=== PATIENT | male | born 1965 | race Caucasian/White ===

== ENCOUNTER 2024-12-28 09:34 | Inpatient (IN) | payer BC ==
[~2024-12-28] VITALS: Ht 172.7 cm; Wt 154.7 kg
[2024-12-28] VITALS (7 sets, daily range): BP systolic 126–152; BP diastolic 70–83; PULSE 95–108; RESP 18–23; TEMP 98.4–98.5; O2SAT 96–98
--- NOTE | 2024-12-28 09:43 | EKG ---
[facility] Test Date: 2024-12-28 Test Time: 09:38:14 Pat Name: KINGA JONES Department: ED Room: 228 Gender: M Combine Inspector: [id number] : 1965 Requested By: MOISES IQBAL Order Number: [id number] Reading MD: Samson Lomax Measurements Intervals [place] Rate: 140 P: 18 ME: 139 QRS: 53 QRSD: 84 T: 10 QT: 285 QTc: 436 Interpretive Statements Sinus tachycardia No previous ECG available for comparison Electronically Signed On 12-28-2024 15:54:04 CDT by Samson Lomax Please click the below link to view image of tracing.
--- NOTE | 2024-12-28 09:52 | ERN ---
General Chief Complaint: Shortness of Breath Stated Complaint: SOB Time Seen by MD: 09:36 Source: patient History of Present Illness Initial Comments Patient is a 59-year-old male coming in with multiple complaints. Per EMS patient has a being evaluated by his primary care physician Dr. Melgar that has concerns because patient presented with shortness of breath and diaphoresis patient does has a history of stent placement he also has a history of WPW. Allergies: Coded Allergies: No Known Drug Allergies (Unverified Allergy, Unknown, 12/28/24) Past Medical History Past Medical History: Depression, Hypertension, Other Medical History Other: TACHYCARDIA, MORBID OBESITY, MCBRIDE PARKINSON WHITE SYNDROME, SLEEP APNEA Past Surgical History: Other Surgical History Other: LEFT HEART CATH WITH CARDIAC STENT PLACEMENT, GASTRIC BYPASS. ROS Dictation CONSTITUTIONAL: No chills, no fever, no weakness, no diaphoresis, no malaise. HEAD/FACE: No signs of trauma. EENT: No eye pain, no blurred vision, no tearing, no double vision, no ear pain, no ear discharge, no nose pain, no nasal congestion, no throat pain, no throat swelling, no mouth pain. RESPIRATORY: No cough, no orthopnea, SOB, no stridor, no wheezing. CARDIOVASCULAR: No chest pain, no edema, palpitations, no syncope. GASTROINTESTINAL/ABDOMINAL: No abdominal pain, no constipation, no diarrhea, no nausea, no vomiting. GENITOURINARY: No abnormal discharge, no dysuria, no frequent urination, no hematuria. No complaints of pain in the genitals. MUSCULOSKELETAL: No back pain, no gout, no joint pain, no joint swelling, no muscle pain, no muscle stiffness, no neck pain. INTEGUMENTARY: No change in color, no change in hair/nails, no dryness, no lesion, no lumps, no rash. NEUROLOGICAL/PSYCH: No anxiety, not depressed, no emotional problem, no headache, no numbness, no pre-existing deficit, no history of seizures, no tremors, no weakness. HEMATOLOGIC/LYMPHATIC: Not anemic, no history of blood clots, no apparent bleeding, no bruising, glands not swollen. All Systems Negative, Except as Noted. Physical Exam Physical Exam Dictation VITAL SIGNS: Reviewed. GENERAL APPEARANCE: Alert, oriented x3, no acute distress, obese. HEAD AND FACE: Non-traumatic. EYES: PERRL, pink conjunctivas, eyelid no trauma, anterior chamber clear. EARS: Pinnas intact and no signs of trauma or erythema. Ear canals clear and no discharge. TMs no erythema. NOSE: No discharge, no bleeding. OROPHARYNX: Mouth normal, teeth no caries, tongue pink. Pharynx clear, no erythema. Tonsils no exudates, no abscesses noted. Mucous membrane moist. NECK: Supple, non-tender, no thyromegaly, no masses, no JVD, no bruits. BREAST: Deferred. CHEST: No tenderness, no crepitus, no paradoxical movement, no retractions. LUNGS: Clear, well-ventilated, symmetric, no rales, no wheezing, no rhonchi, no stridor, good breath sounds bilaterally. HEART: Regular rate, regular rhythm, no murmur, no gallops. VASCULAR: No peripheral edema. ABDOMEN: Soft, positive bowel sounds, nondistended, no guarding, nontender, no rebound, no masses no hepatomegaly, no splenomegaly, no Boyle's sign, no hernias. RECTAL: Deferred. GENITAL: Deferred. NEUROLOGICAL: Normal speech, gross motor function intact, gross sensory function intact. MUSCULOSKELETAL: Neck nontender, full range of motion, back nontender, full range of motion. EXTREMITIES: Nontender, full range of motion. SKIN: Color pink, dry, no turgor, no rash, no lacerations, no abrasions, no contusions. LYMPHATICS: Deferred. Results Laboratory and Microbiology Lab and Micro Result Laboratory Tests Test 12/28/24 10:11 12/28/24 10:55 White Blood Count 13.0 K/uL (4.8-10.8) H Red Blood Count 5.71 MIL/uL (4.50-6.20) Hemoglobin 15.7 g/dL (14.0-18.0) Hematocrit 46.7 % (42-54) Mean Corpuscular Volume 81.8 fL (79-99) Mean Corpuscular Hemoglobin 27.5 pg (27.0-33.0) Mean Corpuscular Hemoglobin Concent 33.6 g/dL (32.0-36.0) Red Cell Distribution Width 17.9 % (11.0-15.5) H Platelet Count 123 K/uL (130-400) L Mean Platelet Volume 11.3 fL (7.5-10.5) H Immature Granulocyte % (Auto) 0.5 % (0-1) Neutrophils (%) (Auto) 84.5 % (40.0-77.0) H Lymphocytes (%) (Auto) 7.9 % (21.0-51.0) L Monocytes (%) (Auto) 6.9 % (3.0-13.0) Eosinophils (%) (Auto) 0.0 % (0.0-8.0) Basophils (%) (Auto) 0.2 % (0.0-5.0) Neutrophils # (Auto) 11.0 K/uL (1.8-7.7) H Lymphocytes # (Auto) 1.0 K/uL (1.0-4.8) Monocytes # (Auto) 0.9 K/uL (0.1-1.0) Eosinophils # (Auto) 0.00 K/uL (0.00-0.70) Basophils # (Auto) 0.02 K/uL (0.00-0.20) Absolute Immature Granulocyte (auto 0.06 K/uL (0-1) Nucleated Red Blood Cells 0.0 % (0.0-0.19) White Cell Morphology Comment See comments Sodium Level 132 mmol/L (136-145) L Potassium Level 4.1 mmol/L (3.5-5.1) Chloride Level 96 mmol/L (101-111) L Carbon Dioxide Level 28 mmol/L (21-32) Blood Urea Nitrogen 28 mg/dL (7-18) H Creatinine 1.8 mg/dL (0.5-1.3) H Glomerular Filtration Rate Calc 43 mL/min (>90) Random Glucose 121 mg/dL (70-105) H Total Calcium 8.3 mg/dL (8.5-10.1) L Magnesium Level 1.90 mg/dL (1.80-2.40) Troponin I High Sensitivity 182 ng/L (4-75) *H 189 ng/L (4-75) *H B-Type Natriuretic Peptide 44 pg/mL (0-100) EKG/XRAY/US/CT/MRI EKG Comment 12/28/2024 time 9:38 a.m. Ventricular rate 140 Sinus tachycardia MI [address] wave elevation or depression X-RAY Comment IMAGING REPORT Signed PATIENT: KINGA JONES MR#: [id number] : 1965 SEX: M AGE: 59 LOCATION: [facility] ORDER 7 STATUS: [facility] ER REPORT#: [id number] SERVICE REASON: sob ORDERING PHYSICIAN: MOISES IQBAL MD PROCEDURE: CXR1VW - CHEST 1VW EXAM: CR Chest, 1 View. CLINICAL HISTORY: sob COMPARISON: None provided. FINDINGS: LUNGS: The lungs show no infiltrate or other acute finding. PLEURAL SPACES: No pleural effusion or pneumothorax. MEDIASTINUM: Cardiac size and mediastinal contours within normal limits. BONES: No aggressive appearing osseous lesion seen. IMPRESSION: No acute cardiopulmonary pathology is evident. /[place] DICTATED BY: MARY JO LIM MD DATE: 12/28/241157 ELECTRONICALLY SIGNED BY: MARY JO LIM MD DATE: 12/28/241157 MDM MDM: Differential diagnosis: Tachycardia, dehydration, LANE, ACS, Rationale: Tests considered and ordered secondary to shared decision making include: labs, ECG and radiology Previous outside records reviewed: Old ER visits. Risk of complication and/or morbidity or mortality of patient management: None Medications-Per medication reconciliation Need for hospitalization: Patient does meet criteria for hospitalization. Need for emergency major/minor surgery: No There are no social concerns with this patient. Prescription drug management Prescriptions will include symptomatic care Patient's prior external medical records from other ER visits were reviewed by me as indicated. Prior testing and results from previous visits were reviewed. Prior tests were taken into account with medical decision making and resource utilization, independent historian/historians were used to obtain complete medical history. I independently interpreted the test that were performed, results were reviewed by me and considered findings on radiology if ordered. Medical management and examination interpretation discussions were had by me with other qualified healthcare professionals as indicated for the patient's care. Patient is a 59-year-old gentleman coming in complaining of diaphoresis generalized body weakness and diarrheal episodes. Laboratory workup elevated troponin, patient states that he has not been taking his medications as indicated. Patient will be admitted under the care of hospitalist group for ongoing management. ED Course Orders Procedure Category Date Status Time Cbc With Differential LAB 12/28/24 Complete 09:37 Chest 1vw RAD 12/28/24 Resulted 09:37 12 Lead Ekg Tracing- EKG 12/28/24 Complete Technical 09:37 Magnesium LAB 12/28/24 Complete 09:37 Troponin I High LAB 12/28/24 Complete Sensitivity 09:37 Urinalysis Profile LAB 12/28/24 Logged 09:37 Basic Metabolic Panel LAB 12/28/24 Complete 09:37 B-Type Natriuretic LAB 12/28/24 Complete Peptide 09:37 Procainamide Hcl PHA 12/28/24 Complete (Pronestyl) 10:00 Metoprolol Tartrate PHA 12/28/24 Complete (Lopressor) 10:30 Aspirin 325mg Tab PHA 12/28/24 Complete (Aspirin 325mg Tab) 11:00 Troponin I High LAB 12/28/24 Complete Sensitivity 10:42 Current Medications Medications (Trade) Dose Ordered Sig/Donald Route PRN Reason Start Time Stop Time Status Last Admin Dose Admin Aspirin (Aspirin 325mg Tab) 325 mg ONCE ONCE PO 12/28/24 11:00 12/28/24 11:01 DC 12/28/24 10:46 Metoprolol Tartrate (loprESSOR) 5 mg ONCE ONCE IV 12/28/24 10:30 12/28/24 10:31 DC 12/28/24 10:38 Procainamide HCl 2000 mg/Sodium Chloride 250 ml @ 0 mls/hr PROTOCOL IV 12/28/24 10:00 12/28/24 10:42 DC Vital Signs Date Time Temp Pulse Resp B/P (MAP) Pulse Ox O2 Delivery O2 Flow Rate FiO2 12/28/24 11:15 98.2 116 22 127/87 98 Nasal Cannula* 3 32 12/28/24 10:38 128 139/91 12/28/24 10:09 98.6 128 20 139/91 97 Nasal Cannula* 3 32 12/28/24 09:39 97.9 20 110/74 96 Room Air 2.0 Critical Care Note Comments Critical Care Procedure Note Authorized and Performed by: me Total critical care time: Approximately 36 minutes Due to a high probability of clinically significant, life threatening deterior ation, the patient required my highest level of preparedness to intervene emergently and I personally spent this critical care time directly and personally managing the patient. This critical care time included obtaining a history; examining the patient; pulse oximetry; ordering and review of studies; arranging urgent treatment with development of a management plan; evaluation of patient's response to treatment; frequent reassessment; and, discussions with other providers. This critical care time was performed to assess and manage the high probability of imminent, life-threatening deterioration that could result in multi-organ failure. It was exclusive of separately billable procedures and treating other patients and teaching time. Please see MDM section and the rest of the note for further information on patient assessment and treatment. DX & DISP Disposition: Inpatient Decision to Admit Time: 11:27 Departure Impression: Primary Impression: LANE (acute kidney injury) Additional Impressions: ACS (acute coronary syndrome), Sinus tachycardia, Dehydration Condition: Stable Referrals: KATHERINE ROSS MD (PCP) MOISES IQBAL MD Dec 28, 2024 09:52
[2024-12-28] MEDS ORDERED: NACL 0.9% IV SCH (10:00)
[2024-12-28] MEDS ORDERED: PROCAINAMIDE HCL IV SCH (10:00)
[2024-12-28 10:19] LABS: IMMATURE GRANULOCYTE ABSOLUTE 0.06 K/uL (0-1); NUCLEATED RED BLOOD CELLS 0.0 % (0.0-0.19); PLATELET COUNT (AUTO) 123 K/uL (130-400); RED BLOOD CELL COUNT(AUTO) 5.71 MIL/uL (4.50-6.20); RED CELL DISTRIBUTION WIDTH 17.9 % (11.0-15.5); WHITE BLOOD COUNT (AUTO) 13.0 K/uL (4.8-10.8)
[2024-12-28 10:26] LABS: CREATININE 1.8 mg/dL (0.5-1.3); GLOMERULAR FILTR. RATE CALC 43.0 mL/min (>90); GLUCOSE,RANDOM 121.0 mg/dL (70-105); SODIUM SERUM 132.0 mmol/L (136-145); UREA NITROGEN, BLOOD 28.0 mg/dL (7-18)
[2024-12-28] MEDS: ASPIRIN 325MG TAB PO ONE (10:46)
--- NOTE | 2024-12-28 10:59 | HMCIMG ---
EXAM: CR Chest, 1 View. CLINICAL HISTORY: sob COMPARISON: None provided. FINDINGS: LUNGS: The lungs show no infiltrate or other acute finding. PLEURAL SPACES: No pleural effusion or pneumothorax. MEDIASTINUM: Cardiac size and mediastinal contours within normal limits. BONES: No aggressive appearing osseous lesion seen. IMPRESSION: No acute cardiopulmonary pathology is evident. /[place]
[2024-12-28] MEDS ORDERED: 0.9%NACL 50ML IV SCH (12:00)
[2024-12-28 12:02] LABS: INR 1.17 (0.85-1.15)
--- NOTE | 2024-12-28 12:17 | HP ---
[facility] HISTORY AND PHYSICAL Date of Service: Dec 28, 2024 Time of Service: 12:09 HISTORY OF PRESENT ILLNESS: Date of service: 12/28/2024 patient was seen in ER room two This is a 59-year-old male with underlying history of hypertension, morbid obesity, hyperlipidemia, obstructive sleep apnea, history of Vkiop-Jqhccuvcy-Enkmt syndrome, coronary artery disease with prior history of CT, who presented to the ER for further evaluation of generalized malaise, poor oral intake, diaphoresis and shortness of breadth. Symptoms have been ongoing for the past three days and has been progressive. Patient has been having nonresolving shortness of breath with no associated chest pain or pleurisy. Denies any productive cough, syncope/presyncope, wheezing or chest congestion. Denies having subjective fevers. Patient has been having malaise and has been having some generalized weakness. Denies recent travel or significant lower extremity swelling. Patient reports that he is followed by Dr. Gonzalez with Cardiology as outpatient. He has not seen Dr. Gonzalez for more than 10 years. Patient has underlying history of coronary artery disease and previously has had CT in 2007. He has had of multiple cardiac stents previously. Also reports having history of Wxtxp-Rayxxrppv-Nbpss syndrome and has had two prior cardiac ablation done with last one being in 2014. Prior to getting ill, patient denied having exertional chest pain or significant cardiac symptoms. Patient reports having poor oral intake with episodes of nausea and vomiting. Denies any diarrhea. Denies any significant abdominal pain. On presentation to the hospital, patient was noted to be diaphoretic w/ T-max of 99.3 F, heart rate of 128, blood pressure of 110/74 and patient was needing 3 L of O2 supplementation by nasal cannula. [place] [address], hemoglobin 15.7, platelet count of 536288. BMP remarkable for sodium of 132, potassium 4.1, CO2 of 28, BUN of 28, creatinine 1.8, cardiac troponin was noted to be at 182 and 189. Chest x-ray showed no significant infiltrates. Patient we will be admitted to hospitalist service. Consultation with Cardiology will be requested rule out active ACS. Patient will also undergo further evaluation to rule out DVT/PE. Patient will receive IV fluids, IV antibiotics, and we will rule out occult sepsis as well. Monitor this patient closely and prognosis remains guarded, anticipate hospitalization for at least 48-72 hours. REVIEW OF SYSTEMS CONSTITUTIONAL: generalized fatigue, malaise NEUROLOGICAL: Denies headache, amaurosis fugax, motor weakness, sensory deficit, vertigo/spinning sensation, gait abnormalities, or tremors. ENT: No hearing loss, otalgia, otorrhea, rhinitis, rhinorrhea, hoarseness, or sore throat. CARDIOVASCULAR: Denies any exertional angina, dyspnea on exertion, orthopnea, paroxysmal nocturnal dyspnea, palpitations, life-threatening arrhythmias, claudication. PULMONARY: Shortness of breath, diaphoresis SLEEP: Denies morning headaches, daytime somnolence or napping. Denies difficulty falling asleep, staying asleep, waking from sleep. Denies knowledge of snoring. GASTROINTESTINAL: reports having nausea and vomiting GENITOURINARY: Denies frequency, urgency, nocturia, hematuria or incontinence (Storage/Irritative symptoms.) Low urinary stream, straining to void, urinary intermittency or hesitancy, splitting of the voiding stream, terminal dribbling. ENDOCRINOLOGIC: Denies polyuria, polydipsia, polyphagia or heat/cold intolerances. HEMATOLOGIC: Denies thrombophilia/previous clots, or coagulopathy/bleeding disorders. ONCOLOGIC: Denies personal history of malignancy. DERMATOLOGIC: Denies rashes or pruritus. PSYCHIATRIC: Denies any suicidal or homicidal ideation. Denies hallucinations. PAST MEDICAL HISTORY: Coronary artery disease, history of Itojc-Qigtvmqnx-Aylmf syndrome, obstructive sleep apnea, morbid obesity, depression, history of chronically elevated LFTs, history of vitamin-D deficiency history of lump in right breast, hyperlipidemia PAST SURGICAL HISTORY: Cardiac catheterization with prior history of stenting in 2005, 2007, 2013, history of cardiac ablation for WPW syndrome, left hand surgery, history of gastric bypass surgery PAST SOCIAL HISTORY: Denies active smoking or alcohol consumption, patient resides with a friend at home FAMILY HISTORY: Father in the age of 49, father with be of heart disease, kidney disease Allergies: No known drug allergies Home medications: Aspirin 81 mg daily, atorvastatin 80 mg daily, bupropion XL 150 mg daily, metoprolol succinate 25 mg daily, zolpidem 5 mg daily, vitamin-D two 1250 mcg every two weeks Coded Allergies: No Known Drug Allergies (Unverified Allergy, Unknown, 12/28/24) PHYSICAL EXAM GENERAL APPEARANCE: The patient is awake, alert, patient appears very diaphoretic, currently on 3 L supplementation by nasal cannula, patient is morbidly obese NEUROLOGICAL: Cranial nerves II-XII grossly intact. Examination is nonfocal for the patient HEENT: Face is symmetric. Pupils are equal and reactive. Extraocular movements are intact. NECK: Supple. No JVD. No thyromegaly. No submental, submandibular, pre- /postauricular, occipital or supraclavicular lymphadenopathy. CHEST: Normal chest expansion. No Telemetry. LUNGS: Minimal crackles noted at bilateral lung bases CARDIOVASCULAR: Regular. S1 and S2 normal. Tachycardic was ABDOMEN: Soft, nontender, and nondistended. There is no rebound, voluntary guarding, or rigidity. : Deferred. No [place]. EXTREMITIES: Non-edematous and not cyanotic. No clubbing. Good capillary refill. SKIN: No skin breakdown. Vital Sign (Last 24 Hours) 12/28/24 11:41 Temp 99.3 Pulse 105 Resp 25 B/P (MAP) 131/71 Pulse Ox 98 O2 Delivery Nasal Cannula* O2 Flow Rate 3 FiO2 32 LABS: Laboratory: Test 12/28/24 10:55 12/28/24 10:11 Range/Units Troponin I High Sensitivity 189 *H 4-75 ng/L White Blood Count 13.0 H 4.8-10.8 K/uL Red Blood Count 5.71 4.50-6.20 MIL/uL Hemoglobin 15.7 14.0-18.0 g/dL Hematocrit 46.7 42-54 % Mean Corpuscular Volume 81.8 79-99 fL Mean Corpuscular Hemoglobin 27.5 27.0-33.0 pg Mean Corpuscular Hemoglobin Concent 33.6 32.0-36.0 g/dL Red Cell Distribution Width 17.9 H 11.0-15.5 % Platelet Count 123 L 130-400 K/uL Mean Platelet Volume 11.3 H 7.5-10.5 fL Immature Granulocyte % (Auto) 0.5 0-1 % Neutrophils (%) (Auto) 84.5 H 40.0-77.0 % Lymphocytes (%) (Auto) 7.9 L 21.0-51.0 % Monocytes (%) (Auto) 6.9 3.0-13.0 % Eosinophils (%) (Auto) 0.0 0.0-8.0 % Basophils (%) (Auto) 0.2 0.0-5.0 % Neutrophils # (Auto) 11.0 H 1.8-7.7 K/uL Lymphocytes # (Auto) 1.0 1.0-4.8 K/uL Monocytes # (Auto) 0.9 0.1-1.0 K/uL Eosinophils # (Auto) 0.00 0.00-0.70 K/uL Basophils # (Auto) 0.02 0.00-0.20 K/uL Absolute Immature Granulocyte (auto 0.06 0-1 K/uL Nucleated Red Blood Cells 0.0 0.0-0.19 % White Cell Morphology Comment See comments Erythrocyte Sedimentation Rate 67 H 0-20 MM/HR Prothrombin Time 12.2 H 9.6-11.6 SEC Prothromb Time International Ratio 1.17 H 0.85-1.15 Activated Partial Thromboplast Time 29.3 26.3-35.5 SEC Sodium Level 132 L 136-145 mmol/L Potassium Level 4.1 3.5-5.1 mmol/L Chloride Level 96 L 101-111 mmol/L Carbon Dioxide Level 28 21-32 mmol/L Blood Urea Nitrogen 28 H 7-18 mg/dL Creatinine 1.8 H 0.5-1.3 mg/dL Glomerular Filtration Rate Calc 43 >90 mL/min Random Glucose 121 H 70-105 mg/dL Hemoglobin A1c 5.8 4.0-6.0 % Estimated Average Glucose (eAG) 120 70-126 mg/dL Total Calcium 8.3 L 8.5-10.1 mg/dL Magnesium Level 1.90 1.80-2.40 mg/dL B-Type Natriuretic Peptide 44 0-100 pg/mL Current Medications Medications (Trade) Dose Ordered Sig/Donald Route PRN Reason Start Time Stop Time Status Last Admin Dose Admin Acetaminophen (TYLenol 325MG TAB) 650 mg Q6H PRN PO MILD PAIN (1-3) 12/28/24 12:00 01/27/25 11:59 Aspirin (Aspirin 81mg Chew Tab) 81 mg DAILY PO 12/29/24 09:00 01/28/25 08:59 Enoxaparin Sodium (Lovenox) 40 mg DAILY SQ 12/29/24 09:00 01/28/25 08:59 Famotidine (Pepcid 20mg Vial) 20 mg Q24H IV 12/28/24 21:00 01/27/25 20:59 Ipratropium Calvin (AtrovENT UD) 1 mg Q6H PRN IH SHORTNESS OF BREATH 12/28/24 12:00 01/27/25 11:59 Metoprolol Succinate (TopROL XL) 25 mg DAILY PO 12/28/24 13:00 01/27/25 12:59 Ondansetron HCl (zoFRAN 4MG INJ) 4 mg Q6H PRN IVP NAUSEA/VOMITING 12/28/24 12:00 01/27/25 11:59 Piperacillin Sod/ Tazobactam Sod (Zosyn 3.375gm+NS 50ml) 3.375 gm Q8H IVPB 12/28/24 12:00 01/07/25 11:59 Procainamide HCl 2000 mg/Sodium Chloride 250 ml @ 0 mls/hr PROTOCOL IV 12/28/24 10:00 12/28/24 10:42 DC Sodium Chloride 1,000 ml @ 100 mls/hr Q10H IV 12/28/24 12:00 01/27/25 11:59 Sodium Chloride (NS 50ml) 50 ml AD IV 12/28/24 12:00 12/28/24 11:59 DC Thiamine HCl (Vitamin B-1) 100 mg Q24H IVP 12/28/24 12:00 01/27/25 11:59 Vitamin B Complex/ Vit C/Folic Acid (Nephrovite Tablet) 1 cap DAILY PO 12/29/24 09:00 01/28/25 08:59 DIAGNOSTICS / RADIOLOGY: SERVICE [id number] REASON: sob ORDERING PHYSICIAN: MOISES IQBAL MD PROCEDURE: CXR1VW - CHEST 1VW EXAM: CR Chest, 1 View. CLINICAL HISTORY: sob COMPARISON: None provided. FINDINGS: LUNGS: The lungs show no infiltrate or other acute finding. PLEURAL SPACES: No pleural effusion or pneumothorax. MEDIASTINUM: Cardiac size and mediastinal contours within normal limits. BONES: No aggressive appearing osseous lesion seen. IMPRESSION: No acute cardiopulmonary pathology is evident. /[place] DICTATED BY: MARY JO LIM MD DATE: 12/28/241157 ELECTRONICALLY SIGNED BY: MARY JO LIM MD DATE: 12/28/245 ASSESSMENT: Acute hypoxemic respiratory failure, POA Elevated cardiac troponin, rule out active ACS, POA Rule out DVT/PE, POA Acute Kidney injury, POA Hyponatremia, POA Morbid obesity, POA Sinus tachycardia, POA Rule out occult sepsis, POA Thrombocytopenia, POA, mild Underlying history of obstructive sleep apnea, POA Hypertension, POA Hyperlipidemia, POA History of CT, POA History of coronary artery disease with prior history of PCI, POA History of Shsng-Kfnroyfxv-Frtqn syndrome with prior history of cardiac ablation, POA History of depression, POA Prior history of gastric bypass surgery, POA Hx of fatty liver diesease, POA Cholelithiasis, POA PLAN: Patient will be admitted to cardiac telemetry floor We will obtain arterial blood gas to assess for hypoxemia, we will check a D- dimer level, if significantly elevated, we will obtain a CT PE protocol, we will obtain a lower extremity venous Doppler We will trend cardiac panel to rule out active ACS We will obtain a 2D echocardiogram Titrate supplemental O2 therapy to maintain oxygen saturations greater than 92% Consultation with Cardiology will be requested Consultation with pulmonology and Nephrology will be requested We will start patient on IV saline at 100 mL/hour, we will start patient on empiric Zosyn, we will follow up blood cultures, CRP and procalcitonin, we will check a urinalysis and rule out active infection, we will check flu and COVID testing Patient's Friend at bedside as noted that patient has been more lethargic since yesterday with symptoms of inattention and has been complaining of generalized weakness, today when he brought pt to the ED, he noticed that patient might gait unsteadiness and he noticed that patient complaint of feeling like he might fall to the left side we will obtain a CT head without contrast, we will check ammonia level We will check a lactic acid level, we will monitor this patient closely, we will start patient on aspirin therapy, if troponin significantly increase, we will consider IV anticoagulation All labs will be repeated in the morning Continue CPAP therapy tonight Addendum, 1999, 12/29/2024: On review of further results including diagnostic imaging performed, CT head showed findings of possible CVA involving the right caudate nucleus. MRI Brain showed findings of Acute infarct in the right basal ganglia, and small acute infarct in the left occipital lobe. CT PE was negative for PE but showed findings of acute pancreatitis with cholelithiasis with possible basilar pneumonia vs basilar atelectasis. Review of MRI Angiogram of head/neck showed findings of Paucity of signal in the left vertebral artery; left vertebral artery dissection cannot be entirely excluded. Findings of acute CVA was discussed with Dr. Butcher with Neurology, plan to continue Aspirin 81 mg daily, we will repeat CT head without contrast tomorrow to ensure there is no hemorrhagic transformation of stroke. If no bleeding, patient will be placed on dual antiplatelet therapy with aspirin and plavix tomorrow. Per Dr. Butcher on review of MRI brain, there might be small area of petechial hemorrhage around the area of stroke. Plan to repeat CT head tomorrow to further assess and rule out any hemorrhagic transformation. With regards to findings of MRI Angiogram,, it does not correlate with region of stroke. I have broadened abx to Zosyn and Doxycycline to cover for pneumonia. Findings have all been updated with the patient. Patient will benefit from outpatient evaluation by General surgery for cholecystectomy once he recovers from stroke, pneumonia and will have cardiology evaluate patient with regards to elevated troponin likely demand ischemia. 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 Yes _x_ No __ Amount of time spent: 20 minutes LIVE SAHA MD Dec 28, 2024 12:16
[2024-12-28] MEDS: 0.9%NACL 1000ML 1,000 ML IV SCH (12:19)
[2024-12-28] MEDS: THIAMINE HCL 100 MG/ML 2ML VIAL IVP SCH (12:19)
[2024-12-28] MEDS: ZOSYN 3.375GM +NS 50ML IVPB SCH (12:19)
[2024-12-28 12:44] LABS: ASPARTATE AMINOTRANSFERASE 65.0 U/L (10-37); TOTAL PROTEIN, SERUM 7.4 g/dL (6.0-8.3)
[2024-12-28 12:45] LABS: SARS-CoV-2, RNA, NAAT NEGATIVE SARS CoV-2 (NEGATIVE)
[2024-12-28 12:48] LABS: INFLUENZA TYPE A Negative For Type A (NEGATIVE); INFLUENZA TYPE B Negative For Type B (NEGATIVE)
[2024-12-28] MEDS ORDERED: IOHEXOL-350 75 ML VIAL IV ONE (12:57)
[2024-12-28 13:25] LABS: ABG BASE EXCESS -1.6 mmol/L (-2.0-3.0); ABG HCO3 21.1 mmol/L (21.0-28.0); ABG OXYGEN SATURATION 97.0 % (94.0-98.0); ABG PCO2 31 mmHg (35-48); ABG PH 7.457 (7.350-7.450); CARBON MONOXIDE 1.3 % (0.5-1.5); DEVICE COMMENT RR OSCAR; PO2, ARTERIAL BG 94.4 mmHg (83.0-108.0); TEMPERATURE, CELSIUS BG 37.0 CELSIUS (35.5-37.0); VENT MODE, BG 2LNC (ROOM AIR)
--- NOTE | 2024-12-28 13:35 | HMCIMG ---
EXAM: US for Deep Venous Thrombosis, bilateral Lower Extremity. CLINICAL HISTORY: Leg Pain and Swelling TECHNIQUE: Real-time ultrasound scan of the veins of the bilateral lower extremity with color Doppler flow, spectral waveform analysis and compression. COMPARISON: None provided. FINDINGS: DEEP VEINS: The common femoral, superficial femoral, and popliteal veins are echolucent and compressible. There is normal color Doppler flow throughout. The visualized calf veins appear patent. SOFT TISSUES: No popliteal fossa cyst or other abnormalities. IMPRESSION: 1. No evidence of deep venous thrombosis in the bilateral lower extremities. /[place]
[2024-12-28 13:37] LABS: LACTATE DEHYDROGENASE 293.0 U/L (81-234)
--- NOTE | 2024-12-28 13:43 | HMCIMG ---
EXAM: CT Head Without IV contrast. CLINICAL HISTORY: generalized weakness, mild confusion per friend TECHNIQUE: Axial computed tomography images of the head/brain without intravenous contrast. COMPARISON: None provided. FINDINGS: BRAIN: A relatively well-defined hypodensity involving the right caudate nucleus and the anterior aspect of the gangliocapsular region can be an acute to subacute non-haemorrhagic infarct. No evidence of acute hemorrhage. No midline shift or extra-axial collections. VENTRICLES: No hydrocephalus. ORBITS: The orbits are unremarkable. SINUSES AND MASTOIDS: The paranasal sinuses and mastoid air cells are clear. BONES: No fracture. SOFT TISSUES: Unremarkable. IMPRESSION: 1. Hypodensity in the right caudate nucleus and anterior gangliocapsular region, likely representing an acute to subacute non-hemorrhagic infarct. Recommend MRI for further evaluation. 2. No acute intracranial hemorrhage, midline shift, or extra-axial collections. /[place]
--- NOTE | 2024-12-28 14:08 | HMCIMG ---
EXAM: CTA Chest with and without Intravenous Contrast for PE evaluation CLINICAL HISTORY: SOB, significantly elevated D-Dimer, r/o Pulmonary embolism TECHNIQUE: Axial CTA images of the chest with and without intravenous contrast using a pulmonary embolism protocol. Multiplanar reconstructed images were created and reviewed. COMPARISON: None provided. FINDINGS: PULMONARY ARTERIES: No evidence of central or segmental pulmonary embolism is seen. AORTA: There is no evidence for aneurysm or dissection of the thoracic aorta. Atherosclerotic changes in the aorta. LUNGS: There is mild dependent airspace disease within the bilateral lower lobes that is presumed to reflect atelectasis. PLEURAL SPACES: No evidence of pneumothorax. No pleural effusion. HEART: Mild cardiomegaly. Atherosclerosis of the coronary arteries. No significant pericardial effusion. LYMPH NODES: No lymphadenopathy is evident. BONES: No focal osseous abnormality or acute fracture. Mild degenerative changes in the spine. UPPER ABDOMEN: Multiple small hyperdense calculi in the gallbladder with no evidence of wall thickening. The pancreas appears bulky with mild peripancreatic fluid and fat stranding, and there is thickening of the left anterior renal fascia. Surgical sutures noted along stomach. Mild perihepatic fluid. IMPRESSION: 1. No evidence of pulmonary embolism. 2. Cholelithiasis without CT evidence for cholecystitis. 3. Acute pancreatitis. /[place]
--- NOTE | 2024-12-28 14:57 | NUR ---
DCP:HOME Pt currently lives with a friend [place], in her home. Pt does not have any DME, home health, or provider services. Pt states that he is able to complete ADLs independently. PCP is Dr. Tremayne Hernandez and uses [facility] for any RX needs. At [place] pt will want to go home and friends will assist with transportation services. Addendum: 12/28/24 at 1459 by JEFFREY KIDD SS Amended: Links added.
[2024-12-28] MEDS: DOXYCYCLINE 100MG+NS 250ML 250 ML IV SCH (15:07)
--- NOTE | 2024-12-28 15:32 | NUR ---
REPORT GIVEN TO CARMELA FRANCOIS, TANIA SENT UP WITH PATIENT
[2024-12-28 15:47] LABS: CREATINE KINASE, TOTAL 439.0 U/L (21-232)
[2024-12-28 16:03] LABS: LDL DIRECT 49 mg/dL (0-99)
--- NOTE | 2024-12-28 16:06 | NUR ---
I LET CARMELA FRANCOIS KNOW AT BEDSIDE THAT PATIENT IS STILL DUE TO VOID, PATIENT RESTING IN BED AFTR TRANSFER, FAMILY AT BEDSIDE
--- NOTE | 2024-12-28 16:13 | CONS ---
[facility] CONSULTATION NOTE Date Patient Seen: Dec 28, 2024 Time of Visit: 15:42 Supervising Physician: Teodoro Apple MD Reason for Consultation: [facility] Primary Care Physician: Tremayne Hernandez MD Outpatient Specialists: [ ] Inpatient Consults: SVETA, DR Butcher, Dr King, Dr Cramer, Dr Saleh PROBLEM LIST: Acute hypoxemic respiratory failure, POA Severe sepsis with MODS POA NSTEMI POA acute to subacute non-hemorrhagic CVA POA Acute pancreatitis, Lilli's criteria 1pont (1% predicted mortality) POA Cholelithiasis Elevated D-dimer negative for PE and DVT to lower extremities Acute Kidney injury, POA Mild thrombocytopenia Thrombocytopenia, POA, mild Essential hypertension, POA Hyperlipidemia, POA Comorbidities: DIYA on CPAP at home Prior Myocardial infarction Coronary artery disease with prior PCI 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 As per patient's friend who is at the bedside he noticed him being slower and slightly confused yesterday and they went to check on him today at home. Initially friends noticed that patient did not answer his door and it had to be open with the spare latham. Once in the home patient was slow to get out of his room and appeared to have poor balance. He was taken to his primary care physician and there he was referred to the ED for evaluation. On arrival to the ED patient was afebrile with a heart rate of 128 beats per minute sinus tachy hemodynamically stable with a blood pressure 110/74 saturatin g 96% on 2 L via nasal cannula. Laboratory was pertinent for white count of platelet count of 123 K neutrophils of 84.5 ESR of 67. Sodium of132 chloride of 96 BUN28 creatinine 1.8 GFR of43 and [id number] mg/dL. Initial sensitive troponin was 1BNP of 44 procalcitonin of 3.0. TSH of 4.31. Chest x-ray with no acute cardiopulmonary pathology. Venous Doppler to bilateral lower extremity with no evidence of DVT. Head CT with a hypodensity in the right caudate nucleus and anterior ganglia capsular region. Likely presenting acute on subacute nonhemorrhagic infarct. Recommended MRI for further evaluation. No acute intracranial hemorrhage or midline shift or extra-axial collections. On CT of the chest no evidence of PE cholelithiasis without CT evidence of cholecystitis Acute pancreatitis. PAST MEDICAL HX: see above PAST SURGICAL HX: noncontributory SOCIAL HISTORY: No tobacco, ETOH, or illicit drug use Coded Allergies: No Known Drug Allergies (Unverified Allergy, Unknown, 12/28/24) REVIEW OF SYSTEMS: Const: + generalized malaise Eyes: no recent vision problems ENT: No congestion, ear pain, or sore throat C/V: no chest pain, palpitations or edema Resp: [+ shortness for breath and DIYA GI: No abdominal pain, nausea, vomiting, constipation, or diarrhea : No incontinence of or dyuria M/S: No joint or pain swelling Skin: No rash Neuro: no headache, focal numbness, or weakness, dizziness or seizures Psych: No depression or anxiety at this time Heme: no abnormal bruising or bleeding Lymph: no swollen glands PHYSICAL EXAM: GENERAL: alert, weak, awake oriented x 3 HEENT: EOMI, Sclera non icteric, moist mucosa NECK: Supple, no JVD, trachea midline LUNGS: Diminished breath sounds bilaterally. No wheezes HEART: Regular rate and rhythm. Normal S1 and S2, without murmurs ABD: Abdomen soft, morbidly obese, nontender. Bowel sounds present EXT: No clubbing cyanosis or edema NEURO: Alert and oriented to person, follows commands Vital Signs (last 8hr) Date Time Temp Pulse Resp B/P (MAP) Pulse Ox O2 Delivery O2 Flow Rate FiO2 12/28/24 15:33 98.2 100 14 143/83 99 Nasal Cannula* 3 32 12/28/24 12:35 105 18 N/Cannula Low lpm 2.0 28 12/28/24 11:41 99.3 105 25 131/71 98 Nasal Cannula* 3 32 12/28/24 11:15 98.2 116 22 127/87 98 Nasal Cannula* 3 32 12/28/24 10:38 128 139/91 12/28/24 10:09 98.6 128 20 139/91 97 Nasal Cannula* 3 32 12/28/24 09:39 97.9 20 110/74 96 Room Air 2.0 LABS: Hematology Labs: Test 12/28/24 10:11 Range/Units White Blood Count 13.0 H 4.8-10.8 K/uL Red Blood Count 5.71 4.50-6.20 MIL/uL Hemoglobin 15.7 14.0-18.0 g/dL Hematocrit 46.7 42-54 % Mean Corpuscular Volume 81.8 79-99 fL Mean Corpuscular Hemoglobin 27.5 27.0-33.0 pg Mean Corpuscular Hemoglobin Concent 33.6 32.0-36.0 g/dL Red Cell Distribution Width 17.9 H 11.0-15.5 % Platelet Count 123 L 130-400 K/uL Mean Platelet Volume 11.3 H 7.5-10.5 fL Immature Granulocyte % (Auto) 0.5 0-1 % Neutrophils (%) (Auto) 84.5 H 40.0-77.0 % Lymphocytes (%) (Auto) 7.9 L 21.0-51.0 % Monocytes (%) (Auto) 6.9 3.0-13.0 % Eosinophils (%) (Auto) 0.0 0.0-8.0 % Basophils (%) (Auto) 0.2 0.0-5.0 % Neutrophils # (Auto) 11.0 H 1.8-7.7 K/uL Lymphocytes # (Auto) 1.0 1.0-4.8 K/uL Monocytes # (Auto) 0.9 0.1-1.0 K/uL Eosinophils # (Auto) 0.00 0.00-0.70 K/uL Basophils # (Auto) 0.02 0.00-0.20 K/uL Absolute Immature Granulocyte (auto 0.06 0-1 K/uL Nucleated Red Blood Cells 0.0 0.0-0.19 % White Cell Morphology Comment See comments Erythrocyte Sedimentation Rate 67 H 0-20 MM/HR Chemistry Labs: Test 12/28/24 13:14 12/28/24 10:55 12/28/24 10:11 Range/Units Lactic Acid Level 1.9 0.8-2.5 mmol/L Ammonia < 10 L 11-32 umol/L Lactate Dehydrogenase 293 H 81-234 U/L C-Reactive Protein, Quantitative 303.60 H 0.5-3.0 mg/L Troponin I High Sensitivity 189 *H 4-75 ng/L Sodium Level 132 L 136-145 mmol/L Potassium Level 4.1 3.5-5.1 mmol/L Chloride Level 96 L 101-111 mmol/L Carbon Dioxide Level 28 21-32 mmol/L Blood Urea Nitrogen 28 H 7-18 mg/dL Creatinine 1.8 H 0.5-1.3 mg/dL Glomerular Filtration Rate Calc 43 >90 mL/min Random Glucose 121 H 70-105 mg/dL Hemoglobin A1c 5.8 4.0-6.0 % Estimated Average Glucose (eAG) 120 70-126 mg/dL Total Calcium 8.3 L 8.5-10.1 mg/dL Magnesium Level 1.90 1.80-2.40 mg/dL Total Bilirubin 2.1 H 0.2-1.0 mg/dL Direct Bilirubin 0.7 H 0.0-0.3 mg/dL Aspartate Amino Transf (AST/SGOT) 65 H 10-37 U/L Alanine Aminotransferase (ALT/SGPT) 123 H 12-78 U/L Alkaline Phosphatase 71 50-136 U/L B-Type Natriuretic Peptide 44 0-100 pg/mL Total Protein 7.4 6.0-8.3 g/dL Albumin 2.9 L 3.5-5.0 g/dL Procalcitonin 3.00 H 0.05-0.5 ng/mL Thyroid Stimulating Hormone (TSH) 4.31 H 0.36-3.74 uIU/mL Coagulation Labs: Test 12/28/24 10:11 Range/Units Prothrombin Time 12.2 H 9.6-11.6 SEC Prothromb Time International Ratio 1.17 H 0.85-1.15 Activated Partial Thromboplast Time 29.3 26.3-35.5 SEC D-Dimer Quantitative (PE/DVT) 4865 *H 0-500 ng/mL DIAGNOSTICS / RADIOLOGY RESULTS: [place] [address] [address] IMAGING REPORT Signed PATIENT: KINGA JONES MR#: [id number] : 1965 SEX: M AGE: 59 LOCATION: [facility] ORDER 1228 STATUS: ADM IN REPORT#: [id number] SERVICE 1215 REASON: SOB, significantly elevated D-Dimer, r/o Pulmonary embolism ORDERING PHYSICIAN: REJI FISCHER MD PROCEDURE: CHES PE - CT CHEST PE PROTOCOL WWO CONT EXAM: CTA Chest with and without Intravenous Contrast for PE evaluation CLINICAL HISTORY: SOB, significantly elevated D-Dimer, r/o Pulmonary embolism TECHNIQUE: Axial CTA images of the chest with and without intravenous contrast using a pulmonary embolism protocol. Multiplanar reconstructed images were created and reviewed. COMPARISON: None provided. FINDINGS: PULMONARY ARTERIES: No evidence of central or segmental pulmonary embolism is seen. AORTA: There is no evidence for aneurysm or dissection of the thoracic aorta. Atherosclerotic changes in the aorta. LUNGS: There is mild dependent airspace disease within the bilateral lower lobes that is presumed to reflect atelectasis. PLEURAL SPACES: No evidence of pneumothorax. No pleural effusion. HEART: Mild cardiomegaly. Atherosclerosis of the coronary arteries. No significant pericardial effusion. LYMPH NODES: No lymphadenopathy is evident. BONES: No focal osseous abnormality or acute fracture. Mild degenerative changes in the spine. UPPER ABDOMEN: Multiple small hyperdense calculi in the gallbladder with no evidence of wall thickening. The pancreas appears bulky with mild peripancreatic fluid and fat stranding, and there is thickening of the left anterior renal fascia. Surgical sutures noted along stomach. Mild perihepatic fluid. IMPRESSION: 1. No evidence of pulmonary embolism. 2. Cholelithiasis without CT evidence for cholecystitis. 3. Acute pancreatitis. /[place] DICTATED BY: NONA KIRBY Jr., MD DATE: 12/28/241505 ELECTRONICALLY SIGNED BY: NONA KIRBY Jr., MD DATE: 12/28/241505 [address] [address] IMAGING REPORT Signed PATIENT: KINGA JONES MR#: [id number] : 1965 SEX: M AGE: 59 LOCATION: [facility] ORDER 1148 STATUS: ADM IN REPORT#: [id number] SERVICE 1144 REASON: assess for lower extremity DVT, edema ORDERING PHYSICIAN: REJI FISCHER MD PROCEDURE: VENOUS LULU - US VENOUS DOPPLER BILATERAL EXAM: US for Deep Venous Thrombosis, bilateral Lower Extremity. CLINICAL HISTORY: Leg Pain and Swelling TECHNIQUE: Real-time ultrasound scan of the veins of the bilateral lower extremity with color Doppler flow, spectral waveform analysis and compression. COMPARISON: None provided. FINDINGS: DEEP VEINS: The common femoral, superficial femoral, and popliteal veins are echolucent and compressible. There is normal color Doppler flow throughout. The visualized calf veins appear patent. SOFT TISSUES: No popliteal fossa cyst or other abnormalities. IMPRESSION: 1. No evidence of deep venous thrombosis in the bilateral lower extremities. /[place] DICTATED BY: NONA KIRBY Jr., MD DATE: 12/28/241433 ELECTRONICALLY SIGNED BY: NONA KIRBY Jr., MD DATE: 12/28/241433 [place] [address] IMAGING REPORT Signed PATIENT: KINGA JONES MR#: [id number] : 1965 SEX: M AGE: 59 LOCATION: [facility] ORDER 7 STATUS: REG ER REPORT#: [id number] SERVICE 0937 REASON: sob ORDERING PHYSICIAN: MOISES IQBAL MD PROCEDURE: CXR1VW - CHEST 1VW EXAM: CR Chest, 1 View. CLINICAL HISTORY: sob COMPARISON: None provided. FINDINGS: LUNGS: The lungs show no infiltrate or other acute finding. PLEURAL SPACES: No pleural effusion or pneumothorax. MEDIASTINUM: Cardiac size and mediastinal contours within normal limits. BONES: No aggressive appearing osseous lesion seen. IMPRESSION: No acute cardiopulmonary pathology is evident. /[place] DICTATED BY: MARY JO LIM MD DATE: 12/28/24 1158 ELECTRONICALLY SIGNED BY: MARY JO LIM MD DATE: 12/28/24 1158 [facility] [address] [place], [place] [id number] IMAGING REPORT Addendum PATIENT: KINGA JONES MR#: [id number] : 1965 SEX: M AGE: 59 LOCATION: [facility] ORDER 1216 STATUS: ADM IN REPORT#: [id number] SERVICE 1202 REASON: generalized weakness, mild confusion per friend ORDERING PHYSICIAN: REJI FISCHER MD PROCEDURE: HEAD WO - CT HEAD/BRAIN W/O CONTRAST ADDENDUM REPORT ADDENDUM: Results were shared by telephone at 14:58 pm on 12/28/24 and acknowledged by Reji Hanson. /[place] EXAM: CT Head Without IV contrast. CLINICAL HISTORY: generalized weakness, mild confusion per friend TECHNIQUE: Axial computed tomography images of the head/brain without intravenous contrast. COMPARISON: None provided. FINDINGS: BRAIN: A relatively well-defined hypodensity involving the right caudate nucleus and the anterior aspect of the gangliocapsular region can be an acute to subacute non-haemorrhagic infarct. No evidence of acute hemorrhage. No midline shift or extra-axial collections. VENTRICLES: No hydrocephalus. ORBITS: The orbits are unremarkable. SINUSES AND MASTOIDS: The paranasal sinuses and mastoid air cells are clear. BONES: No fracture. SOFT TISSUES: Unremarkable. IMPRESSION: 1. Hypodensity in the right caudate nucleus and anterior gangliocapsular region, likely representing an acute to subacute non-hemorrhagic infarct. Recommend MRI for further evaluation. 2. No acute intracranial hemorrhage, midline shift, or extra-axial collections. /[place] DICTATED BY: NONA KIRBY Jr., MD DATE: 12/28/24 1500 ELECTRONICALLY SIGNED BY: DATE: EXAM: CT Head Without IV contrast. CLINICAL HISTORY: generalized weakness, mild confusion per friend TECHNIQUE: Axial computed tomography images of the head/brain without intravenous contrast. COMPARISON: None provided. FINDINGS: BRAIN: A relatively well-defined hypodensity involving the right caudate nucleus and the anterior aspect of the gangliocapsular region can be an acute to subacute non-haemorrhagic infarct. No evidence of acute hemorrhage. No midline shift or extra-axial collections. VENTRICLES: No hydrocephalus. ORBITS: The orbits are unremarkable. SINUSES AND MASTOIDS: The paranasal sinuses and mastoid air cells are clear. BONES: No fracture. SOFT TISSUES: Unremarkable. IMPRESSION: 1. Hypodensity in the right caudate nucleus and anterior gangliocapsular region, likely representing an acute to subacute non-hemorrhagic infarct. Recommend MRI for further evaluation. 2. No acute intracranial hemorrhage, midline shift, or extra-axial collections. /[place] DICTATED BY: NONA KIRBY Jr., MD DATE: 12/28/241442 ELECTRONICALLY SIGNED BY: NONA KIRBY Jr., MD DATE: 12/28/241442 [place] [address] IMAGING REPORT Signed PATIENT: KINGA JONES MR#: [id number] : 1965 SEX: M AGE: 59 LOCATION: [facility] ORDER 1228 STATUS: ADM IN REPORT#: [id number] SERVICE 1215 REASON: SOB, significantly elevated D-Dimer, r/o Pulmonary embolism ORDERING PHYSICIAN: REJI FISCHER MD PROCEDURE: CHES PE - CT CHEST PE PROTOCOL WWO CONT EXAM: CTA Chest with and without Intravenous Contrast for PE evaluation CLINICAL HISTORY: SOB, significantly elevated D-Dimer, r/o Pulmonary embolism TECHNIQUE: Axial CTA images of the chest with and without intravenous contrast using a pulmonary embolism protocol. Multiplanar reconstructed images were created and reviewed. COMPARISON: None provided. FINDINGS: PULMONARY ARTERIES: No evidence of central or segmental pulmonary embolism is seen. AORTA: There is no evidence for aneurysm or dissection of the thoracic aorta. Atherosclerotic changes in the aorta. LUNGS: There is mild dependent airspace disease within the bilateral lower lobes that is presumed to reflect atelectasis. PLEURAL SPACES: No evidence of pneumothorax. No pleural effusion. HEART: Mild cardiomegaly. Atherosclerosis of the coronary arteries. No significant pericardial effusion. LYMPH NODES: No lymphadenopathy is evident. BONES: No focal osseous abnormality or acute fracture. Mild degenerative changes in the spine. UPPER ABDOMEN: Multiple small hyperdense calculi in the gallbladder with no evidence of wall thickening. The pancreas appears bulky with mild peripancreatic fluid and fat stranding, and there is thickening of the left anterior renal fascia. Surgical sutures noted along stomach. Mild perihepatic fluid. IMPRESSION: 1. No evidence of pulmonary embolism. 2. Cholelithiasis without CT evidence for cholecystitis. 3. Acute pancreatitis. /[place] DICTATED BY: NONA KIRBY Jr., MD DATE: 12/28/241505 ELECTRONICALLY SIGNED BY: NONA KIRBY Jr., MD DATE: 12/28/241505 PLAN 2D echo is pending- CPAP of 10 with a FiO2 of 50% at HS and PRN Allow family bring CPAP from home With a BNP of 44 and a pulmonary artery to aortic root ratio unlikely pulmonary hypertension 6 minute walk prior to discharge PFTs speech eval NEURO: Minimize central acting medications as possible. Maintain fall precautions, adequate lighting during the day PULMONARY: Supplemental 02 as needed. Maintain aspiration precautions at all times CARDIOVASCULAR: Follow hemodynamics. Vital signs per facility protocol GI & NUTRITION: Continue with nutritional support. Continue stool softeners and laxatives as needed. KIDNEYS & ELECTROLYTES: Strict monitoring of intake, output and overall fluid balance. Avoid nephrotoxic medications to the extent possible. Medications to be dosed according to renal function. Monitor electrolytes and replace as needed ENDOCRINE: Maintain blood glucose between 100-180 at all times. Hypoglycemia protocol in place INFECTIOUS DISEASE: Trend temperature, WBC and procalcitonin level Follow cultures, deescalate antibiotics as soon as possible. Panculture if new onset fever ONCOLOGY/HEMATOLOGY/COAGULATION: Monitor for s/s of bleeding Monitor hemoglobin, coagulation studies as needed SKIN: Pressure ulcer prevention per facility protocol Specialty mattress ORTHO/REHAB: Continue PT/OT Prophylaxis: Continue GI and DVT prophylaxis Code Status: Full Resuscitation Disposition: TBD Other: Total patient care time exceeds 35 minutes excluding all procedures. ATTESTATION BY PHYSICIAN I reviewed the documentation, medical decision making, and treatment plan as noted by the mid-level provider above. I agree with the findings and plan of care. Teodoro Apple MD, [facility] Dec 28, 2024 16:13
--- NOTE | 2024-12-28 17:45 | HMCIMG ---
EXAM: US Abdomen complete CLINICAL HISTORY: Elevated liver enzymes. TECHNIQUE: Real-time ultrasound of the abdomen (complete) with image documentation. COMPARISON: Prior CT dated 12/29/2011; prior US dated 12/29/2016. FINDINGS: LIVER: Enlarged, measuring 16.7 cm. Diffuse increased echogenicity consistent with fatty infiltration. GALLBLADDER: Multiple calculi present. Wall thickness 3 mm. No sonographic evidence of acute cholecystitis. COMMON BILE DUCT: 2 mm in diameter (within normal limits). PANCREAS: Obscured, not well visualized due to body habitus. KIDNEYS: Right Kidney: Measures 12.3 x 6.5 x 5.6 cm. Preserved cortical thickness. Left Kidney: Measures 11.2 x 6.2 x 6.2 cm, partially visualized. SPLEEN: Measures 11.6 x 5.2 x 5.5 cm (upper limit of normal). AORTA: Proximal and distal segments within normal limits. IVC: Obscured due to body habitus. ADDITIONAL FINDINGS: Small amount of free fluid in the right upper quadrant, consistent with trace ascites in the right upper quadrant only. LIMITATIONS/ARTIFACTS: Examination limited by large body habitus. IMPRESSION: 1. Hepatomegaly with diffuse hepatic steatosis. 2. Cholelithiasis without sonographic evidence of acute cholecystitis. 3. Trace ascites in the right upper quadrant. 4. Limited examination due to large body habitus, with obscuration of the pancreas and IVC. /[place]
--- NOTE | 2024-12-28 17:56 | HMCIMG ---
EXAM: MR Brain without Intravenous Contrast. CLINICAL HISTORY: 59-year-old male, changes of acute/subacute CVA. TECHNIQUE: Magnetic resonance images of the brain without intravenous contrast in multiple planes. CONTRAST: None. COMPARISON: CT brain dated 12/28/2024, 12:50 pm FINDINGS: BRAIN: Acute infarct in the right basal ganglia seen on diffusion-weighted images, similar to the CT brain dated 12/28/2024. Small acute infarct in the left occipital lobe. Mild atrophy and mild ischemic changes. No intracranial mass or hemorrhage. No midline shift or extra-axial fluid collection. No cerebellar tonsillar ectopia. No abnormal enhancement. The central arterial and venous flow voids are patent. VENTRICLES: No hydrocephalus. ORBITS: The orbits are normal. SINUSES AND MASTOIDS: The sinuses and mastoid air cells are clear. BONES: No acute fracture or focal osseous lesion. IMPRESSION: 1. Acute infarct in the right basal ganglia, similar to the CT brain dated 12/28/2024, 12:50 pm. 2. Small acute infarct in the left occipital lobe. 3. Mild atrophy and mild narrowing ischemic changes. /[place]
--- NOTE | 2024-12-28 18:16 | HMCIMG ---
EXAM: MRA Neck without Intravenous Contrast. CLINICAL HISTORY: 59-year-old male stroke. TECHNIQUE: Magnetic resonance angiography images of the neck without intravenous contrast. Three-dimensional MIP reformations performed. Note: Per PQRS, the description of internal carotid artery percent stenosis, including 0 percent or normal exam, is based on [place] Symptomatic Carotid Endarterectomy Trial (NASCET) criteria. CONTRAST: None. COMPARISON: None provided. FINDINGS: INTERNAL CAROTID ARTERIES: No significant stenosis based on NASCET criteria. COMMON CAROTID ARTERIES: No significant stenosis. No dissection. EXTERNAL CAROTID ARTERIES: No occlusion or dissection. VERTEBRAL ARTERIES: Dominant right vertebral artery is seen. There is paucity of signal in the left vertebral artery. Left vertebral artery dissection cannot be entirely excluded. BASILAR ARTERY: No significant stenosis. No dissection. SOFT TISSUES Unremarkable as visualized. IMPRESSION: 1. Dominant right vertebral artery. Paucity of signal in the left vertebral artery; left vertebral artery dissection cannot be entirely excluded. 2. No significant stenosis in the internal carotid arteries, common carotid arteries, or basilar artery. /[place]
--- NOTE | 2024-12-28 18:16 | HMCIMG ---
EXAM: MR Angiography Head without Intravenous Contrast. CLINICAL HISTORY: 59-year-old male with stroke. TECHNIQUE: Magnetic resonance angiography images of the head without intravenous contrast. Three-dimensional MIP reformations performed. CONTRAST: None. COMPARISON: See the MRI brain report dated 12/28/2024, 17:00 PM. FINDINGS: There is motion artifact which limits evaluation. INTERNAL CAROTID ARTERIES: No significant stenosis. No aneurysm or AVM. ANTERIOR CEREBRAL ARTERIES: No significant stenosis. No aneurysm or AVM. MIDDLE CEREBRAL ARTERIES: No significant stenosis. No aneurysm or AVM. POSTERIOR CEREBRAL ARTERIES: No significant stenosis. No aneurysm or AVM. BASILAR ARTERY: No significant stenosis. No aneurysm or AVM. VERTEBRAL ARTERIES: No significant stenosis. No aneurysm or AVM. There is an acute right basal ganglia infarct. MRA is negative. IMPRESSION: 1. No evidence of significant stenosis, aneurysmal dilatation, or dissection involving the arteries of the head. 2. Acute right basal ganglia infarct. /[place]
--- NOTE | 2024-12-28 18:50 | NUR ---
BEDSIDE SWALLOW EVAL COMPLETED. No s/s of aspiration. Recommend regular solids, thin liquids and pills whole with liquids as tolerated. RAIL SIGNAL WORKER reviewed results and recommendations with patient and nurse Tala. RAIL SIGNAL WORKER educated patient on risks and consequences of aspiration. Speech therapy not warranted at this time. All questions answered. Addendum: 12/28/[address] [facility] Amended: Links added.
--- NOTE | 2024-12-28 18:55 | NUR ---
COGNITIVE-LINGUISTIC EVALUATION COMPLETED. WITHIN FUNCTIONAL LIMITS. EVALUATION: Pt AAOX4. SPEECH, LANGUAGE, AND COGNITIVE LINGUISTICS SKILLS ARE WITHIN FUNCTIONAL LIMITS. Pt REQUESTS WANTS AND NEEDS INDEPENDENTLY WITH CLEAR SPEECH INTELLIGIBILITY. Pt COMMUNICATING AT CONVERSATIONAL LEVEL WITH NO DEFICITS IDENTIFIED AT THIS TIME. Pt COMPLETED COGNITIVE-LINGUISTIC EVALUATION WITH CORRECT AND TIMELY ANSWERS. SPEECH THERAPY NOT WARRANTED. ALL QUESTIONS ANSWERED AT THIS TIME. TONG HOOKER REVIEWED RESULTS AND RECOMMENDATIONS WITH PATIENT AND NURSE PIPER. Addendum: 12/28/[address] [facility] Amended: Links added.
[2024-12-28] MEDS: SODIUM CHLORIDE 3% FOR INHALATION 4 ML/AMP VIAL.NEB IH ONE ×2 (19:12→22:27)
[2024-12-28 20:32] LABS: CREATINE KINASE, TOTAL 261.0 U/L (21-232)
[2024-12-28] MEDS: FAMOTIDINE 20MG VIAL IV SCH (21:23)
--- NOTE | 2024-12-28 22:59 | CONS ---
CONSULT NOTE: REASON FOR CONSULT Possible ACS HISTORY OF PRESENT ILLNESS This is a pleasant 59-year-old male with past medical history as per patient with complaints of shortness of breath, is being evaluated for possible ACS contributory for pneumonia. Patient was also found to have a CVA PAST MEDICAL HISTORY, ALLERGIES See below REVIEW OF SYSTEMS Not obtained Vitals See chart PHYSICAL EXAM Alert and oriented x 3 Nonicteric nontraumatic Regular rate and rhythm, no murmurs Clear to auscultation bilaterally pulmonary Abdomen nontender Rectal deferred Skin no rash neurological no focal deficits Extremities no edema ASSESSMENT CORONARY DISEASE, ELEVATED TROPONIN At presentation PNEUMONIA Being managed by antibiotics per infectious disease, appreciate CT was negative for pulm embolism CVA At presentation Patient ganglia as well as occipital lobe involvement ACUTE ON CHRONIC KIDNEY DISEASE At presentation Create greater than 2 HISTORY OF [id number] SYNDROME SLEEP APNEA, HYPERTENSION, HYPERLIPIDEMIA, SLEEP APNEA CORE MEASURES pending OTHER MEDICAL PROBLEMS reviewed CORE MEASURES Pending OTHER MEDICAL PROBLEMS Reviewed PLAN 12/28/2024 given recent CVA, not a good candidate for any ischemic evaluation at this time, echocardiogram has been ordered and pending. Further recommendations post. Continue current medical therapy conservative management for now. May consider STONE given stroke in 2 different vascular distributions. Holter monitor may also be considered. Seen and examined 12/28/2024 at around 1800. ATTESTATION I was involved substantial in the care of the patient Number of complexity of problems addressed 1 acute illness with systemic features Amount and or complexity of data Review of prior external notes from each unique source 2+ Ordering of each unique test 0 Review of results of each unique test 2+ Assessment requiring independent historians no Dependent interpretation of test performed by another MD no Discussion of management or test interpretation with external MD no Risk status moderate BRENNON CROWLEY MD Dec 28, 2024 22:59
--- NOTE | 2024-12-28 23:13 | NUR ---
per ALESSANDRO Cifuentes pt will be ready for CT around [id number]
[2024-12-29] VITALS (10 sets, daily range): BP systolic 131–157; BP diastolic 68–84; PULSE 87–111; RESP 18–25; TEMP 98–99.1; O2SAT 93–98
--- NOTE | 2024-12-29 01:49 | CONS ---
INFECTIOUS DISEASE CONSULTATION DATE OF SERVICE: 12/28/2024 REQUESTING PHYSICIAN: Live Saha MD REASON FOR CONSULTATION: Sepsis. HISTORY OF PRESENT ILLNESS: A 59-year-old male with morbid obesity, coronary artery disease, and hypertension, who was admitted after presenting with fever, chills, and poor oral intake. T-max in the Emergency Room was 99.5, WBC elevated at 13,000. The patient also complained of some dry cough. The patient noticed diaphoresis. The patient is being admitted as a case of sepsis. Cough is dry, nonproductive. The patient also found with dehydration and renal failure. Imaging of the abdomen has been done, which came back positive for pancreatitis. CT of the brain also was done, which showed possible active infarct. No dysuria or urinary frequency. Venous Doppler of lower extremities unremarkable. The patient has been started on Zosyn and doxycycline. PAST MEDICAL HISTORY: * Morbid obesity. * Coronary artery disease. * Hypertension. * Dyslipidemia. * Obstructive sleep apnea. * Ray-Parkinson syndrome. * Myocardial infarction. PAST SURGICAL HISTORY: * PCI. * Cardiac ablation. * Gastric bypass. ALLERGIES: No known drug allergies. CURRENT MEDICATIONS: Reviewed. SOCIAL HISTORY: Denies alcohol, tobacco or illicit drug use. FAMILY HISTORY: Noncontributory. REVIEW OF SYSTEMS: Greater than 10 systems were reviewed, negative except as documented above. PHYSICAL EXAMINATION: GENERAL: Middle-aged male, awake, ____, ill-looking. VITAL SIGNS: Temperature 99.3, pulse 105, respiratory rate 25, BP 131/71. EYES: No icterus. Pupils equal and reactive. HENT: No oral thrush seen. Moist oral mucosa. NECK: Supple. No JVD or thyromegaly. LUNGS: Crackles bilaterally. No rhonchi. CARDIOVASCULAR: S1 and S2, regular, tachycardic. No murmur heard. ABDOMEN: Obese, soft, nontender. Bowel sound is present. CENTRAL NERVOUS SYSTEM: Awake, alert, and oriented x 3. No focal deficits. SKIN: No rashes. No itchiness. LYMPHATIC: No peripheral lymphadenopathy. BACK: No deformity. No pressure ulcer. MUSCULOSKELETAL: No joint swelling, erythema or tenderness. LABORATORY DATA: Troponin 180, procalcitonin 3.0. Sodium 132, potassium 4.1, BUN 28, creatinine 1.8. WBC 13.0, hemoglobin 15.7, platelets 123. RADIOLOGY: CT angiogram showed no evidence of pulmonary embolism. There is bilateral infiltrate. CT of the abdomen shows acute pancreatitis. ASSESSMENT: A 59-year-old male presented with fever, chills and diaphoresis. Current problems include: * Sepsis. * Pneumonia. * Acute pancreatitis. * Possible acute ischemic stroke. * Obstructive sleep apnea. * Morbid obesity. * Renal failure. * Debility. PLAN: * Continue Zosyn. * Continue doxycycline. * Continue oxygen. * Follow-up cultures. * Continue pain management. * Obtain brain MRI. * Obtain gallbladder sonogram. * Monitor electrolyte and correct as needed. * Avoid nephrotoxin medication. Thank you for allowing me to participate in the care of this patient. TID: [id number] RECEIPT: [id number]
--- NOTE | 2024-12-29 02:05 | CONS ---
REFERRING PHYSICIAN: Live Saha MD REASON FOR CONSULTATION: Renal failure. I did discuss with the primary team. HISTORY OF PRESENT ILLNESS: A 59-year-old male with a history of sleep apnea. He has a history of hypertension and hypercholesterolemia. The patient presented to the hospital with increasing shortness of breath. The patient states for the past 3 days, he has been noted to have increasing shortness of breath. The patient's laboratory values revealed an elevated BUN and creatinine. Initial chest x-ray revealed no evidence of pulmonary edema. A 2D echo is pending and he is being seen in consultation for all of the above. PAST MEDICAL HISTORY: Coronary artery disease, Anjhc-Gklztyyup-Wwphj syndrome, sleep apnea, hypercholesterolemia. PAST SURGICAL HISTORY: Heart cath ablation. SOCIAL HISTORY: He lives independently. No alcohol or tobacco use. FAMILY HISTORY: There is no renal disease in the family. ALLERGIES: There are no allergies. MEDICATIONS: All noted. REVIEW OF SYSTEMS: CONSTITUTIONAL: He is feeling weak and tired. HEENT: No change in vision. No change in hearing. CARDIOVASCULAR: There is no current chest pain or palpitations. PULMONARY: As described above. GASTROINTESTINAL: He is tolerating a diet. MUSCULOSKELETAL: Complaints of weakness. NEUROLOGIC: No seizures or focal deficits. PSYCHIATRIC: No history of hallucination or psychosis. ENDOCRINE: He denies diabetes mellitus or thyroid disease. HEME: No history of anemia or malignancy. PHYSICAL EXAMINATION: VITAL SIGNS: Blood pressure is 131/71, pulse in the 100s. He is afebrile. GENERAL: He is a chronically ill obese male, lying in bed on the medical floor. HEENT: Head is atraumatic. Pupils are equal, round, and reactive to light. Oropharynx is without exudate. Nares clear. NECK: There is no JVP. There is no thyromegaly. No masses. CARDIOVASCULAR: Regular. There is no S3 or S4 gallop. LUNGS: Coarse with equal thoracic movement. ABDOMEN: Soft, nondistended, nontender. EXTREMITIES: Reveal no clubbing or cyanosis. NEUROLOGICAL: He is awake. He is alert. He is oriented. SKIN: Reveals no rashes or nodules. BACK: There is no CVA tenderness. No back deformities. LABORATORY DATA: Sodium 132, potassium 4, BUN 28, creatinine is 1.8. Hemoglobin 15, hematocrit 46. Chest x-ray is noted. IMPRESSION: * [id number]-yn-aoncrij renal dysfunction. * Shortness of breath. * Hypertension. * History of sleep apnea. PLAN: I did discuss the case in detail with the primary team. The patient with evidence of renal dysfunction. We will obtain a renal ultrasound for completeness. Urinalysis is pending and we will follow the patient closely. Lower extremity venous Dopplers are pending. The patient also for a D-dimer. If elevated, the patient will need a CT scan with contrast. The patient remains on some gentle hydration. He can safely proceed with a CT with contrast from a renal standpoint. I did discuss that with the primary team. All labs will be repeated in the a.m. The patient and family at the bedside and multiple questions were answered. TID: [id number] RECEIPT: [id number]
[2024-12-29 04:19] LABS: IMMATURE GRANULOCYTE ABSOLUTE 0.04 K/uL (0-1); NUCLEATED RED BLOOD CELLS 0.0 % (0.0-0.19); PLATELET COUNT (AUTO) 111 K/uL (130-400); RED BLOOD CELL COUNT(AUTO) 5.18 MIL/uL (4.50-6.20); RED CELL DISTRIBUTION WIDTH 17.2 % (11.0-15.5); WHITE BLOOD COUNT (AUTO) 10.3 K/uL (4.8-10.8)
[2024-12-29 04:31] LABS: ASPARTATE AMINOTRANSFERASE 64.0 U/L (10-37); CREATININE 1.4 mg/dL (0.5-1.3); GLOMERULAR FILTR. RATE CALC 58.0 mL/min (>90); GLUCOSE,RANDOM 108.0 mg/dL (70-105); SODIUM SERUM 130.0 mmol/L (136-145); TOTAL PROTEIN, SERUM 6.9 g/dL (6.0-8.3); UREA NITROGEN, BLOOD 31.0 mg/dL (7-18)
[2024-12-29 08:04] LABS: APPEARANCE,URINE CLEAR (CLEAR); GLUCOSE, URINE (UA) NEGATIVE (NEGATIVE); LEUKOCYTE ESTERASE ,URINE NEGATIVE Leu/uL (NEGATIVE); NITRATE,URINE NEGATIVE (NEGATIVE); OCCULT BLOOD,URINE NEGATIVE (NEGATIVE)
[2024-12-29 08:07] LABS: INR 1.08 (0.85-1.15)
[2024-12-29 08:16] LABS: AMPHET/METH SCREEN,URINE NEGATIVE (NEGATIVE); BARBITURATE SCREEN, URINE NEGATIVE (NEGATIVE); CANNABINOID SCREEN,URINE NEGATIVE (NEGATIVE); COCAINE SCREEN,URINE NEGATIVE (NEGATIVE); CREATININE,URINE RANDOM 268.89 mg/dL (30-135)
[2024-12-29 08:19] LABS: SQUAMOUS EPITHELIAL CELL,UR RARE /HPF (0-2)
[2024-12-29] MEDS: ASPIRIN 81MG CHEW TAB PO SCH (09:13)
[2024-12-29] MEDS: Vitamin B Complex/Vit C/Folic Acid PO SCH (09:13)
[2024-12-29] MEDS: ENOXAPARIN SODIUM 40 MG/0.4 ML SYRINGE SQ SCH (09:14)
--- NOTE | 2024-12-29 09:47 | PN ---
FOLLOWUP PROGRESS NOTE SUBJECTIVE: A 59-year-old male with a history of sleep apnea. The patient with a history of hypertension. He is admitted to the hospital with acute and chronic renal failure. The patient also has significant hyponatremia. The patient's 2D echo is pending. Creatinine has improved overnight and he is being seen as a followup visit for all of the above. REVIEW OF SYSTEMS: GENERAL: He is feeling somewhat improved overnight. HEENT: No change in vision. No change in hearing. No nasal discharge. No sore throat. CARDIOVASCULAR: There are no current chest pain or palpitations. PULMONARY: Shortness of breath is improved. GASTROINTESTINAL: He is tolerating a diet. MUSCULOSKELETAL: Complains of weakness. PHYSICAL EXAMINATION: VITAL SIGNS: Blood pressure is 157/68, pulse in the 80s. He is afebrile. GENERAL: He is a chronically ill, obese male, lying in bed on the medical floor. HEENT: Head is atraumatic. Pupils are equal, round, and reactive to light. Oropharynx is without exudate. Nares clear. NECK: There is no JVP. There is no thyromegaly. No mass. CARDIOVASCULAR: Regular. There is no S3, S4, or gallop. LUNGS: Coarse with equal thoracic movement. ABDOMEN: Soft, nondistended, and nontender. EXTREMITIES: No clubbing, no cyanosis. NEUROLOGICAL: He is awake. He is alert. LABORATORY DATA: Sodium 130, BUN 31, creatinine 1.4, hemoglobin 14, and hematocrit 41. IMPRESSION: * Acute on chronic renal failure. * Electrolyte abnormalities. * Sleep apnea. * Hypertension. PLAN: The patient's 2D echo is pending. IV fluids can safely be discontinued. The patient is to be started on a diet. He will continue with the fluid restriction for the hyponatremia. We will continue to follow the chemistries closely. The patient's electrolytes have all been aggressively repleted. Blood pressure is under adequate control. The patient with multiple questions, all of which were answered. TID: [id number] RECEIPT: [id number]
--- NOTE | 2024-12-29 09:50 | PN ---
INFECTIOUS DISEASE PROGRESS NOTE Date of Service: Dec 29, 2024 SUBJECTIVE: This is a 59-year-old male patient who came to the hospital to be evaluated for poor oral intake, shortness of breaths and weakness. On admission the WBC was slightly elevated at 13.0 but has remained afebrile. A chest x-ray showed no acute findings. The amylase and lipase level however were elevated. Patient was also found with an acute infarct in the right basal ganglia and small infarct in the left occipital lobe and patient is pending a neurologist evaluation. During visit today patient was sitting up on the bedside chair. No dyspnea. The WBC has trended down to 10.3. Patient has been started on doxycycline and Zosyn. No nausea or vomiting reported. PHYSICAL EXAM EYES: Anicteric. Pupils equal and reactive. HENT: No oral thrush seen, moist Oral mucosa NECK: Supple, no JVD or thyromegaly. LUNGS: Good air entry. No rales, no rhonchi. CARDIOVASCULAR: S1, S2 regular. No murmur heard. ABDOMEN: Soft, non tender, bowel sounds present, no organomegaly. CENTRAL NERVOUS SYSTEM: Awake, alert, oriented x 3. SKIN: No rashes, no swelling. LYMPHATICS: No peripheral lymphadenopathy MUSCULOSKELETAL: No joint swelling, erythema or tenderness. EXTREMITIES: No cyanosis or clubbing BACK: No deformity, no pressure ulcer. GENITOURINARY: No dysuria or hematuria. Vital Sign (Last 12 Hours) 12/28/24 12/28/24 12/29/24 12/29/24 22:54 23:47 04:00 08:00 Temp 98.4 98.4 98.2 Pulse 104 111 89 Resp 20 23 23 22 B/P (MAP) 152/73 157/68 131/71 Pulse Ox 94 92 95 O2 Delivery CPAP CPAP Nasal Cannula O2 Flow Rate 3.0 12/29/24 12/29/24 08:29 09:10 Pulse 95 Resp 18 Pulse Ox 98 O2 Delivery N/Cannula Low lpm Nasal Cannula* O2 Flow Rate 2.0 3 FiO2 28 32 Intake & Output (last 24hrs) 12/28/24 12/28/24 12/29/24 15:00 23:00 07:00 Intake Total 1250.0 ml Output Total 350 ml Balance 1250.0 ml -350 ml LABS: Laboratory: Test 12/29/24 07:45 12/29/24 06:06 12/29/24 03:48 12/28/24 20:07 Range/Units Prothrombin Time 11.4 9.6-11.6 SEC Prothromb Time International Ratio 1.08 0.85-1.15 Lipase 175 H 16-77 U/L Urine Color LIGHT-ORANGE YELLOW Urine Appearance CLEAR CLEAR Urine pH 6.0 5.0-8.0 Urine Specific [place] 1.050 H 1.001-1.031 Urine Protein 50 H NEGATIVE mg/dL Urine Glucose (UA) NEGATIVE NEGATIVE mg/dL Urine Ketones NEGATIVE NEGATIVE mg/dL Urine Occult Blood NEGATIVE NEGATIVE Urine Nitrate NEGATIVE NEGATIVE Urine Bilirubin NEGATIVE NEGATIVE mg/dL Urine Urobilinogen 2.0 H 0.2-1.0 mg/dL Urine Leukocyte Esterase NEGATIVE NEGATIVE Valentín/uL Urine RBC 2-5 H 0-1 /HPF Urine WBC 0-1 0-1 /HPF Urine Squamous Epithelial Cells RARE 0-2 /HPF Urine Bacteria None None Seen /HPF Urine Random Creatinine 268.89 H 30-135 mg/dL Urine Random Sodium < 13 L 40-220 mmol/l Urine Opiates Screen NEGATIVE NEGATIVE Urine Barbiturates Screen NEGATIVE NEGATIVE Urine Phencyclidine Screen NEGATIVE NEGATIVE Urine Amphetamines Screen NEGATIVE NEGATIVE Urine Benzodiazepines Screen NEGATIVE NEGATIVE Urine Cocaine Screen NEGATIVE NEGATIVE Urine Marijuana (THC) Screen NEGATIVE NEGATIVE White Blood Count 10.3 4.8-10.8 K/uL Red Blood Count 5.18 4.50-6.20 MIL/uL Hemoglobin 14.2 14.0-18.0 g/dL Hematocrit 41.7 L 42-54 % Mean Corpuscular Volume 80.5 79-99 fL Mean Corpuscular Hemoglobin 27.4 27.0-33.0 pg Mean Corpuscular Hemoglobin Concent 34.1 32.0-36.0 g/dL Red Cell Distribution Width 17.2 H 11.0-15.5 % Platelet Count 111 L 130-400 K/uL Mean Platelet Volume 11.6 H 7.5-10.5 fL Immature Granulocyte % (Auto) 0.4 0-1 % Neutrophils (%) (Auto) 83.0 H 40.0-77.0 % Lymphocytes (%) (Auto) 8.3 L 21.0-51.0 % Monocytes (%) (Auto) 8.2 3.0-13.0 % Eosinophils (%) (Auto) 0.0 0.0-8.0 % Basophils (%) (Auto) 0.1 0.0-5.0 % Neutrophils # (Auto) 8.5 H 1.8-7.7 K/uL Lymphocytes # (Auto) 0.9 L 1.0-4.8 K/uL Monocytes # (Auto) 0.8 0.1-1.0 K/uL Eosinophils # (Auto) 0.00 0.00-0.70 K/uL Basophils # (Auto) 0.01 0.00-0.20 K/uL Absolute Immature Granulocyte (auto 0.04 0-1 K/uL Nucleated Red Blood Cells 0.0 0.0-0.19 % Sodium Level 130 L 136-145 mmol/L Potassium Level 4.0 3.5-5.1 mmol/L Chloride Level 96 L 101-111 mmol/L Carbon Dioxide Level 26 21-32 mmol/L Blood Urea Nitrogen 31 H 7-18 mg/dL Creatinine 1.4 H 0.5-1.3 mg/dL Glomerular Filtration Rate Calc 58 >90 mL/min Random Glucose 108 H 70-105 mg/dL Total Calcium 7.6 L 8.5-10.1 mg/dL Magnesium Level 2.00 1.80-2.40 mg/dL Total Bilirubin 2.3 H 0.2-1.0 mg/dL Aspartate Amino Transf (AST/SGOT) 64 H 10-37 U/L Alanine Aminotransferase (ALT/SGPT) 77 # 12-78 U/L Alkaline Phosphatase 58 50-136 U/L Total Protein 6.9 6.0-8.3 g/dL Albumin 2.5 L 3.5-5.0 g/dL Total Creatine Kinase 261 #H 21-232 U/L Troponin I High Sensitivity 175.5 *H 4-75 ng/L Test 12/28/24 14:30 12/28/24 13:14 12/28/24 12:41 12/28/24 12:03 Range/Units Amylase Level 359 *H 25-115 U/L Lactic Acid Level 1.9 0.8-2.5 mmol/L Ammonia < 10 L 11-32 umol/L Lactate Dehydrogenase 293 H 81-234 U/L C-Reactive Protein, Quantitative 303.60 H 0.5-3.0 mg/L Triglycerides Level 99 30-200 mg/dL Cholesterol Level 93 <200 mg/dL LDL Cholesterol 49 0-99 mg/dL HDL Cholesterol 33 29-71 mg/dL Blood Gas Specimen Type Arterial Arterial Blood pH 7.457 H 7.350-7.450 Arterial Blood Partial Pressure CO2 31 L 35-48 mmHg Arterial Blood Partial Pressure O2 94.4 83.0-108.0 mmHg Arterial Blood HCO3 21.1 21.0-28.0 mmol/L Arterial Blood Oxygen Saturation 97.0 94.0-98.0 % Arterial Blood Base Excess -1.6 -2.0-3.0 mmol/L Hemoglobin (Blood Gas) 15.5 13.5-17.5 g/dL Sodium (Blood Gas) 133 L 136-145 MMOL/L Bedside Potassium (Blood Gas) 3.7 3.4-4.5 MMOL/L Bedside Chloride (Blood Gas) 99 98-107 MMOL/L Bedside Glucose (Blood Gas) 113 H 65-95 MG/DL Bedside Ionized Calcium (Blood Gas) 1.06 L 1.15-1.33 MMOL/L Bedside Lactic Acid (Blood Gas) 1.67 H 0.36-0.75 MMOL/L Blood Gas Temperature 37.0 35.5-37.0 CELSIUS Blood Gas Flow-by 2.00 0.00-15.00 L/min Blood Gas Vent Mode 2LNC ROOM AIR FiO2 28.0 % Blood Gas Specimen Comment RR TRINI Influenza Type A Antigen Negative For Type A NEGATIVE Influenza Type B Antigen Negative For Type B NEGATIVE SARS-CoV-2, RNA, NAAT NEGATIVE SARS CoV-2 NEGATIVE Test 12/28/24 10:11 Range/Units White Cell Morphology Comment See comments Erythrocyte Sedimentation Rate 67 H 0-20 MM/HR Activated Partial Thromboplast Time 29.3 26.3-35.5 SEC D-Dimer Quantitative (PE/DVT) 4865 *H 0-500 ng/mL Hemoglobin A1c 5.8 4.0-6.0 % Estimated Average Glucose (eAG) 120 70-126 mg/dL Direct Bilirubin 0.7 H 0.0-0.3 mg/dL B-Type Natriuretic Peptide 44 0-100 pg/mL Procalcitonin 3.00 H 0.05-0.5 ng/mL Thyroid Stimulating Hormone (TSH) 4.31 H 0.36-3.74 uIU/mL ASSESSMENT: Pneumonia. Acute pancreatitis. Sepsis. Leukocytosis, resolving. Acute renal failure. Acute nonhemorrhagic stroke. Constipation. Rhabdomyolysis. History of coronary artery disease. PLAN: Continue doxycycline IV. Continue Zosyn IV. Continue bronchodilators. Continue oxygen support. Give lactulose 20 g p.o. t.i.d scheduled until BM then change to p.r.n.. Avoid nephrotoxic medications. We will monitor electrolytes. This case was reviewed and discussed with my supervising physician Dr. Rasmussen and the above assessment and plan was formulated and agreed upon. ATTESTATION BY PHYSICIAN I have seen and examined the patient. I reviewed the documentation, medical decision making, and treatment plan as noted by the mid-level provider above. I agree with the findings and plan of care. KARIE RASMUSSEN MD, [facility] Dec 29, 2024 09:50
--- NOTE | 2024-12-29 10:45 | PN ---
[facility] PROGRESS NOTE Date Patient Seen: Dec 29, 2024 Time of Visit: 10:45 Supervising Physician: Teodoro Apple MD Primary Care Physician: Tremayne Hernandez MD Outpatient Specialists: [ ] Inpatient Consults: SVETA, DR Butcher, Dr King, Dr Cramer, Dr Saleh PROBLEM LIST: Acute hypoxemic respiratory failure, POA Severe sepsis with MODS POA NSTEMI POA acute to subacute non-hemorrhagic CVA POA Acute pancreatitis, [place]'s criteria 1pont (1% predicted mortality) POA Cholelithiasis without evidence of cholecystitis Hepatomegaly with diffuse hepatic steatosis Trace ascites in the right upper quadrant Elevated D-dimer negative for PE and DVT to lower extremities Acute Kidney injury, POA Mild thrombocytopenia Thrombocytopenia, POA, mild Essential hypertension, POA Hyperlipidemia, POA Comorbidities: DIYA on CPAP at home Prior Myocardial infarction Coronary artery disease with prior PCI 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 MRI findings with the acute infarct of the right basal ganglia similar to the CT of the brain dated 192 small acute infarct in the left occipital lobe. Mild atrophy and mild narrowing of ischemic changes. MRI shows no evidence of significant stenosis aneurysmal dilation or dissection involving the arteries of the head. Acute basal ganglia infarct. On neck MRI there is dominant right vertebral artery paucity of no in the left vertebral artery left vertebral artery dissection can not be entirely excluded. No significant stenosis in the internal carotid arteries, common carotid arteries and basilar artery. Findings consistent with acute right basal ganglia ischemic stroke. We will follow neurology recommendations to continue AV aspirin and statin. Pending 2D echo result. Patient assessed at bedside. Denies chest pain, palpitation, or shortness for breath. NIH of 0 Hemodynamically stable.No major overnight events reported. REVIEW OF SYSTEMS: General: No malaise or fever. Neurological: No fainting episodes or seizures. HEENT: No nasal congestion or nasal secretion. Respiratory: No cough, shortness of breath, or wheezing Cardiac: No chest pain or palpitations. Gastrointestinal: No vomiting or diarrhea. Genitourinary: No dysuria hematuria. Skin: No rashes or lesions. Hematological: No bruises or bleeding. Musculoskeletal: No joint pains or arthralgias. Psychiatric: No depression or panic attacks. PHYSICAL EXAM: GENERAL: alert, weak, awake oriented x 3 HEENT: EOMI, Sclera non icteric, moist mucosa NECK: Supple, no JVD, trachea midline LUNGS: Diminished breath sounds bilaterally. No wheezes HEART: Regular rate and rhythm. Normal S1 and S2, without murmurs ABD: Abdomen soft, morbidly obese, nontender. Bowel sounds present EXT: No clubbing cyanosis or edema NEURO: Alert and oriented to person, follows commands Vital Signs (last 8hr) Date Time Temp Pulse Resp B/P (MAP) Pulse Ox O2 Delivery O2 Flow Rate FiO2 12/29/24 09:10 98 Nasal Cannula* 3 32 12/29/24 08:29 95 18 N/Cannula Low lpm 2.0 28 12/29/24 08:00 98.2 89 22 131/71 95 Nasal Cannula 3.0 12/29/24 04:00 98.4 111 23 157/68 92 CPAP LABS: Hematology Labs: Test 12/29/24 03:48 12/28/24 10:11 Range/Units White Blood Count 10.3 4.8-10.8 K/uL Red Blood Count 5.18 4.50-6.20 MIL/uL Hemoglobin 14.2 14.0-18.0 g/dL Hematocrit 41.7 L 42-54 % Mean Corpuscular Volume 80.5 79-99 fL Mean Corpuscular Hemoglobin 27.4 27.0-33.0 pg Mean Corpuscular Hemoglobin Concent 34.1 32.0-36.0 g/dL Red Cell Distribution Width 17.2 H 11.0-15.5 % Platelet Count 111 L 130-400 K/uL Mean Platelet Volume 11.6 H 7.5-10.5 fL Immature Granulocyte % (Auto) 0.4 0-1 % Neutrophils (%) (Auto) 83.0 H 40.0-77.0 % Lymphocytes (%) (Auto) 8.3 L 21.0-51.0 % Monocytes (%) (Auto) 8.2 3.0-13.0 % Eosinophils (%) (Auto) 0.0 0.0-8.0 % Basophils (%) (Auto) 0.1 0.0-5.0 % Neutrophils # (Auto) 8.5 H 1.8-7.7 K/uL Lymphocytes # (Auto) 0.9 L 1.0-4.8 K/uL Monocytes # (Auto) 0.8 0.1-1.0 K/uL Eosinophils # (Auto) 0.00 0.00-0.70 K/uL Basophils # (Auto) 0.01 0.00-0.20 K/uL Absolute Immature Granulocyte (auto 0.04 0-1 K/uL Nucleated Red Blood Cells 0.0 0.0-0.19 % White Cell Morphology Comment See comments Erythrocyte Sedimentation Rate 67 H 0-20 MM/HR Chemistry Labs: Test 12/29/24 07:45 12/29/24 03:48 12/28/24 20:07 12/28/24 14:30 Range/Units Lipase 175 H 16-77 U/L Sodium Level 130 L 136-145 mmol/L Potassium Level 4.0 3.5-5.1 mmol/L Chloride Level 96 L 101-111 mmol/L Carbon Dioxide Level 26 21-32 mmol/L Blood Urea Nitrogen 31 H 7-18 mg/dL Creatinine 1.4 H 0.5-1.3 mg/dL Glomerular Filtration Rate Calc 58 >90 mL/min Random Glucose 108 H 70-105 mg/dL Total Calcium 7.6 L 8.5-10.1 mg/dL Magnesium Level 2.00 1.80-2.40 mg/dL Total Bilirubin 2.3 H 0.2-1.0 mg/dL Aspartate Amino Transf (AST/SGOT) 64 H 10-37 U/L Alanine Aminotransferase (ALT/SGPT) 77 # 12-78 U/L Alkaline Phosphatase 58 50-136 U/L Total Protein 6.9 6.0-8.3 g/dL Albumin 2.5 L 3.5-5.0 g/dL Total Creatine Kinase 261 #H 21-232 U/L Troponin I High Sensitivity 175.5 *H 4-75 ng/L Amylase Level 359 *H 25-115 U/L Test 12/28/24 13:14 12/28/24 10:11 Range/Units Lactic Acid Level 1.9 0.8-2.5 mmol/L Ammonia < 10 L 11-32 umol/L Lactate Dehydrogenase 293 H 81-234 U/L C-Reactive Protein, Quantitative 303.60 H 0.5-3.0 mg/L Triglycerides Level 99 30-200 mg/dL Cholesterol Level 93 <200 mg/dL LDL Cholesterol 49 0-99 mg/dL HDL Cholesterol 33 29-71 mg/dL Hemoglobin A1c 5.8 4.0-6.0 % Estimated Average Glucose (eAG) 120 70-126 mg/dL Direct Bilirubin 0.7 H 0.0-0.3 mg/dL B-Type Natriuretic Peptide 44 0-100 pg/mL Procalcitonin 3.00 H 0.05-0.5 ng/mL Thyroid Stimulating Hormone (TSH) 4.31 H 0.36-3.74 uIU/mL Coagulation Labs: Test 12/29/24 07:45 12/28/24 10:11 Range/Units Prothrombin Time 11.4 9.6-11.6 SEC Prothromb Time International Ratio 1.08 0.85-1.15 Activated Partial Thromboplast Time 29.3 26.3-35.5 SEC D-Dimer Quantitative (PE/DVT) 4865 *H 0-500 ng/mL DIAGNOSTICS / RADIOLOGY RESULTS: [address] [address] IMAGING REPORT Signed PATIENT: KINGA JONES MR#: [id number] : 1965 SEX: M AGE: 59 LOCATION: [facility] ORDER 2300 STATUS: ADM IN REPORT#: [id number] SERVICE 0600 REASON: r/o any hemrrhagic transformation of right basal ganglia stroke ORDERING PHYSICIAN: REJI FISCHER MD PROCEDURE: HEAD WO - CT HEAD/BRAIN W/O CONTRAST Exam: NONCONTRAST CT BRAIN REASON: r/o any hemrrhagic transformation of right basal ganglia stroke . COMPARISON: None. TECHNIQUE: Images are obtained from vertex to the skull base. The exam was performed without IV contrast. FINDINGS: There is normal appearing brain parenchyma is an old basal ganglia infarct with encephalomalacia. There are no focal mass lesions. There is is no evidence of intracranial hemorrhage or acute stroke. Ventricles and sulci appear normal. Posterior fossa and brainstem structures are unremarkable. Paranasal sinuses and remaining extracranial soft tissues appear normal as well. IMPRESSION: 1. Old right basal ganglia infarct with encephalomalacia. 2. No acute intracranial process.. CT was performed with one or more following dose reduction techniques: automated exposure control, adjustment of the mA and kv according to patient's size, or use of a iterative reconstruction technique. DICTATED BY: KIM THOMPSON MD DATE: 12/29/241211 ELECTRONICALLY SIGNED BY: KIM THOMPSON MD DATE: 12/29/241216 [ ][facility] [address] [place] [id number] IMAGING REPORT Addendum PATIENT: KINGA JONES MR#: [id number] : 1965 SEX: M AGE: 59 LOCATION: [facility] ORDER 1400 [facility] REPORT#: [id number] SERVICE 1357 REASON: STROKE ON ct HEAD ORDERING PHYSICIAN: REJI FISCHER MD PROCEDURE: MRA NECKWO - MR ANGIO NECK WO CON ADDENDUM REPORT ADDENDUM: Results were shared by telephone at 19:31 pm on 12/28/24 and acknowledged by Reji Hanson. /[place] EXAM: MRA Neck without Intravenous Contrast. CLINICAL HISTORY: 59-year-old male stroke. TECHNIQUE: Magnetic resonance angiography images of the neck without intravenous contrast. Three-dimensional MIP reformations performed. Note: Per PQRS, the description of internal carotid artery percent stenosis, including 0 percent or normal exam, is based on [place] Symptomatic Carotid Endarterectomy Trial (NASCET) criteria. CONTRAST: None. COMPARISON: None provided. FINDINGS: INTERNAL CAROTID ARTERIES: No significant stenosis based on NASCET criteria. COMMON CAROTID ARTERIES: No significant stenosis. No dissection. EXTERNAL CAROTID ARTERIES: No occlusion or dissection. VERTEBRAL ARTERIES: Dominant right vertebral artery is seen. There is paucity of signal in the left vertebral artery. Left vertebral artery dissection cannot be entirely excluded. BASILAR ARTERY: No significant stenosis. No dissection. SOFT TISSUES Unremarkable as visualized. IMPRESSION: 1. Dominant right vertebral artery. Paucity of signal in the left vertebral artery; left vertebral artery dissection cannot be entirely excluded. 2. No significant stenosis in the internal carotid arteries, common carotid arteries, or basilar artery. /[place] DICTATED BY: SOUTH ANDERSON MD DATE: 12/28/241930 ELECTRONICALLY SIGNED BY: DATE: EXAM: MRA Neck without Intravenous Contrast. CLINICAL HISTORY: 59-year-old male stroke. TECHNIQUE: Magnetic resonance angiography images of the neck without intravenous contrast. Three-dimensional MIP reformations performed. Note: Per PQRS, the description of internal carotid artery percent stenosis, including 0 percent or normal exam, is based on [place] Symptomatic Carotid Endarterectomy Trial (NASCET) criteria. CONTRAST: None. COMPARISON: None provided. FINDINGS: INTERNAL CAROTID ARTERIES: No significant stenosis based on NASCET criteria. COMMON CAROTID ARTERIES: No significant stenosis. No dissection. EXTERNAL CAROTID ARTERIES: No occlusion or dissection. VERTEBRAL ARTERIES: Dominant right vertebral artery is seen. There is paucity of signal in the left vertebral artery. Left vertebral artery dissection cannot be entirely excluded. BASILAR ARTERY: No significant stenosis. No dissection. SOFT TISSUES Unremarkable as visualized. IMPRESSION: 1. Dominant right vertebral artery. Paucity of signal in the left vertebral artery; left vertebral artery dissection cannot be entirely excluded. 2. No significant stenosis in the internal carotid arteries, common carotid arteries, or basilar artery. /[place] DICTATED BY: SOUTH ANDERSON MD DATE: 12/28/241915 ELECTRONICALLY SIGNED BY: SOUTH ANDERSON MD DATE: 12/28/241915 [place] [address] IMAGING REPORT Addendum PATIENT: KINGA JONES MR#: [id number] : 1965 SEX: M AGE: 59 LOCATION: [facility] ORDER 1400 [facility]: [facility] REPORT#: [id number] SERVICE 1357 REASON: STROKE ON CT HEAD, LANE ORDERING PHYSICIAN: REJI FISCHER MD PROCEDURE: MRA HEAD - MR ANGIO HEAD, WO CON ADDENDUM REPORT ADDENDUM: Results were shared by telephone at 19:31 pm on 12/28/24 and acknowledged by Reji Hanson. /[place] EXAM: MR Angiography Head without Intravenous Contrast. CLINICAL HISTORY: 59-year-old male with stroke. TECHNIQUE: Magnetic resonance angiography images of the head without intravenous contrast. Three-dimensional MIP reformations performed. CONTRAST: None. COMPARISON: See the MRI brain report dated 12/28/2024, 17:00 PM. FINDINGS: There is motion artifact which limits evaluation. INTERNAL CAROTID ARTERIES: No significant stenosis. No aneurysm or AVM. ANTERIOR CEREBRAL ARTERIES: No significant stenosis. No aneurysm or AVM. MIDDLE CEREBRAL ARTERIES: No significant stenosis. No aneurysm or AVM. POSTERIOR CEREBRAL ARTERIES: No significant stenosis. No aneurysm or AVM. BASILAR ARTERY: No significant stenosis. No aneurysm or AVM. VERTEBRAL ARTERIES: No significant stenosis. No aneurysm or AVM. There is an acute right basal ganglia infarct. MRA is negative. IMPRESSION: 1. No evidence of significant stenosis, aneurysmal dilatation, or dissection involving the arteries of the head. 2. Acute right basal ganglia infarct. /[place] DICTATED BY: SOUTH ANDERSON MD DATE: 12/28/241933 ELECTRONICALLY SIGNED BY: DATE: EXAM: MR Angiography Head without Intravenous Contrast. CLINICAL HISTORY: 59-year-old male with stroke. TECHNIQUE: Magnetic resonance angiography images of the head without intravenous contrast. Three-dimensional MIP reformations performed. CONTRAST: None. COMPARISON: See the MRI brain report dated 12/28/2024, 17:00 PM. FINDINGS: There is motion artifact which limits evaluation. INTERNAL CAROTID ARTERIES: No significant stenosis. No aneurysm or AVM. ANTERIOR CEREBRAL ARTERIES: No significant stenosis. No aneurysm or AVM. MIDDLE CEREBRAL ARTERIES: No significant stenosis. No aneurysm or AVM. POSTERIOR CEREBRAL ARTERIES: No significant stenosis. No aneurysm or AVM. BASILAR ARTERY: No significant stenosis. No aneurysm or AVM. VERTEBRAL ARTERIES: No significant stenosis. No aneurysm or AVM. There is an acute right basal ganglia infarct. MRA is negative. IMPRESSION: 1. No evidence of significant stenosis, aneurysmal dilatation, or dissection involving the arteries of the head. 2. Acute right basal ganglia infarct. /[place] DICTATED BY: SOUTH ANDERSON MD DATE: 12/28/241915 ELECTRONICALLY SIGNED BY: SOUTH ANDERSON MD DATE: 12/28/241915 [address] [place] [address] IMAGING REPORT Signed PATIENT: KINGA JONES MR#: [id number] : 1965 SEX: M AGE: 59 LOCATION: [facility] ORDER 38 STATUS: ADM IN REPORT#: [id number] SERVICE 37 REASON: ELEVATED LIVER ENZYMES ORDERING PHYSICIAN: REJI FISCHER MD PROCEDURE: ABDOMEN - US ABDOMINAL COMPLETE EXAM: US Abdomen complete CLINICAL HISTORY: Elevated liver enzymes. TECHNIQUE: Real-time ultrasound of the abdomen (complete) with image documentation. COMPARISON: Prior CT dated 12/29/2011; prior US dated 12/29/2016. FINDINGS: LIVER: Enlarged, measuring 16.7 cm. Diffuse increased echogenicity consistent with fatty infiltration. GALLBLADDER: Multiple calculi present. Wall thickness 3 mm. No sonographic evidence of acute cholecystitis. COMMON BILE DUCT: 2 mm in diameter (within normal limits). PANCREAS: Obscured, not well visualized due to body habitus. KIDNEYS: Right Kidney: Measures 12.3 x 6.5 x 5.6 cm. Preserved cortical thickness. Left Kidney: Measures 11.2 x 6.2 x 6.2 cm, partially visualized. SPLEEN: Measures 11.6 x 5.2 x 5.5 cm (upper limit of normal). AORTA: Proximal and distal segments within normal limits. IVC: Obscured due to body habitus. ADDITIONAL FINDINGS: Small amount of free fluid in the right upper quadrant, consistent with trace ascites in the right upper quadrant only. LIMITATIONS/ARTIFACTS: Examination limited by large body habitus. IMPRESSION: 1. Hepatomegaly with diffuse hepatic steatosis. 2. Cholelithiasis without sonographic evidence of acute cholecystitis. 3. Trace ascites in the right upper quadrant. 4. Limited examination due to large body habitus, with obscuration of the pancreas and IVC. /[place] DICTATED BY: SOUTH ANDERSON MD DATE: 12/28/241857 ELECTRONICALLY SIGNED BY: SOUTH ANDERSON MD DATE: 12/28/241857 PLAN 2D echo is pending- CPAP of 10 with a FiO2 of 50% at HS and PRN Allow family bring CPAP from home With a BNP of 44 and a pulmonary artery to aortic root ratio unlikely pulmonary hypertension 6 minute walk prior to discharge PFTs speech eval NEURO: Minimize central acting medications as possible. Maintain fall precautions, adequate lighting during the day PULMONARY: Supplemental 02 as needed. Maintain aspiration precautions at all times CARDIOVASCULAR: Follow hemodynamics. Vital signs per facility protocol GI & NUTRITION: Continue with nutritional support. Continue stool softeners and laxatives as needed. KIDNEYS & ELECTROLYTES: Strict monitoring of intake, output and overall fluid balance. Avoid nephrotoxic medications to the extent possible. Medications to be dosed according to renal function. Monitor electrolytes and replace as needed ENDOCRINE: Maintain blood glucose between 100-180 at all times. Hypoglycemia protocol in place INFECTIOUS DISEASE: Trend temperature, WBC and procalcitonin level Follow cultures, deescalate antibiotics as soon as possible. Panculture if new onset fever ONCOLOGY/HEMATOLOGY/COAGULATION: Monitor for s/s of bleeding Monitor hemoglobin, coagulation studies as needed SKIN: Pressure ulcer prevention per facility protocol Specialty mattress ORTHO/REHAB: Continue PT/OT Prophylaxis: Continue GI and DVT prophylaxis Code Status: Full Resuscitation Disposition: TBD Other: Total patient care time exceeds 35 minutes excluding all procedures. ATTESTATION BY PHYSICIAN I reviewed the documentation, medical decision making, and treatment plan as noted by the mid-level provider above. I agree with the findings and plan of care. Teodoro Apple MD, NELLY J ARNP Dec 29, 2024 10:45
[2024-12-29] MEDS ORDERED: LACTULOSE 20 GM/30 ML UDCUP PO SCH (12:00)
--- NOTE | 2024-12-29 12:17 | HMCIMG ---
Exam: NONCONTRAST CT BRAIN REASON: r/o any hemrrhagic transformation of right basal ganglia stroke . COMPARISON: None. TECHNIQUE: Images are obtained from vertex to the skull base. The exam was performed without IV contrast. FINDINGS: There is normal appearing brain parenchyma is an old basal ganglia infarct with encephalomalacia. There are no focal mass lesions. There is is no evidence of intracranial hemorrhage or acute stroke. Ventricles and sulci appear normal. Posterior fossa and brainstem structures are unremarkable. Paranasal sinuses and remaining extracranial soft tissues appear normal as well. IMPRESSION: 1. Old right basal ganglia infarct with encephalomalacia. 2. No acute intracranial process.. CT was performed with one or more following dose reduction techniques: automated exposure control, adjustment of the mA and kv according to patient's size, or use of a iterative reconstruction technique.
--- NOTE | 2024-12-29 12:24 | NUR ---
SPEECH NOTE: DEPUTY PROGRAM MANAGER coordinated with nurse López. As per nurse, patient tolerating diet recommendations with no s/s of aspiration. Please re-consult speech therapy services if any s/s of aspiration arise. All questions answered. Addendum: 12/29/[address] [facility] Amended: Links added.
[2024-12-29] MEDS: LACTULOSE 20 GM/30 ML UDCUP PO SCH (13:09)
--- NOTE | 2024-12-29 13:32 | PN ---
[facility] PROGRESS NOTE Date of Service: Dec 29, 2024 Time of Service: 13:22 SUBJECTIVE: Follow up visit for a 59-year-old male admitted to the hospital for acute hypoxemic respiratory failure, community-acquired pneumonia, non-STEMI, acute pancreatitis. Patient remains on IV doxycycline, IV Zosyn under ID direction. Cultures in process. Currently saturating adequately on room air. Patient initiated on diet, tolerating well, no reports of abdominal pain. Serum lipase improved from 497-175. 2D echo has been performed, report pending. He has brain MRI on admission did show acute infarct in the right basal ganglia similar to the CT brain dated 12/28/2024. Patient at this time reveals no focal deficits. REVIEW OF SYSTEMS CONSTITUTIONAL: generalized fatigue, malaise NEUROLOGICAL: Denies headache, amaurosis fugax, motor weakness, sensory deficit, vertigo/spinning sensation, gait abnormalities, or tremors. ENT: No hearing loss, otalgia, otorrhea, rhinitis, rhinorrhea, hoarseness, or sore throat. CARDIOVASCULAR: Denies any exertional angina, dyspnea on exertion, orthopnea, paroxysmal nocturnal dyspnea, palpitations, life-threatening arrhythmias, claudication. PULMONARY: Shortness of breath, diaphoresis SLEEP: Denies morning headaches, daytime somnolence or napping. Denies difficulty falling asleep, staying asleep, waking from sleep. Denies knowledge of snoring. GASTROINTESTINAL: reports having nausea and vomiting GENITOURINARY: Denies frequency, urgency, nocturia, hematuria or incontinence (Storage/Irritative symptoms.) Low urinary stream, straining to void, urinary intermittency or hesitancy, splitting of the voiding stream, terminal dribbling. ENDOCRINOLOGIC: Denies polyuria, polydipsia, polyphagia or heat/cold intolerances. HEMATOLOGIC: Denies thrombophilia/previous clots, or coagulopathy/bleeding disorders. ONCOLOGIC: Denies personal history of malignancy. DERMATOLOGIC: Denies rashes or pruritus. PSYCHIATRIC: Denies any suicidal or homicidal ideation. Denies hallucinations. PHYSICAL EXAM GENERAL APPEARANCE: The patient is awake, alert, patient appears very diaphoretic, currently on 3 L supplementation by nasal cannula, patient is morbidly obese NEUROLOGICAL: Cranial nerves II-XII grossly intact. Examination is nonfocal for the patient HEENT: Face is symmetric. Pupils are equal and reactive. Extraocular movements are intact. NECK: Supple. No JVD. No thyromegaly. No submental, submandibular, pre-/postauricular, occipital or supraclavicular lymphadenopathy. CHEST: Normal chest expansion. No Telemetry. LUNGS: Minimal crackles noted at bilateral lung bases CARDIOVASCULAR: Regular. S1 and S2 normal. Tachycardic was ABDOMEN: Soft, nontender, and nondistended. There is no rebound, voluntary guarding, or rigidity. : Deferred. No [place]. EXTREMITIES: Non-edematous and not cyanotic. No clubbing. Good capillary refill. SKIN: No skin breakdown. Vital Signs (last 8hr) Date Time Temp Pulse Resp B/P (MAP) Pulse Ox O2 Delivery O2 Flow Rate FiO2 12/29/24 12:00 98.1 99 22 138/84 95 Room Air 12/29/24 09:10 98 Nasal Cannula* 3 32 12/29/24 08:29 95 18 N/Cannula Low lpm 2.0 28 12/29/24 08:00 98.2 89 22 131/71 95 Nasal Cannula 3.0 LABS: Laboratory: Test 12/29/24 07:45 12/29/24 06:06 12/29/24 03:48 12/28/24 20:07 Range/Units Prothrombin Time 11.4 9.6-11.6 SEC Prothromb Time International Ratio 1.08 0.85-1.15 Lipase 175 H 16-77 U/L Urine Color LIGHT-ORANGE YELLOW Urine Appearance CLEAR CLEAR Urine pH 6.0 5.0-8.0 Urine Specific [place] 1.050 H 1.001-1.031 Urine Protein 50 H NEGATIVE mg/dL Urine Glucose (UA) NEGATIVE NEGATIVE mg/dL Urine Ketones NEGATIVE NEGATIVE mg/dL Urine Occult Blood NEGATIVE NEGATIVE Urine Nitrate NEGATIVE NEGATIVE Urine Bilirubin NEGATIVE NEGATIVE mg/dL Urine Urobilinogen 2.0 H 0.2-1.0 mg/dL Urine Leukocyte Esterase NEGATIVE NEGATIVE Valentín/uL Urine RBC 2-5 H 0-1 /HPF Urine WBC 0-1 0-1 /HPF Urine Squamous Epithelial Cells RARE 0-2 /HPF Urine Bacteria None None Seen /HPF Urine Random Creatinine 268.89 H 30-135 mg/dL Urine Random Sodium < 13 L 40-220 mmol/l Urine Opiates Screen NEGATIVE NEGATIVE Urine Barbiturates Screen NEGATIVE NEGATIVE Urine Phencyclidine Screen NEGATIVE NEGATIVE Urine Amphetamines Screen NEGATIVE NEGATIVE Urine Benzodiazepines Screen NEGATIVE NEGATIVE Urine Cocaine Screen NEGATIVE NEGATIVE Urine Marijuana (THC) Screen NEGATIVE NEGATIVE White Blood Count 10.3 4.8-10.8 K/uL Red Blood Count 5.18 4.50-6.20 MIL/uL Hemoglobin 14.2 14.0-18.0 g/dL Hematocrit 41.7 L 42-54 % Mean Corpuscular Volume 80.5 79-99 fL Mean Corpuscular Hemoglobin 27.4 27.0-33.0 pg Mean Corpuscular Hemoglobin Concent 34.1 32.0-36.0 g/dL Red Cell Distribution Width 17.2 H 11.0-15.5 % Platelet Count 111 L 130-400 K/uL Mean Platelet Volume 11.6 H 7.5-10.5 fL Immature Granulocyte % (Auto) 0.4 0-1 % Neutrophils (%) (Auto) 83.0 H 40.0-77.0 % Lymphocytes (%) (Auto) 8.3 L 21.0-51.0 % Monocytes (%) (Auto) 8.2 3.0-13.0 % Eosinophils (%) (Auto) 0.0 0.0-8.0 % Basophils (%) (Auto) 0.1 0.0-5.0 % Neutrophils # (Auto) 8.5 H 1.8-7.7 K/uL Lymphocytes # (Auto) 0.9 L 1.0-4.8 K/uL Monocytes # (Auto) 0.8 0.1-1.0 K/uL Eosinophils # (Auto) 0.00 0.00-0.70 K/uL Basophils # (Auto) 0.01 0.00-0.20 K/uL Absolute Immature Granulocyte (auto 0.04 0-1 K/uL Nucleated Red Blood Cells 0.0 0.0-0.19 % Sodium Level 130 L 136-145 mmol/L Potassium Level 4.0 3.5-5.1 mmol/L Chloride Level 96 L 101-111 mmol/L Carbon Dioxide Level 26 21-32 mmol/L Blood Urea Nitrogen 31 H 7-18 mg/dL Creatinine 1.4 H 0.5-1.3 mg/dL Glomerular Filtration Rate Calc 58 >90 mL/min Random Glucose 108 H 70-105 mg/dL Total Calcium 7.6 L 8.5-10.1 mg/dL Magnesium Level 2.00 1.80-2.40 mg/dL Total Bilirubin 2.3 H 0.2-1.0 mg/dL Aspartate Amino Transf (AST/SGOT) 64 H 10-37 U/L Alanine Aminotransferase (ALT/SGPT) 77 # 12-78 U/L Alkaline Phosphatase 58 50-136 U/L Total Protein 6.9 6.0-8.3 g/dL Albumin 2.5 L 3.5-5.0 g/dL Total Creatine Kinase 261 #H 21-232 U/L Troponin I High Sensitivity 175.5 *H 4-75 ng/L Test 12/28/24 14:30 12/28/24 13:14 12/28/24 12:41 12/28/24 12:03 Range/Units Amylase Level 359 *H 25-115 U/L Lactic Acid Level 1.9 0.8-2.5 mmol/L Ammonia < 10 L 11-32 umol/L Lactate Dehydrogenase 293 H 81-234 U/L C-Reactive Protein, Quantitative 303.60 H 0.5-3.0 mg/L Triglycerides Level 99 30-200 mg/dL Cholesterol Level 93 <200 mg/dL LDL Cholesterol 49 0-99 mg/dL HDL Cholesterol 33 29-71 mg/dL Blood Gas Specimen Type Arterial Arterial Blood pH 7.457 H 7.350-7.450 Arterial Blood Partial Pressure CO2 31 L 35-48 mmHg Arterial Blood Partial Pressure O2 94.4 83.0-108.0 mmHg Arterial Blood HCO3 21.1 21.0-28.0 mmol/L Arterial Blood Oxygen Saturation 97.0 94.0-98.0 % Arterial Blood Base Excess -1.6 -2.0-3.0 mmol/L Hemoglobin (Blood Gas) 15.5 13.5-17.5 g/dL Sodium (Blood Gas) 133 L 136-145 MMOL/L Bedside Potassium (Blood Gas) 3.7 3.4-4.5 MMOL/L Bedside Chloride (Blood Gas) 99 98-107 MMOL/L Bedside Glucose (Blood Gas) 113 H 65-95 MG/DL Bedside Ionized Calcium (Blood Gas) 1.06 L 1.15-1.33 MMOL/L Bedside Lactic Acid (Blood Gas) 1.67 H 0.36-0.75 MMOL/L Blood Gas Temperature 37.0 35.5-37.0 CELSIUS Blood Gas Flow-by 2.00 0.00-15.00 L/min Blood Gas Vent Mode 2LNC ROOM AIR FiO2 28.0 % Blood Gas Specimen Comment RR TRINI Influenza Type A Antigen Negative For Type A NEGATIVE Influenza Type B Antigen Negative For Type B NEGATIVE SARS-CoV-2, RNA, NAAT NEGATIVE SARS CoV-2 NEGATIVE Test 12/28/24 10:11 Range/Units White Cell Morphology Comment See comments Erythrocyte Sedimentation Rate 67 H 0-20 MM/HR Activated Partial Thromboplast Time 29.3 26.3-35.5 SEC D-Dimer Quantitative (PE/DVT) 4865 *H 0-500 ng/mL Hemoglobin A1c 5.8 4.0-6.0 % Estimated Average Glucose (eAG) 120 70-126 mg/dL Direct Bilirubin 0.7 H 0.0-0.3 mg/dL B-Type Natriuretic Peptide 44 0-100 pg/mL Procalcitonin 3.00 H 0.05-0.5 ng/mL Thyroid Stimulating Hormone (TSH) 4.31 H 0.36-3.74 uIU/mL Current Medications Medications (Trade) Dose Ordered Sig/Donald Route PRN Reason Start Time Stop Time Status Last Admin Dose Admin Acetaminophen (TYLenol 325MG TAB) 650 mg Q6H PRN PO MILD PAIN (1-3) 12/28/24 12:00 01/27/25 11:59 Aspirin (Aspirin 81mg Chew Tab) 81 mg DAILY PO 12/29/24 09:00 01/28/25 08:59 12/29/24 09:13 81 MG Clopidogrel Bisulfate (plaVIX 75MG) 75 mg Q24H PO 12/28/24 20:30 12/28/24 22:21 DC 12/28/24 21:23 75 MG Doxycycline Hyclate 250 ml @ 125 mls/hr Q12H IV 12/28/24 14:30 01/07/25 14:29 12/29/24 02:56 125 MLS/HR Enoxaparin Sodium (Lovenox) 40 mg DAILY SQ 12/29/24 09:00 01/28/25 08:59 12/29/24 09:14 40 MG Famotidine (Pepcid 20mg Vial) 20 mg Q24H IV 12/28/24 21:00 01/27/25 20:59 12/28/24 21:23 20 MG Ipratropium [place] (AtrovENT UD) 1 mg Q6H PRN IH SHORTNESS OF BREATH 12/28/24 12:00 01/27/25 11:59 Lactulose (Constulose 20gm/ 30ml Udcup) 20 gm Q6H6 PO 12/29/24 12:00 12/29/24 11:49 DC Lactulose (Constulose 20gm/ 30ml Udcup) 20 gm TID PO 12/29/24 14:00 01/28/25 13:59 12/29/24 13:09 20 GM Metoprolol Succinate (TopROL XL) 25 mg DAILY PO 12/28/24 13:00 01/27/25 12:59 12/29/24 09:13 25 MG Ondansetron HCl (zoFRAN 4MG INJ) 4 mg Q6H PRN IVP NAUSEA/VOMITING 12/28/24 12:00 01/27/25 11:59 Piperacillin Sod/ Tazobactam Sod (Zosyn 3.375gm+NS 50ml) 3.375 gm Q8H IVPB 12/28/24 12:00 01/07/25 11:59 12/29/24 13:00 3.375 GM Procainamide HCl 2000 mg/Sodium Chloride 250 ml @ 0 mls/hr PROTOCOL IV 12/28/24 10:00 12/28/24 10:42 DC Sodium Chloride 1,000 ml @ 100 mls/hr Q10H IV 12/28/24 12:00 12/29/24 09:23 DC 12/29/24 09:14 100 MLS/HR Sodium Chloride (NS 50ml) 50 ml AD IV 12/28/24 12:00 12/28/24 11:59 DC Thiamine HCl (Vitamin B-1) 100 mg Q24H IVP 12/28/24 12:00 01/27/25 11:59 12/29/24 13:00 100 MG Vitamin B Complex/ Vit C/Folic Acid (Nephrovite Tablet) 1 cap DAILY PO 12/29/24 09:00 01/28/25 08:59 12/29/24 09:13 1 CAP DIAGNOSTICS / RADIOLOGY: [ ] ASSESSMENT: 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 Acute hypoxemic respiratory failure, POA Community-acquired pneumonia, POA Elevated cardiac troponin, rule out active ACS, POA acute pancreatitis likely 2/2 gall stones Acute Kidney injury, POA Hyponatremia, POA Morbid obesity, POA Sinus tachycardia, POA Thrombocytopenia, POA, mild Underlying history of obstructive sleep apnea, POA Hypertension, POA Hyperlipidemia, POA History of [place], POA History of coronary artery disease with prior history of PCI, POA 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 Follow up with cultures Duo nebs obtain a 2D echocardiogram Repeat head CT on 12/29/2024 showing old right basilar ganglia infarct, with encephalomalacia, no acute intracranial process noted. [id number] g daily. Atorvastatin 40 mg at bedtime. Titrate supplemental O2 therapy to maintain oxygen saturations greater than 92% Consultation with Cardiology requested Consultation with pulmonology neurology and Nephrology requested All labs will be repeated in the morning Continue CPAP therapy PT OT evaluation Further orders per hospital course LONG ROSADO Dec 29, 2024 13:32
--- NOTE | 2024-12-29 20:45 | CONS ---
CONSULTATION NOTE Date of Service: Dec 29, 2024 Reason for Consultation: Evaluation of stroke Requesting Physician: Hospitalist HISTORY OF PRESENT ILLNESS: Mr. Miles is a 59-year-old gentleman with a history of dyslipidemia, morbid obesity, hypertension, obstructive sleep apnea, Idved-Jtbqvktuk-Odrwo syndrome, coronary artery disease, and previous [place] presenting for evaluation and management of generalized malaise, weakness, poor oral intake, diaphoresis, and shortness of breath. The patient reports a 3-day history of progressive symptomatology, primarily characterized by shortness of breath and generalized weakness. He has been under the care of Dr. 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 Additionally, the patient has undergone two cardiac ablations for his Qxntw-Fvtoedqzv-Dzjik syndrome. During the current admission, imaging studies were performed, revealing a possible stroke in the right MCA territory, which was later confirmed as a right basal ganglia acute ischemic stroke on MRI. The patient is currently maintained on aspirin 81 mg daily and atorvastatin 40 mg daily for his cardiovascular conditions. Medical History - Acute right basal ganglia ischemic stroke - Coronary artery disease with history of myocardial infarction and multiple cardiac stent placements - Gthix-Hdwafdxjs-Loacb syndrome with 2 cardiac ablations - Obstructive sleep apnea - Morbid obesity - Hypertension - Dyslipidemia Surgical History - Multiple cardiac stent placements - Two cardiac ablations Medications and Supplements - Aspirin 81 mg by mouth daily - Atorvastatin 40 mg by mouth daily Social History - Diet: Eternal diet recommended REVIEW OF SYSTEMS General: Positive for generalized malaise, weakness, and diaphoresis. Cardiovascular: Positive for shortness of breath. Gastrointestinal: Positive for poor oral intake. PAST MEDICAL HISTORY: as above PAST SURGICAL HISTORY: as above PAST SOCIAL HISTORY: none FAMILY HISTORY: none Coded Allergies: No Known Drug Allergies (Unverified Allergy, Unknown, 12/28/24) PHYSICAL EXAM Mental status: The patient is alert, attentive, and oriented. Speech is clear and fluent with good repetition, comprehension, and naming. Pt recalls 3/3 objects at 5 minutes. Cranial nerves: CN II: Visual chino are full to confrontation. CN III, IV, : At primary gaze, there is no eye deviation. CN V: Facial sensation is intact to pinprick in all 3 divisions bilaterally. Corneal responses are intact. CN VII: Face is symmetric with normal eye closure and smile. CN VIII: Hearing is normal to rubbing fingers CN IX, X: Palate elevates symmetrically. Phonation is normal. CN XI: Head turning and shoulder shrug are intact CN XII: Tongue is midline with normal movements and no atrophy. Motor: There is no pronator drift of out-stretched arms. Muscle bulk and tone are normal. Strength is full bilaterally. Reflexes: Reflexes are 2+ and symmetric at the biceps, triceps, knees, and ankles. Plantar responses are flexor. Sensory: Light touch, pinprick, position sense, and vibration sense are intact in fingers and toes. Coordination: Rapid alternating movements and fine finger movements are intact. There is no dysmetria on [id number] and fhpd-jbes-[id number]. There are no abnormal or extraneous movements. Romberg is absent. Gait/Stance: Not evaluated NIHSS: 0 Vital Sign (Last 24 Hours) 12/29/24 12/29/24 12/29/24 16:00 19:09 19:13 Temp 99.1 Pulse 87 Resp 25 B/P (MAP) 143/76 Pulse Ox 93 O2 Delivery Room Air O2 Flow Rate 3.0 FiO2 21 Intake & Output (last 24hrs) 12/28/24 12/28/24 12/29/24 15:00 23:00 07:00 Intake Total 1250.0 ml Output Total 350 ml Balance 1250.0 ml -350 ml LABS: Laboratory: Test 12/29/24 07:45 12/29/24 06:06 12/29/24 03:48 12/28/24 20:07 Range/Units Prothrombin Time 11.4 9.6-11.6 SEC Prothromb Time International Ratio 1.08 0.85-1.15 Lipase 175 H 16-77 U/L Urine Color LIGHT-ORANGE YELLOW Urine Appearance CLEAR CLEAR Urine pH 6.0 5.0-8.0 Urine Specific [place] 1.050 H 1.001-1.031 Urine Protein 50 H NEGATIVE mg/dL Urine Glucose (UA) NEGATIVE NEGATIVE mg/dL Urine Ketones NEGATIVE NEGATIVE mg/dL Urine Occult Blood NEGATIVE NEGATIVE Urine Nitrate NEGATIVE NEGATIVE Urine Bilirubin NEGATIVE NEGATIVE mg/dL Urine Urobilinogen 2.0 H 0.2-1.0 mg/dL Urine Leukocyte Esterase NEGATIVE NEGATIVE Valentín/uL Urine RBC 2-5 H 0-1 /HPF Urine WBC 0-1 0-1 /HPF Urine Squamous Epithelial Cells RARE 0-2 /HPF Urine Bacteria None None Seen /HPF Urine Random Creatinine 268.89 H 30-135 mg/dL Urine Random Sodium < 13 L 40-220 mmol/l Urine Opiates Screen NEGATIVE NEGATIVE Urine Barbiturates Screen NEGATIVE NEGATIVE Urine Phencyclidine Screen NEGATIVE NEGATIVE Urine Amphetamines Screen NEGATIVE NEGATIVE Urine Benzodiazepines Screen NEGATIVE NEGATIVE Urine Cocaine Screen NEGATIVE NEGATIVE Urine Marijuana (THC) Screen NEGATIVE NEGATIVE White Blood Count 10.3 4.8-10.8 K/uL Red Blood Count 5.18 4.50-6.20 MIL/uL Hemoglobin 14.2 14.0-18.0 g/dL Hematocrit 41.7 L 42-54 % Mean Corpuscular Volume 80.5 79-99 fL Mean Corpuscular Hemoglobin 27.4 27.0-33.0 pg Mean Corpuscular Hemoglobin Concent 34.1 32.0-36.0 g/dL Red Cell Distribution Width 17.2 H 11.0-15.5 % Platelet Count 111 L 130-400 K/uL Mean Platelet Volume 11.6 H 7.5-10.5 fL Immature Granulocyte % (Auto) 0.4 0-1 % Neutrophils (%) (Auto) 83.0 H 40.0-77.0 % Lymphocytes (%) (Auto) 8.3 L 21.0-51.0 % Monocytes (%) (Auto) 8.2 3.0-13.0 % Eosinophils (%) (Auto) 0.0 0.0-8.0 % Basophils (%) (Auto) 0.1 0.0-5.0 % Neutrophils # (Auto) 8.5 H 1.8-7.7 K/uL Lymphocytes # (Auto) 0.9 L 1.0-4.8 K/uL Monocytes # (Auto) 0.8 0.1-1.0 K/uL Eosinophils # (Auto) 0.00 0.00-0.70 K/uL Basophils # (Auto) 0.01 0.00-0.20 K/uL Absolute Immature Granulocyte (auto 0.04 0-1 K/uL Nucleated Red Blood Cells 0.0 0.0-0.19 % Sodium Level 130 L 136-145 mmol/L Potassium Level 4.0 3.5-5.1 mmol/L Chloride Level 96 L 101-111 mmol/L Carbon Dioxide Level 26 21-32 mmol/L Blood Urea Nitrogen 31 H 7-18 mg/dL Creatinine 1.4 H 0.5-1.3 mg/dL Glomerular Filtration Rate Calc 58 >90 mL/min Random Glucose 108 H 70-105 mg/dL Total Calcium 7.6 L 8.5-10.1 mg/dL Magnesium Level 2.00 1.80-2.40 mg/dL Total Bilirubin 2.3 H 0.2-1.0 mg/dL Aspartate Amino Transf (AST/SGOT) 64 H 10-37 U/L Alanine Aminotransferase (ALT/SGPT) 77 # 12-78 U/L Alkaline Phosphatase 58 50-136 U/L Total Protein 6.9 6.0-8.3 g/dL Albumin 2.5 L 3.5-5.0 g/dL Total Creatine Kinase 261 #H 21-232 U/L Troponin I High Sensitivity 175.5 *H 4-75 ng/L Test 12/28/24 14:30 12/28/24 13:14 12/28/24 12:41 12/28/24 12:03 Range/Units Amylase Level 359 *H 25-115 U/L Lactic Acid Level 1.9 0.8-2.5 mmol/L Ammonia < 10 L 11-32 umol/L Lactate Dehydrogenase 293 H 81-234 U/L C-Reactive Protein, Quantitative 303.60 H 0.5-3.0 mg/L Triglycerides Level 99 30-200 mg/dL Cholesterol Level 93 <200 mg/dL LDL Cholesterol 49 0-99 mg/dL HDL Cholesterol 33 29-71 mg/dL Blood Gas Specimen Type Arterial Arterial Blood pH 7.457 H 7.350-7.450 Arterial Blood Partial Pressure CO2 31 L 35-48 mmHg Arterial Blood Partial Pressure O2 94.4 83.0-108.0 mmHg Arterial Blood HCO3 21.1 21.0-28.0 mmol/L Arterial Blood Oxygen Saturation 97.0 94.0-98.0 % Arterial Blood Base Excess -1.6 -2.0-3.0 mmol/L Hemoglobin (Blood Gas) 15.5 13.5-17.5 g/dL Sodium (Blood Gas) 133 L 136-145 MMOL/L Bedside Potassium (Blood Gas) 3.7 3.4-4.5 MMOL/L Bedside Chloride (Blood Gas) 99 98-107 MMOL/L Bedside Glucose (Blood Gas) 113 H 65-95 MG/DL Bedside Ionized Calcium (Blood Gas) 1.06 L 1.15-1.33 MMOL/L Bedside Lactic Acid (Blood Gas) 1.67 H 0.36-0.75 MMOL/L Blood Gas Temperature 37.0 35.5-37.0 CELSIUS Blood Gas Flow-by 2.00 0.00-15.00 L/min Blood Gas Vent Mode 2LNC ROOM AIR FiO2 28.0 % Blood Gas Specimen Comment RR TRINI Influenza Type A Antigen Negative For Type A NEGATIVE Influenza Type B Antigen Negative For Type B NEGATIVE SARS-CoV-2, RNA, NAAT NEGATIVE SARS CoV-2 NEGATIVE Test 12/28/24 10:11 Range/Units White Cell Morphology Comment See comments Erythrocyte Sedimentation Rate 67 H 0-20 MM/HR Activated Partial Thromboplast Time 29.3 26.3-35.5 SEC D-Dimer Quantitative (PE/DVT) 4865 *H 0-500 ng/mL Hemoglobin A1c 5.8 4.0-6.0 % Estimated Average Glucose (eAG) 120 70-126 mg/dL Direct Bilirubin 0.7 H 0.0-0.3 mg/dL B-Type Natriuretic Peptide 44 0-100 pg/mL Procalcitonin 3.00 H 0.05-0.5 ng/mL Thyroid Stimulating Hormone (TSH) 4.31 H 0.36-3.74 uIU/mL DIAGNOSTICS / RADIOLOGY: CT scan of the head without contrast acute right basal ganglia hypodensity MRI of the brain without contrast: Acute right basal ganglia ischemic stroke ASSESSMENT / PLAN: Mr. Miles is a 59-year-old male with a history of dyslipidemia, morbid obesity, hypertension, obstructive sleep apnea, Kwblj-Xojetzggi-Gpswe syndrome, coronary artery disease, and [place] presenting with generalized malaise, weakness, poor oral intake, diaphoresis, and shortness of breath for 3 days. Acute right basal ganglia ischemic stroke Assessment: Mr. Miles was admitted on December 28, 2024, for evaluation and management of progressive symptomatology, primarily shortness of breath and generalized weakness. A CT scan of the head initially suggested a possible stroke in the right MCA territory. Subsequent MRI of the brain confirmed an acute ischemic stroke in the right basal ganglia. Although initial interpretation suggested possible hemorrhagic transformation, a repeat CT scan was unremarkable. 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 An MRA showed no large vessel occlusion or significant stenosis. A transthoracic echocardiogram is pending to evaluate for potential cardioembolic sources. Plan: - Continue aspirin 81 mg PO daily - Continue atorvastatin 40 mg PO daily - Target LDL < 70 mg/dL - Target HbA1c < 7% - Request physical therapy, occupational therapy, and speech therapy consultatio ns - Await results of pending transthoracic echocardiogram - Implement neurocheck protocol - Recommend weight loss and eternal diet Thank you for your consultation. I will sign off. Please reconsult if there is any major abnormalities observed in the transthoracic echocardiogram MATEUS TAYLOR MD Dec 29, 2024 20:45
--- NOTE | 2024-12-29 20:57 | PN ---
CONSULT NOTE: REASON FOR CONSULT Possible ACS HISTORY OF PRESENT ILLNESS This is a pleasant 59-year-old male with past medical history as per patient with complaints of shortness of breath, is being evaluated for possible ACS contributory for pneumonia. Patient was also found to have a CVA PAST MEDICAL HISTORY, ALLERGIES See below REVIEW OF SYSTEMS Not obtained Vitals See chart PHYSICAL EXAM Alert and oriented x 3 Nonicteric nontraumatic Regular rate and rhythm, no murmurs Clear to auscultation bilaterally pulmonary Abdomen nontender Rectal deferred Skin no rash neurological no focal deficits Extremities no edema ASSESSMENT CORONARY DISEASE, ELEVATED TROPONIN At presentation PNEUMONIA Being managed by antibiotics per infectious disease, appreciate CT was negative for pulm embolism CVA At presentation Patient ganglia as well as occipital lobe involvement ACUTE ON CHRONIC KIDNEY DISEASE At presentation Create greater than 2 HISTORY OF [id number] SYNDROME SLEEP APNEA, HYPERTENSION, HYPERLIPIDEMIA, SLEEP APNEA CORE MEASURES pending OTHER MEDICAL PROBLEMS reviewed CORE MEASURES Pending OTHER MEDICAL PROBLEMS Reviewed PLAN 12/28/2024 given recent CVA, not a good candidate for any ischemic evaluation at this time, echocardiogram has been ordered and pending. Further recommendations post. Continue current medical therapy conservative management for now. May consider STONE given stroke in 2 different vascular distributions. Holter monitor may also be considered. Seen and examined 12/28/2024 at around 1800. 12/29/2024 Remains on BiPAP, echocardiogram was within normal limits. Renal function being addressed by nephrology, julieta. At this time, given recent CVA ongoing respiratory issues, not a good candidate for any ischemic evaluation. Once he has recovered from his underlying issues, may consider further evaluation from a cardiac standpoint. Conservative measures for now. Seen and examined 12/29/2024 at around 7 PM. ATTESTATION I was involved substantial in the care of the patient Number of complexity of problems addressed 1 acute illness with systemic features Amount and or complexity of data Review of prior external notes from each unique source 2+ Ordering of each unique test 0 Review of results of each unique test 2+ Assessment requiring independent historians no Dependent interpretation of test performed by another MD no Discussion of management or test interpretation with external MD no Risk status moderate Vitals/Labs Vital Signs Date Time Temp Pulse Resp B/P (MAP) Pulse Ox O2 Delivery O2 Flow Rate FiO2 12/29/24 19:13 99.1 87 25 143/76 93 Room Air 12/29/24 19:09 21 12/29/24 16:00 3.0 Laboratory Tests 12/29/24 03:48 Microbiology Date/Time Source Procedure Growth Status 12/29/24 06:06 Urine Clean Catch Midstream Legionella Urinary Antigen - Final Complete Medications Current Medications Procainamide HCl 2000 mg/Sodium Chloride 250 ml @ 0 mls/hr PROTOCOL IV; Start 12/28/24 at 10:00; Stop 12/28/24 at 10:42; Status DC Metoprolol Tartrate 5 mg ONCE ONCE IV Last administered on 12/28/24at 10:38; Start 12/28/24 at 10:30; Stop 12/28/24 at 10:31; Status DC Aspirin 325 mg ONCE ONCE PO Last administered on 12/28/24at 10:46; Start 12/28/24 at 11:00; Stop 12/28/24 at 11:01; Status DC Sodium Chloride 1,000 ml @ 100 mls/hr Q10H IV Last administered on 12/29/24at 09:14; Start 12/28/24 at 12:00; Stop 12/29/24 at 09:23; Status DC Ipratropium Veguita 1 mg Q6H PRN IH; Start 12/28/24 at 12:00; Stop 01/27/25 at 11:59 Acetaminophen 650 mg Q6H PRN PO; Start 12/28/24 at 12:00; Stop 01/27/25 at 11:59 Ondansetron HCl 4 mg Q6H PRN IVP; Start 12/28/24 at 12:00; Stop 01/27/25 at 11:59 Thiamine HCl 100 mg Q24H IVP Last administered on 12/29/24at 13:00; Start 12/28/24 at 12:00; Stop 01/27/25 at 11:59 Vitamin B Complex/ Vit C/Folic Acid 1 cap DAILY PO Last administered on 12/29/24at 09:13; Start 12/29/24 at 09:00; Stop 01/28/25 at 08:59 Aspirin 81 mg DAILY PO Last administered on 12/29/24at 09:13; Start 12/29/24 at 09:00; Stop 01/28/25 at 08:59 Piperacillin Sod/ Tazobactam Sod 3.375 gm Q8H IVPB Last administered on 12/29/24at 20:32; Start 12/28/24 at 12:00; Stop 01/07/25 at 11:59 Sodium Chloride 50 ml AD IV; Start 12/28/24 at 12:00; Stop 12/28/24 at 11:59; Status DC Enoxaparin Sodium 40 mg DAILY SQ Last administered on 12/29/24at 09:14; Start 12/29/24 at 09:00; Stop 01/28/25 at 08:59 Famotidine 20 mg Q24H IV Last administered on 12/29/24at 20:32; Start 12/28/24 at 21:00; Stop 01/27/25 at 20:59 Metoprolol Succinate 25 mg DAILY PO Last administered on 12/29/24at 09:13; Start 12/28/24 at 13:00; Stop 01/27/25 at 12:59 Iohexol 75 ml STK-MED ONCE IV; Start 12/28/24 at 12:57; Stop 12/28/24 at 12:57; Status DC Doxycycline Hyclate 250 ml @ 125 mls/hr Q12H IV Last administered on 12/29/24at 16:51; Start 12/28/24 at 14:30; Stop 01/07/25 at 14:29 Sodium Chloride 4 ml STK-MED ONCE IH Last administered on 12/28/24at 19:12; Start 12/28/24 at 18:20; Stop 12/28/24 at 18:20; Status DC Clopidogrel Bisulfate 75 mg Q24H PO Last administered on 12/28/24at 21:23; Start 12/28/24 at 20:30; Stop 12/28/24 at 22:21; Status DC Sodium Chloride 4 ml STK-MED ONCE IH; Start 12/28/24 at 22:27; Stop 12/28/24 at 22:28; Status DC Lactulose 20 gm Q6H6 PO; Start 12/29/24 at 12:00; Stop 12/29/24 at 11:49; Status DC Lactulose 20 gm TID PO Last administered on 12/29/24at 20:32; Start 12/29/24 at 14:00; Stop 01/28/25 at 13:59 Atorvastatin Calcium 40 mg HS PO Last administered on 12/29/24at 20:32; Start 12/29/24 at 21:00; Stop 01/28/25 at 20:59 BRENNON CROWLEY MD Dec 29, 2024 20:57
--- NOTE | 2024-12-29 23:14 | HMCSR ---
APPROVED REPORT EXAM: Two-dimensional and M-mode echocardiogram with Doppler and color Doppler. INDICATION ICD: Assess for heart failure Contrast Details Indication: Endocardial border delineation Agent/Amount Used: Agitated Saline 2D Dimensions RVDd4.6 cmLVEF(%)65.5 (>50%)LVED Vol(simp.)125.0 mL IVSd1.0 (0.7-1.1cm)FS(%)36 %LVES Vol(simp.)80.0 mL LVDd4.7 (3.8-5.6cm)LA (2D)4.5 (1.6-4.0cm)LVEF(%, simp.)65 % PWd1.0 (0.7-1.1cm)Ao Root(2D)2.8 (2.0-3.7cm)LA ESV INDEX (BP)22.16 mL/m2 IVSs1.2 cmLVOT diam2.5 (1.8-2.4cm) LVDs3.0 (2.5-4.0cm) PWs1.4 cm Deformation Strain Apical 4-11.5 % Apical 2-22.0 % Apical 3-12.5 % Global Strain-15.3 % M-Mode Dimensions EPSS0.5 cm LA (MM)5.3 (1.6-4.0cm) Ao Root(MM)3.2 (2.0-3.7cm) Aortic Valve AoV Vmax1.0 m/Yamileth Peak GR4.4 mmHgLVOT Vmax1.1 m/s AoV VTI0.1 mAo Mean GR2.7 mmHgLVOT VTI0.16 m JOSE ALBERTO (VMAX)4.91 cm2AVA (VTI) 5.1 cm2 Mitral Valve MV E Vmax53.4 cm/sDECEL Zhtt928 ms MV A Vmax80.1 cm/sP 1/2 T35 ms E/A ratio0.7MVA (PHT)6.2 cm2 TDI E/E' Dfloma64.9E/E' Lateral7.9 Medial E' Peak V3.85 cm/sLateral E' Peak V6.80 cm/s Pulmonary Valve PV Vmax1.2 m/sPV VTI0.17 mPV Mean GR3.3 mmHg PV Peak GR5.4 mmHg Tricuspid Valve RAP (EST) 8 mmHgRVSP8.0 mmHg Left Ventricle The left ventricle is normal size. GLS -15.0% There is normal left ventricular wall thickness. LVEF i s 60-65%. Stage I diastolic dysfunction. Right Ventricle The right ventricle is moderately dilated. The right ventricular systolic function is normal. Atria The left atrium size is normal. Negative bubble study. No evidence of PFO/ASD by agitated saline. The right atrium is moderately dilated. Aortic Valve Aortic valve is not well visualized but no significant valvular abnormalities noted. No aortic regurg itation is present. There is no aortic valvular stenosis. Mitral Valve The mitral valve is normal in structure. There is no mitral valve regurgitation noted. There is no mi tral valve stenosis. Tricuspid Valve The tricuspid valve is normal in structure. There is trace of tricuspid valve regurgitation noted. Pulmonic Valve The pulmonary valve is normal in structure. There is no pulmonic valvular regurgitation. Great Vessels The aortic root is normal in size. IVC is not well visualized. Pericardium There is no pericardial effusion. Other Information Quality : Technically difficult study due to body habitus Conclusion LVEF is 60-65%. Stage I diastolic dysfunction. The left ventricle is normal size. GLS -15.0% The right ventricle is moderately dilated. The right atrium is moderately dilated. There is no pericardial effusion. Normal pulmonary pressures Study quality was adequate
[2024-12-30] VITALS (10 sets, daily range): BP systolic 126–166; BP diastolic 63–84; PULSE 77–109; RESP 18–22; TEMP 97.8–98.7; O2SAT 94–97
[2024-12-30] MEDS: MELATONIN 5 MG TABLET PO ONE (00:46)
[2024-12-30 03:40] LABS: IMMATURE GRANULOCYTE ABSOLUTE 0.03 K/uL (0-1); NUCLEATED RED BLOOD CELLS 0.0 % (0.0-0.19); PLATELET COUNT (AUTO) 117 K/uL (130-400); RED BLOOD CELL COUNT(AUTO) 4.42 MIL/uL (4.50-6.20); RED CELL DISTRIBUTION WIDTH 16.9 % (11.0-15.5); WHITE BLOOD COUNT (AUTO) 8.9 K/uL (4.8-10.8)
[2024-12-30 03:46] LABS: CREATININE 1.4 mg/dL (0.5-1.3); GLOMERULAR FILTR. RATE CALC 58.0 mL/min (>90); GLUCOSE,RANDOM 104.0 mg/dL (70-105); SODIUM SERUM 132.0 mmol/L (136-145); UREA NITROGEN, BLOOD 27.0 mg/dL (7-18)
[2024-12-30] MEDS: PoTASSium chloRIDE 10MEQ SR 10 MEQ/TAB TAB.SR.24H PO ONE (05:47)
[2024-12-30 08:29] LABS: ABG BASE EXCESS 1.1 mmol/L (-2.0-3.0); ABG HCO3 24.8 mmol/L (21.0-28.0); ABG OXYGEN SATURATION 93.3 % (94.0-98.0); ABG PCO2 37 mmHg (35-48); ABG PH 7.446 (7.350-7.450); PO2, ARTERIAL BG 63.6 mmHg (83.0-108.0); TEMPERATURE, CELSIUS BG 37.0 CELSIUS (35.5-37.0); VENT MODE, BG ROOM AIR (ROOM AIR)
--- NOTE | 2024-12-30 09:18 | PN ---
FOLLOWUP PROGRESS NOTE SUBJECTIVE: A 59-year-old male with history of sleep apnea, initially presented with acute on chronic renal failure. The patient also has significant hyponatremia. The patient has had extensive cardiac workup in the hospital, consistent with diastolic heart failure. The patient does continue with a CPAP in the evening and the patient is being seen as a followup visit for all of the above. REVIEW OF SYSTEMS: GENERAL: He is feeling somewhat improved. HEENT: No change in vision. No change in hearing. CARDIOVASCULAR: No current chest pain or palpitations. PULMONARY: He has chronic shortness of breath. GASTROINTESTINAL: He is tolerating a diet. MUSCULOSKELETAL: Complains of weakness. PHYSICAL EXAMINATION: VITAL SIGNS: Blood pressure 126/63, pulse 70s, afebrile. GENERAL: Chronically ill male, older than appearing. HEENT: Head is atraumatic. Pupils are equal, round and reactive to light. Oropharynx is without exudate. Nares clear. NECK: There is no JVP. There is no thyromegaly, no mass. CARDIOVASCULAR: Regular. There is no S3 or S4 gallop. LUNGS: Coarse with equal thoracic movement. ABDOMEN: Soft. He is obese. EXTREMITIES: Reveal no clubbing, no cyanosis. NEUROLOGIC: He is awake. He is alert. LABORATORY DATA: Sodium 132, potassium 3.3, BUN 27, creatinine is 1.4. Troponin is 170. Hemoglobin 12, hematocrit 37. IMPRESSION: * Acute on chronic renal failure. * Hyponatremia. * Sleep apnea. * Hypertension. PLAN: The patient's renal function has remained fairly stable. The patient is encouraged with fluid restriction for the hyponatremia. The patient remains on CPAP in the evening. We will continue to follow the patient closely. Once the patient is discharged, the patient can follow up in the renal clinic. TID: [id number] RECEIPT: [id number]
--- NOTE | 2024-12-30 11:26 | PN ---
[facility] PROGRESS NOTE Date Patient Seen: Dec 30, 2024 Time of Visit: 11:26 Supervising Physician: Dejuan Eastman MD Primary Care Physician: Tremayne Hernandez MD Outpatient Specialists: [ ] Inpatient Consults: SVETA, DR Butcher, Dr King, Dr Cramer, Dr Saleh PROBLEM LIST: Acute hypoxemic respiratory failure, POA Severe sepsis with MODS POA NSTEMI POA Atelectasis to left mid lung field. Cardiomegaly acute to subacute non-hemorrhagic CVA POA Acute pancreatitis, Lilli's criteria 1pont (1% predicted mortality) POA Cholelithiasis without evidence of cholecystitis Hepatomegaly with diffuse hepatic steatosis Trace ascites in the right upper quadrant Elevated D-dimer negative for PE and DVT to lower extremities Acute Kidney injury, POA Mild thrombocytopenia Thrombocytopenia, POA, mild Essential hypertension, POA Hyperlipidemia, POA Stage I diastolic dysfunction with the EF of 60-65% POA Comorbidities: DIYA on CPAP at home Prior Myocardial infarction Coronary artery disease with prior PCI 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 No major overnight events. 2D echo shows EF of 60 65% with stage I diastolic dysfunction. Normal pulmonary pressures. Study quality was adequate. Right atrium and right ve ntricle moderately dilated. Patient assessed at bedside. Awake alert and oriented x3. Denies any chest pain palpitations or shortness for breath at this time. Denies chest pain, palpitation, or shortness for breath. He has been evaluated by neurologist for acute right basal ganglia ischemic stroke. He continues on IV antibiotics for community-acquired pneumonia with Zosyn and doxycycline. Hemodynamically stable. Currently saturating 96% on3 L via nasal cannula. ABG shows a pH of 7.44 pCO2 of37 PO2 of 63.6 bicarb 24.8. We will give one time dose of Lasix 20 mg IV push. Continue pulmonary toileting. No major overnight events reported. Patient will need a 6 minute walk prior to discharge. REVIEW OF SYSTEMS: General: No malaise or fever. Neurological: No fainting episodes or seizures. HEENT: No nasal congestion or nasal secretion. Respiratory: No cough, shortness of breath, or wheezing Cardiac: No chest pain or palpitations. Gastrointestinal: No vomiting or diarrhea. Genitourinary: No dysuria hematuria. Skin: No rashes or lesions. Hematological: No bruises or bleeding. Musculoskeletal: No joint pains or arthralgias. Psychiatric: No depression or panic attacks. PHYSICAL EXAM: GENERAL: alert, weak, awake oriented x 3 HEENT: EOMI, Sclera non icteric, moist mucosa NECK: Supple, no JVD, trachea midline LUNGS: Diminished breath sounds bilaterally. No wheezes HEART: Regular rate and rhythm. Normal S1 and S2, without murmurs ABD: Abdomen soft, morbidly obese, nontender. Bowel sounds present EXT: No clubbing cyanosis or edema NEURO: Alert and oriented to person, follows commands Vital Signs (last 8hr) Date Time Temp Pulse Resp B/P (MAP) Pulse Ox O2 Delivery O2 Flow Rate FiO2 12/30/24 09:45 94 Room Air* 0 21 12/30/24 08:00 98.2 90 22 143/74 93 Nasal Cannula 3.0 12/30/24 07:00 86 20 N/A Room Air 21 12/30/24 03:46 98.8 77 20 126/63 96 Room Air LABS: Hematology Labs: Test 12/30/24 03:17 Range/Units White Blood Count 8.9 4.8-10.8 K/uL Red Blood Count 4.42 L 4.50-6.20 MIL/uL Hemoglobin 12.1 L 14.0-18.0 g/dL Hematocrit 35.7 L 42-54 % Mean Corpuscular Volume 80.8 79-99 fL Mean Corpuscular Hemoglobin 27.4 27.0-33.0 pg Mean Corpuscular Hemoglobin Concent 33.9 32.0-36.0 g/dL Red Cell Distribution Width 16.9 H 11.0-15.5 % Platelet Count 117 L 130-400 K/uL Mean Platelet Volume 11.9 H 7.5-10.5 fL Immature Granulocyte % (Auto) 0.3 0-1 % Neutrophils (%) (Auto) 79.0 H 40.0-77.0 % Lymphocytes (%) (Auto) 10.0 L 21.0-51.0 % Monocytes (%) (Auto) 10.4 3.0-13.0 % Eosinophils (%) (Auto) 0.1 0.0-8.0 % Basophils (%) (Auto) 0.2 0.0-5.0 % Neutrophils # (Auto) 7.1 1.8-7.7 K/uL Lymphocytes # (Auto) 0.9 L 1.0-4.8 K/uL Monocytes # (Auto) 0.9 0.1-1.0 K/uL Eosinophils # (Auto) 0.01 0.00-0.70 K/uL Basophils # (Auto) 0.02 0.00-0.20 K/uL Absolute Immature Granulocyte (auto 0.03 0-1 K/uL Nucleated Red Blood Cells 0.0 0.0-0.19 % Chemistry Labs: Test 12/30/24 03:17 12/29/24 07:45 12/29/24 03:48 12/28/24 20:07 Range/Units Sodium Level 132 L 136-145 mmol/L Potassium Level 3.3 L 3.5-5.1 mmol/L Chloride Level 95 L 101-111 mmol/L Carbon Dioxide Level 30 21-32 mmol/L Blood Urea Nitrogen 27 H 7-18 mg/dL Creatinine 1.4 H 0.5-1.3 mg/dL Glomerular Filtration Rate Calc 58 >90 mL/min Random Glucose 104 70-105 mg/dL Total Calcium 7.7 L 8.5-10.1 mg/dL Lipase 175 H 16-77 U/L Magnesium Level 2.00 1.80-2.40 mg/dL Total Bilirubin 2.3 H 0.2-1.0 mg/dL Aspartate Amino Transf (AST/SGOT) 64 H 10-37 U/L Alanine Aminotransferase (ALT/SGPT) 77 # 12-78 U/L Alkaline Phosphatase 58 50-136 U/L Total Protein 6.9 6.0-8.3 g/dL Albumin 2.5 L 3.5-5.0 g/dL Total Creatine Kinase 261 #H 21-232 U/L Troponin I High Sensitivity 175.5 *H 4-75 ng/L Test 12/28/24 14:30 12/28/24 13:14 Range/Units Amylase Level 359 *H 25-115 U/L Lactic Acid Level 1.9 0.8-2.5 mmol/L Ammonia < 10 L 11-32 umol/L Lactate Dehydrogenase 293 H 81-234 U/L C-Reactive Protein, Quantitative 303.60 H 0.5-3.0 mg/L Triglycerides Level 99 30-200 mg/dL Cholesterol Level 93 <200 mg/dL LDL Cholesterol 49 0-99 mg/dL HDL Cholesterol 33 29-71 mg/dL Coagulation Labs: Test 12/29/24 07:45 Range/Units Prothrombin Time 11.4 9.6-11.6 SEC Prothromb Time International Ratio 1.08 0.85-1.15 DIAGNOSTICS / RADIOLOGY RESULTS: [[facility] [address] [place] [address] IMAGING REPORT Signed PATIENT: KINGA JONES MR#: [id number] : 1965 SEX: M AGE: 59 LOCATION: [facility] ORDER 27 STATUS: ADM IN REPORT#: [id number] SERVICE 26 REASON: hypoxemia ORDERING PHYSICIAN: ALEKSANDAR NICHOLE PROCEDURE: CXR1VW - CHEST 1VW CHEST 1VW REASON: hypoxemia COMPARISON: Prior chest radiograph from 12/28/2024 is available. FINDINGS: Single view of the chest was obtained. There is mild cardiomegaly which appears to be stable as compared to prior study. There is atelectasis seen in the left midlung field. Remaining lung chino are clear.. There is no pulmonary vascular congestion. Mediastinum and bony thorax appear unremarkable. IMPRESSION: 1. Stable cardiomegaly 2. Atelectasis seen in the left midlung field 3. No evidence of airspace consolidation or pulmonary venous congestion. DICTATED BY: KIM THOMPSON MD DATE: 12/30/241254 ELECTRONICALLY SIGNED BY: KIM THOMPSON MD DATE: 12/30/241257 PLAN One time dose of Lasix 20 mg IV push CPAP of 10 with a FiO2 of 50% at HS and PRN Allow family bring CPAP from home With a BNP of 44 and a pulmonary artery to aortic root ratio unlikely pulmonary hypertension 6 minute walk prior to discharge PFTs speech eval -Arrange outpatient pulmonology referral for sleep study, PFT and follow-up management upon discharge NEURO: Minimize central acting medications as possible. Maintain fall precautions, adequate lighting during the day PULMONARY: Supplemental 02 as needed. Maintain aspiration precautions at all times CARDIOVASCULAR: Follow hemodynamics. Vital signs per facility protocol GI & NUTRITION: Continue with nutritional support. Continue stool softeners and laxatives as needed. KIDNEYS & ELECTROLYTES: Strict monitoring of intake, output and overall fluid balance. Avoid nephrotoxic medications to the extent possible. Medications to be dosed according to renal function. Monitor electrolytes and replace as needed ENDOCRINE: Maintain blood glucose between 100-180 at all times. Hypoglycemia protocol in place INFECTIOUS DISEASE: Trend temperature, WBC and procalcitonin level Follow cultures, deescalate antibiotics as soon as possible. Panculture if new onset fever ONCOLOGY/HEMATOLOGY/COAGULATION: Monitor for s/s of bleeding Monitor hemoglobin, coagulation studies as needed SKIN: Pressure ulcer prevention per facility protocol Specialty mattress ORTHO/REHAB: Continue PT/OT Prophylaxis: Continue GI and DVT prophylaxis Code Status: Full Resuscitation Disposition: TBD Other: Total patient care time exceeds 35 minutes excluding all procedures. ATTESTATION BY PHYSICIAN The patient has been seen and evaluated, the case has been discussed with the DETECTIVE SUPERVISOR, I agree with the clinical findings and plan of care. Dejuan Eastman MD, [facility] Dec 30, 2024 11:26
--- NOTE | 2024-12-30 12:58 | HMCIMG ---
CHEST 1VW REASON: hypoxemia COMPARISON: Prior chest radiograph from 12/28/2024 is available. FINDINGS: Single view of the chest was obtained. There is mild cardiomegaly which appears to be stable as compared to prior study. There is atelectasis seen in the left midlung field. Remaining lung chino are clear.. There is no pulmonary vascular congestion. Mediastinum and bony thorax appear unremarkable. IMPRESSION: 1. Stable cardiomegaly 2. Atelectasis seen in the left midlung field 3. No evidence of airspace consolidation or pulmonary venous congestion.
--- NOTE | 2024-12-30 13:31 | PN ---
[facility] PROGRESS NOTE Date of Service: Dec 30, 2024 Time of Service: 13:28 SUBJECTIVE: Follow up visit for a 59-year-old male admitted to the hospital for acute hypoxemic respiratory failure, community-acquired pneumonia, non-STEMI, acute pancreatitis. Patient remains on IV doxycycline, IV Zosyn under ID direction. Cultures in process. Currently saturating adequately on room air. Patient initiated on diet, tolerating well, no reports of abdominal pain. Serum lipase improved from 497-175. 2D echo has been performed, report pending. He has brain MRI on admission did show acute infarct in the right basal ganglia similar to the CT brain dated 12/28/2024. Patient at this time reveals no focal deficits. 12/30/2024: Over the past 24 hours no major events reported. Patient remains on IV doxycycline, IV Zosyn under ID direction. He is saturating adequately on room air. Continues to be followed by pulmonology team requesting 6 minute walk test prior to discharge. Patient reports no neuro deficits at this time, being followed closely by Neurology, remains on aspirin statins. Patient denies abdominal pain nausea or vomiting. He is tolerating diet. 2D echo EF 60-65%. Morning labs potassium 3.3, for which he received replacement. REVIEW OF SYSTEMS CONSTITUTIONAL: generalized fatigue, malaise NEUROLOGICAL: Denies headache, amaurosis fugax, motor weakness, sensory deficit, vertigo/spinning sensation, gait abnormalities, or tremors. ENT: No hearing loss, otalgia, otorrhea, rhinitis, rhinorrhea, hoarseness, or sore throat. CARDIOVASCULAR: Denies any exertional angina, dyspnea on exertion, orthopnea, paroxysmal nocturnal dyspnea, palpitations, life-threatening arrhythmias, claudication. PULMONARY: Shortness of breath, diaphoresis SLEEP: Denies morning headaches, daytime somnolence or napping. Denies difficulty falling asleep, staying asleep, waking from sleep. Denies knowledge of snoring. GASTROINTESTINAL: reports having nausea and vomiting GENITOURINARY: Denies frequency, urgency, nocturia, hematuria or incontinence (Storage/Irritative symptoms.) Low urinary stream, straining to void, urinary intermittency or hesitancy, splitting of the voiding stream, terminal dribbling. ENDOCRINOLOGIC: Denies polyuria, polydipsia, polyphagia or heat/cold intolerances. HEMATOLOGIC: Denies thrombophilia/previous clots, or coagulopathy/bleeding disorders. ONCOLOGIC: Denies personal history of malignancy. DERMATOLOGIC: Denies rashes or pruritus. PSYCHIATRIC: Denies any suicidal or homicidal ideation. Denies hallucinations. PHYSICAL EXAM GENERAL APPEARANCE: The patient is awake, alert, patient appears very diaphoretic, currently on 3 L supplementation by nasal cannula, patient is morbidly obese NEUROLOGICAL: Cranial nerves II-XII grossly intact. Examination is nonfocal for the patient HEENT: Face is symmetric. Pupils are equal and reactive. Extraocular movements are intact. NECK: Supple. No JVD. No thyromegaly. No submental, submandibular, pre- /postauricular, occipital or supraclavicular lymphadenopathy. CHEST: Normal chest expansion. No Telemetry. LUNGS: Minimal crackles noted at bilateral lung bases CARDIOVASCULAR: Regular. S1 and S2 normal. Tachycardic was ABDOMEN: Soft, nontender, and nondistended. There is no rebound, voluntary guarding, or rigidity. : Deferred. No [place]. EXTREMITIES: Non-edematous and not cyanotic. No clubbing. Good capillary refill. SKIN: No skin breakdown. Vital Signs (last 8hr) Date Time Temp Pulse Resp B/P (MAP) Pulse Ox O2 Delivery O2 Flow Rate FiO2 12/30/24 09:45 94 Room Air* 0 21 12/30/24 08:00 98.2 90 22 143/74 93 Nasal Cannula 3.0 12/30/24 07:00 86 20 N/A Room Air 21 LABS: Laboratory: Test 12/30/24 12:15 12/30/24 08:27 12/30/24 03:17 12/29/24 07:45 Range/Units B-Type Natriuretic Peptide 48 0-100 pg/mL Blood Gas Specimen Type Arterial Arterial Blood pH 7.446 7.350-7.450 Arterial Blood Partial Pressure CO2 37 35-48 mmHg Arterial Blood Partial Pressure O2 63.6 L 83.0-108.0 mmHg Arterial Blood HCO3 24.8 21.0-28.0 mmol/L Arterial Blood Oxygen Saturation 93.3 L 94.0-98.0 % Arterial Blood Base Excess 1.1 -2.0-3.0 mmol/L Blood Gas Temperature 37.0 35.5-37.0 CELSIUS Blood Gas Vent Mode ROOM AIR ROOM AIR FiO2 21.0 % Blood Gas Specimen Comment MONI RN White Blood Count 8.9 4.8-10.8 K/uL Red Blood Count 4.42 L 4.50-6.20 MIL/uL Hemoglobin 12.1 L 14.0-18.0 g/dL Hematocrit 35.7 L 42-54 % Mean Corpuscular Volume 80.8 79-99 fL Mean Corpuscular Hemoglobin 27.4 27.0-33.0 pg Mean Corpuscular Hemoglobin Concent 33.9 32.0-36.0 g/dL Red Cell Distribution Width 16.9 H 11.0-15.5 % Platelet Count 117 L 130-400 K/uL Mean Platelet Volume 11.9 H 7.5-10.5 fL Immature Granulocyte % (Auto) 0.3 0-1 % Neutrophils (%) (Auto) 79.0 H 40.0-77.0 % Lymphocytes (%) (Auto) 10.0 L 21.0-51.0 % Monocytes (%) (Auto) 10.4 3.0-13.0 % Eosinophils (%) (Auto) 0.1 0.0-8.0 % Basophils (%) (Auto) 0.2 0.0-5.0 % Neutrophils # (Auto) 7.1 1.8-7.7 K/uL Lymphocytes # (Auto) 0.9 L 1.0-4.8 K/uL Monocytes # (Auto) 0.9 0.1-1.0 K/uL Eosinophils # (Auto) 0.01 0.00-0.70 K/uL Basophils # (Auto) 0.02 0.00-0.20 K/uL Absolute Immature Granulocyte (auto 0.03 0-1 K/uL Nucleated Red Blood Cells 0.0 0.0-0.19 % Sodium Level 132 L 136-145 mmol/L Potassium Level 3.3 L 3.5-5.1 mmol/L Chloride Level 95 L 101-111 mmol/L Carbon Dioxide Level 30 21-32 mmol/L Blood Urea Nitrogen 27 H 7-18 mg/dL Creatinine 1.4 H 0.5-1.3 mg/dL Glomerular Filtration Rate Calc 58 >90 mL/min Random Glucose 104 70-105 mg/dL Total Calcium 7.7 L 8.5-10.1 mg/dL Prothrombin Time 11.4 9.6-11.6 SEC Prothromb Time International Ratio 1.08 0.85-1.15 Lipase 175 H 16-77 U/L Test 12/29/24 06:06 12/29/24 03:48 12/28/24 20:07 12/28/24 14:30 Range/Units Urine Color LIGHT-ORANGE YELLOW Urine Appearance CLEAR CLEAR Urine pH 6.0 5.0-8.0 Urine Specific [place] 1.050 H 1.001-1.031 Urine Protein 50 H NEGATIVE mg/dL Urine Glucose (UA) NEGATIVE NEGATIVE mg/dL Urine Ketones NEGATIVE NEGATIVE mg/dL Urine Occult Blood NEGATIVE NEGATIVE Urine Nitrate NEGATIVE NEGATIVE Urine Bilirubin NEGATIVE NEGATIVE mg/dL Urine Urobilinogen 2.0 H 0.2-1.0 mg/dL Urine Leukocyte Esterase NEGATIVE NEGATIVE Valentín/uL Urine RBC 2-5 H 0-1 /HPF Urine WBC 0-1 0-1 /HPF Urine Squamous Epithelial Cells RARE 0-2 /HPF Urine Bacteria None None Seen /HPF Urine Random Creatinine 268.89 H 30-135 mg/dL Urine Random Sodium < 13 L 40-220 mmol/l Urine Opiates Screen NEGATIVE NEGATIVE Urine Barbiturates Screen NEGATIVE NEGATIVE Urine Phencyclidine Screen NEGATIVE NEGATIVE Urine Amphetamines Screen NEGATIVE NEGATIVE Urine Benzodiazepines Screen NEGATIVE NEGATIVE Urine Cocaine Screen NEGATIVE NEGATIVE Urine Marijuana (THC) Screen NEGATIVE NEGATIVE Magnesium Level 2.00 1.80-2.40 mg/dL Total Bilirubin 2.3 H 0.2-1.0 mg/dL Aspartate Amino Transf (AST/SGOT) 64 H 10-37 U/L Alanine Aminotransferase (ALT/SGPT) 77 # 12-78 U/L Alkaline Phosphatase 58 50-136 U/L Total Protein 6.9 6.0-8.3 g/dL Albumin 2.5 L 3.5-5.0 g/dL Total Creatine Kinase 261 #H 21-232 U/L Troponin I High Sensitivity 175.5 *H 4-75 ng/L Amylase Level 359 *H 25-115 U/L Current Medications Medications (Trade) Dose Ordered Sig/Donald Route PRN Reason Start Time Stop Time Status Last Admin Dose Admin Acetaminophen (TYLenol 325MG TAB) 650 mg Q6H PRN PO MILD PAIN (1-3) 12/28/24 12:00 01/27/25 11:59 Aspirin (Aspirin 81mg Chew Tab) 81 mg DAILY PO 12/29/24 09:00 01/28/25 08:59 12/30/24 09:39 81 MG Atorvastatin Calcium (LIPItor 40MG) 40 mg HS PO 12/29/24 21:00 01/28/25 20:59 12/29/24 20:32 40 MG Clopidogrel Bisulfate (plaVIX 75MG) 75 mg Q24H PO 12/28/24 20:30 12/28/24 22:21 DC 12/28/24 21:23 75 MG Doxycycline Hyclate 250 ml @ 125 mls/hr Q12H IV 12/28/24 14:30 01/07/25 14:29 12/30/24 02:32 125 MLS/HR Enoxaparin Sodium (Lovenox) 40 mg DAILY SQ 12/29/24 09:00 01/28/25 08:59 12/30/24 09:40 40 MG Famotidine (Pepcid 20mg Vial) 20 mg Q24H IV 12/28/24 21:00 01/27/25 20:59 12/29/24 20:32 20 MG Ipratropium [place] (AtrovENT UD) 1 mg Q6H PRN IH SHORTNESS OF BREATH 12/28/24 12:00 01/27/25 11:59 Lactulose (Constulose 20gm/ 30ml Udcup) 20 gm Q6H6 PO 12/29/24 12:00 12/29/24 11:49 DC Lactulose (Constulose 20gm/ 30ml Udcup) 20 gm TID PO 12/29/24 14:00 01/28/25 13:59 12/30/24 09:38 20 GM Metoprolol Succinate (TopROL XL) 25 mg DAILY PO 12/28/24 13:00 01/27/25 12:59 12/30/24 09:38 25 MG Ondansetron HCl (zoFRAN 4MG INJ) 4 mg Q6H PRN IVP NAUSEA/VOMITING 12/28/24 12:00 01/27/25 11:59 Piperacillin Sod/ Tazobactam Sod (Zosyn 3.375gm+NS 50ml) 3.375 gm Q8H IVPB 12/28/24 12:00 01/07/25 11:59 12/30/24 12:42 3.375 GM Procainamide HCl 2000 mg/Sodium Chloride 250 ml @ 0 mls/hr PROTOCOL IV 12/28/24 10:00 12/28/24 10:42 DC Sodium Chloride 1,000 ml @ 100 mls/hr Q10H IV 12/28/24 12:00 12/29/24 09:23 DC 12/29/24 09:14 100 MLS/HR Sodium Chloride (NS 50ml) 50 ml AD IV 12/28/24 12:00 12/28/24 11:59 DC Thiamine HCl (Vitamin B-1) 100 mg Q24H IVP 12/28/24 12:00 01/27/25 11:59 12/30/24 12:42 100 MG Vitamin B Complex/ Vit C/Folic Acid (Nephrovite Tablet) 1 cap DAILY PO 12/29/24 09:00 01/28/25 08:59 12/30/24 09:38 1 CAP DIAGNOSTICS / RADIOLOGY: [ ] ASSESSMENT: 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 Acute hypoxemic respiratory failure, POA Community-acquired pneumonia, POA Elevated cardiac troponin, rule out active ACS, POA acute pancreatitis likely 2/2 gall stones Acute Kidney injury, POA Hyponatremia, POA Morbid obesity, POA Sinus tachycardia, POA Thrombocytopenia, POA, mild Underlying history of obstructive sleep apnea, POA Hypertension, POA Hyperlipidemia, POA History of [place], POA History of coronary artery disease with prior history of PCI, POA 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 Follow up with cultures Duo nebs 2D echocardiogram EF 60-65%. Repeat head CT on 12/29/2024 showing old right basilar ganglia infarct, with encephalomalacia, no acute intracranial process noted. [id number] g daily. Atorvastatin 40 mg at bedtime. Neurology consult obtained, follow up with recommendations Titrate supplemental O2 therapy to maintain oxygen saturations greater than 92% Consultation with Cardiology requested Consultation with pulmonology neurology and Nephrology requested All labs will be repeated in the morning Continue CPAP therapy PT OT evaluation Further orders per hospital course LONG ROSADO Dec 30, 2024 13:31
[2024-12-30] MEDS: MAGNESIUM CITRATE 296 ML SOLUTION PO ONE (13:55)
--- NOTE | 2024-12-30 14:42 | PN ---
INFECTIOUS DISEASE PROGRESS NOTE Date of Service: Dec 30, 2024 SUBJECTIVE: This 59 year old male patient is being seen today at bedside. No fever or chills. No nausea or vomiting. Awake, alert and oriented x3. Patient remains on Doxycycline and Zosyn. Patient was evaluated by neurologist for acute right basal ganglia ischemic stroke. Pending final culture results. We continue to follow patient closely. No acute events reported by nurse at this visit. PHYSICAL EXAM EYES: Anicteric. Pupils equal and reactive. HENT: No oral thrush seen, moist Oral mucosa NECK: Supple, no JVD or thyromegaly. LUNGS: diminished. No wheezing or rhonchi CARDIOVASCULAR: S1, S2 regular. No murmur heard. ABDOMEN: Soft, non tender, bowel sounds present, no organomegaly. CENTRAL NERVOUS SYSTEM: Awake, alert, oriented x 3. SKIN: No rashes, no swelling. LYMPHATICS: No peripheral lymphadenopathy MUSCULOSKELETAL: No joint swelling, erythema or tenderness. EXTREMITIES: No cyanosis or clubbing BACK: No deformity, no pressure ulcer. GENITOURINARY: No dysuria or hematuria. Vital Sign (Last 12 Hours) 12/30/24 12/30/24 12/30/24 12/30/24 03:46 07:00 08:00 09:45 Temp 98.8 98.2 Pulse 77 86 90 Resp 20 20 22 B/P (MAP) 126/63 143/74 Pulse Ox 96 93 94 O2 Delivery Room Air N/A Room Air Nasal Cannula Room Air* O2 Flow Rate 3.0 0 FiO2 21 21 Intake & Output (last 24hrs) 12/29/24 12/29/24 12/30/24 15:00 23:00 07:00 Intake Total 300.0 ml 2800.0 ml Output Total 800 ml 700 ml Balance -500.0 ml 2100.0 ml LABS: Laboratory: Test 12/30/24 12:15 12/30/24 08:27 12/30/24 03:17 12/29/24 07:45 Range/Units B-Type Natriuretic Peptide 48 0-100 pg/mL Blood Gas Specimen Type Arterial Arterial Blood pH 7.446 7.350-7.450 Arterial Blood Partial Pressure CO2 37 35-48 mmHg Arterial Blood Partial Pressure O2 63.6 L 83.0-108.0 mmHg Arterial Blood HCO3 24.8 21.0-28.0 mmol/L Arterial Blood Oxygen Saturation 93.3 L 94.0-98.0 % Arterial Blood Base Excess 1.1 -2.0-3.0 mmol/L Blood Gas Temperature 37.0 35.5-37.0 CELSIUS Blood Gas Vent Mode ROOM AIR ROOM AIR FiO2 21.0 % Blood Gas Specimen Comment MONI FRANCOIS White Blood Count 8.9 4.8-10.8 K/uL Red Blood Count 4.42 L 4.50-6.20 MIL/uL Hemoglobin 12.1 L 14.0-18.0 g/dL Hematocrit 35.7 L 42-54 % Mean Corpuscular Volume 80.8 79-99 fL Mean Corpuscular Hemoglobin 27.4 27.0-33.0 pg Mean Corpuscular Hemoglobin Concent 33.9 32.0-36.0 g/dL Red Cell Distribution Width 16.9 H 11.0-15.5 % Platelet Count 117 L 130-400 K/uL Mean Platelet Volume 11.9 H 7.5-10.5 fL Immature Granulocyte % (Auto) 0.3 0-1 % Neutrophils (%) (Auto) 79.0 H 40.0-77.0 % Lymphocytes (%) (Auto) 10.0 L 21.0-51.0 % Monocytes (%) (Auto) 10.4 3.0-13.0 % Eosinophils (%) (Auto) 0.1 0.0-8.0 % Basophils (%) (Auto) 0.2 0.0-5.0 % Neutrophils # (Auto) 7.1 1.8-7.7 K/uL Lymphocytes # (Auto) 0.9 L 1.0-4.8 K/uL Monocytes # (Auto) 0.9 0.1-1.0 K/uL Eosinophils # (Auto) 0.01 0.00-0.70 K/uL Basophils # (Auto) 0.02 0.00-0.20 K/uL Absolute Immature Granulocyte (auto 0.03 0-1 K/uL Nucleated Red Blood Cells 0.0 0.0-0.19 % Sodium Level 132 L 136-145 mmol/L Potassium Level 3.3 L 3.5-5.1 mmol/L Chloride Level 95 L 101-111 mmol/L Carbon Dioxide Level 30 21-32 mmol/L Blood Urea Nitrogen 27 H 7-18 mg/dL Creatinine 1.4 H 0.5-1.3 mg/dL Glomerular Filtration Rate Calc 58 >90 mL/min Random Glucose 104 70-105 mg/dL Total Calcium 7.7 L 8.5-10.1 mg/dL Prothrombin Time 11.4 9.6-11.6 SEC Prothromb Time International Ratio 1.08 0.85-1.15 Lipase 175 H 16-77 U/L Test 12/29/24 06:06 12/29/24 03:48 12/28/24 20:07 Range/Units Urine Color LIGHT-ORANGE YELLOW Urine Appearance CLEAR CLEAR Urine pH 6.0 5.0-8.0 Urine Specific [place] 1.050 H 1.001-1.031 Urine Protein 50 H NEGATIVE mg/dL Urine Glucose (UA) NEGATIVE NEGATIVE mg/dL Urine Ketones NEGATIVE NEGATIVE mg/dL Urine Occult Blood NEGATIVE NEGATIVE Urine Nitrate NEGATIVE NEGATIVE Urine Bilirubin NEGATIVE NEGATIVE mg/dL Urine Urobilinogen 2.0 H 0.2-1.0 mg/dL Urine Leukocyte Esterase NEGATIVE NEGATIVE Valentín/uL Urine RBC 2-5 H 0-1 /HPF Urine WBC 0-1 0-1 /HPF Urine Squamous Epithelial Cells RARE 0-2 /HPF Urine Bacteria None None Seen /HPF Urine Random Creatinine 268.89 H 30-135 mg/dL Urine Random Sodium < 13 L 40-220 mmol/l Urine Opiates Screen NEGATIVE NEGATIVE Urine Barbiturates Screen NEGATIVE NEGATIVE Urine Phencyclidine Screen NEGATIVE NEGATIVE Urine Amphetamines Screen NEGATIVE NEGATIVE Urine Benzodiazepines Screen NEGATIVE NEGATIVE Urine Cocaine Screen NEGATIVE NEGATIVE Urine Marijuana (THC) Screen NEGATIVE NEGATIVE Magnesium Level 2.00 1.80-2.40 mg/dL Total Bilirubin 2.3 H 0.2-1.0 mg/dL Aspartate Amino Transf (AST/SGOT) 64 H 10-37 U/L Alanine Aminotransferase (ALT/SGPT) 77 # 12-78 U/L Alkaline Phosphatase 58 50-136 U/L Total Protein 6.9 6.0-8.3 g/dL Albumin 2.5 L 3.5-5.0 g/dL Total Creatine Kinase 261 #H 21-232 U/L Troponin I High Sensitivity 175.5 *H 4-75 ng/L ASSESSMENT: Pneumonia. Acute pancreatitis. Sepsis. Leukocytosis, resolving. Acute renal failure. Acute nonhemorrhagic stroke. Constipation. Rhabdomyolysis. History of coronary artery disease. PLAN: Continue doxycycline IV. Continue Zosyn IV. Continue bronchodilators. Continue oxygen support. Avoid nephrotoxic medications. We will monitor electrolytes. Give magnesium citrate This case was reviewed and discussed with my supervising physician Dr. Saleh and the above assessment and plan was formulated and agreed upon. RASHAD NAVARRETE [facility] Dec 30, 2024 14:42
--- NOTE | 2024-12-30 22:26 | PN ---
Possible ACS HISTORY OF PRESENT ILLNESS This is a pleasant 59-year-old male with past medical history as per patient with complaints of shortness of breath, is being evaluated for possible ACS contributory for pneumonia. Patient was also found to have a CVA PAST MEDICAL HISTORY, ALLERGIES See below REVIEW OF SYSTEMS Not obtained Vitals See chart PHYSICAL EXAM Alert and oriented x 3 Nonicteric nontraumatic Regular rate and rhythm, no murmurs Clear to auscultation bilaterally pulmonary Abdomen nontender Rectal deferred Skin no rash neurological no focal deficits Extremities no edema ASSESSMENT CORONARY DISEASE, ELEVATED TROPONIN At presentation PNEUMONIA Being managed by antibiotics per infectious disease, appreciate CT was negative for pulm embolism CVA At presentation Patient ganglia as well as occipital lobe involvement ACUTE ON CHRONIC KIDNEY DISEASE At presentation Create greater than 2 HISTORY OF [id number] SYNDROME SLEEP APNEA, HYPERTENSION, HYPERLIPIDEMIA, SLEEP APNEA CORE MEASURES pending OTHER MEDICAL PROBLEMS reviewed CORE MEASURES Pending OTHER MEDICAL PROBLEMS Reviewed PLAN 12/28/2024 given recent CVA, not a good candidate for any ischemic evaluation at this time, echocardiogram has been ordered and pending. Further recommendations post. Continue current medical therapy conservative management for now. May consider STONE given stroke in 2 different vascular distributions. Holter monitor may also be considered. Seen and examined 12/28/2024 at around 1800. 12/29/2024 Remains on BiPAP, echocardiogram was within normal limits. Renal function being addressed by nephrology, julieta. At this time, given recent CVA ongoing respiratory issues, not a good candidate for any ischemic evaluation. Once he has recovered from his underlying issues, may consider further evaluation from a cardiac standpoint. Conservative measures for now. Seen and examined 12/29/2024 at around 7 PM. 12/30/2024 Feeling better, currently off BiPAP, nephrology on board managing renal dysfunction. As above, continue conservative measures at this time and may consider outpatient ischemic evaluation once recovered from CVA. On atorvastatin and aspirin beta-tomasa continue. Renal function improving. Echo was within normal limits. Seen and examined 12/30/2024 at around 8 PM. ATTESTATION I was involved substantial in the care of the patient Number of complexity of problems addressed 1 acute illness with systemic features Amount and or complexity of data Review of prior external notes from each unique source 2+ Ordering of each unique test 0 Review of results of each unique test 2+ Assessment requiring independent historians no Dependent interpretation of test performed by another MD no Discussion of management or test interpretation with external MD no Risk status moderate Vitals/Labs Vital Signs Date Time Temp Pulse Resp B/P (MAP) Pulse Ox O2 Delivery O2 Flow Rate FiO2 12/30/24 19:54 97.9 94 18 166/84 99 CPAP 12/30/24 19:33 21 12/30/24 16:00 3.0 Laboratory Tests 12/30/24 03:17 Medications Current Medications Procainamide HCl 2000 mg/Sodium Chloride 250 ml @ 0 mls/hr PROTOCOL IV; Start 12/28/24 at 10:00; Stop 12/28/24 at 10:42; Status DC Metoprolol Tartrate 5 mg ONCE ONCE IV Last administered on 12/28/24at 10:38; Start 12/28/24 at 10:30; Stop 12/28/24 at 10:31; Status DC Aspirin 325 mg ONCE ONCE PO Last administered on 12/28/24at 10:46; Start 12/28/24 at 11:00; Stop 12/28/24 at 11:01; Status DC Sodium Chloride 1,000 ml @ 100 mls/hr Q10H IV Last administered on 12/29/24at 09:14; Start 12/28/24 at 12:00; Stop 12/29/24 at 09:23; Status DC Ipratropium [place] 1 mg Q6H PRN IH; Start 12/28/24 at 12:00; Stop 01/27/25 at 11:59 Acetaminophen 650 mg Q6H PRN PO; Start 12/28/24 at 12:00; Stop 01/27/25 at 11:59 Ondansetron HCl 4 mg Q6H PRN IVP; Start 12/28/24 at 12:00; Stop 01/27/25 at 11:59 Thiamine HCl 100 mg Q24H IVP Last administered on 12/30/24at 12:42; Start 12/28/24 at 12:00; Stop 01/27/25 at 11:59 Vitamin B Complex/ Vit C/Folic Acid 1 cap DAILY PO Last administered on 12/30/24at 09:38; Start 12/29/24 at 09:00; Stop 01/28/25 at 08:59 Aspirin 81 mg DAILY PO Last administered on 12/30/24at 09:39; Start 12/29/24 at 09:00; Stop 01/28/25 at 08:59 Piperacillin Sod/ Tazobactam Sod 3.375 gm Q8H IVPB Last administered on 12/30/24at 20:49; Start 12/28/24 at 12:00; Stop 01/07/25 at 11:59 Sodium Chloride 50 ml AD IV; Start 12/28/24 at 12:00; Stop 12/28/24 at 11:59; Status DC Enoxaparin Sodium 40 mg DAILY SQ Last administered on 12/30/24at 09:40; Start 12/29/24 at 09:00; Stop 01/28/25 at 08:59 Famotidine 20 mg Q24H IV Last administered on 12/30/24at 20:48; Start 12/28/24 at 21:00; Stop 01/27/25 at 20:59 Metoprolol Succinate 25 mg DAILY PO Last administered on 12/30/24at 09:38; Start 12/28/24 at 13:00; Stop 01/27/25 at 12:59 Iohexol 75 ml STK-MED ONCE IV; Start 12/28/24 at 12:57; Stop 12/28/24 at 12:57; Status DC Doxycycline Hyclate 250 ml @ 125 mls/hr Q12H IV Last administered on 12/30/24at 15:27; Start 12/28/24 at 14:30; Stop 01/07/25 at 14:29 Sodium Chloride 4 ml STK-MED ONCE IH Last administered on 12/28/24at 19:12; Start 12/28/24 at 18:20; Stop 12/28/24 at 18:20; Status DC Clopidogrel Bisulfate 75 mg Q24H PO Last administered on 12/28/24at 21:23; Start 12/28/24 at 20:30; Stop 12/28/24 at 22:21; Status DC Sodium Chloride 4 ml STK-MED ONCE IH; Start 12/28/24 at 22:27; Stop 12/28/24 at 22:28; Status DC Lactulose 20 gm Q6H6 PO; Start 12/29/24 at 12:00; Stop 12/29/24 at 11:49; Status DC Lactulose 20 gm TID PO Last administered on 12/30/24at 20:49; Start 12/29/24 at 14:00; Stop 01/28/25 at 13:59 Atorvastatin Calcium 40 mg HS PO Last administered on 12/30/24at 20:49; Start 12/29/24 at 21:00; Stop 01/28/25 at 20:59 Melatonin 10 mg ONCE ONCE PO Last administered on 12/30/24at 00:46; Start 12/30/24 at 00:00; Stop 12/30/24 at 00:02; Status DC Potassium Chloride 20 meq ONCE ONCE PO Last administered on 12/30/24at 05:47; Start 12/30/24 at 05:00; Stop 12/30/24 at 05:02; Status DC Magnesium Citrate 296 ml ONCE ONCE PO Last administered on 12/30/24at 13:55; Start 12/30/24 at 13:30; Stop 12/30/24 at 13:31; Status DC Furosemide 20 mg ONCE ONCE IV Last administered on 12/30/24at 17:34; Start 12/30/24 at 17:30; Stop 12/30/24 at 17:31; Status DC Ipratropium [place] 0.5 MG [id number] IH Last administered on 12/30/24at 19:33; Start 12/30/24 at 22:00; Stop 01/29/25 at 21:59 BRENNON CROWLEY MD Dec 30, 2024 22:26
[2024-12-31] VITALS (15 sets, daily range): BP systolic 148–168; BP diastolic 68–92; PULSE 84–101; RESP 18–32; TEMP 98.4–100.4; O2SAT 92–98
[2024-12-31 03:36] LABS: IMMATURE GRANULOCYTE ABSOLUTE 0.03 K/uL (0-1); NUCLEATED RED BLOOD CELLS 0.0 % (0.0-0.19); PLATELET COUNT (AUTO) 138 K/uL (130-400); RED BLOOD CELL COUNT(AUTO) 4.50 MIL/uL (4.50-6.20); RED CELL DISTRIBUTION WIDTH 17.1 % (11.0-15.5); WHITE BLOOD COUNT (AUTO) 7.6 K/uL (4.8-10.8)
[2024-12-31 03:43] LABS: CREATININE 1.2 mg/dL (0.5-1.3); GLOMERULAR FILTR. RATE CALC 70.0 mL/min (>90); GLUCOSE,RANDOM 111.0 mg/dL (70-105); SODIUM SERUM 132.0 mmol/L (136-145); UREA NITROGEN, BLOOD 22.0 mg/dL (7-18)
[2024-12-31] MEDS ORDERED: PoTASSium chl 10% ELIXIR 20MEQ 20 MEQ/15 ML UDCUP PO PRN (05:00)
[2024-12-31] MEDS: PoTASSium chloRIDE 20MEQ ER 20 MEQ ERTAB PO PRN (05:03)
--- NOTE | 2024-12-31 11:49 | PN ---
[facility] PROGRESS NOTE Date of Service: Dec 31, 2024 Time of Service: 11:46 SUBJECTIVE: Follow up visit for a 59-year-old male admitted to the hospital for acute hypoxemic respiratory failure, community-acquired pneumonia, non-STEMI, acute pancreatitis. Patient remains on IV doxycycline, IV Zosyn under ID direction. Cultures in process. Currently saturating adequately on room air. Patient initiated on diet, tolerating well, no reports of abdominal pain. Serum lipase improved from 497-175. 2D echo has been performed, report pending. He has brain MRI on admission did show acute infarct in the right basal ganglia similar to the CT brain dated 12/28/2024. Patient at this time reveals no focal deficits. 12/30/2024: Over the past 24 hours no major events reported. Patient remains on IV doxycycline, IV Zosyn under ID direction. He is saturating adequately on room air. Continues to be followed by pulmonology team requesting 6 minute walk test prior to discharge. Patient reports no neuro deficits at this time, being followed closely by Neurology, remains on aspirin statins. Patient denies abdominal pain nausea or vomiting. He is tolerating diet. 2D echo EF 60-65%. Morning labs potassium 3.3, for which he received replacement. 12/31/2024: Patient remains on IV Zosyn IV doxycycline under ID direction. Cultures are in process. Patient currently saturating adequately on room air. He does continue to use CPAP at night. Continues to be followed by pulmonology team. Morning labs reviewed. REVIEW OF SYSTEMS CONSTITUTIONAL: generalized fatigue, malaise NEUROLOGICAL: Denies headache, amaurosis fugax, motor weakness, sensory deficit, vertigo/spinning sensation, gait abnormalities, or tremors. ENT: No hearing loss, otalgia, otorrhea, rhinitis, rhinorrhea, hoarseness, or sore throat. CARDIOVASCULAR: Denies any exertional angina, dyspnea on exertion, orthopnea, paroxysmal nocturnal dyspnea, palpitations, life-threatening arrhythmias, claudication. PULMONARY: Shortness of breath, diaphoresis SLEEP: Denies morning headaches, daytime somnolence or napping. Denies difficulty falling asleep, staying asleep, waking from sleep. Denies knowledge of snoring. GASTROINTESTINAL: reports having nausea and vomiting GENITOURINARY: Denies frequency, urgency, nocturia, hematuria or incontinence (Storage/Irritative symptoms.) Low urinary stream, straining to void, urinary intermittency or hesitancy, splitting of the voiding stream, terminal dribbling. ENDOCRINOLOGIC: Denies polyuria, polydipsia, polyphagia or heat/cold intolerances. HEMATOLOGIC: Denies thrombophilia/previous clots, or coagulopathy/bleeding disorders. ONCOLOGIC: Denies personal history of malignancy. DERMATOLOGIC: Denies rashes or pruritus. PSYCHIATRIC: Denies any suicidal or homicidal ideation. Denies hallucinations. PHYSICAL EXAM GENERAL APPEARANCE: The patient is awake, alert, patient appears very diaphoretic, currently on 3 L supplementation by nasal cannula, patient is morbidly obese NEUROLOGICAL: Cranial nerves II-XII grossly intact. Examination is nonfocal for the patient HEENT: Face is symmetric. Pupils are equal and reactive. Extraocular movements are intact. NECK: Supple. No JVD. No thyromegaly. No submental, submandibular, pre- /postauricular, occipital or supraclavicular lymphadenopathy. CHEST: Normal chest expansion. No Telemetry. LUNGS: Minimal crackles noted at bilateral lung bases CARDIOVASCULAR: Regular. S1 and S2 normal. Tachycardic was ABDOMEN: Soft, nontender, and nondistended. There is no rebound, voluntary guarding, or rigidity. : Deferred. No [place]. EXTREMITIES: Non-edematous and not cyanotic. No clubbing. Good capillary refill. SKIN: No skin breakdown. Vital Signs (last 8hr) Date Time Temp Pulse Resp B/P (MAP) Pulse Ox O2 Delivery O2 Flow Rate FiO2 12/31/24 07:30 99.3 91 18 167/85 94 Nasal Cannula 3.0 12/31/24 07:27 92 20 N/A Room Air 21 12/31/24 07:23 92 20 12/31/24 04:38 98.4 94 18 156/84 96 Nasal Cannula LABS: Laboratory: Test 12/31/24 03:18 12/30/24 15:59 12/30/24 12:15 12/30/24 08:27 Range/Units White Blood Count 7.6 4.8-10.8 K/uL Red Blood Count 4.50 4.50-6.20 MIL/uL Hemoglobin 12.4 L 14.0-18.0 g/dL Hematocrit 35.9 L 42-54 % Mean Corpuscular Volume 79.8 79-99 fL Mean Corpuscular Hemoglobin 27.6 27.0-33.0 pg Mean Corpuscular Hemoglobin Concent 34.5 32.0-36.0 g/dL Red Cell Distribution Width 17.1 H 11.0-15.5 % Platelet Count 138 130-400 K/uL Mean Platelet Volume 11.3 H 7.5-10.5 fL Immature Granulocyte % (Auto) 0.4 0-1 % Neutrophils (%) (Auto) 76.3 40.0-77.0 % Lymphocytes (%) (Auto) 10.9 L 21.0-51.0 % Monocytes (%) (Auto) 12.2 3.0-13.0 % Eosinophils (%) (Auto) 0.1 0.0-8.0 % Basophils (%) (Auto) 0.1 0.0-5.0 % Neutrophils # (Auto) 5.8 1.8-7.7 K/uL Lymphocytes # (Auto) 0.8 L 1.0-4.8 K/uL Monocytes # (Auto) 0.9 0.1-1.0 K/uL Eosinophils # (Auto) 0.01 0.00-0.70 K/uL Basophils # (Auto) 0.01 0.00-0.20 K/uL Absolute Immature Granulocyte (auto 0.03 0-1 K/uL Nucleated Red Blood Cells 0.0 0.0-0.19 % Sodium Level 132 L 136-145 mmol/L Potassium Level 3.2 L 3.5-5.1 mmol/L Chloride Level 97 L 101-111 mmol/L Carbon Dioxide Level 27 21-32 mmol/L Blood Urea Nitrogen 22 H 7-18 mg/dL Creatinine 1.2 0.5-1.3 mg/dL Glomerular Filtration Rate Calc 70 >90 mL/min Random Glucose 111 H 70-105 mg/dL Total Calcium 8.0 L 8.5-10.1 mg/dL Whole Blood Glucose 150 H 70-110 MG/DL B-Type Natriuretic Peptide 48 0-100 pg/mL Blood Gas Specimen Type Arterial Arterial Blood pH 7.446 7.350-7.450 Arterial Blood Partial Pressure CO2 37 35-48 mmHg Arterial Blood Partial Pressure O2 63.6 L 83.0-108.0 mmHg Arterial Blood HCO3 24.8 21.0-28.0 mmol/L Arterial Blood Oxygen Saturation 93.3 L 94.0-98.0 % Arterial Blood Base Excess 1.1 -2.0-3.0 mmol/L Blood Gas Temperature 37.0 35.5-37.0 CELSIUS Blood Gas Vent Mode ROOM AIR ROOM AIR FiO2 21.0 % Blood Gas Specimen Comment MONI FRANCOIS Current Medications Medications (Trade) Dose Ordered Sig/Donald Route PRN Reason Start Time Stop Time Status Last Admin Dose Admin Acetaminophen (TYLenol 325MG TAB) 650 mg Q6H PRN PO MILD PAIN (1-3) 12/28/24 12:00 01/27/25 11:59 Aspirin (Aspirin 81mg Chew Tab) 81 mg DAILY PO 12/29/24 09:00 01/28/25 08:59 12/31/24 09:16 81 MG Atorvastatin Calcium (LIPItor 40MG) 40 mg HS PO 12/29/24 21:00 01/28/25 20:59 12/30/24 20:49 40 MG Clopidogrel Bisulfate (plaVIX 75MG) 75 mg Q24H PO 12/28/24 20:30 12/28/24 22:21 DC 12/28/24 21:23 75 MG Doxycycline Hyclate 250 ml @ 125 mls/hr Q12H IV 12/28/24 14:30 01/07/25 14:29 12/31/24 01:40 125 MLS/HR Enoxaparin Sodium (Lovenox) 40 mg DAILY SQ 12/29/24 09:00 01/28/25 08:59 12/31/24 09:17 40 MG Famotidine (Pepcid 20mg Vial) 20 mg Q24H IV 12/28/24 21:00 01/27/25 20:59 12/30/24 20:48 20 MG Ipratropium [place] (AtrovENT UD) 0.5 MG [id number] IH 12/30/24 22:00 01/29/25 21:59 12/31/24 07:23 0.5 MG Ipratropium [place] (AtrovENT UD) 1 mg Q6H PRN IH SHORTNESS OF BREATH 12/28/24 12:00 01/27/25 11:59 Lactulose (Constulose 20gm/ 30ml Udcup) 20 gm Q6H6 PO 12/29/24 12:00 12/29/24 11:49 DC Lactulose (Constulose 20gm/ 30ml Udcup) 20 gm TID PO 12/29/24 14:00 01/28/25 13:59 12/30/24 13:55 20 GM Metoprolol Succinate (TopROL XL) 25 mg DAILY PO 12/28/24 13:00 01/27/25 12:59 12/31/24 09:16 25 MG Ondansetron HCl (zoFRAN 4MG INJ) 4 mg Q6H PRN IVP NAUSEA/VOMITING 12/28/24 12:00 01/27/25 11:59 Piperacillin Sod/ Tazobactam Sod (Zosyn 3.375gm+NS 50ml) 3.375 gm Q8H IVPB 12/28/24 12:00 01/07/25 11:59 12/31/24 03:49 3.375 GM Potassium Chloride 100 ml @ 100 mls/hr AD PRN IV POTASSIUM PROTOCOL 12/31/24 05:00 01/30/25 04:59 Potassium Chloride (K-Dur/Klor-Con 20meq) 20 meq AD PRN PO POTASSIUM PROTOCOL 12/31/24 05:00 01/30/25 04:59 12/31/24 06:20 20 MEQ Potassium Chloride (KCl 10% Elixir 20meq/15ml) 20 meq AD PRN PO POTASSIUM PROTOCOL 12/31/24 05:00 01/30/25 04:59 Procainamide HCl 2000 mg/Sodium Chloride 250 ml @ 0 mls/hr PROTOCOL IV 12/28/24 10:00 12/28/24 10:42 DC Sodium Chloride 1,000 ml @ 100 mls/hr Q10H IV 12/28/24 12:00 12/29/24 09:23 DC 12/29/24 09:14 100 MLS/HR Sodium Chloride (NS 50ml) 50 ml AD IV 12/28/24 12:00 12/28/24 11:59 DC Thiamine HCl (Vitamin B-1) 100 mg Q24H IVP 12/28/24 12:00 01/27/25 11:59 12/30/24 12:42 100 MG Vitamin B Complex/ Vit C/Folic Acid (Nephrovite Tablet) 1 cap DAILY PO 12/29/24 09:00 01/28/25 08:59 12/31/24 09:16 1 CAP DIAGNOSTICS / RADIOLOGY: [ ] ASSESSMENT: 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 Acute hypoxemic respiratory failure, POA Community-acquired pneumonia, POA Elevated cardiac troponin, rule out active ACS, POA acute pancreatitis likely 2/2 gall stones Acute Kidney injury, POA Hyponatremia, POA Morbid obesity, POA Sinus tachycardia, POA Thrombocytopenia, POA, mild Underlying history of obstructive sleep apnea, POA Hypertension, POA Hyperlipidemia, POA History of RI, POA History of coronary artery disease with prior history of PCI, POA 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 Follow up with cultures Duo nebs 2D echocardiogram EF 60-65%. Repeat head CT on 12/29/2024 showing old right basilar ganglia infarct, with encephalomalacia, no acute intracranial process noted. [id number] g daily. Atorvastatin 40 mg at bedtime. Neurology consult obtained, follow up with recommendations Titrate supplemental O2 therapy to maintain oxygen saturations greater than 92% Consultation with Cardiology requested, follow with recs Consultation with pulmonology neurology and Nephrology requested. follow with recs All labs will be repeated in the morning Continue CPAP therapy PT OT evaluation Further orders per hospital course LONG ROSADO Dec 31, 2024 11:49
--- NOTE | 2024-12-31 13:58 | PN ---
HISTORY OF PRESENT ILLNESS This is a pleasant 59-year-old male with past medical history as per patient with complaints of shortness of breath, is being evaluated for possible ACS contributory for pneumonia. Patient was also found to have a CVA PAST MEDICAL HISTORY, ALLERGIES See below REVIEW OF SYSTEMS Not obtained Vitals See chart PHYSICAL EXAM Alert and oriented x 3 Nonicteric nontraumatic Regular rate and rhythm, no murmurs Clear to auscultation bilaterally pulmonary Abdomen nontender Rectal deferred Skin no rash neurological no focal deficits Extremities no edema ASSESSMENT CORONARY DISEASE, ELEVATED TROPONIN At presentation PNEUMONIA Being managed by antibiotics per infectious disease, appreciate CT was negative for pulm embolism CVA At presentation Patient ganglia as well as occipital lobe involvement ACUTE ON CHRONIC KIDNEY DISEASE At presentation Create greater than 2 HISTORY OF [id number] SYNDROME SLEEP APNEA, HYPERTENSION, HYPERLIPIDEMIA, SLEEP APNEA CORE MEASURES pending OTHER MEDICAL PROBLEMS reviewed CORE MEASURES Pending OTHER MEDICAL PROBLEMS Reviewed PLAN 12/28/2024 given recent CVA, not a good candidate for any ischemic evaluation at this time, echocardiogram has been ordered and pending. Further recommendations post. Continue current medical therapy conservative management for now. May consider STONE given stroke in 2 different vascular distributions. Holter monitor may also be considered. Seen and examined 12/28/2024 at around 1800. 12/29/2024 Remains on BiPAP, echocardiogram was within normal limits. Renal function being addressed by nephrology, julieta. At this time, given recent CVA ongoing respiratory issues, not a good candidate for any ischemic evaluation. Once he has recovered from his underlying issues, may consider further evaluation from a cardiac standpoint. Conservative measures for now. Seen and examined 12/29/2024 at around 7 PM. 12/30/2024 Feeling better, currently off BiPAP, nephrology on board managing renal dysfunction. As above, continue conservative measures at this time and may consider outpatient ischemic evaluation once recovered from CVA. On atorvastatin and aspirin beta-tomasa continue. Renal function improving. Echo was within normal limits. Seen and examined 12/30/2024 at around 8 PM. 12/31/2024 No cardiovascular symptoms, no weakness from the stroke, doing well, walking in the hallways and getting therapy. On doxycycline. Eventual plans for ischemic evaluation as well as STONE as outpatient. May consider long-term monitoring as well given strokes involving multiple circulations. Pancreatitis and pneumonia being treated as well. Seen and examined 12/31/2024 at around 1 PM. ATTESTATION I was involved substantial in the care of the patient Number of complexity of problems addressed 1 acute illness with systemic features Amount and or complexity of data Review of prior external notes from each unique source 2+ Ordering of each unique test 0 Review of results of each unique test 2+ Assessment requiring independent historians no Dependent interpretation of test performed by another MD no Discussion of management or test interpretation with external MD no Risk status moderate Vitals/Labs Vital Signs Date Time Temp Pulse Resp B/P (MAP) Pulse Ox O2 Delivery O2 Flow Rate FiO2 12/31/24 07:30 99.3 91 18 167/85 94 Nasal Cannula 3.0 12/31/24 07:27 21 Laboratory Tests 12/31/24 03:18 Medications Current Medications Procainamide HCl 2000 mg/Sodium Chloride 250 ml @ 0 mls/hr PROTOCOL IV; Start 12/28/24 at 10:00; Stop 12/28/24 at 10:42; Status DC Metoprolol Tartrate 5 mg ONCE ONCE IV Last administered on 12/28/24at 10:38; Start 12/28/24 at 10:30; Stop 12/28/24 at 10:31; Status DC Aspirin 325 mg ONCE ONCE PO Last administered on 12/28/24at 10:46; Start 12/28/24 at 11:00; Stop 12/28/24 at 11:01; Status DC Sodium Chloride 1,000 ml @ 100 mls/hr Q10H IV Last administered on 12/29/24at 09:14; Start 12/28/24 at 12:00; Stop 12/29/24 at 09:23; Status DC Ipratropium [place] 1 mg Q6H PRN IH; Start 12/28/24 at 12:00; Stop 01/27/25 at 11:59 Acetaminophen 650 mg Q6H PRN PO; Start 12/28/24 at 12:00; Stop 01/27/25 at 11:59 Ondansetron HCl 4 mg Q6H PRN IVP; Start 12/28/24 at 12:00; Stop 01/27/25 at 11:59 Thiamine HCl 100 mg Q24H IVP Last administered on 12/31/24at 12:31; Start 12/28/24 at 12:00; Stop 01/27/25 at 11:59 Vitamin B Complex/ Vit C/Folic Acid 1 cap DAILY PO Last administered on 12/31/24at 09:16; Start 12/29/24 at 09:00; Stop 01/28/25 at 08:59 Aspirin 81 mg DAILY PO Last administered on 12/31/24at 09:16; Start 12/29/24 at 09:00; Stop 01/28/25 at 08:59 Piperacillin Sod/ Tazobactam Sod 3.375 gm Q8H IVPB Last administered on 12/31/24at 12:31; Start 12/28/24 at 12:00; Stop 01/07/25 at 11:59 Sodium Chloride 50 ml AD IV; Start 12/28/24 at 12:00; Stop 12/28/24 at 11:59; Status DC Enoxaparin Sodium 40 mg DAILY SQ Last administered on 12/31/24at 09:17; Start 12/29/24 at 09:00; Stop 01/28/25 at 08:59 Famotidine 20 mg Q24H IV Last administered on 12/30/24at 20:48; Start 12/28/24 at 21:00; Stop 01/27/25 at 20:59 Metoprolol Succinate 25 mg DAILY PO Last administered on 12/31/24at 09:16; Start 12/28/24 at 13:00; Stop 01/27/25 at 12:59 Iohexol 75 ml STK-MED ONCE IV; Start 12/28/24 at 12:57; Stop 12/28/24 at 12:57; Status DC Doxycycline Hyclate 250 ml @ 125 mls/hr Q12H IV Last administered on 12/31/24at 01:40; Start 12/28/24 at 14:30; Stop 01/07/25 at 14:29 Sodium Chloride 4 ml STK-MED ONCE IH Last administered on 12/28/24at 19:12; Start 12/28/24 at 18:20; Stop 12/28/24 at 18:20; Status DC Clopidogrel Bisulfate 75 mg Q24H PO Last administered on 12/28/24at 21:23; Start 12/28/24 at 20:30; Stop 12/28/24 at 22:21; Status DC Sodium Chloride 4 ml STK-MED ONCE IH; Start 12/28/24 at 22:27; Stop 12/28/24 at 22:28; Status DC Lactulose 20 gm Q6H6 PO; Start 12/29/24 at 12:00; Stop 12/29/24 at 11:49; Status DC Lactulose 20 gm TID PO Last administered on 12/30/24at 13:55; Start 12/29/24 at 14:00; Stop 01/28/25 at 13:59 Atorvastatin Calcium 40 mg HS PO Last administered on 12/30/24at 20:49; Start 12/29/24 at 21:00; Stop 01/28/25 at 20:59 Melatonin 10 mg ONCE ONCE PO Last administered on 12/30/24at 00:46; Start 12/30/24 at 00:00; Stop 12/30/24 at 00:02; Status DC Potassium Chloride 20 meq ONCE ONCE PO Last administered on 12/30/24at 05:47; Start 12/30/24 at 05:00; Stop 12/30/24 at 05:02; Status DC Magnesium Citrate 296 ml ONCE ONCE PO Last administered on 12/30/24at 13:55; Start 12/30/24 at 13:30; Stop 12/30/24 at 13:31; Status DC Furosemide 20 mg ONCE ONCE IV Last administered on 12/30/24at 17:34; Start 12/30/24 at 17:30; Stop 12/30/24 at 17:31; Status DC Ipratropium [place] 0.5 MG [id number] IH Last administered on 12/31/24at 07:23; Start 12/30/24 at 22:00; Stop 01/29/25 at 21:59 Potassium Chloride 20 meq AD PRN PO; Start 12/31/24 at 05:00; Stop 01/30/25 at 04:59 Potassium Chloride 20 meq AD PRN PO Last administered on 12/31/24at 06:20; Start 12/31/24 at 05:00; Stop 01/30/25 at 04:59 Potassium Chloride 100 ml @ 100 mls/hr AD PRN IV; Start 12/31/24 at 05:00; Stop 01/30/25 at 04:59 BRENNON CROWLEY MD Dec 31, 2024 13:58
--- NOTE | 2024-12-31 18:07 | NUR ---
ANTIBIOTIC RECS PER DR. RASMUSSEN, LEVOFLOXACIN 750MG PO Q24H FOR 7 DAYS. 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
--- NOTE | 2024-12-31 21:18 | PN ---
SUBJECTIVE: This patient is seen several times. This patient has sleep apnea. The patient has renal failure, acute on chronic; hyponatremia; diastolic heart failure. The patient is on CPAP. No fevers, chills, or rigors. No abdominal pain, no nausea or vomiting. No chest pain. No orthopnea or PND. No other associated finding. No other aggravating or relieving factors. The patient is generally weak. Other systemic review is unchanged. The patient is obese. The patient does have underlying persistent hyponatremia, hypokalemia, elevated BUN and creatinine. Other comorbidities are present. REVIEW OF SYSTEMS: CONSTITUTIONAL: With no fevers, chills, or rigors. HEENT: With no headache, oral ulcers, sore throat, or difficulty swallowing. RESPIRATORY: With no cough, expectoration, hemoptysis, or pleuritic pain. CARDIOVASCULAR: No orthopnea or PND. GASTROINTESTINAL: Negative for nausea, vomiting, or diarrhea reported. GENITOURINARY: Negative for dysuria or hematuria. DERMATOLOGICAL: No rashes, pruritus, or skin lesion. PHYSICAL EXAMINATION: GENERAL: Obese, lying in bed. VITAL SIGNS: Blood pressure is 148/86, pulse 96, respiratory rate is 18. HEENT: Head is atraumatic. Pupils are round and reactive. Sclerae are anicteric. Conjunctivae not pale. Oral mucosa is not dry. NECK: Without masses or bruits. Thyroid is palpable. Neck has no bruits. CHEST: Shows equal thoracic percussion note being resonant in all areas. CARDIAC: Regular rhythm. No rub. No S3, S4. No parasternal heave. ABDOMEN: With no guarding, tenderness, bowel sounds, or free fluid. EXTREMITIES: With no edema and no cyanosis or clubbing. BACK: No tenderness or back deformities. SKIN: No other petechial rashes noted on inspection and palpation. LYMPHATIC: No lymph node swelling in neck or axillary area. LABORATORY DATA: Labs have been all reviewed. The patient's sodium is quite low. Potassium is low. Old records reviewed. Creatinine is 1.2. Other electrolytes have been stable. PROBLEMS: The patient has renal failure, acute on chronic with underlying coronary artery disease, WPW syndrome, sleep apnea, hypercholesterolemia, multiple electrolyte problems, hypertension, hyperlipidemia. The patient has some shortness of air and multiple other comorbidities. I have reviewed the chest x-ray. I have reviewed the labs. Creatinine has been reviewed. Hemoglobin is stable. Problems are renal failure, acute on chronic with multiple serous electrolyte problems, underlying cardiac history. The patient is on antibiotics for possible pneumonia and multiple other comorbidities are present including the patient now has a stroke. The patient has hypoxic respiratory failure, pneumonia. He is sick looking with pancreatitis, hyponatremia, history of sleep apnea, and cholelithiasis. PLAN: The patient is being monitored closely. Antibiotic continue. Cultures to follow up. Nebulizer treatment given. Potassium replacement will be done and nonsteroidal drugs to be avoided. Doses of medicine to be adjusted. Follow up by die engraver also. The patient is on CPAP therapy. Potassium and magnesium replacement will be done slowly. Overall status has been guarded, seen several times. Thank you for this patient. TID: [id number] RECEIPT: [id number]
--- NOTE | 2024-12-31 21:46 | PN ---
INFECTIOUS DISEASE PROGRESS NOTE Date of Service: Dec 31, 2024 SUBJECTIVE: This is a 59 year old male patient who was seen today at bedside in room 228. Patient is awake, alert and oriented x3. Reported he had good results from the laxative. No nausea or vomiting. Patient remains on Doxycycline and Zosyn. Low potassium level being replaced. No other issues reported by nursing. PHYSICAL EXAM EYES: Anicteric. Pupils equal and reactive. HENT: No oral thrush seen, moist Oral mucosa NECK: Supple, no JVD or thyromegaly. LUNGS: diminished. No wheezing or rhonchi CARDIOVASCULAR: S1, S2 regular. No murmur heard. ABDOMEN: Soft, non tender, bowel sounds present, no organomegaly. CENTRAL NERVOUS SYSTEM: Awake, alert, oriented x 3. SKIN: No rashes, no swelling. LYMPHATICS: No peripheral lymphadenopathy MUSCULOSKELETAL: No joint swelling, erythema or tenderness. EXTREMITIES: No cyanosis or clubbing BACK: No deformity, no pressure ulcer. GENITOURINARY: No dysuria or hematuria. Vital Sign (Last 12 Hours) 12/31/24 12/31/24 12/31/24 12/31/24 12:19 14:29 14:29 16:18 Temp 100.4 99.0 Pulse 101 92 92 84 Resp 18 20 20 18 B/P (MAP) 168/92 163/82 Pulse Ox 94 98 O2 Delivery Room Air N/A Room Air Room Air FiO2 21 12/31/24 12/31/24 12/31/24 12/31/24 18:43 18:50 19:23 20:00 Temp 100.0 Pulse 97 97 96 Resp 18 19 18 B/P (MAP) 148/86 Pulse Ox 98 98 O2 Delivery N/A Room Air Room Air Nasal Cannula* O2 Flow Rate 2 FiO2 21 28 l Intake & Output (last 24hrs) 12/30/24 12/30/24 12/31/24 15:00 23:00 07:00 Intake Total 300.0 ml Output Total 600 ml 1100 ml Balance -300.0 ml -1100 ml LABS: Laboratory: Test 12/31/24 03:18 12/30/24 15:59 12/30/24 12:15 12/30/24 08:27 Range/Units White Blood Count 7.6 4.8-10.8 K/uL Red Blood Count 4.50 4.50-6.20 MIL/uL Hemoglobin 12.4 L 14.0-18.0 g/dL Hematocrit 35.9 L 42-54 % Mean Corpuscular Volume 79.8 79-99 fL Mean Corpuscular Hemoglobin 27.6 27.0-33.0 pg Mean Corpuscular Hemoglobin Concent 34.5 32.0-36.0 g/dL Red Cell Distribution Width 17.1 H 11.0-15.5 % Platelet Count 138 130-400 K/uL Mean Platelet Volume 11.3 H 7.5-10.5 fL Immature Granulocyte % (Auto) 0.4 0-1 % Neutrophils (%) (Auto) 76.3 40.0-77.0 % Lymphocytes (%) (Auto) 10.9 L 21.0-51.0 % Monocytes (%) (Auto) 12.2 3.0-13.0 % Eosinophils (%) (Auto) 0.1 0.0-8.0 % Basophils (%) (Auto) 0.1 0.0-5.0 % Neutrophils # (Auto) 5.8 1.8-7.7 K/uL Lymphocytes # (Auto) 0.8 L 1.0-4.8 K/uL Monocytes # (Auto) 0.9 0.1-1.0 K/uL Eosinophils # (Auto) 0.01 0.00-0.70 K/uL Basophils # (Auto) 0.01 0.00-0.20 K/uL Absolute Immature Granulocyte (auto 0.03 0-1 K/uL Nucleated Red Blood Cells 0.0 0.0-0.19 % Sodium Level 132 L 136-145 mmol/L Potassium Level 3.2 L 3.5-5.1 mmol/L Chloride Level 97 L 101-111 mmol/L Carbon Dioxide Level 27 21-32 mmol/L Blood Urea Nitrogen 22 H 7-18 mg/dL Creatinine 1.2 0.5-1.3 mg/dL Glomerular Filtration Rate Calc 70 >90 mL/min Random Glucose 111 H 70-105 mg/dL Total Calcium 8.0 L 8.5-10.1 mg/dL Whole Blood Glucose 150 H 70-110 MG/DL B-Type Natriuretic Peptide 48 0-100 pg/mL Blood Gas Specimen Type Arterial Arterial Blood pH 7.446 7.350-7.450 Arterial Blood Partial Pressure CO2 37 35-48 mmHg Arterial Blood Partial Pressure O2 63.6 L 83.0-108.0 mmHg Arterial Blood HCO3 24.8 21.0-28.0 mmol/L Arterial Blood Oxygen Saturation 93.3 L 94.0-98.0 % Arterial Blood Base Excess 1.1 -2.0-3.0 mmol/L Blood Gas Temperature 37.0 35.5-37.0 CELSIUS Blood Gas Vent Mode ROOM AIR ROOM AIR FiO2 21.0 % Blood Gas Specimen Comment [employer]: Pneumonia. Acute pancreatitis, improving. Sepsis. Leukocytosis, resolved. Acute renal failure, resolving. Acute nonhemorrhagic stroke. Constipation, resolved. Rhabdomyolysis. History of coronary artery disease. PLAN: Continue doxycycline IV. Continue Zosyn IV. Continue bronchodilators. Continue oxygen support. Avoid nephrotoxic medications. We will monitor electrolytes. This case was reviewed and discussed with my supervising physician Dr. Rasmussen and the above assessment and plan was formulated and agreed upon. ATTESTATION BY PHYSICIAN I have seen and examined the patient. I reviewed the documentation, medical decision making, and treatment plan as noted by the mid-level provider above. I agree with the findings and plan of care. KARIE RASMUSSEN MD, [facility] Dec 31, 2024 21:46
[2025-01-01] VITALS (19 sets, daily range): BP systolic 113–176; BP diastolic 74–99; PULSE 76–113; RESP 18–24; TEMP 98.5–103; O2SAT 91–97
[2025-01-01 05:29] LABS: IMMATURE GRANULOCYTE ABSOLUTE 0.09 K/uL (0-1); NUCLEATED RED BLOOD CELLS 0.0 % (0.0-0.19); PLATELET COUNT (AUTO) 138 K/uL (130-400); RED BLOOD CELL COUNT(AUTO) 4.44 MIL/uL (4.50-6.20); RED CELL DISTRIBUTION WIDTH 17.1 % (11.0-15.5); WHITE BLOOD COUNT (AUTO) 9.0 K/uL (4.8-10.8)
[2025-01-01 05:56] LABS: ASPARTATE AMINOTRANSFERASE 41.0 U/L (10-37); CREATININE 1.3 mg/dL (0.5-1.3); GLOMERULAR FILTR. RATE CALC 63.0 mL/min (>90); GLUCOSE,RANDOM 100.0 mg/dL (70-105); PHOSPHORUS 1.9 mg/dL (2.5-4.9); SODIUM SERUM 132.0 mmol/L (136-145); TOTAL PROTEIN, SERUM 7.0 g/dL (6.0-8.3); UREA NITROGEN, BLOOD 20.0 mg/dL (7-18)
--- NOTE | 2025-01-01 08:22 | PN ---
HISTORY OF PRESENT ILLNESS This is a pleasant 59-year-old male with past medical history as per patient with complaints of shortness of breath, is being evaluated for possible ACS contributory for pneumonia. Patient was also found to have a CVA PAST MEDICAL HISTORY, ALLERGIES See below REVIEW OF SYSTEMS Not obtained Vitals See chart PHYSICAL EXAM Alert and oriented x 3 Nonicteric nontraumatic Regular rate and rhythm, no murmurs Clear to auscultation bilaterally pulmonary Abdomen nontender Rectal deferred Skin no rash neurological no focal deficits Extremities no edema ASSESSMENT CORONARY DISEASE, ELEVATED TROPONIN At presentation PNEUMONIA Being managed by antibiotics per infectious disease, appreciate CT was negative for pulm embolism CVA At presentation Patient ganglia as well as occipital lobe involvement ACUTE ON CHRONIC KIDNEY DISEASE At presentation Create greater than 2 HISTORY OF [id number] SYNDROME SLEEP APNEA, HYPERTENSION, HYPERLIPIDEMIA, SLEEP APNEA CORE MEASURES pending OTHER MEDICAL PROBLEMS reviewed CORE MEASURES Pending OTHER MEDICAL PROBLEMS Reviewed PLAN 12/28/2024 given recent CVA, not a good candidate for any ischemic evaluation at this time, echocardiogram has been ordered and pending. Further recommendations post. Continue current medical therapy conservative management for now. May consider STONE given stroke in 2 different vascular distributions. Holter monitor may also be considered. Seen and examined 12/28/2024 at around 1800. 12/29/2024 Remains on BiPAP, echocardiogram was within normal limits. Renal function being addressed by nephrology, julieta. At this time, given recent CVA ongoing respiratory issues, not a good candidate for any ischemic evaluation. Once he has recovered from his underlying issues, may consider further evaluation from a cardiac standpoint. Conservative measures for now. Seen and examined 12/29/2024 at around 7 PM. 12/30/2024 Feeling better, currently off BiPAP, nephrology on board managing renal dysfunction. As above, continue conservative measures at this time and may consider outpatient ischemic evaluation once recovered from CVA. On atorvastatin and aspirin beta-tomasa continue. Renal function improving. Echo was within normal limits. Seen and examined 12/30/2024 at around 8 PM. 12/31/2024 No cardiovascular symptoms, no weakness from the stroke, doing well, walking in the hallways and getting therapy. On doxycycline. Eventual plans for ischemic evaluation as well as STONE as outpatient. May consider long-term monitoring as well given strokes involving multiple circulations. Pancreatitis and pneumonia being treated as well. Seen and examined 12/31/2024 at around 1 PM. 01/01/2025 Doing well, no active cardiovascular complaints at this time. Only issues with pneumonia pancreatitis CVA all of which have improved. Currently, ambulating without any significant issues, Home when okay with primary team and will follow-up in the office for ischemic evaluation and stroke workup. Renal function has improved. Seen and examined 01/01/2025 at around 8 AM. ATTESTATION I was involved substantial in the care of the patient Number of complexity of problems addressed 1 acute illness with systemic features Amount and or complexity of data Review of prior external notes from each unique source 2+ Ordering of each unique test 0 Review of results of each unique test 2+ Assessment requiring independent historians no Dependent interpretation of test performed by another MD no Discussion of management or test interpretation with external MD no Risk status moderate Vitals/Labs Vital Signs Date Time Temp Pulse Resp B/P (MAP) Pulse Ox O2 Delivery O2 Flow Rate FiO2 01/01/25 07:00 101.1 106 20 176/99 94 Room Air 01/01/25 06:24 21 12/31/24 20:00 2 Laboratory Tests 01/01/25 05:12 Medications Current Medications Procainamide HCl 2000 mg/Sodium Chloride 250 ml @ 0 mls/hr PROTOCOL IV; Start 12/28/24 at 10:00; Stop 12/28/24 at 10:42; Status DC Metoprolol Tartrate 5 mg ONCE ONCE IV Last administered on 12/28/24at 10:38; Start 12/28/24 at 10:30; Stop 12/28/24 at 10:31; Status DC Aspirin 325 mg ONCE ONCE PO Last administered on 12/28/24at 10:46; Start 12/28/24 at 11:00; Stop 12/28/24 at 11:01; Status DC Sodium Chloride 1,000 ml @ 100 mls/hr Q10H IV Last administered on 12/29/24at 09:14; Start 12/28/24 at 12:00; Stop 12/29/24 at 09:23; Status DC Ipratropium [place] 1 mg Q6H PRN IH; Start 12/28/24 at 12:00; Stop 01/27/25 at 11:59 Acetaminophen 650 mg Q6H PRN PO; Start 12/28/24 at 12:00; Stop 01/27/25 at 11:59 Ondansetron HCl 4 mg Q6H PRN IVP; Start 12/28/24 at 12:00; Stop 01/27/25 at 11:59 Thiamine HCl 100 mg Q24H IVP Last administered on 12/31/24at 12:31; Start 12/28/24 at 12:00; Stop 01/27/25 at 11:59 Vitamin B Complex/ Vit C/Folic Acid 1 cap DAILY PO Last administered on 12/31/24at 09:16; Start 12/29/24 at 09:00; Stop 01/28/25 at 08:59 Aspirin 81 mg DAILY PO Last administered on 12/31/24at 09:16; Start 12/29/24 at 09:00; Stop 01/28/25 at 08:59 Piperacillin Sod/ Tazobactam Sod 3.375 gm Q8H IVPB Last administered on 01/01/25at 03:28; Start 12/28/24 at 12:00; Stop 01/07/25 at 11:59 Sodium Chloride 50 ml AD IV; Start 12/28/24 at 12:00; Stop 12/28/24 at 11:59; Status DC Enoxaparin Sodium 40 mg DAILY SQ Last administered on 12/31/24at 09:17; Start 12/29/24 at 09:00; Stop 01/28/25 at 08:59 Famotidine 20 mg Q24H IV Last administered on 12/31/24at 20:22; Start 12/28/24 at 21:00; Stop 01/27/25 at 20:59 Metoprolol Succinate 25 mg DAILY PO Last administered on 12/31/24at 09:16; Start 12/28/24 at 13:00; Stop 01/27/25 at 12:59 Iohexol 75 ml STK-MED ONCE IV; Start 12/28/24 at 12:57; Stop 12/28/24 at 12:57; Status DC Doxycycline Hyclate 250 ml @ 125 mls/hr Q12H IV Last administered on 01/01/25at 01:54; Start 12/28/24 at 14:30; Stop 01/07/25 at 14:29 Sodium Chloride 4 ml STK-MED ONCE IH Last administered on 12/28/24at 19:12; Start 12/28/24 at 18:20; Stop 12/28/24 at 18:20; Status DC Clopidogrel Bisulfate 75 mg Q24H PO Last administered on 12/28/24at 21:23; Start 12/28/24 at 20:30; Stop 12/28/24 at 22:21; Status DC Sodium Chloride 4 ml STK-MED ONCE IH; Start 12/28/24 at 22:27; Stop 12/28/24 at 22:28; Status DC Lactulose 20 gm Q6H6 PO; Start 12/29/24 at 12:00; Stop 12/29/24 at 11:49; Status DC Lactulose 20 gm TID PO Last administered on 12/30/24at 13:55; Start 12/29/24 at 14:00; Stop 01/28/25 at 13:59 Atorvastatin Calcium 40 mg HS PO Last administered on 12/31/24at 20:22; Start 12/29/24 at 21:00; Stop 01/28/25 at 20:59 Melatonin 10 mg ONCE ONCE PO Last administered on 12/30/24at 00:46; Start 12/30/24 at 00:00; Stop 12/30/24 at 00:02; Status DC Potassium Chloride 20 meq ONCE ONCE PO Last administered on 12/30/24at 05:47; Start 12/30/24 at 05:00; Stop 12/30/24 at 05:02; Status DC Magnesium Citrate 296 ml ONCE ONCE PO Last administered on 12/30/24at 13:55; Start 12/30/24 at 13:30; Stop 12/30/24 at 13:31; Status DC Furosemide 20 mg ONCE ONCE IV Last administered on 12/30/24at 17:34; Start 12/30/24 at 17:30; Stop 12/30/24 at 17:31; Status DC Ipratropium [place] 0.5 MG [id number] IH Last administered on 01/01/25at 06:21; Start 12/30/24 at 22:00; Stop 01/29/25 at 21:59 Potassium Chloride 20 meq AD PRN PO; Start 12/31/24 at 05:00; Stop 01/30/25 at 04:59 Potassium Chloride 20 meq AD PRN PO Last administered on 12/31/24at 06:20; Start 12/31/24 at 05:00; Stop 01/30/25 at 04:59 Potassium Chloride 100 ml @ 100 mls/hr AD PRN IV; Start 12/31/24 at 05:00; Stop 01/30/25 at 04:59 BRENNON CROWLEY MD Jan 01, 2025 08:22
--- NOTE | 2025-01-01 09:14 | PN ---
NEPHROLOGY PROGRESS NOTE Date/Time Patient Seen: Jan 01, 2025 SUBJECTIVE: This patient is seen several times. This patient has sleep apnea. The patient has renal failure, acute on chronic; hyponatremia; diastolic heart failure. . No other aggravating or relieving factors. The patient is generally weak. Other systemic review is unchanged. The patient does have underlying persistent hyponatremia, hypokalemia, elevated BUN and creatinine. Renal function electrolytes are stable. Nurse reports developed low-grade fever. He was seen in the medical floor, in no acute distress REVIEW OF SYSTEMS: GENERAL: Negative for any nausea, vomiting, fevers, chills, or weight loss. NEUROLOGIC: Negative for any blurry vision, blind spots, double vision, facial asymmetry, dysphagia, dysarthria, hemiparesis, hemisensory deficits, vertigo, ataxia. HEENT: Negative for any head trauma, neck trauma, neck stiffness, photophobia, phonophobia, sinusitis, rhinitis. CARDIAC: Negative for any chest pain, dyspnea on exertion, paroxysmal nocturnal dyspnea, peripheral edema. PULMONARY: Negative for any shortness of breath, wheezing, COPD, or TB exposure. GASTROINTESTINAL: Negative for any abdominal pain, nausea, vomiting, bright red blood per rectum, melena. GENITOURINARY: Negative for any dysuria, hematuria, incontinence. INTEGUMENTARY: Negative for any rashes, cuts, insect bites. RHEUMATOLOGIC: Negative for any joint pains, photosensitive rashes, history of vasculitis or kidney problems. HEMATOLOGIC: Negative for any abnormal bruising, frequent infections or bleeding. Vital Signs (last 8hr) Date Time Temp Pulse Resp B/P (MAP) Pulse Ox O2 Delivery O2 Flow Rate FiO2 01/01/25 07:00 101.1 106 20 176/99 94 Room Air 01/01/25 06:25 100 20 01/01/25 06:24 100 24 N/A Room Air 01/01/25 06:21 100 24 01/01/25 04:06 94 18 N/A Room Air 01/01/25 04:04 78 22 30 PHYSICAL EXAM: GENERAL: Alert and oriented x 3. No acute distress. Well-nourished. EYES: EOMI. Anicteric. HENT: Moist mucous membranes. No scleral icterus. No cervical lymphadenopathy. LUNGS: Clear to auscultation bilaterally. No accessory muscle use. CARDIOVASCULAR: Regular rate and rhythm. No murmur. No JVD. ABDOMEN: Soft, non-tender and non-distended. No palpable masses. EXTREMITIES: No edema. Non-tender.?SKIN: No rashes or lesions. Warm. NEUROLOGIC: No focal neurological deficits. CN II-XII grossly intact, but not i ndividually tested. PSYCHIATRIC: Cooperative. Appropriate mood and affect. Current Medications Medications (Trade) Dose Ordered Sig/Donald Route PRN Reason Start Time Stop Time Status Last Admin Dose Admin Acetaminophen (TYLenol 325MG TAB) 650 mg Q6H PRN PO MILD PAIN (1-3) 12/28/24 12:00 01/27/25 11:59 Aspirin (Aspirin 81mg Chew Tab) 81 mg DAILY PO 12/29/24 09:00 01/28/25 08:59 12/31/24 09:16 81 MG Atorvastatin Calcium (LIPItor 40MG) 40 mg HS PO 12/29/24 21:00 01/28/25 20:59 12/31/24 20:22 40 MG Clopidogrel Bisulfate (plaVIX 75MG) 75 mg Q24H PO 12/28/24 20:30 12/28/24 22:21 DC 12/28/24 21:23 75 MG Doxycycline Hyclate 250 ml @ 125 mls/hr Q12H IV 12/28/24 14:30 01/07/25 14:29 01/01/25 01:54 125 MLS/HR Enoxaparin Sodium (Lovenox) 40 mg DAILY SQ 12/29/24 09:00 01/28/25 08:59 12/31/24 09:17 40 MG Famotidine (Pepcid 20mg Vial) 20 mg Q24H IV 12/28/24 21:00 01/27/25 20:59 12/31/24 20:22 20 MG Ipratropium [place] (AtrovENT UD) 0.5 MG [id number] IH 12/30/24 22:00 01/29/25 21:59 01/01/25 06:21 0.5 MG Ipratropium [place] (AtrovENT UD) 1 mg Q6H PRN IH SHORTNESS OF BREATH 12/28/24 12:00 01/27/25 11:59 Lactulose (Constulose 20gm/ 30ml Udcup) 20 gm Q6H6 PO 12/29/24 12:00 12/29/24 11:49 DC Lactulose (Constulose 20gm/ 30ml Udcup) 20 gm TID PO 12/29/24 14:00 01/28/25 13:59 12/30/24 13:55 20 GM Metoprolol Succinate (TopROL XL) 25 mg DAILY PO 12/28/24 13:00 01/27/25 12:59 12/31/24 09:16 25 MG Ondansetron HCl (zoFRAN 4MG INJ) 4 mg Q6H PRN IVP NAUSEA/VOMITING 12/28/24 12:00 01/27/25 11:59 Piperacillin Sod/ Tazobactam Sod (Zosyn 3.375gm+NS 50ml) 3.375 gm Q8H IVPB 12/28/24 12:00 01/07/25 11:59 01/01/25 03:28 3.375 GM Potassium Chloride 100 ml @ 100 mls/hr AD PRN IV POTASSIUM PROTOCOL 12/31/24 05:00 01/30/25 04:59 Potassium Chloride (K-Dur/Klor-Con 20meq) 20 meq AD PRN PO POTASSIUM PROTOCOL 12/31/24 05:00 01/30/25 04:59 12/31/24 06:20 20 MEQ Potassium Chloride (KCl 10% Elixir 20meq/15ml) 20 meq AD PRN PO POTASSIUM PROTOCOL 12/31/24 05:00 01/30/25 04:59 Procainamide HCl 2000 mg/Sodium Chloride 250 ml @ 0 mls/hr PROTOCOL IV 12/28/24 10:00 12/28/24 10:42 DC Sodium Chloride 1,000 ml @ 100 mls/hr Q10H IV 12/28/24 12:00 12/29/24 09:23 DC 12/29/24 09:14 100 MLS/HR Sodium Chloride (NS 50ml) 50 ml AD IV 12/28/24 12:00 12/28/24 11:59 DC Thiamine HCl (Vitamin B-1) 100 mg Q24H IVP 12/28/24 12:00 01/27/25 11:59 12/31/24 12:31 100 MG Vitamin B Complex/ Vit C/Folic Acid (Nephrovite Tablet) 1 cap DAILY PO 12/29/24 09:00 01/28/25 08:59 12/31/24 09:16 1 [facility] LAB[facility]: [ ] Hematology Labs: Test 01/01/25 05:12 Range/Units White Blood Count 9.0 4.8-10.8 K/uL Red Blood Count 4.44 L 4.50-6.20 MIL/uL Hemoglobin 12.0 L 14.0-18.0 g/dL Hematocrit 35.8 L 42-54 % Mean Corpuscular Volume 80.6 79-99 fL Mean Corpuscular Hemoglobin 27.0 27.0-33.0 pg Mean Corpuscular Hemoglobin Concent 33.5 32.0-36.0 g/dL Red Cell Distribution Width 17.1 H 11.0-15.5 % Platelet Count 138 130-400 K/uL Mean Platelet Volume 10.8 H 7.5-10.5 fL Immature Granulocyte % (Auto) 1.0 0-1 % Neutrophils (%) (Auto) 73.4 40.0-77.0 % Lymphocytes (%) (Auto) 12.3 L 21.0-51.0 % Monocytes (%) (Auto) 12.4 3.0-13.0 % Eosinophils (%) (Auto) 0.6 0.0-8.0 % Basophils (%) (Auto) 0.3 0.0-5.0 % Neutrophils # (Auto) 6.6 1.8-7.7 K/uL Lymphocytes # (Auto) 1.1 1.0-4.8 K/uL Monocytes # (Auto) 1.1 H 0.1-1.0 K/uL Eosinophils # (Auto) 0.05 0.00-0.70 K/uL Basophils # (Auto) 0.03 0.00-0.20 K/uL Absolute Immature Granulocyte (auto 0.09 0-1 K/uL Nucleated Red Blood Cells 0.0 0.0-0.19 % Chemistry Labs: Test 01/01/25 05:12 12/30/24 15:59 12/30/24 12:15 Range/Units Sodium Level 132 L 136-145 mmol/L Potassium Level 3.7 3.5-5.1 mmol/L Chloride Level 97 L 101-111 mmol/L Carbon Dioxide Level 29 21-32 mmol/L Blood Urea Nitrogen 20 H 7-18 mg/dL Creatinine 1.3 0.5-1.3 mg/dL Glomerular Filtration Rate Calc 63 >90 mL/min Random Glucose 100 70-105 mg/dL Total Calcium 8.2 L 8.5-10.1 mg/dL Phosphorus Level 1.9 L 2.5-4.9 mg/dL Magnesium Level 2.70 H 1.80-2.40 mg/dL Total Bilirubin 1.1 H 0.2-1.0 mg/dL Aspartate Amino Transf (AST/SGOT) 41 H 10-37 U/L Alanine Aminotransferase (ALT/SGPT) 39 12-78 U/L Alkaline Phosphatase 60 50-136 U/L Total Protein 7.0 6.0-8.3 g/dL Albumin 2.2 L 3.5-5.0 g/dL Whole Blood Glucose 150 H 70-110 MG/DL B-Type Natriuretic Peptide 48 0-100 pg/mL DIAGNOSTICS / RADIOLOGY: [address] [address] IMAGING REPORT Signed PATIENT: KINGA JONES MR#: [id number] : 1965 SEX: M AGE: 59 LOCATION: 2D ORDER 27 STATUS: ADM IN REPORT#: [id number] SERVICE 26 REASON: hypoxemia ORDERING PHYSICIAN: ALEKSANDAR NICHOLE PROCEDURE: CXR1VW - CHEST 1VW CHEST 1VW REASON: hypoxemia COMPARISON: Prior chest radiograph from 12/28/2024 is available. FINDINGS: Single view of the chest was obtained. There is mild cardiomegaly which appears to be stable as compared to prior study. There is atelectasis seen in the left midlung field. Remaining lung chino are clear.. There is no pulmonary vascular congestion. Mediastinum and bony thorax appear unremarkable. IMPRESSION: 1. Stable cardiomegaly 2. Atelectasis seen in the left midlung field 3. No evidence of airspace consolidation or pulmonary venous congestion. DICTATED BY: KIM THOMPSON MD DATE: 12/30/241254 ELECTRONICALLY SIGNED BY: KIM THOMPSON MD DATE: 12/30/241257 PATIENT: KINGA JONES MR#: [id number] : 1965 SEX: M AGE: 59 LOCATION: 2DH ORDER 99 STATUS: ADM IN REPORT#: [id number] SERVICE REASON: ASSESS FOR HEART FAILURE, ECHO W/ BUBBLE STUDY DUE TO STROKE, DR. QUINN TO RE ORDERING PHYSICIAN: BRENNON CROWLEY MD PROCEDURE: ECHO CMP - ECHO 2-D COMPLETE APPROVED REPORT EXAM: Two-dimensional and M-mode echocardiogram with Doppler and color Doppler. INDICATION ICD: Assess for heart failure Contrast Details Indication: Endocardial border delineation Agent/Amount Used: Agitated Saline 2D Dimensions RVDd 4.6 cm LVEF(%) 65.5 (>50%) LVED Vol(simp.) 125.0 mL IVSd 1.0 (0.7-1.1cm) FS(%) 36 % LVES Vol(simp.) 80.0 mL LVDd 4.7 (3.8-5.6cm) LA (2D) 4.5 (1.6-4.0cm) LVEF(%, simp.) 65 % PWd 1.0 (0.7-1.1cm) Ao Root(2D) 2.8 (2.0-3.7cm) LA ESV INDEX (BP) 22.16 mL/m2 IVSs 1.2 cm LVOT diam 2.5 (1.8-2.4cm) LVDs 3.0 (2.5-4.0cm) PWs 1.4 cm Deformation Strain Apical 4 -11.5 % Apical 2 -22.0 % Apical 3 -12.5 % Global Strain -15.3 % M-Mode Dimensions EPSS 0.5 cm LA (MM) 5.3 (1.6-4.0cm) Ao Root(MM) 3.2 (2.0-3.7cm) Aortic Valve AoV Vmax 1.0 m/s Ao Peak GR 4.4 mmHg LVOT Vmax 1.1 m/s AoV VTI 0.1 m Ao Mean GR 2.7 mmHg LVOT VTI 0.16 m JOSE ALBERTO (VMAX) 4.91 cm2 JOSE ALBERTO (VTI) 5.1 cm2 Mitral Valve MV E Vmax 53.4 cm/s DECEL Time 109 ms MV A Vmax 80.1 cm/s P 1/2 T 35 ms E/A ratio 0.7 MVA (PHT) 6.2 cm2 TDI E/E' Medial 13.9 E/E' Lateral 7.9 Medial E' Peak V 3.85 cm/s Lateral E' Peak V 6.80 cm/s Pulmonary Valve PV Vmax 1.2 m/s PV VTI 0.17 m PV Mean GR 3.3 mmHg PV Peak GR 5.4 mmHg Tricuspid Valve RAP (EST) 8 mmHg RVSP 8.0 mmHg Left Ventricle The left ventricle is normal size. GLS -15.0% There is normal left ventricular wall thickness. LVEF is 60-65%. Stage I diastolic dysfunction. Right Ventricle The right ventricle is moderately dilated. The right ventricular systolic function is normal. Atria The left atrium size is normal. Negative bubble study. No evidence of PFO/ASD by agitated saline. The right atrium is moderately dilated. Aortic Valve Aortic valve is not well visualized but no significant valvular abnormalities noted. No aortic regurgitation is present. There is no aortic valvular stenosis. Mitral Valve The mitral valve is normal in structure. There is no mitral valve regurgitation noted. There is no mitral valve stenosis. Tricuspid Valve The tricuspid valve is normal in structure. There is trace of tricuspid valve regurgitation noted. Pulmonic Valve The pulmonary valve is normal in structure. There is no pulmonic valvular regurgitation. Great Vessels The aortic root is normal in size. IVC is not well visualized. Pericardium There is no pericardial effusion. Other Information Quality : Technically difficult study due to body habitus Conclusion LVEF is 60-65%. Stage I diastolic dysfunction. The left ventricle is normal size. GLS -15.0% The right ventricle is moderately dilated. The right atrium is moderately dilated. There is no pericardial effusion. Normal pulmonary pressures Study quality was adequate DICTATED BY: BRENNON CROWLEY MD DATE: 12/29/24 9626 ELECTRONICALLY SIGNED BY: BRENNON CROWLEY MD DATE: 12/29/24 4581 PATIENT: KINGA JONES MR#: [id number] : 1965 SEX: M AGE: 59 LOCATION: 2DH ORDER 38 STATUS: ADM IN REPORT#: [id number] SERVICE 37 REASON: ELEVATED LIVER ENZYMES ORDERING PHYSICIAN: REJI FISCHER MD PROCEDURE: ABDOMEN - US ABDOMINAL COMPLETE EXAM: US Abdomen complete CLINICAL HISTORY: Elevated liver enzymes. TECHNIQUE: Real-time ultrasound of the abdomen (complete) with image documentation. COMPARISON: Prior CT dated 12/29/2011; prior US dated 12/29/2016. FINDINGS: LIVER: Enlarged, measuring 16.7 cm. Diffuse increased echogenicity consistent with fatty infiltration. GALLBLADDER: Multiple calculi present. Wall thickness 3 mm. No sonographic evidence of acute cholecystitis. COMMON BILE DUCT: 2 mm in diameter (within normal limits). PANCREAS: Obscured, not well visualized due to body habitus. KIDNEYS: Right Kidney: Measures 12.3 x 6.5 x 5.6 cm. Preserved cortical thickness. Left Kidney: Measures 11.2 x 6.2 x 6.2 cm, partially visualized. SPLEEN: Measures 11.6 x 5.2 x 5.5 cm (upper limit of normal). AORTA: Proximal and distal segments within normal limits. IVC: Obscured due to body habitus. ADDITIONAL FINDINGS: Small amount of free fluid in the right upper quadrant, consistent with trace ascites in the right upper quadrant only. LIMITATIONS/ARTIFACTS: Examination limited by large body habitus. IMPRESSION: 1. Hepatomegaly with diffuse hepatic steatosis. 2. Cholelithiasis without sonographic evidence of acute cholecystitis. 3. Trace ascites in the right upper quadrant. 4. Limited examination due to large body habitus, with obscuration of the pancreas and IVC. /[place] DICTATED BY: SOUTH ANDERSON MD DATE: 12/28/241857 ELECTRONICALLY SIGNED BY: SOUTH ANDERSON MD DATE: 12/28/241857 ASSESSMENT: 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 Acute hypoxemic respiratory failure, POA Community-acquired pneumonia, POA Elevated cardiac troponin, rule out active ACS, POA acute pancreatitis likely 2/2 gall stones Acute Kidney injury, POA Hyponatremia, POA Morbid obesity, POA Sinus tachycardia, POA Thrombocytopenia, POA, mild Underlying history of obstructive sleep apnea, POA Hypertension, POA Hyperlipidemia, POA History of DC, POA History of coronary artery disease with prior history of PCI, POA 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 We have reviewed external records in detail Order repeat UA Require close monitoring of renal function and electrolytes Order CBC, CMP, and electrolytes in am Continue with antibiotics BiPAP as necessary, for respiratory distress Monitor blood pressure adjust medication doses as needed Avoid hypotensive episodes May use Dilaudid 0.5 mg IV every 6 hours as needed for severe pain Monitor blood sugars Strict intake, output, and daily weight should be monitored Please renally adjust medications Avoid nephrotoxic and nonsteroidal drugs Avoid contrast if possible Will continue to monitor renal function, anemia, electrolytes Treatment plan discussed with patient Questions were answered We have discussed with the other team physicians in detail about the care plan We will continue to monitor the patient closely ATTESTATION BY PHYSICIAN I have seen and examined the patient. I reviewed the documentation, medical decision making, and treatment plan as noted by the mid-level provider above. I agree with the findings and plan of care. GINO EDNE MD, [facility] Jan 01, 2025 09:14
--- NOTE | 2025-01-01 09:41 | PN ---
[facility] PROGRESS NOTE Date Patient Seen: Dec 31, 2024 Time of Visit: 14:36 Supervising Physician: DR MONI MONTOYA Primary Care Physician: Tremayne Hernandez MD Outpatient Specialists: [ ] Inpatient Consults: SVETA, DR Butcher, Dr King, Dr Cramer, Dr Saleh PROBLEM LIST: Acute hypoxemic respiratory failure, POA Severe sepsis with MODS POA NSTEMI POA Atelectasis to left mid lung field. Cardiomegaly acute to subacute non-hemorrhagic CVA POA Acute pancreatitis, Belcher's criteria 1pont (1% predicted mortality) POA Cholelithiasis without evidence of cholecystitis Hepatomegaly with diffuse hepatic steatosis Trace ascites in the right upper quadrant Elevated D-dimer negative for PE and DVT to lower extremities Acute Kidney injury, POA Mild thrombocytopenia Thrombocytopenia, POA, mild Essential hypertension, POA Hyperlipidemia, POA Stage I diastolic dysfunction with the EF of 60-65% POA Comorbidities: DIYA on CPAP at home Prior Myocardial infarction Coronary artery disease with prior PCI History of Unkqg-Yecubypun-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 No major overnight events. Patient assessed at bedside. Awake alert and oriented x3. Denies any chest pain palpitations or shortness for breath at this time. He states feeling better, able to stand up, still on antibiotics, no issues overnight we will follow up on neurology recommendations. REVIEW OF SYSTEMS: General: No malaise or fever. Neurological: No fainting episodes or seizures. HEENT: No nasal congestion or nasal secretion. Respiratory: No cough, shortness of breath, or wheezing Cardiac: No chest pain or palpitations. Gastrointestinal: No vomiting or diarrhea. Genitourinary: No dysuria hematuria. Skin: No rashes or lesions. Hematological: No bruises or bleeding. Musculoskeletal: No joint pains or arthralgias. Psychiatric: No depression or panic attacks. PHYSICAL EXAM: GENERAL: alert, weak, awake oriented x 3 HEENT: EOMI, Sclera non icteric, moist mucosa NECK: Supple, no JVD, trachea midline LUNGS: Diminished breath sounds bilaterally. No wheezes HEART: Regular rate and rhythm. Normal S1 and S2, without murmurs ABD: Abdomen soft, morbidly obese, nontender. Bowel sounds present EXT: No clubbing cyanosis or edema NEURO: Alert and oriented to person, follows commands Vital Signs (last 8hr) Date Time Temp Pulse Resp B/P (MAP) Pulse Ox O2 Delivery O2 Flow Rate FiO2 01/01/25 07:00 101.1 106 20 176/99 94 Room Air 01/01/25 06:25 100 20 01/01/25 06:24 100 24 N/A Room Air 01/01/25 06:21 100 24 01/01/25 04:06 94 18 N/A Room Air 01/01/25 04:04 78 22 30 LABS: Hematology Labs: Test 01/01/25 05:12 Range/Units White Blood Count 9.0 4.8-10.8 K/uL Red Blood Count 4.44 L 4.50-6.20 MIL/uL Hemoglobin 12.0 L 14.0-18.0 g/dL Hematocrit 35.8 L 42-54 % Mean Corpuscular Volume 80.6 79-99 fL Mean Corpuscular Hemoglobin 27.0 27.0-33.0 pg Mean Corpuscular Hemoglobin Concent 33.5 32.0-36.0 g/dL Red Cell Distribution Width 17.1 H 11.0-15.5 % Platelet Count 138 130-400 K/uL Mean Platelet Volume 10.8 H 7.5-10.5 fL Immature Granulocyte % (Auto) 1.0 0-1 % Neutrophils (%) (Auto) 73.4 40.0-77.0 % Lymphocytes (%) (Auto) 12.3 L 21.0-51.0 % Monocytes (%) (Auto) 12.4 3.0-13.0 % Eosinophils (%) (Auto) 0.6 0.0-8.0 % Basophils (%) (Auto) 0.3 0.0-5.0 % Neutrophils # (Auto) 6.6 1.8-7.7 K/uL Lymphocytes # (Auto) 1.1 1.0-4.8 K/uL Monocytes # (Auto) 1.1 H 0.1-1.0 K/uL Eosinophils # (Auto) 0.05 0.00-0.70 K/uL Basophils # (Auto) 0.03 0.00-0.20 K/uL Absolute Immature Granulocyte (auto 0.09 0-1 K/uL Nucleated Red Blood Cells 0.0 0.0-0.19 % Chemistry Labs: Test 01/01/25 05:12 12/30/24 15:59 12/30/24 12:15 Range/Units Sodium Level 132 L 136-145 mmol/L Potassium Level 3.7 3.5-5.1 mmol/L Chloride Level 97 L 101-111 mmol/L Carbon Dioxide Level 29 21-32 mmol/L Blood Urea Nitrogen 20 H 7-18 mg/dL Creatinine 1.3 0.5-1.3 mg/dL Glomerular Filtration Rate Calc 63 >90 mL/min Random Glucose 100 70-105 mg/dL Total Calcium 8.2 L 8.5-10.1 mg/dL Phosphorus Level 1.9 L 2.5-4.9 mg/dL Magnesium Level 2.70 H 1.80-2.40 mg/dL Total Bilirubin 1.1 H 0.2-1.0 mg/dL Aspartate Amino Transf (AST/SGOT) 41 H 10-37 U/L Alanine Aminotransferase (ALT/SGPT) 39 12-78 U/L Alkaline Phosphatase 60 50-136 U/L Total Protein 7.0 6.0-8.3 g/dL Albumin 2.2 L 3.5-5.0 g/dL Whole Blood Glucose 150 H 70-110 MG/DL B-Type Natriuretic Peptide 48 0-100 pg/mL DIAGNOSTICS / RADIOLOGY RESULTS: [ ] PLAN Follow up on Neurology recommendations CPAP of 10 with a FiO2 of 50% at HS and PRN Allow family bring CPAP from home Arrange outpatient pulmonology referral for sleep study, PFT and follow-up management upon discharge NEURO: Minimize central acting medications as possible. Maintain fall precautions, adequate lighting during the day PULMONARY: Supplemental 02 as needed. Maintain aspiration precautions at all times CARDIOVASCULAR: Follow hemodynamics. Vital signs per facility protocol GI & NUTRITION: Continue with nutritional support. Continue stool softeners and laxatives as needed. KIDNEYS & ELECTROLYTES: Strict monitoring of intake, output and overall fluid balance. Avoid nephrotoxic medications to the extent possible. Medications to be dosed according to renal function. Monitor electrolytes and replace as needed ENDOCRINE: Maintain blood glucose between 100-180 at all times. Hypoglycemia protocol in place INFECTIOUS DISEASE: Trend temperature, WBC and procalcitonin level Follow cultures, deescalate antibiotics as soon as possible. Panculture if new onset fever ONCOLOGY/HEMATOLOGY/COAGULATION: Monitor for s/s of bleeding Monitor hemoglobin, coagulation studies as needed SKIN: Pressure ulcer prevention per facility protocol Specialty mattress ORTHO/REHAB: Continue PT/OT Prophylaxis: Continue GI and DVT prophylaxis Code Status: Full Resuscitation Disposition: TBD ATTESTATION BY PHYSICIAN Documentation assistance provided by a scribe, information recorded by the scribe was done at my direction and has been reviewed and validated by me." MONI MONTOYA. I personally scribed for MONI MONTOYA MD ([email or web address]) on 01/01/25 at 09:41. Electronically submitted by Kim Chung ([email or web address]). MONI MONTOYA MD Jan 01, 2025 09:41
--- NOTE | 2025-01-01 12:25 | PN ---
[facility] PROGRESS NOTE Date of Service: Jan 01, 2025 Time of Service: 12:20 SUBJECTIVE: Follow up visit for a 59-year-old male admitted to the hospital for acute hypoxemic respiratory failure, community-acquired pneumonia, non-STEMI, acute pancreatitis. Patient remains on IV doxycycline, IV Zosyn under ID direction. Cultures in process. Currently saturating adequately on room air. Patient initiated on diet, tolerating well, no reports of abdominal pain. Serum lipase improved from 497-175. 2D echo has been performed, report pending. He has brain MRI on admission did show acute infarct in the right basal ganglia similar to the CT brain dated 12/28/2024. Patient at this time reveals no focal deficits. 12/30/2024: Over the past 24 hours no major events reported. Patient remains on IV doxycycline, IV Zosyn under ID direction. He is saturating adequately on room air. Continues to be followed by pulmonology team requesting 6 minute walk test prior to discharge. Patient reports no neuro deficits at this time, being followed closely by Neurology, remains on aspirin statins. Patient denies abdominal pain nausea or vomiting. He is tolerating diet. 2D echo EF 60-65%. Morning labs potassium 3.3, for which he received replacement. 12/31/2024: Patient remains on IV Zosyn IV doxycycline under ID direction. Cultures are in process. Patient currently saturating adequately on room air. He does continue to use CPAP at night. Continues to be followed by pulmonology team. Morning labs reviewed. 01/01/2025: Patient has been noted with episodes of fever, max temp of 102.9. Patient remains on IV doxycycline, IV Zosyn under ID direction. Patient denies chest pain, shortness of breath, nausea vomiting diarrhea. Morning labs reviewed. REVIEW OF SYSTEMS CONSTITUTIONAL: generalized fatigue, malaise NEUROLOGICAL: Denies headache, amaurosis fugax, motor weakness, sensory deficit, vertigo/spinning sensation, gait abnormalities, or tremors. ENT: No hearing loss, otalgia, otorrhea, rhinitis, rhinorrhea, hoarseness, or sore throat. CARDIOVASCULAR: Denies any exertional angina, dyspnea on exertion, orthopnea, paroxysmal nocturnal dyspnea, palpitations, life-threatening arrhythmias, claudication. PULMONARY: Shortness of breath, diaphoresis SLEEP: Denies morning headaches, daytime somnolence or napping. Denies difficulty falling asleep, staying asleep, waking from sleep. Denies knowledge of snoring. GASTROINTESTINAL: reports having nausea and vomiting GENITOURINARY: Denies frequency, urgency, nocturia, hematuria or incontinence (Storage/Irritative symptoms.) Low urinary stream, straining to void, urinary intermittency or hesitancy, splitting of the voiding stream, terminal dribbling. ENDOCRINOLOGIC: Denies polyuria, polydipsia, polyphagia or heat/cold intolerances. HEMATOLOGIC: Denies thrombophilia/previous clots, or coagulopathy/bleeding disorders. ONCOLOGIC: Denies personal history of malignancy. DERMATOLOGIC: Denies rashes or pruritus. PSYCHIATRIC: Denies any suicidal or homicidal ideation. Denies hallucinations. PHYSICAL EXAM GENERAL APPEARANCE: The patient is awake, alert, patient appears very diaphoretic, currently on 3 L supplementation by nasal cannula, patient is morbidly obese NEUROLOGICAL: Cranial nerves II-XII grossly intact. Examination is nonfocal for the patient HEENT: Face is symmetric. Pupils are equal and reactive. Extraocular movements are intact. NECK: Supple. No JVD. No thyromegaly. No submental, submandibular, pre- /postauricular, occipital or supraclavicular lymphadenopathy. CHEST: Normal chest expansion. No Telemetry. LUNGS: Minimal crackles noted at bilateral lung bases CARDIOVASCULAR: Regular. S1 and S2 normal. Tachycardic was ABDOMEN: Soft, nontender, and nondistended. There is no rebound, voluntary guarding, or rigidity. : Deferred. No [place]. EXTREMITIES: Non-edematous and not cyanotic. No clubbing. Good capillary refill. SKIN: No skin breakdown. Vital Signs (last 8hr) Date Time Temp Pulse Resp B/P (MAP) Pulse Ox O2 Delivery O2 Flow Rate FiO2 01/01/25 12:05 102.9 01/01/25 09:45 100.2 01/01/25 07:00 101.1 106 20 176/99 94 Room Air 01/01/25 06:25 100 20 01/01/25 06:24 100 24 N/A Room Air 21 01/01/25 06:21 100 24 LABS: Laboratory: Test 01/01/25 05:12 12/30/24 15:59 Range/Units White Blood Count 9.0 4.8-10.8 K/uL Red Blood Count 4.44 L 4.50-6.20 MIL/uL Hemoglobin 12.0 L 14.0-18.0 g/dL Hematocrit 35.8 L 42-54 % Mean Corpuscular Volume 80.6 79-99 fL Mean Corpuscular Hemoglobin 27.0 27.0-33.0 pg Mean Corpuscular Hemoglobin Concent 33.5 32.0-36.0 g/dL Red Cell Distribution Width 17.1 H 11.0-15.5 % Platelet Count 138 130-400 K/uL Mean Platelet Volume 10.8 H 7.5-10.5 fL Immature Granulocyte % (Auto) 1.0 0-1 % Neutrophils (%) (Auto) 73.4 40.0-77.0 % Lymphocytes (%) (Auto) 12.3 L 21.0-51.0 % Monocytes (%) (Auto) 12.4 3.0-13.0 % Eosinophils (%) (Auto) 0.6 0.0-8.0 % Basophils (%) (Auto) 0.3 0.0-5.0 % Neutrophils # (Auto) 6.6 1.8-7.7 K/uL Lymphocytes # (Auto) 1.1 1.0-4.8 K/uL Monocytes # (Auto) 1.1 H 0.1-1.0 K/uL Eosinophils # (Auto) 0.05 0.00-0.70 K/uL Basophils # (Auto) 0.03 0.00-0.20 K/uL Absolute Immature Granulocyte (auto 0.09 0-1 K/uL Nucleated Red Blood Cells 0.0 0.0-0.19 % Sodium Level 132 L 136-145 mmol/L Potassium Level 3.7 3.5-5.1 mmol/L Chloride Level 97 L 101-111 mmol/L Carbon Dioxide Level 29 21-32 mmol/L Blood Urea Nitrogen 20 H 7-18 mg/dL Creatinine 1.3 0.5-1.3 mg/dL Glomerular Filtration Rate Calc 63 >90 mL/min Random Glucose 100 70-105 mg/dL Total Calcium 8.2 L 8.5-10.1 mg/dL Phosphorus Level 1.9 L 2.5-4.9 mg/dL Magnesium Level 2.70 H 1.80-2.40 mg/dL Total Bilirubin 1.1 H 0.2-1.0 mg/dL Aspartate Amino Transf (AST/SGOT) 41 H 10-37 U/L Alanine Aminotransferase (ALT/SGPT) 39 12-78 U/L Alkaline Phosphatase 60 50-136 U/L Total Protein 7.0 6.0-8.3 g/dL Albumin 2.2 L 3.5-5.0 g/dL Whole Blood Glucose 150 H 70-110 MG/DL Current Medications Medications (Trade) Dose Ordered Sig/Donald Route PRN Reason Start Time Stop Time Status Last Admin Dose Admin Acetaminophen (TYLenol 325MG TAB) 650 mg Q6H PRN PO MILD PAIN (1-3) 12/28/24 12:00 01/27/25 11:59 01/01/25 12:05 650 MG Aspirin (Aspirin 81mg Chew Tab) 81 mg DAILY PO 12/29/24 09:00 01/28/25 08:59 01/01/25 10:41 81 MG Atorvastatin Calcium (LIPItor 40MG) 40 mg HS PO 12/29/24 21:00 01/28/25 20:59 12/31/24 20:22 40 MG Clopidogrel Bisulfate (plaVIX 75MG) 75 mg Q24H PO 12/28/24 20:30 12/28/24 22:21 DC 12/28/24 21:23 75 MG Doxycycline Hyclate 250 ml @ 125 mls/hr Q12H IV 12/28/24 14:30 01/07/25 14:29 01/01/25 01:54 125 MLS/HR Enoxaparin Sodium (Lovenox) 40 mg DAILY SQ 12/29/24 09:00 01/28/25 08:59 01/01/25 10:42 40 MG Famotidine (Pepcid 20mg Vial) 20 mg Q24H IV 12/28/24 21:00 01/27/25 20:59 12/31/24 20:22 20 MG Ipratropium [place] (AtrovENT UD) 0.5 MG [id number] IH 12/30/24 22:00 01/29/25 21:59 01/01/25 06:21 0.5 MG Ipratropium [place] (AtrovENT UD) 1 mg Q6H PRN IH SHORTNESS OF BREATH 12/28/24 12:00 01/27/25 11:59 Lactulose (Constulose 20gm/ 30ml Udcup) 20 gm Q6H6 PO 12/29/24 12:00 12/29/24 11:49 DC Lactulose (Constulose 20gm/ 30ml Udcup) 20 gm TID PO 12/29/24 14:00 01/28/25 13:59 12/30/24 13:55 20 GM Metoprolol Succinate (TopROL XL) 25 mg DAILY PO 12/28/24 13:00 01/27/25 12:59 01/01/25 10:41 25 MG Ondansetron HCl (zoFRAN 4MG INJ) 4 mg Q6H PRN IVP NAUSEA/VOMITING 12/28/24 12:00 01/27/25 11:59 Piperacillin Sod/ Tazobactam Sod (Zosyn 3.375gm+NS 50ml) 3.375 gm Q8H IVPB 12/28/24 12:00 01/07/25 11:59 01/01/25 12:05 3.375 GM Potassium Chloride 100 ml @ 100 mls/hr AD PRN IV POTASSIUM PROTOCOL 12/31/24 05:00 01/30/25 04:59 Potassium Chloride (K-Dur/Klor-Con 20meq) 20 meq AD PRN PO POTASSIUM PROTOCOL 12/31/24 05:00 01/30/25 04:59 01/01/25 10:45 20 MEQ Potassium Chloride (KCl 10% Elixir 20meq/15ml) 20 meq AD PRN PO POTASSIUM PROTOCOL 12/31/24 05:00 01/30/25 04:59 Procainamide HCl 2000 mg/Sodium Chloride 250 ml @ 0 mls/hr PROTOCOL IV 12/28/24 10:00 12/28/24 10:42 DC Sodium Chloride 1,000 ml @ 100 mls/hr Q10H IV 12/28/24 12:00 12/29/24 09:23 DC 12/29/24 09:14 100 MLS/HR Sodium Chloride (NS 50ml) 50 ml AD IV 12/28/24 12:00 12/28/24 11:59 DC Thiamine HCl (Vitamin B-1) 100 mg Q24H IVP 12/28/24 12:00 01/27/25 11:59 01/01/25 12:05 100 MG Vitamin B Complex/ Vit C/Folic Acid (Nephrovite Tablet) 1 cap DAILY PO 12/29/24 09:00 01/28/25 08:59 01/01/25 10:41 1 CAP DIAGNOSTICS / RADIOLOGY: [ ] ASSESSMENT: 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 Acute hypoxemic respiratory failure, POA Community-acquired pneumonia, POA Elevated cardiac troponin, rule out active ACS, POA acute pancreatitis likely 2/2 gall stones Acute Kidney injury, POA Hyponatremia, POA Morbid obesity, POA Sinus tachycardia, POA Thrombocytopenia, POA, mild Underlying history of obstructive sleep apnea, POA Hypertension, POA Hyperlipidemia, POA History of [place], POA History of coronary artery disease with prior history of PCI, POA 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 Patient noted with fever today, max temp of 102.9. Follow up blood cultures, urine cultures, CBC, procalcitonin level, lactic acid level, flu swab, COVID swab, CXR Duo nebs Q 6 hours 2D echocardiogram EF 60-65%. Repeat head CT on 12/29/2024 showing old right basilar ganglia infarct, with encephalomalacia, no acute intracranial process noted. Ptovmiq19 g daily. Atorvastatin 40 mg at bedtime. Neurology consult obtained, follow up with recommendations Titrate supplemental O2 therapy to maintain oxygen saturations greater than 92% Consultation with Cardiology requested, follow with recs Consultation with pulmonology neurology and Nephrology requested. follow with recs All labs will be repeated in the morning Continue CPAP therapy PT OT evaluation Further orders per hospital course LONG ROSADO Jan 01, 2025 12:25
[2025-01-01] MEDS ORDERED: LACTULOSE 20 GM/30 ML UDCUP PO PRN (14:30)
--- NOTE | 2025-01-01 15:08 | PN ---
[facility] PROGRESS NOTE Date Patient Seen: Jan 01, 2025 Time of Visit: 15:05 Supervising Physician: DR. MONI MONTOYA Primary Care Physician: Tremayne Hernandez MD Outpatient Specialists: [ ] Inpatient Consults: SVETA, DR Butcher, Dr King, Dr Cramer, Dr Saleh PROBLEM LIST: Acute hypoxemic respiratory failure, POA Severe sepsis with MODS POA NSTEMI POA Atelectasis to left mid lung field. Cardiomegaly acute to subacute non-hemorrhagic CVA POA Acute pancreatitis, [place]'s criteria 1p[place] (1% predicted mortality) POA Cholelithiasis without evidence of cholecystitis Hepatomegaly with diffuse hepatic steatosis Trace ascites in the right upper quadrant Elevated D-dimer negative for PE and DVT to lower extremities Acute Kidney injury, POA Mild thrombocytopenia Thrombocytopenia, POA, mild Essential hypertension, POA Hyperlipidemia, POA Stage I diastolic dysfunction with the EF of 60-65% POA Comorbidities: DIYA on CPAP at home Prior Myocardial infarction Coronary artery disease with prior PCI History of Ejlxn-Bglmwzizd-Wfvko 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 Patient assessed at bedside. Awake alert and oriented x3. Denies any chest pain palpitations or shortness for breath at this time. He started spiking fevers up to 102 F therefore he was not discharge yet, he will continue on antibiotic therapy, and follow up ID recommendations REVIEW OF SYSTEMS: 12 point review of systems done, all pertinent information addressed. PHYSICAL EXAM: GENERAL: alert, weak, awake oriented x 3 HEENT: EOMI, Sclera non icteric, moist mucosa NECK: Supple, no JVD, trachea midline LUNGS: Diminished breath sounds bilaterally. No wheezes HEART: Regular rate and rhythm. Normal S1 and S2, without murmurs ABD: Abdomen soft, morbidly obese, nontender. Bowel sounds present EXT: No clubbing cyanosis or edema NEURO: Alert and oriented to person, follows commands Vital Signs (last 8hr) Date Time Temp Pulse Resp B/P (MAP) Pulse Ox O2 Delivery O2 Flow Rate FiO2 01/01/25 14:29 94 24 N/A Room Air 21 01/01/25 14:28 94 21 01/01/25 12:05 102.9 01/01/25 11:00 102.9 113 20 150/91 97 Room Air 01/01/25 09:45 100.2 LABS: Hematology Labs: Test 01/01/25 05:12 Range/Units White Blood Count 9.0 4.8-10.8 K/uL Red Blood Count 4.44 L 4.50-6.20 MIL/uL Hemoglobin 12.0 L 14.0-18.0 g/dL Hematocrit 35.8 L 42-54 % Mean Corpuscular Volume 80.6 79-99 fL Mean Corpuscular Hemoglobin 27.0 27.0-33.0 pg Mean Corpuscular Hemoglobin Concent 33.5 32.0-36.0 g/dL Red Cell Distribution Width 17.1 H 11.0-15.5 % Platelet Count 138 130-400 K/uL Mean Platelet Volume 10.8 H 7.5-10.5 fL Immature Granulocyte % (Auto) 1.0 0-1 % Neutrophils (%) (Auto) 73.4 40.0-77.0 % Lymphocytes (%) (Auto) 12.3 L 21.0-51.0 % Monocytes (%) (Auto) 12.4 3.0-13.0 % Eosinophils (%) (Auto) 0.6 0.0-8.0 % Basophils (%) (Auto) 0.3 0.0-5.0 % Neutrophils # (Auto) 6.6 1.8-7.7 K/uL Lymphocytes # (Auto) 1.1 1.0-4.8 K/uL Monocytes # (Auto) 1.1 H 0.1-1.0 K/uL Eosinophils # (Auto) 0.05 0.00-0.70 K/uL Basophils # (Auto) 0.03 0.00-0.20 K/uL Absolute Immature Granulocyte (auto 0.09 0-1 K/uL Nucleated Red Blood Cells 0.0 0.0-0.19 % Chemistry Labs: Test 01/01/25 12:43 01/01/25 05:12 12/30/24 15:59 Range/Units Lactic Acid Level 1.4 0.8-2.5 mmol/L Procalcitonin 1.00 H 0.05-0.5 ng/mL Sodium Level 132 L 136-145 mmol/L Potassium Level 3.7 3.5-5.1 mmol/L Chloride Level 97 L 101-111 mmol/L Carbon Dioxide Level 29 21-32 mmol/L Blood Urea Nitrogen 20 H 7-18 mg/dL Creatinine 1.3 0.5-1.3 mg/dL Glomerular Filtration Rate Calc 63 >90 mL/min Random Glucose 100 70-105 mg/dL Total Calcium 8.2 L 8.5-10.1 mg/dL Phosphorus Level 1.9 L 2.5-4.9 mg/dL Magnesium Level 2.70 H 1.80-2.40 mg/dL Total Bilirubin 1.1 H 0.2-1.0 mg/dL Aspartate Amino Transf (AST/SGOT) 41 H 10-37 U/L Alanine Aminotransferase (ALT/SGPT) 39 12-78 U/L Alkaline Phosphatase 60 50-136 U/L Total Protein 7.0 6.0-8.3 g/dL Albumin 2.2 L 3.5-5.0 g/dL Whole Blood Glucose 150 H 70-110 MG/DL DIAGNOSTICS / RADIOLOGY RESULTS: [ ] PLAN Follow up on Neurology recommendations Continue on Antibiotic Follow up ID recommendations NEURO: Minimize central acting medications as possible. Maintain fall precautions, adequate lighting during the day PULMONARY: Supplemental 02 as needed. Maintain aspiration precautions at all times CARDIOVASCULAR: Follow hemodynamics. Vital signs per facility protocol GI & NUTRITION: Continue with nutritional support. Continue stool softeners and laxatives as needed. KIDNEYS & ELECTROLYTES: Strict monitoring of intake, output and overall fluid balance. Avoid nephrotoxic medications to the extent possible. Medications to be dosed according to renal function. Monitor electrolytes and replace as needed ENDOCRINE: Maintain blood glucose between 100-180 at all times. Hypoglycemia protocol in place INFECTIOUS DISEASE: Trend temperature, WBC and procalcitonin level Follow cultures, deescalate antibiotics as soon as possible. Panculture if new onset fever ONCOLOGY/HEMATOLOGY/COAGULATION: Monitor for s/s of bleeding Monitor hemoglobin, coagulation studies as needed SKIN: Pressure ulcer prevention per facility protocol Specialty mattress ORTHO/REHAB: Continue PT/OT Prophylaxis: Continue GI and DVT prophylaxis Code Status: Full Resuscitation Disposition: TBD ATTESTATION BY PHYSICIAN Documentation assistance provided by a scribe, information recorded by the scribe was done at my direction and has been reviewed and validated by me." MONI MONTOYA MD I personally scribed for MONI MONTOYA MD (POLO) on 01/01/25 at 15:08. Electronically submitted by Kim Chung ([id number]). I personally scribed for MONI MONTOYA MD (POLO) on 01/01/25 at 20:38. Electronically submitted by Kim Chung ([id number]). MONI MONTOYA MD Jan 01, 2025 15:08
[2025-01-02] VITALS (13 sets, daily range): BP systolic 132–169; BP diastolic 73–99; PULSE 72–148; RESP 18–39; TEMP 98.2–103; O2SAT 95–99
[2025-01-02 04:06] LABS: COVID19 (SARS ANTIGEN RAPID) PRESUMPTIVE NEGATIVE (NEGATIVE); INFLUENZA TYPE A Negative For Type A (NEGATIVE); INFLUENZA TYPE B Negative For Type B (NEGATIVE)
[2025-01-02 04:37] LABS: IMMATURE GRANULOCYTE ABSOLUTE 0.08 K/uL (0-1); NUCLEATED RED BLOOD CELLS 0.0 % (0.0-0.19); PLATELET COUNT (AUTO) 153 K/uL (130-400); RED BLOOD CELL COUNT(AUTO) 4.39 MIL/uL (4.50-6.20); RED CELL DISTRIBUTION WIDTH 17.2 % (11.0-15.5); WHITE BLOOD COUNT (AUTO) 9.9 K/uL (4.8-10.8)
[2025-01-02 04:57] LABS: CREATININE 1.2 mg/dL (0.5-1.3); GLOMERULAR FILTR. RATE CALC 70.0 mL/min (>90); GLUCOSE,RANDOM 116.0 mg/dL (70-105); SODIUM SERUM 131.0 mmol/L (136-145); UREA NITROGEN, BLOOD 18.0 mg/dL (7-18)
--- NOTE | 2025-01-02 06:46 | HMCIMG ---
EXAM: CR Chest, 1 View. CLINICAL HISTORY: hypoxemia COMPARISON: chest radiograph dated 12/30/2024 FINDINGS: LUNGS: Slight patchy left lower lobe infiltrate/atelectasis. Right lung clear PLEURAL SPACES: No pleural effusion or pneumothorax. MEDIASTINUM: The cardiomediastinal silhouette is within normal limits. BONES: No aggressive appearing osseous lesion seen. IMPRESSION: 1. Mild patchy left lower lobe infiltrate/atelectasis. 2. Right lung clear. As compared to the prior chest radiograph dated 12/30/2024, no significant interval change noted. /[place]
--- NOTE | 2025-01-02 09:38 | PN ---
FOLLOWUP PROGRESS NOTE SUBJECTIVE: A 59-year-old male with a history of sleep apnea, initially presented with increasing shortness of breath and orthopnea. The patient has had acute renal failure in the hospital as well as hyponatremia. The patient continues with a fluid restriction. The patient is being seen as a followup visit for all the above. REVIEW OF SYSTEMS: GENERAL: He is feeling weak and tired. HEENT: No change in vision. No change in hearing. CARDIOVASCULAR: There is no current chest pain or palpitations. PULMONARY: He has chronic shortness of breath. GASTROINTESTINAL: He is tolerating a diet. MUSCULOSKELETAL: Complained of weakness. PHYSICAL EXAMINATION: VITAL SIGNS: Blood pressure 152/99. Pulse in the 90s. GENERAL: He is a chronically ill, obese male, lying in bed on the medical floor. HEENT: Head is atraumatic. Pupils are equal, round, and reactive to light. Oropharynx is without exudate. NECK: Neck is clear. There is no JVP. There is no thyromegaly. No masses. CARDIOVASCULAR: Regular. There is no S3 or S4 gallop. LUNGS: Coarse with equal thoracic movement. ABDOMEN: Soft, nondistended and nontender. EXTREMITIES: Revealed no clubbing or cyanosis. NEUROLOGICAL: He is awake. He is alert. LABORATORY DATA: Sodium 131, potassium 3.3, BUN 18, creatinine is 1.2, and hemoglobin 11. IMPRESSION: * Acute on chronic renal failure. * Sleep apnea. * Hyponatremia. * Hypertension. PLAN: The patient's renal function has stabilized. The patient does have significant hyponatremia and is instructed on a fluid restriction. Blood pressure medications continue to be adjusted. The patient's electrolytes have all been aggressively repleted. We will continue to follow closely. Once the patient is discharged, the patient can follow up in the renal clinic. TID: [id number] RECEIPT: [id number]
--- NOTE | 2025-01-02 14:08 | PN ---
[facility] PROGRESS NOTE Date of Service: Jan 02, 2025 Time of Service: 14:06 SUBJECTIVE: Follow up visit for a 59-year-old male admitted to the hospital for acute hypoxemic respiratory failure, community-acquired pneumonia, non-STEMI, acute pancreatitis. Patient remains on IV doxycycline, IV Zosyn under ID direction. Cultures in process. Currently saturating adequately on room air. Patient initiated on diet, tolerating well, no reports of abdominal pain. Serum lipase improved from 497-175. 2D echo has been performed, report pending. He has brain MRI on admission did show acute infarct in the right basal ganglia similar to the CT brain dated 12/28/2024. Patient at this time reveals no focal deficits. 12/30/2024: Over the past 24 hours no major events reported. Patient remains on IV doxycycline, IV Zosyn under ID direction. He is saturating adequately on room air. Continues to be followed by pulmonology team requesting 6 minute walk test prior to discharge. Patient reports no neuro deficits at this time, being followed closely by Neurology, remains on aspirin statins. Patient denies abdominal pain nausea or vomiting. He is tolerating diet. 2D echo EF 60-65%. Morning labs potassium 3.3, for which he received replacement. 12/31/2024: Patient remains on IV Zosyn IV doxycycline under ID direction. Cultures are in process. Patient currently saturating adequately on room air. He does continue to use CPAP at night. Continues to be followed by pulmonology team. Morning labs reviewed. 01/01/2025: Patient has been noted with episodes of fever, max temp of 102.9. Patient remains on IV doxycycline, IV Zosyn under ID direction. Patient denies chest pain, shortness of breath, nausea vomiting diarrhea. Morning labs reviewed. 01/02/2025: Patient's morning continued to spike fever, max temp of 101.3. Patient remains on IV Zosyn doxycycline under ID direction. Flu a and B and C OVID swabs negative. No leukocytosis. CXR showing left lower lobe pneumonia, no significant interval change. REVIEW OF SYSTEMS CONSTITUTIONAL: generalized fatigue, malaise NEUROLOGICAL: Denies headache, amaurosis fugax, motor weakness, sensory deficit, vertigo/spinning sensation, gait abnormalities, or tremors. ENT: No hearing loss, otalgia, otorrhea, rhinitis, rhinorrhea, hoarseness, or sore throat. CARDIOVASCULAR: Denies any exertional angina, dyspnea on exertion, orthopnea, paroxysmal nocturnal dyspnea, palpitations, life-threatening arrhythmias, claudication. PULMONARY: Shortness of breath, diaphoresis SLEEP: Denies morning headaches, daytime somnolence or napping. Denies difficulty falling asleep, staying asleep, waking from sleep. Denies knowledge of snoring. GASTROINTESTINAL: reports having nausea and vomiting GENITOURINARY: Denies frequency, urgency, nocturia, hematuria or incontinence (Storage/Irritative symptoms.) Low urinary stream, straining to void, urinary intermittency or hesitancy, splitting of the voiding stream, terminal dribbling. ENDOCRINOLOGIC: Denies polyuria, polydipsia, polyphagia or heat/cold intolerances. HEMATOLOGIC: Denies thrombophilia/previous clots, or coagulopathy/bleeding disorders. ONCOLOGIC: Denies personal history of malignancy. DERMATOLOGIC: Denies rashes or pruritus. PSYCHIATRIC: Denies any suicidal or homicidal ideation. Denies hallucinations. PHYSICAL EXAM GENERAL APPEARANCE: The patient is awake, alert, patient appears very diaphoretic, currently on 3 L supplementation by nasal cannula, patient is morbidly obese NEUROLOGICAL: Cranial nerves II-XII grossly intact. Examination is nonfocal for the patient HEENT: Face is symmetric. Pupils are equal and reactive. Extraocular movements are intact. NECK: Supple. No JVD. No thyromegaly. No submental, submandibular, pre- /postauricular, occipital or supraclavicular lymphadenopathy. CHEST: Normal chest expansion. No Telemetry. LUNGS: Minimal crackles noted at bilateral lung bases CARDIOVASCULAR: Regular. S1 and S2 normal. Tachycardic was ABDOMEN: Soft, nontender, and nondistended. There is no rebound, voluntary guarding, or rigidity. : Deferred. No [place]. EXTREMITIES: Non-edematous and not cyanotic. No clubbing. Good capillary refill. SKIN: No skin breakdown. Vital Signs (last 8hr) Date Time Temp Pulse Resp B/P (MAP) Pulse Ox O2 Delivery O2 Flow Rate FiO2 01/02/25 11:00 98.2 99 22 169/91 97 Room Air 01/02/25 08:00 96 Room Air* 0 21 01/02/25 07:15 99 20 01/02/25 07:15 20 N/A Room Air 21 01/02/25 07:00 99.3 99 20 166/95 97 Room Air LABS: Laboratory: Test 01/02/25 03:58 01/02/25 03:42 01/01/25 12:43 01/01/25 05:12 Range/Units White Blood Count 9.9 4.8-10.8 K/uL Red Blood Count 4.39 L 4.50-6.20 MIL/uL Hemoglobin 11.8 L 14.0-18.0 g/dL Hematocrit 35.5 L 42-54 % Mean Corpuscular Volume 80.9 79-99 fL Mean Corpuscular Hemoglobin 26.9 L 27.0-33.0 pg Mean Corpuscular Hemoglobin Concent 33.2 32.0-36.0 g/dL Red Cell Distribution Width 17.2 H 11.0-15.5 % Platelet Count 153 130-400 K/uL Mean Platelet Volume 11.2 H 7.5-10.5 fL Immature Granulocyte % (Auto) 0.8 0-1 % Neutrophils (%) (Auto) 80.0 H 40.0-77.0 % Lymphocytes (%) (Auto) 9.9 L 21.0-51.0 % Monocytes (%) (Auto) 8.5 3.0-13.0 % Eosinophils (%) (Auto) 0.6 0.0-8.0 % Basophils (%) (Auto) 0.2 0.0-5.0 % Neutrophils # (Auto) 7.9 H 1.8-7.7 K/uL Lymphocytes # (Auto) 1.0 1.0-4.8 K/uL Monocytes # (Auto) 0.8 0.1-1.0 K/uL Eosinophils # (Auto) 0.06 0.00-0.70 K/uL Basophils # (Auto) 0.02 0.00-0.20 K/uL Absolute Immature Granulocyte (auto 0.08 0-1 K/uL Nucleated Red Blood Cells 0.0 0.0-0.19 % Sodium Level 131 L 136-145 mmol/L Potassium Level 3.3 L 3.5-5.1 mmol/L Chloride Level 96 L 101-111 mmol/L Carbon Dioxide Level 27 21-32 mmol/L Blood Urea Nitrogen 18 7-18 mg/dL Creatinine 1.2 0.5-1.3 mg/dL Glomerular Filtration Rate Calc 70 >90 mL/min Random Glucose 116 H 70-105 mg/dL Total Calcium 8.3 L 8.5-10.1 mg/dL Influenza Type A Antigen Negative For Type A NEGATIVE Influenza Type B Antigen Negative For Type B NEGATIVE SARS-CoV-2 Antigen (Rapid) PRESUMPTIVE NEGATIVE NEGATIVE Lactic Acid Level 1.4 0.8-2.5 mmol/L Procalcitonin 1.00 H 0.05-0.5 ng/mL Phosphorus Level 1.9 L 2.5-4.9 mg/dL Magnesium Level 2.70 H 1.80-2.40 mg/dL Total Bilirubin 1.1 H 0.2-1.0 mg/dL Aspartate Amino Transf (AST/SGOT) 41 H 10-37 U/L Alanine Aminotransferase (ALT/SGPT) 39 12-78 U/L Alkaline Phosphatase 60 50-136 U/L Total Protein 7.0 6.0-8.3 g/dL Albumin 2.2 L 3.5-5.0 g/dL Current Medications Medications (Trade) Dose Ordered Sig/Donald Route PRN Reason Start Time Stop Time Status Last Admin Dose Admin Acetaminophen (TYLenol 325MG TAB) 650 mg Q6H PRN PO MILD PAIN (1-3) 12/28/24 12:00 01/27/25 11:59 01/02/25 04:35 650 MG Aspirin (Aspirin 81mg Chew Tab) 81 mg DAILY PO 12/29/24 09:00 01/28/25 08:59 01/02/25 09:05 81 MG Atorvastatin Calcium (LIPItor 40MG) 40 mg HS PO 12/29/24 21:00 01/28/25 20:59 01/01/25 20:53 40 MG Clopidogrel Bisulfate (plaVIX 75MG) 75 mg Q24H PO 12/28/24 20:30 12/28/24 22:21 DC 12/28/24 21:23 75 MG Doxycycline Hyclate 250 ml @ 125 mls/hr Q12H IV 12/28/24 14:30 01/07/25 14:29 01/02/25 03:31 125 MLS/HR Enoxaparin Sodium (Lovenox) 40 mg DAILY SQ 12/29/24 09:00 01/28/25 08:59 01/02/25 09:08 40 MG Famotidine (Pepcid 20mg Vial) 20 mg Q24H IV 12/28/24 21:00 01/27/25 20:59 01/01/25 20:52 20 MG Ipratropium [place] (AtrovENT UD) 0.5 MG [id number] IH 12/30/24 22:00 01/29/25 21:59 01/02/25 13:56 0.5 MG Ipratropium [place] (AtrovENT UD) 1 mg Q6H PRN IH SHORTNESS OF BREATH 12/28/24 12:00 01/27/25 11:59 Lactulose (Constulose 20gm/ 30ml Udcup) 20 gm Q6H6 PO 12/29/24 12:00 12/29/24 11:49 DC Lactulose (Constulose 20gm/ 30ml Udcup) 20 gm TID PO 12/29/24 14:00 01/01/25 14:30 DC 12/30/24 13:55 20 GM Lactulose (Constulose 20gm/ 30ml Udcup) 20 gm TID PRN PO CONSTIPATION 01/01/25 14:30 01/28/25 13:59 Metoprolol Succinate (TopROL XL) 25 mg DAILY PO 12/28/24 13:00 01/27/25 12:59 01/02/25 09:05 25 MG Ondansetron HCl (zoFRAN 4MG INJ) 4 mg Q6H PRN IVP NAUSEA/VOMITING 12/28/24 12:00 01/27/25 11:59 Piperacillin Sod/ Tazobactam Sod (Zosyn 3.375gm+NS 50ml) 3.375 gm Q8H IVPB 12/28/24 12:00 01/07/25 11:59 01/02/25 12:07 3.375 GM Potassium Chloride 100 ml @ 100 mls/hr AD PRN IV POTASSIUM PROTOCOL 12/31/24 05:00 01/30/25 04:59 01/02/25 05:08 100 MLS/HR Potassium Chloride (K-Dur/Klor-Con 20meq) 20 meq AD PRN PO POTASSIUM PROTOCOL 12/31/24 05:00 01/30/25 04:59 01/01/25 10:45 20 MEQ Potassium Chloride (KCl 10% Elixir 20meq/15ml) 20 meq AD PRN PO POTASSIUM PROTOCOL 12/31/24 05:00 01/30/25 04:59 Procainamide HCl 2000 mg/Sodium Chloride 250 ml @ 0 mls/hr PROTOCOL IV 12/28/24 10:00 12/28/24 10:42 DC Sodium Chloride 1,000 ml @ 100 mls/hr Q10H IV 12/28/24 12:00 12/29/24 09:23 DC 12/29/24 09:14 100 MLS/HR Sodium Chloride (NS 50ml) 50 ml AD IV 12/28/24 12:00 12/28/24 11:59 DC Thiamine HCl (Vitamin B-1) 100 mg Q24H IVP 12/28/24 12:00 01/27/25 11:59 01/02/25 12:07 100 MG Vitamin B Complex/ Vit C/Folic Acid (Nephrovite Tablet) 1 cap DAILY PO 12/29/24 09:00 01/28/25 08:59 01/02/25 09:05 1 CAP DIAGNOSTICS / RADIOLOGY: [ ] ASSESSMENT: 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 Acute hypoxemic respiratory failure, POA Community-acquired pneumonia, POA Elevated cardiac troponin, rule out active ACS, POA acute pancreatitis likely 2/2 gall stones Acute Kidney injury, POA Hyponatremia, POA Morbid obesity, POA Sinus tachycardia, POA Thrombocytopenia, POA, mild Underlying history of obstructive sleep apnea, POA Hypertension, POA Hyperlipidemia, POA History of NH, POA History of coronary artery disease with prior history of PCI, POA 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 Patient continued to be noted with fever today, max temp of 101.3. Duo nebs Q 6 hours 2D echocardiogram EF 60-65%. Repeat head CT on 12/29/2024 showing old right basilar ganglia infarct, with encephalomalacia, no acute intracranial process noted. Tdfzole02 g daily. Atorvastatin 40 mg at bedtime. Neurology consult obtained, follow up with recommendations Titrate supplemental O2 therapy to maintain oxygen saturations greater than 92% Consultation with Cardiology requested, follow with recs Consultation with pulmonology neurology and Nephrology requested. follow with recs All labs will be repeated in the morning Continue CPAP therapy PT OT evaluation Further orders per hospital course; DC home, once no longer spiking fever. LONG ROSADO Jan 02, 2025 14:08
--- NOTE | 2025-01-02 14:37 | PN ---
[facility] PROGRESS NOTE Date Patient Seen: Jan 02, 2025 Time of Visit: 1229 Supervising Physician: Dr. Gomez Primary Care Physician: Tremayne Hernandez MD Outpatient Specialists: [ ] Inpatient Consults: SVETA, DR Butcher, Dr King, Dr Cramer, Dr Saleh PROBLEM LIST: Acute hypoxemic respiratory failure, POA Severe sepsis with MODS POA NSTEMI POA Atelectasis to left mid lung field. Cardiomegaly acute to subacute non-hemorrhagic CVA POA Acute pancreatitis, Lilli's criteria 1pont (1% predicted mortality) POA Cholelithiasis without evidence of cholecystitis Hepatomegaly with diffuse hepatic steatosis Trace ascites in the right upper quadrant Elevated D-dimer negative for PE and DVT to lower extremities Acute Kidney injury, POA Mild thrombocytopenia Thrombocytopenia, POA, mild Essential hypertension, POA Hyperlipidemia, POA Stage I diastolic dysfunction with the EF of 60-65% POA Comorbidities: DIYA on CPAP at home Prior Myocardial infarction Coronary artery disease with prior PCI History of Dmlnd-Axwopyzxs-Zyuqd 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 Patient assessed at bedside. Awake alert and oriented x3. Denies any chest pain palpitations or shortness for breath at this time. He started spiking fevers up to 102 F therefore he was not discharge yet, he will continue on antibiotic therapy, and follow up ID recommendations 01/02 patient was seen and examined at bedside with no family present. Patient currently on room air is tolerating well. Patient denies any chest pain or shortness of breadth. Denies any nausea vomiting or abdominal pain. No reoccurrence fevers have been reported. Patient to continue with IV antibiotics per ID recommendations. Patient states is tolerating BiPAP at night well. As per primary nurse no acute events to be reported. Dispo per primary team REVIEW OF SYSTEMS: 12 point review of systems done, all pertinent information addressed. PHYSICAL EXAM: GENERAL: alert, weak, awake oriented x 3 HEENT: EOMI, Sclera non icteric, moist mucosa NECK: Supple, no JVD, trachea midline LUNGS: Diminished breath sounds bilaterally. No wheezes HEART: Regular rate and rhythm. Normal S1 and S2, without murmurs ABD: Abdomen soft, morbidly obese, nontender. Bowel sounds present EXT: No clubbing cyanosis or edema NEURO: Alert and oriented to person, follows commands Vital Signs (last 8hr) Date Time Temp Pulse Resp B/P (MAP) Pulse Ox O2 Delivery O2 Flow Rate FiO2 01/02/25 14:05 18 N/A Room Air 21 01/02/25 14:05 102 20 01/02/25 11:00 98.2 99 22 169/91 97 Room Air 01/02/25 08:00 96 Room Air* 0 21 01/02/25 07:15 99 20 01/02/25 07:15 20 N/A Room Air 21 01/02/25 07:00 99.3 99 20 166/95 97 Room Air LABS: Hematology Labs: Test 01/02/25 03:58 Range/Units White Blood Count 9.9 4.8-10.8 K/uL Red Blood Count 4.39 L 4.50-6.20 MIL/uL Hemoglobin 11.8 L 14.0-18.0 g/dL Hematocrit 35.5 L 42-54 % Mean Corpuscular Volume 80.9 79-99 fL Mean Corpuscular Hemoglobin 26.9 L 27.0-33.0 pg Mean Corpuscular Hemoglobin Concent 33.2 32.0-36.0 g/dL Red Cell Distribution Width 17.2 H 11.0-15.5 % Platelet Count 153 130-400 K/uL Mean Platelet Volume 11.2 H 7.5-10.5 fL Immature Granulocyte % (Auto) 0.8 0-1 % Neutrophils (%) (Auto) 80.0 H 40.0-77.0 % Lymphocytes (%) (Auto) 9.9 L 21.0-51.0 % Monocytes (%) (Auto) 8.5 3.0-13.0 % Eosinophils (%) (Auto) 0.6 0.0-8.0 % Basophils (%) (Auto) 0.2 0.0-5.0 % Neutrophils # (Auto) 7.9 H 1.8-7.7 K/uL Lymphocytes # (Auto) 1.0 1.0-4.8 K/uL Monocytes # (Auto) 0.8 0.1-1.0 K/uL Eosinophils # (Auto) 0.06 0.00-0.70 K/uL Basophils # (Auto) 0.02 0.00-0.20 K/uL Absolute Immature Granulocyte (auto 0.08 0-1 K/uL Nucleated Red Blood Cells 0.0 0.0-0.19 % Chemistry Labs: Test 01/02/25 03:58 01/01/25 12:43 01/01/25 05:12 Range/Units Sodium Level 131 L 136-145 mmol/L Potassium Level 3.3 L 3.5-5.1 mmol/L Chloride Level 96 L 101-111 mmol/L Carbon Dioxide Level 27 21-32 mmol/L Blood Urea Nitrogen 18 7-18 mg/dL Creatinine 1.2 0.5-1.3 mg/dL Glomerular Filtration Rate Calc 70 >90 mL/min Random Glucose 116 H 70-105 mg/dL Total Calcium 8.3 L 8.5-10.1 mg/dL Lactic Acid Level 1.4 0.8-2.5 mmol/L Procalcitonin 1.00 H 0.05-0.5 ng/mL Phosphorus Level 1.9 L 2.5-4.9 mg/dL Magnesium Level 2.70 H 1.80-2.40 mg/dL Total Bilirubin 1.1 H 0.2-1.0 mg/dL Aspartate Amino Transf (AST/SGOT) 41 H 10-37 U/L Alanine Aminotransferase (ALT/SGPT) 39 12-78 U/L Alkaline Phosphatase 60 50-136 U/L Total Protein 7.0 6.0-8.3 g/dL Albumin 2.2 L 3.5-5.0 g/dL DIAGNOSTICS / RADIOLOGY RESULTS: na PLAN Follow up on Neurology recommendations Continue on Antibiotic Follow up ID recommendations Continue with CPAP nightly Will require 6 minute walk prior to discharge NEURO: Minimize central acting medications as possible. Maintain fall precautions, adequate lighting during the day PULMONARY: Supplemental 02 as needed. Maintain aspiration precautions at all times CARDIOVASCULAR: Follow hemodynamics. Vital signs per facility protocol GI & NUTRITION: Continue with nutritional support. Continue stool softeners and laxatives as needed. KIDNEYS & ELECTROLYTES: Strict monitoring of intake, output and overall fluid balance. Avoid nephrotoxic medications to the extent possible. Medications to be dosed according to renal function. Monitor electrolytes and replace as needed ENDOCRINE: Maintain blood glucose between 100-180 at all times. Hypoglycemia protocol in place INFECTIOUS DISEASE: Trend temperature, WBC and procalcitonin level Follow cultures, deescalate antibiotics as soon as possible. Panculture if new onset fever ONCOLOGY/HEMATOLOGY/COAGULATION: Monitor for s/s of bleeding Monitor hemoglobin, coagulation studies as needed SKIN: Pressure ulcer prevention per facility protocol Specialty mattress ORTHO/REHAB: Continue PT/OT Prophylaxis: Continue GI and DVT prophylaxis Code Status: Full Resuscitation Disposition: Per primary team Case discussed with supervising physician plan of care agreed upon SABINA CARLSONP Jan 02, 2025 14:37
--- NOTE | 2025-01-02 17:00 | PN ---
HISTORY OF PRESENT ILLNESS This is a pleasant 59-year-old male with past medical history as per patient with complaints of shortness of breath, is being evaluated for possible ACS contributory for pneumonia. Patient was also found to have a CVA PAST MEDICAL HISTORY, ALLERGIES See below REVIEW OF SYSTEMS Not obtained Vitals See chart PHYSICAL EXAM Alert and oriented x 3 Nonicteric nontraumatic Regular rate and rhythm, no murmurs Clear to auscultation bilaterally pulmonary Abdomen nontender Rectal deferred Skin no rash neurological no focal deficits Extremities no edema ASSESSMENT CORONARY DISEASE, ELEVATED TROPONIN At presentation PNEUMONIA Being managed by antibiotics per infectious disease, appreciate CT was negative for pulm embolism CVA At presentation Patient ganglia as well as occipital lobe involvement ACUTE ON CHRONIC KIDNEY DISEASE At presentation Create greater than 2 HISTORY OF [id number] SYNDROME SLEEP APNEA, HYPERTENSION, HYPERLIPIDEMIA, SLEEP APNEA CORE MEASURES pending OTHER MEDICAL PROBLEMS reviewed CORE MEASURES Pending OTHER MEDICAL PROBLEMS Reviewed PLAN 12/28/2024 given recent CVA, not a good candidate for any ischemic evaluation at this time, echocardiogram has been ordered and pending. Further recommendations post. Continue current medical therapy conservative management for now. May consider STONE given stroke in 2 different vascular distributions. Holter monitor may also be considered. Seen and examined 12/28/2024 at around 1800. 12/29/2024 Remains on BiPAP, echocardiogram was within normal limits. Renal function being addressed by nephrology, julieta. At this time, given recent CVA ongoing respiratory issues, not a good candidate for any ischemic evaluation. Once he has recovered from his underlying issues, may consider further evaluation from a cardiac standpoint. Conservative measures for now. Seen and examined 12/29/2024 at around 7 PM. 12/30/2024 Feeling better, currently off BiPAP, nephrology on board managing renal dysfunction. As above, continue conservative measures at this time and may consider outpatient ischemic evaluation once recovered from CVA. On atorvastatin and aspirin beta-tomasa continue. Renal function improving. Echo was within normal limits. Seen and examined 12/30/2024 at around 8 PM. 12/31/2024 No cardiovascular symptoms, no weakness from the stroke, doing well, walking in the hallways and getting therapy. On doxycycline. Eventual plans for ischemic evaluation as well as STONE as outpatient. May consider long-term monitoring as well given strokes involving multiple circulations. Pancreatitis and pneumonia being treated as well. Seen and examined 12/31/2024 at around 1 PM. 01/01/2025 Doing well, no active cardiovascular complaints at this time. Only issues with pneumonia pancreatitis CVA all of which have improved. Currently, ambulating without any significant issues, Home when okay with primary team and will follow-up in the office for ischemic evaluation and stroke workup. Renal function has improved. Seen and examined 01/01/2025 at around 8 AM. 01/02/2025 Remains antibiotics and did have fevers again today and therefore, discharge is being held. Appreciate infectious disease. Renal function slightly worse today as well, will need to be watched. Stable cardiovascular status and patient remains asymptomatic from a cardiovascular standpoint at this time. Seen and examined 01/02/2025 at around 5 PM. ATTESTATION I was involved substantial in the care of the patient Number of complexity of problems addressed 1 acute illness with systemic features Amount and or complexity of data Review of prior external notes from each unique source 2+ Ordering of each unique test 0 Review of results of each unique test 2+ Assessment requiring independent historians no Dependent interpretation of test performed by another MD no Discussion of management or test interpretation with external MD no Risk status moderate Vitals/Labs Vital Signs Date Time Temp Pulse Resp B/P (MAP) Pulse Ox O2 Delivery O2 Flow Rate FiO2 01/02/25 16:45 101.7 01/02/25 14:05 18 N/A Room Air 21 01/02/25 14:05 102 01/02/25 11:00 169/91 97 01/02/25 08:00 0 Laboratory Tests 01/02/25 03:58 Medications Current Medications Procainamide HCl 2000 mg/Sodium Chloride 250 ml @ 0 mls/hr PROTOCOL IV; Start 12/28/24 at 10:00; Stop 12/28/24 at 10:42; Status DC Metoprolol Tartrate 5 mg ONCE ONCE IV Last administered on 12/28/24at 10:38; Start 12/28/24 at 10:30; Stop 12/28/24 at 10:31; Status DC Aspirin 325 mg ONCE ONCE PO Last administered on 12/28/24at 10:46; Start 12/28/24 at 11:00; Stop 12/28/24 at 11:01; Status DC Sodium Chloride 1,000 ml @ 100 mls/hr Q10H IV Last administered on 12/29/24at 09:14; Start 12/28/24 at 12:00; Stop 12/29/24 at 09:23; Status DC Ipratropium Stevens 1 mg Q6H PRN IH; Start 12/28/24 at 12:00; Stop 01/27/25 at 11:59 Acetaminophen 650 mg Q6H PRN PO Last administered on 01/02/25at 16:45; Start 12/28/24 at 12:00; Stop 01/27/25 at 11:59 Ondansetron HCl 4 mg Q6H PRN IVP; Start 12/28/24 at 12:00; Stop 01/27/25 at 11:59 Thiamine HCl 100 mg Q24H IVP Last administered on 01/02/25at 12:07; Start 12/28/24 at 12:00; Stop 01/27/25 at 11:59 Vitamin B Complex/ Vit C/Folic Acid 1 cap DAILY PO Last administered on 01/02/25at 09:05; Start 12/29/24 at 09:00; Stop 01/28/25 at 08:59 Aspirin 81 mg DAILY PO Last administered on 01/02/25at 09:05; Start 12/29/24 at 09:00; Stop 01/28/25 at 08:59 Piperacillin Sod/ Tazobactam Sod 3.375 gm Q8H IVPB Last administered on 01/02/25at 12:07; Start 12/28/24 at 12:00; Stop 01/07/25 at 11:59 Sodium Chloride 50 ml AD IV; Start 12/28/24 at 12:00; Stop 12/28/24 at 11:59; Status DC Enoxaparin Sodium 40 mg DAILY SQ Last administered on 01/02/25at 09:08; Start 12/29/24 at 09:00; Stop 01/28/25 at 08:59 Famotidine 20 mg Q24H IV Last administered on 01/01/25at 20:52; Start 12/28/24 at 21:00; Stop 01/27/25 at 20:59 Metoprolol Succinate 25 mg DAILY PO Last administered on 01/02/25at 09:05; Start 12/28/24 at 13:00; Stop 01/27/25 at 12:59 Iohexol 75 ml STK-MED ONCE IV; Start 12/28/24 at 12:57; Stop 12/28/24 at 12:57; Status DC Doxycycline Hyclate 250 ml @ 125 mls/hr Q12H IV Last administered on 01/02/25at 16:29; Start 12/28/24 at 14:30; Stop 01/07/25 at 14:29 Sodium Chloride 4 ml STK-MED ONCE IH Last administered on 12/28/24at 19:12; Start 12/28/24 at 18:20; Stop 12/28/24 at 18:20; Status DC Clopidogrel Bisulfate 75 mg Q24H PO Last administered on 12/28/24at 21:23; Start 12/28/24 at 20:30; Stop 12/28/24 at 22:21; Status DC Sodium Chloride 4 ml STK-MED ONCE IH; Start 12/28/24 at 22:27; Stop 12/28/24 at 22:28; Status DC Lactulose 20 gm Q6H6 PO; Start 12/29/24 at 12:00; Stop 12/29/24 at 11:49; Status DC Lactulose 20 gm TID PO Last administered on 12/30/24at 13:55; Start 12/29/24 at 14:00; Stop 01/01/25 at 14:30; Status DC Atorvastatin Calcium 40 mg HS PO Last administered on 01/01/25at 20:53; Start 12/29/24 at 21:00; Stop 01/28/25 at 20:59 Melatonin 10 mg ONCE ONCE PO Last administered on 12/30/24at 00:46; Start 12/30/24 at 00:00; Stop 12/30/24 at 00:02; Status DC Potassium Chloride 20 meq ONCE ONCE PO Last administered on 12/30/24at 05:47; Start 12/30/24 at 05:00; Stop 12/30/24 at 05:02; Status DC Magnesium Citrate 296 ml ONCE ONCE PO Last administered on 12/30/24at 13:55; Start 12/30/24 at 13:30; Stop 12/30/24 at 13:31; Status DC Furosemide 20 mg ONCE ONCE IV Last administered on 12/30/24at 17:34; Start 12/30/24 at 17:30; Stop 12/30/24 at 17:31; Status DC Ipratropium Stevens 0.5 MG [id number] IH Last administered on 01/02/25at 13:56; Start 12/30/24 at 22:00; Stop 01/29/25 at 21:59 Potassium Chloride 20 meq AD PRN PO; Start 12/31/24 at 05:00; Stop 01/30/25 at 04:59 Potassium Chloride 20 meq AD PRN PO Last administered on 01/01/25at 10:45; Start 12/31/24 at 05:00; Stop 01/30/25 at 04:59 Potassium Chloride 100 ml @ 100 mls/hr AD PRN IV Last administered on 01/02/25at 05:08; Start 12/31/24 at 05:00; Stop 01/30/25 at 04:59 Lactulose 20 gm TID PRN PO; Start 01/01/25 at 14:30; Stop 01/28/25 at 13:59 BRENNON CROWLEY MD Jan 02, 2025 17:00
--- NOTE | 2025-01-02 20:31 | PN ---
INFECTIOUS DISEASE PROGRESS NOTE Date of Service: Jan 02, 2025 SUBJECTIVE: This is a 59 year old male patient who was seen today at bedside in room 228. Patient is sitting up to the bedside chair and tolerating well. Blood cultures were collected yesterday due to fever of 102.9 and pending urine culture collection. Today patient continues with fever of 101.3 earlier this morning and current temperature is 98.2. No dyspnea, oxygen saturation is 96-97% on room air. Continues on Doxycycline and Zosyn. We will follow up on the cultures. PHYSICAL EXAM EYES: Anicteric. Pupils equal and reactive. HENT: No oral thrush seen, moist Oral mucosa NECK: Supple, no JVD or thyromegaly. LUNGS: diminished. No wheezing or rhonchi CARDIOVASCULAR: S1, S2 regular. No murmur heard. ABDOMEN: Soft, non tender, bowel sounds present, no organomegaly. CENTRAL NERVOUS SYSTEM: Awake, alert, oriented x 3. SKIN: No rashes, no swelling. LYMPHATICS: No peripheral lymphadenopathy MUSCULOSKELETAL: No joint swelling, erythema or tenderness. EXTREMITIES: No cyanosis or clubbing BACK: No deformity, no pressure ulcer. GENITOURINARY: No dysuria or hematuria. Vital Sign (Last 12 Hours) 01/02/25 01/02/25 01/02/25 01/02/25 11:00 14:05 14:05 16:00 Temp 98.2 101.7 Pulse 99 102 114 Resp 22 20 18 24 B/P (MAP) 169/91 149/94 Pulse Ox 97 96 O2 Delivery Room Air N/A Room Air Room Air FiO2 21 01/02/25 01/02/25 16:45 19:45 Temp 101.7 Pulse 148 Resp 39 FiO2 50 Intake & Output (last 24hrs) 01/01/25 01/01/25 01/02/25 15:00 23:00 07:00 Intake Total 337.5 ml 387.5 ml Output Total 100 ml Balance 237.5 ml 387.5 ml LABS: Laboratory: Test 01/02/25 19:47 01/02/25 03:58 01/02/25 03:42 01/01/25 12:43 Range/Units Whole Blood Glucose 120 H 70-110 MG/DL White Blood Count 9.9 4.8-10.8 K/uL Red Blood Count 4.39 L 4.50-6.20 MIL/uL Hemoglobin 11.8 L 14.0-18.0 g/dL Hematocrit 35.5 L 42-54 % Mean Corpuscular Volume 80.9 79-99 fL Mean Corpuscular Hemoglobin 26.9 L 27.0-33.0 pg Mean Corpuscular Hemoglobin Concent 33.2 32.0-36.0 g/dL Red Cell Distribution Width 17.2 H 11.0-15.5 % Platelet Count 153 130-400 K/uL Mean Platelet Volume 11.2 H 7.5-10.5 fL Immature Granulocyte % (Auto) 0.8 0-1 % Neutrophils (%) (Auto) 80.0 H 40.0-77.0 % Lymphocytes (%) (Auto) 9.9 L 21.0-51.0 % Monocytes (%) (Auto) 8.5 3.0-13.0 % Eosinophils (%) (Auto) 0.6 0.0-8.0 % Basophils (%) (Auto) 0.2 0.0-5.0 % Neutrophils # (Auto) 7.9 H 1.8-7.7 K/uL Lymphocytes # (Auto) 1.0 1.0-4.8 K/uL Monocytes # (Auto) 0.8 0.1-1.0 K/uL Eosinophils # (Auto) 0.06 0.00-0.70 K/uL Basophils # (Auto) 0.02 0.00-0.20 K/uL Absolute Immature Granulocyte (auto 0.08 0-1 K/uL Nucleated Red Blood Cells 0.0 0.0-0.19 % Sodium Level 131 L 136-145 mmol/L Potassium Level 3.3 L 3.5-5.1 mmol/L Chloride Level 96 L 101-111 mmol/L Carbon Dioxide Level 27 21-32 mmol/L Blood Urea Nitrogen 18 7-18 mg/dL Creatinine 1.2 0.5-1.3 mg/dL Glomerular Filtration Rate Calc 70 >90 mL/min Random Glucose 116 H 70-105 mg/dL Total Calcium 8.3 L 8.5-10.1 mg/dL Influenza Type A Antigen Negative For Type A NEGATIVE Influenza Type B Antigen Negative For Type B NEGATIVE SARS-CoV-2 Antigen (Rapid) PRESUMPTIVE NEGATIVE NEGATIVE Lactic Acid Level 1.4 0.8-2.5 mmol/L Procalcitonin 1.00 H 0.05-0.5 ng/mL Test 01/01/25 05:12 Range/Units Phosphorus Level 1.9 L 2.5-4.9 mg/dL Magnesium Level 2.70 H 1.80-2.40 mg/dL Total Bilirubin 1.1 H 0.2-1.0 mg/dL Aspartate Amino Transf (AST/SGOT) 41 H 10-37 U/L Alanine Aminotransferase (ALT/SGPT) 39 12-78 U/L Alkaline Phosphatase 60 50-136 U/L Total Protein 7.0 6.0-8.3 g/dL Albumin 2.2 L 3.5-5.0 g/dL ASSESSMENT: Pneumonia. Acute pancreatitis, improving. Sepsis. Leukocytosis, resolved. Acute renal failure, resolving. Acute nonhemorrhagic stroke. Rhabdomyolysis. History of coronary artery disease. PLAN: Continue doxycycline IV. Continue Zosyn IV. Continue bronchodilators. Avoid nephrotoxic medications. We will monitor electrolytes. We will follow up on the blood culture and urine culture results. This case was reviewed and discussed with my supervising physician Dr. Rasmussen and the above assessment and plan was formulated and agreed upon. ATTESTATION BY PHYSICIAN I have seen and examined the patient. I reviewed the documentation, medical decision making, and treatment plan as noted by the mid-level provider above. I agree with the findings and plan of care. KARIE RASMUSSEN MD, [facility] Jan 02, 2025 20:31
[2025-01-03] VITALS (16 sets, daily range): BP systolic 120–151; BP diastolic 70–97; PULSE 90–113; RESP 18–23; TEMP 97.6–101.4; O2SAT 95–98
[2025-01-03 00:09] LABS: MYCOPLASMA AB IGM <770 U/mL (0-769)
[2025-01-03 04:29] LABS: IMMATURE GRANULOCYTE ABSOLUTE 0.08 K/uL (0-1); NUCLEATED RED BLOOD CELLS 0.0 % (0.0-0.19); PLATELET COUNT (AUTO) 134 K/uL (130-400); RED BLOOD CELL COUNT(AUTO) 4.09 MIL/uL (4.50-6.20); RED CELL DISTRIBUTION WIDTH 17.5 % (11.0-15.5); WHITE BLOOD COUNT (AUTO) 8.7 K/uL (4.8-10.8)
[2025-01-03 04:59] LABS: CREATININE 1.4 mg/dL (0.5-1.3); GLOMERULAR FILTR. RATE CALC 58.0 mL/min (>90); GLUCOSE,RANDOM 91.0 mg/dL (70-105); SODIUM SERUM 136.0 mmol/L (136-145); UREA NITROGEN, BLOOD 18.0 mg/dL (7-18)
--- NOTE | 2025-01-03 09:10 | PN ---
FOLLOWUP PROGRESS NOTE SUBJECTIVE: A 59-year-old male with a history of known sleep apnea. He initially presented with acute renal failure. The patient also with significant electrolyte abnormalities including hyponatremia. The patient has been having fevers and workup is ongoing. The patient is being seen as a followup visit for all of the above. REVIEW OF SYSTEMS: GENERAL: The patient is feeling improved. HEENT: No change in vision. No change in hearing. CARDIOVASCULAR: There is no current chest pain or palpitations. PULMONARY: He has chronic shortness of breath. GASTROINTESTINAL: The patient is tolerating a diet. MUSCULOSKELETAL: Complains of weakness. PHYSICAL EXAMINATION: VITAL SIGNS: Blood pressure 150/97, pulse in the 100s. GENERAL: Chronically ill male, obese, lying in bed on the medical floor. HEENT: Head is atraumatic. Pupils are equal, round, and reactive to light. Oropharynx is without exudate. Nares clear. NECK: There is no JVP. There is no thyromegaly. No mass. CARDIOVASCULAR: Regular. There is no S3, S4, or gallop. LUNGS: Coarse with equal thoracic movement. ABDOMEN: Soft, nondistended, and nontender. EXTREMITIES: Reveal no clubbing, no cyanosis. NEUROLOGICAL: He is awake. He is alert. LABORATORY DATA: Hemoglobin 11, hematocrit 33, BUN 18, creatinine is 1.4. IMPRESSION: * Acute on chronic renal failure. * Electrolyte abnormalities. * Sleep apnea. * Hypertension. PLAN: The patient's creatinine has remained stable. Serum sodium is much improved. The patient is encouraged with the fluid restriction. The patient with evidence of pneumonia remains on the antibiotics. We will continue to follow closely. The patient with multiple questions, all of which were answered. TID: [id number] RECEIPT: [id number]
--- NOTE | 2025-01-03 11:09 | PN ---
HISTORY OF PRESENT ILLNESS This is a pleasant 59-year-old male with past medical history as per patient with complaints of shortness of breath, is being evaluated for possible ACS contributory for pneumonia. Patient was also found to have a CVA PAST MEDICAL HISTORY, ALLERGIES See below REVIEW OF SYSTEMS Not obtained Vitals See chart PHYSICAL EXAM Alert and oriented x 3 Nonicteric nontraumatic Regular rate and rhythm, no murmurs Clear to auscultation bilaterally pulmonary Abdomen nontender Rectal deferred Skin no rash neurological no focal deficits Extremities no edema ASSESSMENT CORONARY DISEASE, ELEVATED TROPONIN At presentation PNEUMONIA Being managed by antibiotics per infectious disease, appreciate CT was negative for pulm embolism CVA At presentation Patient ganglia as well as occipital lobe involvement ACUTE ON CHRONIC KIDNEY DISEASE At presentation Create greater than 2 HISTORY OF [id number] SYNDROME SLEEP APNEA, HYPERTENSION, HYPERLIPIDEMIA, SLEEP APNEA CORE MEASURES pending OTHER MEDICAL PROBLEMS reviewed CORE MEASURES Pending OTHER MEDICAL PROBLEMS Reviewed PLAN 12/28/2024 given recent CVA, not a good candidate for any ischemic evaluation at this time, echocardiogram has been ordered and pending. Further recommendations post. Continue current medical therapy conservative management for now. May consider STONE given stroke in 2 different vascular distributions. Holter monitor may also be considered. Seen and examined 12/28/2024 at around 1800. 12/29/2024 Remains on BiPAP, echocardiogram was within normal limits. Renal function being addressed by nephrology, julieta. At this time, given recent CVA ongoing respiratory issues, not a good candidate for any ischemic evaluation. Once he has recovered from his underlying issues, may consider further evaluation from a cardiac standpoint. Conservative measures for now. Seen and examined 12/29/2024 at around 7 PM. 12/30/2024 Feeling better, currently off BiPAP, nephrology on board managing renal dysfunction. As above, continue conservative measures at this time and may consider outpatient ischemic evaluation once recovered from CVA. On atorvastatin and aspirin beta-tomasa continue. Renal function improving. Echo was within normal limits. Seen and examined 12/30/2024 at around 8 PM. 12/31/2024 No cardiovascular symptoms, no weakness from the stroke, doing well, walking in the hallways and getting therapy. On doxycycline. Eventual plans for ischemic evaluation as well as STONE as outpatient. May consider long-term monitoring as well given strokes involving multiple circulations. Pancreatitis and pneumonia being treated as well. Seen and examined 12/31/2024 at around 1 PM. 01/01/2025 Doing well, no active cardiovascular complaints at this time. Only issues with pneumonia pancreatitis CVA all of which have improved. Currently, ambulating without any significant issues, Home when okay with primary team and will follow-up in the office for ischemic evaluation and stroke workup. Renal function has improved. Seen and examined 01/01/2025 at around 8 AM. 01/02/2025 Remains antibiotics and did have fevers again today and therefore, discharge is being held. Appreciate infectious disease. Renal function slightly worse today as well, will need to be watched. Stable cardiovascular status and patient remains asymptomatic from a cardiovascular standpoint at this time. Seen and examined 01/02/2025 at around 5 PM. 01/03/2025 No more fevers per report. Arcenio function is stable, appreciate nephrology. ID on board managing fevers creatinine 1.4 most recently which is close to baseline CT chest abdomen pelvis with persistent pancreatitis, fatty liver, cholelithiasis. Seen and examined 01/03/2025 at around 11 AM. ATTESTATION I was involved substantial in the care of the patient Number of complexity of problems addressed 1 acute illness with systemic features Amount and or complexity of data Review of prior external notes from each unique source 2+ Ordering of each unique test 0 Review of results of each unique test 2+ Assessment requiring independent historians no Dependent interpretation of test performed by another MD no Discussion of management or test interpretation with external MD no Risk status moderate Vitals/Labs Vital Signs Date Time Temp Pulse Resp B/P (MAP) Pulse Ox O2 Delivery O2 Flow Rate FiO2 01/03/25 08:01 98.2 100 18 150/97 96 Room Air 01/03/25 06:41 21 01/02/25 20:00 3 Laboratory Tests 01/03/25 04:13 Medications Current Medications Procainamide HCl 2000 mg/Sodium Chloride 250 ml @ 0 mls/hr PROTOCOL IV; Start 12/28/24 at 10:00; Stop 12/28/24 at 10:42; Status DC Metoprolol Tartrate 5 mg ONCE ONCE IV Last administered on 12/28/24at 10:38; Start 12/28/24 at 10:30; Stop 12/28/24 at 10:31; Status DC Aspirin 325 mg ONCE ONCE PO Last administered on 12/28/24at 10:46; Start 12/28/24 at 11:00; Stop 12/28/24 at 11:01; Status DC Sodium Chloride 1,000 ml @ 100 mls/hr Q10H IV Last administered on 12/29/24at 09:14; Start 12/28/24 at 12:00; Stop 12/29/24 at 09:23; Status DC Ipratropium Bruce 1 mg Q6H PRN IH; Start 12/28/24 at 12:00; Stop 01/27/25 at 11:59 Acetaminophen 650 mg Q6H PRN PO Last administered on 01/02/25at 16:45; Start 12/28/24 at 12:00; Stop 01/27/25 at 11:59 Ondansetron HCl 4 mg Q6H PRN IVP; Start 12/28/24 at 12:00; Stop 01/27/25 at 11:59 Thiamine HCl 100 mg Q24H IVP Last administered on 01/02/25at 12:07; Start 12/28/24 at 12:00; Stop 01/27/25 at 11:59 Vitamin B Complex/ Vit C/Folic Acid 1 cap DAILY PO Last administered on 01/03/25at 09:18; Start 12/29/24 at 09:00; Stop 01/28/25 at 08:59 Aspirin 81 mg DAILY PO Last administered on 01/03/25at 09:18; Start 12/29/24 at 09:00; Stop 01/28/25 at 08:59 Piperacillin Sod/ Tazobactam Sod 3.375 gm Q8H IVPB Last administered on 01/03/25at 04:00; Start 12/28/24 at 12:00; Stop 01/07/25 at 11:59 Sodium Chloride 50 ml AD IV; Start 12/28/24 at 12:00; Stop 12/28/24 at 11:59; Status DC Enoxaparin Sodium 40 mg DAILY SQ Last administered on 01/02/25at 09:08; Start 12/29/24 at 09:00; Stop 01/28/25 at 08:59 Famotidine 20 mg Q24H IV Last administered on 01/02/25at 20:51; Start 12/28/24 at 21:00; Stop 01/27/25 at 20:59 Metoprolol Succinate 25 mg DAILY PO Last administered on 01/03/25at 09:18; Start 12/28/24 at 13:00; Stop 01/27/25 at 12:59 Iohexol 75 ml STK-MED ONCE IV; Start 12/28/24 at 12:57; Stop 12/28/24 at 12:57; Status DC Doxycycline Hyclate 250 ml @ 125 mls/hr Q12H IV Last administered on 01/03/25at 01:55; Start 12/28/24 at 14:30; Stop 01/07/25 at 14:29 Sodium Chloride 4 ml STK-MED ONCE IH Last administered on 12/28/24at 19:12; Start 12/28/24 at 18:20; Stop 12/28/24 at 18:20; Status DC Clopidogrel Bisulfate 75 mg Q24H PO Last administered on 12/28/24at 21:23; Start 12/28/24 at 20:30; Stop 12/28/24 at 22:21; Status DC Sodium Chloride 4 ml STK-MED ONCE IH; Start 12/28/24 at 22:27; Stop 12/28/24 at 22:28; Status DC Lactulose 20 gm Q6H6 PO; Start 12/29/24 at 12:00; Stop 12/29/24 at 11:49; Status DC Lactulose 20 gm TID PO Last administered on 12/30/24at 13:55; Start 12/29/24 at 14:00; Stop 01/01/25 at 14:30; Status DC Atorvastatin Calcium 40 mg HS PO Last administered on 01/02/25at 21:02; Start 12/29/24 at 21:00; Stop 01/28/25 at 20:59 Melatonin 10 mg ONCE ONCE PO Last administered on 12/30/24at 00:46; Start 12/30/24 at 00:00; Stop 12/30/24 at 00:02; Status DC Potassium Chloride 20 meq ONCE ONCE PO Last administered on 12/30/24at 05:47; Start 12/30/24 at 05:00; Stop 12/30/24 at 05:02; Status DC Magnesium Citrate 296 ml ONCE ONCE PO Last administered on 12/30/24at 13:55; Start 12/30/24 at 13:30; Stop 12/30/24 at 13:31; Status DC Furosemide 20 mg ONCE ONCE IV Last administered on 12/30/24at 17:34; Start 12/30/24 at 17:30; Stop 12/30/24 at 17:31; Status DC Ipratropium Bruce 0.5 MG [id number] IH Last administered on 01/03/25at 06:31; Start 12/30/24 at 22:00; Stop 01/29/25 at 21:59 Potassium Chloride 20 meq AD PRN PO; Start 12/31/24 at 05:00; Stop 01/30/25 at 04:59 Potassium Chloride 20 meq AD PRN PO Last administered on 01/02/25at 23:14; Start 12/31/24 at 05:00; Stop 01/30/25 at 04:59 Potassium Chloride 100 ml @ 100 mls/hr AD PRN IV Last administered on 01/02/25at 05:08; Start 12/31/24 at 05:00; Stop 01/30/25 at 04:59 Lactulose 20 gm TID PRN PO; Start 01/01/25 at 14:30; Stop 01/28/25 at 13:59 Acetaminophen 650 mg Q4H PRN PO Last administered on 01/02/25at 20:53; Start 01/02/25 at 20:30; Stop 02/01/25 at 20:29 BRENNON CROWLEY MD Jan 03, 2025 11:09
--- NOTE | 2025-01-03 17:05 | PN ---
[facility] PROGRESS NOTE Date of Service: Jan 03, 2025 Time of Service: 16:[address] Posadas SUBJECTIVE: Follow up visit for a 59-year-old male admitted to the hospital for acute hypoxemic respiratory failure, community-acquired pneumonia, non-STEMI, acute pancreatitis. Patient remains on IV doxycycline, IV Zosyn under ID direction. Cultures in process. Currently saturating adequately on room air. Patient initiated on diet, tolerating well, no reports of abdominal pain. Serum lipase improved from 497-175. 2D echo has been performed, report pending. He has brain MRI on admission did show acute infarct in the right basal ganglia similar to the CT brain dated 12/28/2024. Patient at this time reveals no focal deficits. 12/30/2024: Over the past 24 hours no major events reported. Patient remains on IV doxycycline, IV Zosyn under ID direction. He is saturating adequately on room air. Continues to be followed by pulmonology team requesting 6 minute walk test prior to discharge. Patient reports no neuro deficits at this time, being followed closely by Neurology, remains on aspirin statins. Patient denies abdominal pain nausea or vomiting. He is tolerating diet. 2D echo EF 60-65%. Morning labs potassium 3.3, for which he received replacement. 12/31/2024: Patient remains on IV Zosyn IV doxycycline under ID direction. Cultures are in process. Patient currently saturating adequately on room air. He does continue to use CPAP at night. Continues to be followed by pulmonology team. Morning labs reviewed. 01/01/2025: Patient has been noted with episodes of fever, max temp of 102.9. Patient remains on IV doxycycline, IV Zosyn under ID direction. Patient denies chest pain, shortness of breath, nausea vomiting diarrhea. Morning labs reviewed. 01/02/2025: Patient's morning continued to spike fever, max temp of 101.3. Patient remains on IV Zosyn doxycycline under ID direction. Flu a and B and COVID swabs negative. No leukocytosis. CXR showing left lower lobe pneumonia, no significant interval change. 01/03/25 patient was seen by nurse practitioner and physician in room 228. Patient was evaluated by the tray drier operator and patient denies any chest pain or shortness of breaths, nausea vomiting or abdominal pain. As per recommendation continue patient on IV antibiotics as per ID. No further workout as per tray drier operator. Patient had a fever of 102.9 on 01/02/2025 at 8:53 p.m. WBC 8.7. Urine culture final negative. Blood culture still pending. Most recent chest x-ray showed mild patchy left lower lobe infiltrate/atelectasis. V/Q scan was ordered due to D-dimer 4865. As per ID continue doxycycline IV and Zosyn IV. Patient is tolerating BiPAP well at night. We will continue to monitor patient in the meantime. A.m. labs REVIEW OF SYSTEMS CONSTITUTIONAL: generalized fatigue, malaise NEUROLOGICAL: Denies headache, amaurosis fugax, motor weakness, sensory deficit, vertigo/spinning sensation, gait abnormalities, or tremors. ENT: No hearing loss, otalgia, otorrhea, rhinitis, rhinorrhea, hoarseness, or sore throat. CARDIOVASCULAR: Denies any exertional angina, dyspnea on exertion, orthopnea, paroxysmal nocturnal dyspnea, palpitations, life-threatening arrhythmias, claudication. PULMONARY: Shortness of breath, diaphoresis SLEEP: Denies morning headaches, daytime somnolence or napping. Denies difficulty falling asleep, staying asleep, waking from sleep. Denies knowledge of snoring. GASTROINTESTINAL: r denies any nausea or vomiting GENITOURINARY: Denies frequency, urgency, nocturia, hematuria or incontinence (Storage/Irritative symptoms.) Low urinary stream, straining to void, urinary intermittency or hesitancy, splitting of the voiding stream, terminal dribbling. ENDOCRINOLOGIC: Denies polyuria, polydipsia, polyphagia or heat/cold intolerances. HEMATOLOGIC: Denies thrombophilia/previous clots, or coagulopathy/bleeding disorders. ONCOLOGIC: Denies personal history of malignancy. DERMATOLOGIC: Denies rashes or pruritus. PSYCHIATRIC: Denies any suicidal or homicidal ideation. Denies hallucinations. PHYSICAL EXAM GENERAL APPEARANCE: The patient is awake, alert, patient appears very diaphoretic, currently on 3 L supplementation by nasal cannula, patient is morbidly obese NEUROLOGICAL: Cranial nerves II-XII grossly intact. Examination is nonfocal for the patient HEENT: Face is symmetric. Pupils are equal and reactive. Extraocular movements are intact. NECK: Supple. No JVD. No thyromegaly. No submental, submandibular, pre- /postauricular, occipital or supraclavicular lymphadenopathy. CHEST: Normal chest expansion. No Telemetry. LUNGS: Minimal crackles noted at bilateral lung bases CARDIOVASCULAR: Regular. S1 and S2 normal. Tachycardic was ABDOMEN: Soft, nontender, and nondistended. There is no rebound, voluntary guarding, or rigidity. : Deferred. No [place]. EXTREMITIES: Non-edematous and not cyanotic. No clubbing. Good capillary refill. SKIN: No skin breakdown. Vital Signs (last 8hr) Date Time Temp Pulse Resp B/P (MAP) Pulse Ox O2 Delivery O2 Flow Rate FiO2 01/03/25 14:46 100 18 N/A Room Air 21 01/03/25 14:43 100 20 01/03/25 11:44 97.9 98 18 132/81 98 Room Air LABS: Laboratory: Test 01/03/25 04:13 01/02/25 19:47 01/02/25 03:42 Range/Units White Blood Count 8.7 4.8-10.8 K/uL Red Blood Count 4.09 L 4.50-6.20 MIL/uL Hemoglobin 11.2 L 14.0-18.0 g/dL Hematocrit 33.3 L 42-54 % Mean Corpuscular Volume 81.4 79-99 fL Mean Corpuscular Hemoglobin 27.4 27.0-33.0 pg Mean Corpuscular Hemoglobin Concent 33.6 32.0-36.0 g/dL Red Cell Distribution Width 17.5 H 11.0-15.5 % Platelet Count 134 130-400 K/uL Mean Platelet Volume 10.4 7.5-10.5 fL Immature Granulocyte % (Auto) 0.9 0-1 % Neutrophils (%) (Auto) 78.4 H 40.0-77.0 % Lymphocytes (%) (Auto) 12.2 L 21.0-51.0 % Monocytes (%) (Auto) 6.7 3.0-13.0 % Eosinophils (%) (Auto) 1.5 0.0-8.0 % Basophils (%) (Auto) 0.3 0.0-5.0 % Neutrophils # (Auto) 6.8 1.8-7.7 K/uL Lymphocytes # (Auto) 1.1 1.0-4.8 K/uL Monocytes # (Auto) 0.6 0.1-1.0 K/uL Eosinophils # (Auto) 0.13 0.00-0.70 K/uL Basophils # (Auto) 0.03 0.00-0.20 K/uL Absolute Immature Granulocyte (auto 0.08 0-1 K/uL Nucleated Red Blood Cells 0.0 0.0-0.19 % Sodium Level 136 136-145 mmol/L Potassium Level 3.9 3.5-5.1 mmol/L Chloride Level 100 L 101-111 mmol/L Carbon Dioxide Level 29 21-32 mmol/L Blood Urea Nitrogen 18 7-18 mg/dL Creatinine 1.4 H 0.5-1.3 mg/dL Glomerular Filtration Rate Calc 58 >90 mL/min Random Glucose 91 70-105 mg/dL Lactic Acid Level 1.3 0.8-2.5 mmol/L Total Calcium 8.3 L 8.5-10.1 mg/dL Procalcitonin 3.87 H 0.05-0.5 ng/mL Whole Blood Glucose 120 H 70-110 MG/DL Influenza Type A Antigen Negative For Type A NEGATIVE Influenza Type B Antigen Negative For Type B NEGATIVE SARS-CoV-2 Antigen (Rapid) PRESUMPTIVE NEGATIVE NEGATIVE Current Medications Medications (Trade) Dose Ordered Sig/Donald Route PRN Reason Start Time Stop Time Status Last Admin Dose Admin Acetaminophen (TYLenol 325MG TAB) 650 mg Q4H PRN PO TEMPERATURE GREATER THAN 101.5 01/02/25 20:30 02/01/25 20:29 01/02/25 20:53 650 MG Acetaminophen (TYLenol 325MG TAB) 650 mg Q6H PRN PO MILD PAIN (1-3) 12/28/24 12:00 01/27/25 11:59 01/02/25 16:45 650 MG Aspirin (Aspirin 81mg Chew Tab) 81 mg DAILY PO 12/29/24 09:00 01/28/25 08:59 01/03/25 09:18 81 MG Atorvastatin Calcium (LIPItor 40MG) 40 mg HS PO 12/29/24 21:00 01/28/25 20:59 01/02/25 21:02 40 MG Clopidogrel Bisulfate (plaVIX 75MG) 75 mg Q24H PO 12/28/24 20:30 12/28/24 22:21 DC 12/28/24 21:23 75 MG Doxycycline Hyclate 250 ml @ 125 mls/hr Q12H IV 12/28/24 14:30 01/07/25 14:29 01/03/25 15:21 125 MLS/HR Enoxaparin Sodium (Lovenox) 40 mg DAILY SQ 12/29/24 09:00 01/28/25 08:59 01/03/25 09:00 40 MG Famotidine (Pepcid 20mg Vial) 20 mg Q24H IV 12/28/24 21:00 01/27/25 20:59 01/02/25 20:51 20 MG Ipratropium [place] (AtrovENT UD) 0.5 MG [id number] IH 12/30/24 22:00 01/29/25 21:59 01/03/25 14:43 0.5 MG Ipratropium [place] (AtrovENT UD) 1 mg Q6H PRN IH SHORTNESS OF BREATH 12/28/24 12:00 01/27/25 11:59 Lactulose (Constulose 20gm/ 30ml Udcup) 20 gm Q6H6 PO 12/29/24 12:00 12/29/24 11:49 DC Lactulose (Constulose 20gm/ 30ml Udcup) 20 gm TID PO 12/29/24 14:00 01/01/25 14:30 DC 12/30/24 13:55 20 GM Lactulose (Constulose 20gm/ 30ml Udcup) 20 gm TID PRN PO CONSTIPATION 01/01/25 14:30 01/28/25 13:59 Metoprolol Succinate (TopROL XL) 25 mg DAILY PO 12/28/24 13:00 01/27/25 12:59 01/03/25 09:18 25 MG Ondansetron HCl (zoFRAN 4MG INJ) 4 mg Q6H PRN IVP NAUSEA/VOMITING 12/28/24 12:00 01/27/25 11:59 Piperacillin Sod/ Tazobactam Sod (Zosyn 3.375gm+NS 50ml) 3.375 gm Q8H IVPB 12/28/24 12:00 01/07/25 11:59 01/03/25 15:21 3.375 GM Potassium Chloride 100 ml @ 100 mls/hr AD PRN IV POTASSIUM PROTOCOL 12/31/24 05:00 01/30/25 04:59 01/02/25 05:08 100 MLS/HR Potassium Chloride (K-Dur/Klor-Con 20meq) 20 meq AD PRN PO POTASSIUM PROTOCOL 12/31/24 05:00 01/30/25 04:59 01/02/25 23:14 20 MEQ Potassium Chloride (KCl 10% Elixir 20meq/15ml) 20 meq AD PRN PO POTASSIUM PROTOCOL 12/31/24 05:00 01/30/25 04:59 Procainamide HCl 2000 mg/Sodium Chloride 250 ml @ 0 mls/hr PROTOCOL IV 12/28/24 10:00 12/28/24 10:42 DC Sodium Chloride 1,000 ml @ 100 mls/hr Q10H IV 12/28/24 12:00 12/29/24 09:23 DC 12/29/24 09:14 100 MLS/HR Sodium Chloride (NS 50ml) 50 ml AD IV 12/28/24 12:00 12/28/24 11:59 DC Thiamine HCl (Vitamin B-1) 100 mg Q24H IVP 12/28/24 12:00 01/27/25 11:59 01/03/25 15:20 100 MG Vitamin B Complex/ Vit C/Folic Acid (Nephrovite Tablet) 1 cap DAILY PO 12/29/24 09:00 01/28/25 08:59 01/03/25 09:18 1 CAP DIAGNOSTICS / RADIOLOGY: [ ] ASSESSMENT: 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 Acute hypoxemic respiratory failure, POA Community-acquired pneumonia, POA Undiagnosed obstructive sleep apnea Acute diastolic congestive heart failure as per 2D echo Elevated cardiac troponin, rule out active ACS, POA acute pancreatitis likely 2/2 gall stones Acute Kidney injury, POA Hyponatremia, POA Morbid obesity, POA Sinus tachycardia, POA Thrombocytopenia, POA, mild Underlying history of obstructive sleep apnea, POA Hypertension, POA Hyperlipidemia, POA History of AL, POA History of coronary artery disease with prior history of PCI, POA 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 As per recommendation continue patient on IV antibiotics as per ID. No further workout as per tray drier operator. Patient had a fever of 102.9 on 01/02/2025 at 8:53 p.m. WBC 8.7. Urine culture final negative. Blood culture still pending. Most recent chest x-ray showed mild patchy left lower lobe infiltrate/atelectasis. V/Q scan was ordered due to D-dimer 4865. As per ID continue doxycycline IV and Zosyn IV. Patient is tolerating BiPAP well at night. We will continue to monitor patient in the meantime. A.m. labs Patient continued to be noted with fever today, max temp of 101.3. Duo nebs Q 6 hours 2D echocardiogram EF 60-65%. Stage I diastolic dysfunction Repeat head CT on 12/29/2024 showing old right basilar ganglia infarct, with encephalomalacia, no acute intracranial process noted. [id number] g daily. Atorvastatin 40 mg at bedtime. Neurology consult obtained, follow up with recommendations Titrate supplemental O2 therapy to maintain oxygen saturations greater than 92% Consultation with Cardiology requested, follow with recs Consultation with pulmonology neurology and Nephrology requested. follow with recs All labs will be repeated in the morning Continue CPAP therapy PT OT evaluation Further orders per hospital course; DC home, once no longer spiking fever. ATTESTATION BY PHYSICIAN I have seen and examined the patient. I reviewed the documentation, medical decision making, and treatment plan as noted by the mid-level provider above. I agree with the findings and plan of care. Charis Posadas MD, [employer] Jan 03, 2025 17:05
--- NOTE | 2025-01-03 18:20 | PN ---
[facility] PROGRESS NOTE Date Patient Seen: Jan 03, 2025 Time of Visit: 18:16 Supervising Physician: KELLY US MD Primary Care Physician: Tremayne Hernandez MD Outpatient Specialists: [ ] Inpatient Consults: SVETA, DR Butcher, Dr King, Dr Cramer, Dr Saleh PROBLEM LIST: Acute hypoxemic respiratory failure, POA Severe sepsis with MODS POA NSTEMI POA Atelectasis to left mid lung field. Cardiomegaly acute to subacute non-hemorrhagic CVA POA Acute pancreatitis, [place]'s criteria 1pont (1% predicted mortality) POA Cholelithiasis without evidence of cholecystitis Hepatomegaly with diffuse hepatic steatosis Trace ascites in the right upper quadrant Elevated D-dimer negative for PE and DVT to lower extremities Acute Kidney injury, POA Mild thrombocytopenia Thrombocytopenia, POA, mild Essential hypertension, POA Hyperlipidemia, POA Stage I diastolic dysfunction with the EF of 60-65% POA Comorbidities: DIYA on CPAP at home Prior Myocardial infarction Coronary artery disease with prior PCI History of Dfboy-Qqkcsmmrf-Jhdyx syndrome with prior history of cardiac ablation, POA Chronic depression Prior gastric bypass surgery Morbid obesity, POA BMI of 54.7 INTERVAL HISTORY: Mr. Miles is having low grade fevers with some chills Denies urgency Denies dysuria Remains on O2 via nasal canula Using BiPAP at night Denies chest pain Occasional dry cough Good appetite, no constipation REVIEW OF SYSTEMS: 12 point review of systems done, all pertinent information addressed. PHYSICAL EXAM: GENERAL: alert, weak, awake oriented x 3 HEENT: EOMI, Sclera non icteric, moist mucosa NECK: Supple, no JVD, trachea midline LUNGS: Diminished breath sounds bilaterally. No wheezes HEART: Regular rate and rhythm. Normal S1 and S2, without murmurs ABD: Abdomen soft, morbidly obese, nontender. Bowel sounds present EXT: No clubbing cyanosis or edema NEURO: Alert and oriented to person, follows commands Vital Signs (last 8hr) Date Time Temp Pulse Resp B/P (MAP) Pulse Ox O2 Delivery O2 Flow Rate FiO2 01/03/25 17:05 97.5 95 18 138/80 98 Room Air 01/03/25 14:46 100 18 N/A Room Air 21 01/03/25 14:43 100 20 01/03/25 11:44 97.9 98 18 132/81 98 Room Air LABS: Hematology Labs: Test 01/03/25 04:13 Range/Units White Blood Count 8.7 4.8-10.8 K/uL Red Blood Count 4.09 L 4.50-6.20 MIL/uL Hemoglobin 11.2 L 14.0-18.0 g/dL Hematocrit 33.3 L 42-54 % Mean Corpuscular Volume 81.4 79-99 fL Mean Corpuscular Hemoglobin 27.4 27.0-33.0 pg Mean Corpuscular Hemoglobin Concent 33.6 32.0-36.0 g/dL Red Cell Distribution Width 17.5 H 11.0-15.5 % Platelet Count 134 130-400 K/uL Mean Platelet Volume 10.4 7.5-10.5 fL Immature Granulocyte % (Auto) 0.9 0-1 % Neutrophils (%) (Auto) 78.4 H 40.0-77.0 % Lymphocytes (%) (Auto) 12.2 L 21.0-51.0 % Monocytes (%) (Auto) 6.7 3.0-13.0 % Eosinophils (%) (Auto) 1.5 0.0-8.0 % Basophils (%) (Auto) 0.3 0.0-5.0 % Neutrophils # (Auto) 6.8 1.8-7.7 K/uL Lymphocytes # (Auto) 1.1 1.0-4.8 K/uL Monocytes # (Auto) 0.6 0.1-1.0 K/uL Eosinophils # (Auto) 0.13 0.00-0.70 K/uL Basophils # (Auto) 0.03 0.00-0.20 K/uL Absolute Immature Granulocyte (auto 0.08 0-1 K/uL Nucleated Red Blood Cells 0.0 0.0-0.19 % Chemistry Labs: Test 01/03/25 04:13 01/02/25 19:47 Range/Units Sodium Level 136 136-145 mmol/L Potassium Level 3.9 3.5-5.1 mmol/L Chloride Level 100 L 101-111 mmol/L Carbon Dioxide Level 29 21-32 mmol/L Blood Urea Nitrogen 18 7-18 mg/dL Creatinine 1.4 H 0.5-1.3 mg/dL Glomerular Filtration Rate Calc 58 >90 mL/min Random Glucose 91 70-105 mg/dL Lactic Acid Level 1.3 0.8-2.5 mmol/L Total Calcium 8.3 L 8.5-10.1 mg/dL Procalcitonin 3.87 H 0.05-0.5 ng/mL Whole Blood Glucose 120 H 70-110 MG/DL DIAGNOSTICS / RADIOLOGY RESULTS: Chest x-ray shows left lower lobe atelectasis PLAN Will get urine cultures Follow pending blood cultures Trend temperature continue O2 continue BiPAP NEURO: Minimize central acting medications as possible. Maintain fall precautions, adequate lighting during the day PULMONARY: Supplemental 02 as needed. Maintain aspiration precautions at all times CARDIOVASCULAR: Follow hemodynamics. Vital signs per facility protocol GI & NUTRITION: Continue with nutritional support. Continue stool softeners and laxatives as needed. KIDNEYS & ELECTROLYTES: Strict monitoring of intake, output and overall fluid balance. Avoid nephrotoxic medications to the extent possible. Medications to be dosed according to renal function. Monitor electrolytes and replace as needed ENDOCRINE: Maintain blood glucose between 100-180 at all times. Hypoglycemia protocol in place INFECTIOUS DISEASE: Trend temperature, WBC and procalcitonin level Follow cultures, deescalate antibiotics as soon as possible. Panculture if new onset fever ONCOLOGY/HEMATOLOGY/COAGULATION: Monitor for s/s of bleeding Monitor hemoglobin, coagulation studies as needed SKIN: Pressure ulcer prevention per facility protocol Specialty mattress ORTHO/REHAB: Continue PT/OT Prophylaxis: Continue GI and DVT prophylaxis Code Status: Full Resuscitation Disposition: Per primary team I personally scribed for KELLY US MD ([email or web address]) on 01/03/25 at 18:20. Electronically submitted by Angel Webster ([facility]). KELLY US MD Jan 03, 2025 18:20
--- NOTE | 2025-01-03 21:45 | PN ---
INFECTIOUS DISEASE PROGRESS NOTE Date of Service: Jan 03, 2025 SUBJECTIVE: This is a 59 year old male patient who was seen today at bedside in room 228. Patient is awake alert and oriented x3. Patient is sitting up on the bedside chair in no respiratory distress. Fever was reported last night of 102.9. No growth being reported on the preliminary blood culture results. The urine culture has been collected and pending results. Continues on Doxycycline and Zosyn and obtain CT of the chest, abdomen and pelvis. PHYSICAL EXAM EYES: Anicteric. Pupils equal and reactive. HENT: No oral thrush seen, moist Oral mucosa NECK: Supple, no JVD or thyromegaly. LUNGS: diminished. No wheezing or rhonchi CARDIOVASCULAR: S1, S2 regular. No murmur heard. ABDOMEN: Soft, non tender, bowel sounds present, no organomegaly. CENTRAL NERVOUS SYSTEM: Awake, alert, oriented x 3. SKIN: No rashes, no swelling. LYMPHATICS: No peripheral lymphadenopathy MUSCULOSKELETAL: No joint swelling, erythema or tenderness. EXTREMITIES: No cyanosis or clubbing. BACK: No deformity, no pressure ulcer. GENITOURINARY: No dysuria or hematuria. Vital Sign (Last 12 Hours) 01/03/25 01/03/25 01/03/25 01/03/25 11:44 14:43 14:46 17:05 Temp 97.9 97.5 Pulse 98 100 100 95 Resp 18 20 18 18 B/P (MAP) 132/81 138/80 Pulse Ox 98 98 O2 Delivery Room Air N/A Room Air Room Air FiO2 21 01/03/25 01/03/25 01/03/25 01/03/25 18:29 18:32 19:20 21:25 Temp 101.5 101.5 Pulse 110 110 113 Resp 20 20 22 B/P (MAP) 151/88 Pulse Ox 97 O2 Delivery N/A Room Air Room Air FiO2 21 Intake & Output (last 24hrs) 01/02/25 01/02/25 01/03/25 15:00 23:00 07:00 Intake Total 50.0 ml 540.0 ml Output Total 200 ml 100 ml Balance -150.0 ml 440.0 ml LABS: Laboratory: Test 01/03/25 20:29 01/03/25 04:13 01/02/25 03:42 Range/Units Whole Blood Glucose 82 70-110 MG/DL White Blood Count 8.7 4.8-10.8 K/uL Red Blood Count 4.09 L 4.50-6.20 MIL/uL Hemoglobin 11.2 L 14.0-18.0 g/dL Hematocrit 33.3 L 42-54 % Mean Corpuscular Volume 81.4 79-99 fL Mean Corpuscular Hemoglobin 27.4 27.0-33.0 pg Mean Corpuscular Hemoglobin Concent 33.6 32.0-36.0 g/dL Red Cell Distribution Width 17.5 H 11.0-15.5 % Platelet Count 134 130-400 K/uL Mean Platelet Volume 10.4 7.5-10.5 fL Immature Granulocyte % (Auto) 0.9 0-1 % Neutrophils (%) (Auto) 78.4 H 40.0-77.0 % Lymphocytes (%) (Auto) 12.2 L 21.0-51.0 % Monocytes (%) (Auto) 6.7 3.0-13.0 % Eosinophils (%) (Auto) 1.5 0.0-8.0 % Basophils (%) (Auto) 0.3 0.0-5.0 % Neutrophils # (Auto) 6.8 1.8-7.7 K/uL Lymphocytes # (Auto) 1.1 1.0-4.8 K/uL Monocytes # (Auto) 0.6 0.1-1.0 K/uL Eosinophils # (Auto) 0.13 0.00-0.70 K/uL Basophils # (Auto) 0.03 0.00-0.20 K/uL Absolute Immature Granulocyte (auto 0.08 0-1 K/uL Nucleated Red Blood Cells 0.0 0.0-0.19 % Sodium Level 136 136-145 mmol/L Potassium Level 3.9 3.5-5.1 mmol/L Chloride Level 100 L 101-111 mmol/L Carbon Dioxide Level 29 21-32 mmol/L Blood Urea Nitrogen 18 7-18 mg/dL Creatinine 1.4 H 0.5-1.3 mg/dL Glomerular Filtration Rate Calc 58 >90 mL/min Random Glucose 91 70-105 mg/dL Lactic Acid Level 1.3 0.8-2.5 mmol/L Total Calcium 8.3 L 8.5-10.1 mg/dL Procalcitonin 3.87 H 0.05-0.5 ng/mL Influenza Type A Antigen Negative For Type A NEGATIVE Influenza Type B Antigen Negative For Type B NEGATIVE SARS-CoV-2 Antigen (Rapid) PRESUMPTIVE NEGATIVE NEGATIVE ASSESSMENT: Pneumonia. Persistent fevers. Acute pancreatitis. Sepsis. Leukocytosis, resolved. Acute renal failure, improving. Acute nonhemorrhagic stroke. Rhabdomyolysis. History of coronary artery disease. PLAN: Continue doxycycline IV. Continue Zosyn IV. Continue bronchodilators. Avoid nephrotoxic medications. We will monitor electrolytes. We will follow up on the blood culture and urine culture results. Obtain CT of the chest, abdomen and pelvis. This case was reviewed and discussed with my supervising physician Dr. Rasmussen and the above assessment and plan was formulated and agreed upon. ATTESTATION BY PHYSICIAN I have seen and examined the patient. I reviewed the documentation, medical decision making, and treatment plan as noted by the mid-level provider above. I agree with the findings and plan of care. KARIE RASMUSSEN MD, [facility] Jan 03, 2025 21:45
[2025-01-03 21:54] LABS: INR 1.08 (0.85-1.15)
[2025-01-04] VITALS (15 sets, daily range): BP systolic 119–153; BP diastolic 52–93; PULSE 97–109; RESP 19–26; TEMP 98–100.7; O2SAT 94–97
--- NOTE | 2025-01-04 01:27 | NUR ---
@1930PM 01/03/25 WHILE ROUNDING DURING SHIFT CHANGE NOTICED MIDLINE CATHETER ON THE FLOOR. ASKED PATIENT WHAT HAPPENED AND HE STATED HE DID NOT KNOW. PATIENT STATED " I DONT KNOW HOW THAT MIDLINE CAME OFF". RIGHT UPPER ARM DRESSING WITH BLOOD. CATHETER INTACT. DOUBLE LUMEN. RIGHT UPPER ARM DRESSING REMOVED.
[2025-01-04] MEDS ORDERED: IOHEXOL 350 MG/ML 100ML INFUS..BTL IV ONE (01:50)
--- NOTE | 2025-01-04 03:02 | HMCIMG ---
EXAM: CT Examination of the Chest, Abdomen, and Pelvis without and with IV Contrast CLINICAL HISTORY: Persistent fever. TECHNIQUE: Pre and Post-contrast thin collimated axial CT images of the chest, abdomen, and pelvis were obtained, with sagittal and coronal reformatted images also submitted. CT scan is done according to ALARA (As Low as Reasonably Achievable). COMPARISON: None provided. FINDINGS: Mild subsegmental atelectasis or infiltrates in the left lingula and lower lobes of the lung. No effusion, or pneumothorax. No pericardial effusion. The cardiac size is within normal limits. Calcific atherosclerotic disease in the thoracic aorta and coronary arteries. No thoracic aortic aneurysm. Grossly unremarkable pulmonary artery. No mediastinal, axillary, or supraclavicular lymphadenopathy. No focal thyroid abnormality is evident. Mild fatty liver. Cholelithiasis without acute cholecystitis. Diffuse peripancreatic fatty stranding with thickening of the peritoneal reflections and small ascites, compatible with acute interstitial pancreatitis. The peripancreatic fat stranding also involves the adjacent portion of the stomach and splenic flexure of the colon, compatible with reactive inflammation. Postsurgical changes in the stomach. No bowel dilatation or obstruction. Unremarkable appendix. Uncomplicated sigmoid diverticula. Mild splenomegaly. No focal abnormality within the adrenals, or kidneys. Unremarkable urinary bladder. The prostate is normal in size. Nonspecific degenerative calcifications within the prostate. Tiny uncomplicated fat-containing ventral hernias bilaterally. Mild calcific atherosclerotic disease in the abdominal aorta and its branches. No pathological lymphadenopathy in the abdomen or pelvis. No pneumoperitoneum. No acute bony abnormality is evident. Degenerative osseous changes. S-shaped scoliosis of the thoracolumbar spine. Degenerative osseous changes. IMPRESSION: Severe acute interstitial pancreatitis with mild reactive inflammation in the adjacent portion of the stomach and splenic flexure of the colon. Recommend serum amylase and lipase evaluation. No localized fluid collection or abscess is evident at present. Mild subsegmental atelectasis and infiltrates in the left lingula and lower lobes of the lung. Mild fatty liver. Cholelithiasis without acute cholecystitis. Mild splenomegaly. /[place]
[2025-01-04 05:31] LABS: IMMATURE GRANULOCYTE ABSOLUTE 0.04 K/uL (0-1); NUCLEATED RED BLOOD CELLS 0.0 % (0.0-0.19); PLATELET COUNT (AUTO) 169 K/uL (130-400); RED BLOOD CELL COUNT(AUTO) 4.19 MIL/uL (4.50-6.20); RED CELL DISTRIBUTION WIDTH 17.8 % (11.0-15.5); WHITE BLOOD COUNT (AUTO) 7.5 K/uL (4.8-10.8)
[2025-01-04 06:03] LABS: ASPARTATE AMINOTRANSFERASE 66.0 U/L (10-37); CREATININE 1.3 mg/dL (0.5-1.3); GLOMERULAR FILTR. RATE CALC 63.0 mL/min (>90); GLUCOSE,RANDOM 84.0 mg/dL (70-105); PHOSPHORUS 3.8 mg/dL (2.5-4.9); SODIUM SERUM 133.0 mmol/L (136-145); TOTAL PROTEIN, SERUM 7.0 g/dL (6.0-8.3); UREA NITROGEN, BLOOD 20.0 mg/dL (7-18)
[2025-01-04] MEDS: PoTASSium chloRIDE 20MEQ ER 20 MEQ ERTAB PO ONE (09:32)
--- NOTE | 2025-01-04 09:55 | PN ---
FOLLOWUP PROGRESS NOTE SUBJECTIVE: A 59-year-old male who has had a prolonged hospital course. The patient was initially admitted to the hospital and found to have [id number] renal failure. He has a history of known sleep apnea. The patient has had persistent fevers and he remains on the antibiotics. Cultures are all noted. He has had acute on chronic renal failure in the hospital. Creatinine has remained fairly stable and the patient is being seen as a followup visit for all of the above. REVIEW OF SYSTEMS: GENERAL: He is feeling weak and tired. HEENT: No change in vision. No change in hearing. CARDIOVASCULAR: There are no current chest pains or palpitations. PULMONARY: He has chronic shortness of breath. GASTROINTESTINAL: The patient is tolerating a diet. MUSCULOSKELETAL: Complaints of weakness. PHYSICAL EXAMINATION: VITAL SIGNS: Blood pressure 119/79, pulse 100. He is afebrile. GENERAL: He is a chronically ill male, obese, lying in bed on the medical floor. HEENT: Head is atraumatic. Pupils are equal, round, reactive to light. Oropharynx is without exudate. Nares clear. NECK: There is no JVP. There is no thyromegaly. No masses. CARDIOVASCULAR: Regular. There is no S3 or S4 gallop. LUNGS: Lungs are coarse with equal thoracic movement. ABDOMEN: Soft, nondistended and nontender. EXTREMITIES: Reveal no clubbing or cyanosis. NEUROLOGICAL: He is awake. He is alert. He is at his baseline. LABORATORY DATA: Sodium 133, potassium , BUN 20, creatinine 1.3, hemoglobin and hematocrit 33. IMPRESSION: Acute on chronic renal failure. Sleep apnea. Hypertension. Persistent fevers. PLAN: The patient's creatinine has remained fairly stable. The patient has persistent fevers and workup is ongoing per Infectious Disease. He remains on broad-spectrum IV antibiotics. We will continue to follow the patient closely. Patient with multiple questions, all of which were answered. TID: [id number] RECEIPT: [id number]
[2025-01-04] MEDS ORDERED: VANCOMYCIN PROTOCOL PER PHARMACY IV SCH (12:00)
[2025-01-04] MEDS ORDERED: PHARMACY COMMUNICATION MISC SCH (12:00)
--- NOTE | 2025-01-04 12:00 | NUR ---
VQ SCAN Addendum: 01/04/25 at 1231 by ZO MCLEAN PT Amended: Links added.
[2025-01-04] MEDS: MEROPENEM 1GM 1 GM VIAL IVPB SCH (13:30)
--- NOTE | 2025-01-04 14:16 | CONS ---
GASTROENTEROLOGY CONSULTATION NOTE Date of Consultation: Jan 04, 2025 Time of Consultation: 14:14 History of Present Illness: 59-year-old male with past medical history of hypertension, obesity, Nwpbg-[id number]-Qxfbg syndrome, CAD and prior history of [place] presents to the emergency room for evaluation of shortness of breath. We were consulted due to abnormal imaging concerning for severe acute interstitial pancreatitis. CT chest and abdomen reveals diffuse peripancreatic fatty stranding with thickening of peritoneal reflections and small ascites, compatible with acute interstitial pancreatitis.. Peripancreatic fat stranding also involves the adjacent portion of the stomach and splenic flexure of the colon, compatible with reactive inflammation. Initial lipase level of 497. Review of Systems: CONSTITUTIONAL: No malaise or change in sensation of wellbeing. ENMT: No rhinorrhea, otorrhea, sinus pain, ear ache. CARDIOVASCULAR: No angina, palpitations, orthopnea or paroxysmal dyspnea. RESPIRATORY: No SOB. GASTROINTESTINAL: No abdominal pain, nausea, vomiting, diarrhea, hematemesis, melena or change in the patient's habitual bowel movements consistency/number. GENITOURINARY: No dysuria, hematuria or change in bladder continence. MUSCULOSKELETAL: No new muscle pain or decrease in muscular strength. No new joint swelling, redness or tenderness. SKIN: No new rash. Past Medical History: [ ] Past Surgical History: [ ] Past Social History: [ ] Family History: [ ] Coded Allergies: No Known Drug Allergies (Unverified Allergy, Unknown, 12/28/24) Physical Exam: GEN: Awake, alert, oriented in person, time and place, and in no acute distress. HEENT: No sinus tenderness. Tympanic membranes were not examined. No rhinorrhea. Oral pharyngeal mucosa is pink, moist and within normal limits. Neck is supple with no cervical lymphadenopathy, thyromegaly or JVD. CHEST: Inspection, palpation and percussion of the chest were unremarkable. Lung auscultation revealed normal breath sounds bilaterally. CARDIAC: PMI is within normal limits. Heart sounds are regular. Normal S1, S2. No gallop or murmur. ABD: Soft, non-tender and not distended. No peritoneal signs on palpation. No organomegaly. Normal bowel sounds. EXT: No cyanosis or clubbing. No edema. SKIN: Intact. No rashes. JOINTS: No evidence of synovitis or acute arthritis. NEURO: Alert and oriented to name, place and person. Cranial nerve examination is unremarkable. No focal motor deficits. Normal speech. Gait is normal. Strength is normal. Vital Sign (Last 24 Hours) 01/03/25 01/04/25 01/04/25 20:20 07:13 12:23 Temp 98.1 Pulse 98 Resp 20 B/P (MAP) 129/72 Pulse Ox 98 O2 Delivery Room Air O2 Flow Rate 0 FiO2 21 Intake & Output (last 24hrs) 0 01/03/25 01/03/25 01/04/25 15:00 23:00 07:00 Intake Total 720 ml 240 ml Output Total 300 ml 500 ml 200 ml Balance 420 ml -260 ml -200 ml Laboratory: [ ] Laboratory: Test 01/04/25 05:45 01/04/25 04:50 01/03/25 21:36 01/03/25 04:13 Range/Units Whole Blood Glucose 79 70-110 MG/DL White Blood Count 7.5 4.8-10.8 K/uL Red Blood Count 4.19 L 4.50-6.20 MIL/uL Hemoglobin 11.4 L 14.0-18.0 g/dL Hematocrit 33.2 L 42-54 % Mean Corpuscular Volume 79.2 79-99 fL Mean Corpuscular Hemoglobin 27.2 27.0-33.0 pg Mean Corpuscular Hemoglobin Concent 34.3 32.0-36.0 g/dL Red Cell Distribution Width 17.8 H 11.0-15.5 % Platelet Count 169 # 130-400 K/uL Mean Platelet Volume 11.7 H 7.5-10.5 fL Immature Granulocyte % (Auto) 0.5 0-1 % Neutrophils (%) (Auto) 78.8 H 40.0-77.0 % Lymphocytes (%) (Auto) 10.1 L 21.0-51.0 % Monocytes (%) (Auto) 8.5 3.0-13.0 % Eosinophils (%) (Auto) 1.7 0.0-8.0 % Basophils (%) (Auto) 0.4 0.0-5.0 % Neutrophils # (Auto) 5.9 1.8-7.7 K/uL Lymphocytes # (Auto) 0.8 L 1.0-4.8 K/uL Monocytes # (Auto) 0.6 0.1-1.0 K/uL Eosinophils # (Auto) 0.13 0.00-0.70 K/uL Basophils # (Auto) 0.03 0.00-0.20 K/uL Absolute Immature Granulocyte (auto 0.04 0-1 K/uL Nucleated Red Blood Cells 0.0 0.0-0.19 % Sodium Level 133 L 136-145 mmol/L Potassium Level 3.4 L 3.5-5.1 mmol/L Chloride Level 98 L 101-111 mmol/L Carbon Dioxide Level 29 21-32 mmol/L Blood Urea Nitrogen 20 H 7-18 mg/dL Creatinine 1.3 0.5-1.3 mg/dL Glomerular Filtration Rate Calc 63 >90 mL/min Random Glucose 84 70-105 mg/dL Lactic Acid Level 1.6 0.8-2.5 mmol/L Total Calcium 8.3 L 8.5-10.1 mg/dL Phosphorus Level 3.8 2.5-4.9 mg/dL Magnesium Level 2.20 1.80-2.40 mg/dL Total Bilirubin 0.9 0.2-1.0 mg/dL Aspartate Amino Transf (AST/SGOT) 66 H 10-37 U/L Alanine Aminotransferase (ALT/SGPT) 45 12-78 U/L Alkaline Phosphatase 117 50-136 U/L Total Protein 7.0 6.0-8.3 g/dL Albumin 2.0 L 3.5-5.0 g/dL Amylase Level 123 #H 25-115 U/L Lipase 196 H 16-77 U/L Prothrombin Time 11.4 9.6-11.6 SEC Prothromb Time International Ratio 1.08 0.85-1.15 Procalcitonin 3.87 H 0.05-0.5 ng/mL Current Medications Medications (Trade) Dose Ordered Sig/Donald Route PRN Reason Start Time Stop Time Status Last Admin Dose Admin Acetaminophen (TYLenol 325MG TAB) 650 mg Q4H PRN PO TEMPERATURE GREATER THAN 101.5 01/02/25 20:30 02/01/25 20:29 01/03/25 21:25 650 MG Acetaminophen (TYLenol 325MG TAB) 650 mg Q6H PRN PO MILD PAIN (1-3) 12/28/24 12:00 01/27/25 11:59 01/02/25 16:45 650 MG Aspirin (Aspirin 81mg Chew Tab) 81 mg DAILY PO 12/29/24 09:00 01/28/25 08:59 01/04/25 09:32 81 MG Atorvastatin Calcium (LIPItor 40MG) 40 mg HS PO 12/29/24 21:00 01/28/25 20:59 01/03/25 21:24 40 MG Clopidogrel Bisulfate (plaVIX 75MG) 75 mg Q24H PO 12/28/24 20:30 12/28/24 22:21 DC 12/28/24 21:23 75 MG Doxycycline Hyclate 250 ml @ 125 mls/hr Q12H IV 12/28/24 14:30 01/04/25 11:42 DC 01/04/25 03:00 125 MLS/HR Enoxaparin Sodium (Lovenox) 40 mg DAILY SQ 12/29/24 09:00 01/28/25 08:59 01/04/25 09:33 40 MG Famotidine (Pepcid 20mg Vial) 20 mg Q24H IV 12/28/24 21:00 01/27/25 20:59 01/03/25 23:11 20 MG Ipratropium [place] (AtrovENT UD) 0.5 MG [id number] IH 12/30/24 22:00 01/29/25 21:59 01/04/25 07:11 0.5 MG Ipratropium [place] (AtrovENT UD) 1 mg Q6H PRN IH SHORTNESS OF BREATH 12/28/24 12:00 01/27/25 11:59 Lactulose (Constulose 20gm/ 30ml Udcup) 20 gm Q6H6 PO 12/29/24 12:00 12/29/24 11:49 DC Lactulose (Constulose 20gm/ 30ml Udcup) 20 gm TID PO 12/29/24 14:00 01/01/25 14:30 DC 12/30/24 13:55 20 GM Lactulose (Constulose 20gm/ 30ml Udcup) 20 gm TID PRN PO CONSTIPATION 01/01/25 14:30 01/28/25 13:59 Meropenem (Merrem 1gm) 1 gm Q8H IVPB 01/04/25 12:00 01/05/25 11:59 01/04/25 13:30 1 GM Metoprolol Succinate (TopROL XL) 25 mg DAILY PO 12/28/24 13:00 01/27/25 12:59 01/04/25 09:32 25 MG Ondansetron HCl (zoFRAN 4MG INJ) 4 mg Q6H PRN IVP NAUSEA/VOMITING 12/28/24 12:00 01/27/25 11:59 Pharmacy Profile Note (Pharmacy Communication) 1 each ONCE MISC 01/04/25 12:00 01/04/25 11:57 DC Piperacillin Sod/ Tazobactam Sod (Zosyn 3.375gm+NS 50ml) 3.375 gm Q8H IVPB 12/28/24 12:00 01/04/25 11:42 DC 01/04/25 05:53 3.375 GM Potassium Chloride 100 ml @ 100 mls/hr AD PRN IV POTASSIUM PROTOCOL 12/31/24 05:00 01/30/25 04:59 01/02/25 05:08 100 MLS/HR Potassium Chloride (K-Dur/Klor-Con 20meq) 20 meq AD PRN PO POTASSIUM PROTOCOL 12/31/24 05:00 01/30/25 04:59 01/02/25 23:14 20 MEQ Potassium Chloride (KCl 10% Elixir 20meq/15ml) 20 meq AD PRN PO POTASSIUM PROTOCOL 12/31/24 05:00 01/30/25 04:59 Procainamide HCl 2000 mg/Sodium Chloride 250 ml @ 0 mls/hr PROTOCOL IV 12/28/24 10:00 12/28/24 10:42 DC Sodium Chloride 1,000 ml @ 100 mls/hr Q10H IV 12/28/24 12:00 12/29/24 09:23 DC 12/29/24 09:14 100 MLS/HR Sodium Chloride (NS 50ml) 50 ml AD IV 12/28/24 12:00 12/28/24 11:59 DC Thiamine HCl (Vitamin B-1) 100 mg Q24H IVP 12/28/24 12:00 01/27/25 11:59 01/04/25 13:31 100 MG Vancomycin HCl 250 ml @ 125 mls/hr Q12H IV 01/05/25 02:00 01/15/25 01:59 Vancomycin HCl (Vancomycin Protocol) 1 each AD IV 01/04/25 12:00 01/18/25 11:59 Vitamin B Complex/ Vit C/Folic Acid (Nephrovite Tablet) 1 cap DAILY PO 12/29/24 09:00 01/28/25 08:59 01/04/25 09:32 1 CAP Diagnostics / Radiology: [COPY/PASTE HERE IF NO REPORTS PLEASE DELETE SECTION] Assessment: Acute pancreatitis HTN Possible causes to consider include alcohol, gallstones, idiopathic, hypertriglyceridemia, medications, hypercalcemia, ERCP, celiac disease, autoimmune pancreatitis, vasculitis Plan: 1. NPO 2. IV fluids lactated ringers for 12-24 hours to maintain adequate pancreatic perfusion and prevent ischemic necrosis 3. Supportive care with opioid analgesics (avoid NSAIDs) and anti-emetics 4. Close patient monitoring of vital signs including O2 saturations, urine output, and electrolyte replacement 5. Resume oral intake within 2 days if the pain is decreasing and there is no ileus with a low fat, low residue diet. Advance as tolerated 6. Consider CT with IV contrast after 48 hours of IVF to assess for necrosis if the patient is not progressing. 7. IF oral diet is not tolerated, nasojejunal tube feeds are preferred over TPN Thank you for allowing us to participate in the care of this patient! PATRICE LUCERO Jan 04, 2025 14:16
--- NOTE | 2025-01-04 14:22 | PN ---
[facility] PROGRESS NOTE Date of Service: Jan 04, 2025 Time of Service: 14:[address] Posadas SUBJECTIVE: Follow up visit for a 59-year-old male admitted to the hospital for acute hypoxemic respiratory failure, community-acquired pneumonia, non-STEMI, acute pancreatitis. Patient remains on IV doxycycline, IV Zosyn under ID direction. Cultures in process. Currently saturating adequately on room air. Patient initiated on diet, tolerating well, no reports of abdominal pain. Serum lipase improved from 497-175. 2D echo has been performed, report pending. He has brain MRI on admission did show acute infarct in the right basal ganglia similar to the CT brain dated 12/28/2024. Patient at this time reveals no focal deficits. 12/30/2024: Over the past 24 hours no major events reported. Patient remains on IV doxycycline, IV Zosyn under ID direction. He is saturating adequately on room air. Continues to be followed by pulmonology team requesting 6 minute walk test prior to discharge. Patient reports no neuro deficits at this time, being followed closely by Neurology, remains on aspirin statins. Patient denies abdominal pain nausea or vomiting. He is tolerating diet. 2D echo EF 60-65%. Morning labs potassium 3.3, for which he received replacement. 12/31/2024: Patient remains on IV Zosyn IV doxycycline under ID direction. Cultures are in process. Patient currently saturating adequately on room air. He does continue to use CPAP at night. Continues to be followed by pulmonology team. Morning labs reviewed. 01/01/2025: Patient has been noted with episodes of fever, max temp of 102.9. Patient remains on IV doxycycline, IV Zosyn under ID direction. Patient denies chest pain, shortness of breath, nausea vomiting diarrhea. Morning labs reviewed. 01/02/2025: Patient's morning continued to spike fever, max temp of 101.3. Patient remains on IV Zosyn doxycycline under ID direction. Flu a and B and COVID swabs negative. No leukocytosis. CXR showing left lower lobe pneumonia, no significant interval change. 01/03/25 patient was seen by nurse practitioner and physician in room 228. Patient was evaluated by the work adjustment instructor and patient denies any chest pain or shortness of breaths, nausea vomiting or abdominal pain. As per recommendation continue patient on IV antibiotics as per ID. No further workout as per work adjustment instructor. Patient had a fever of 102.9 on 01/02/2025 at 8:53 p.m. WBC 8.7. Urine culture final negative. Blood culture still pending. Most recent chest x-ray showed mild patchy left lower lobe infiltrate/atelectasis. V/Q scan was ordered due to D-dimer [id number]. As per ID continue doxycycline IV and Zosyn IV. Patient is tolerating BiPAP well at night. We will continue to monitor patient in the meantime. A.m. labs 01/04/25 patient was seen by nurse practitioner and physician during rounding in room 228. Patient will receive 40 mEq of potassium. GI was consulted due to severe acute pancreatitis. Labs were ordered as well. Patient also had another fever last night 101.5 and today in the morning of 100.8. Per Infectious Disease doctor discontinue doxy and Zosyn. Patient was started on vancomycin and Merrem. Nephrology continues to monitor patient labs much improved. Neurologist. We will continue to monitor patient in the meantime. A.m. labs REVIEW OF SYSTEMS CONSTITUTIONAL: generalized fatigue, malaise NEUROLOGICAL: Denies headache, amaurosis fugax, motor weakness, sensory deficit, vertigo/spinning sensation, gait abnormalities, or tremors. ENT: No hearing loss, otalgia, otorrhea, rhinitis, rhinorrhea, hoarseness, or so re throat. CARDIOVASCULAR: Denies any exertional angina, dyspnea on exertion, orthopnea, paroxysmal nocturnal dyspnea, palpitations, life-threatening arrhythmias, claudication. PULMONARY: Complains of shortness of breaths. Denies any diaphoresis SLEEP: Denies morning headaches, daytime somnolence or napping. Denies difficulty falling asleep, staying asleep, waking from sleep. Denies knowledge of snoring. GASTROINTESTINAL: Denies any nausea, vomiting or abdominal pain GENITOURINARY: Denies frequency, urgency, nocturia, hematuria or incontinence (Storage/Irritative symptoms.) Low urinary stream, straining to void, urinary intermittency or hesitancy, splitting of the voiding stream, terminal dribbling. ENDOCRINOLOGIC: Denies polyuria, polydipsia, polyphagia or heat/cold in tolerances. HEMATOLOGIC: Denies thrombophilia/previous clots, or coagulopathy/bleeding disorders. ONCOLOGIC: Denies personal history of malignancy. DERMATOLOGIC: Denies rashes or pruritus. PSYCHIATRIC: Denies any suicidal or homicidal ideation. Denies hallucinations. PHYSICAL EXAM GENERAL APPEARANCE: The patient is awake, alert, patient appears very diaphoretic, currently on 3 L supplementation by nasal cannula, patient is morbidly obese NEUROLOGICAL: Cranial nerves II-XII grossly intact. Examination is nonfocal for the patient HEENT: Face is symmetric. Pupils are equal and reactive. Extraocular movements are intact. NECK: Supple. No JVD. No thyromegaly. No submental, submandibular, pre- /postauricular, occipital or supraclavicular lymphadenopathy. CHEST: Normal chest expansion. No Telemetry. LUNGS: Minimal crackles noted at bilateral lung bases CARDIOVASCULAR: Regular. S1 and S2 normal. Tachycardic was ABDOMEN: Soft, nontender, and nondistended. There is no rebound, voluntary guarding, or rigidity. : Deferred. No [place]. EXTREMITIES: Non-edematous and not cyanotic. No clubbing. Good capillary refill. SKIN: No skin breakdown. Vital Signs (last 8hr) Date Time Temp Pulse Resp B/P (MAP) Pulse Ox O2 Delivery O2 Flow Rate FiO2 01/04/25 12:23 98.1 98 20 129/72 98 Room Air 01/04/25 08:03 98.8 103 20 119/79 95 Room Air 01/04/25 07:13 103 20 01/04/25 07:13 103 20 N/A Room Air 21 01/04/25 07:11 103 20 LABS: Laboratory: Test 01/04/25 05:45 01/04/25 04:50 01/03/25 21:36 01/03/25 04:13 Range/Units Whole Blood Glucose 79 70-110 MG/DL White Blood Count 7.5 4.8-10.8 K/uL Red Blood Count 4.19 L 4.50-6.20 MIL/uL Hemoglobin 11.4 L 14.0-18.0 g/dL Hematocrit 33.2 L 42-54 % Mean Corpuscular Volume 79.2 79-99 fL Mean Corpuscular Hemoglobin 27.2 27.0-33.0 pg Mean Corpuscular Hemoglobin Concent 34.3 32.0-36.0 g/dL Red Cell Distribution Width 17.8 H 11.0-15.5 % Platelet Count 169 # 130-400 K/uL Mean Platelet Volume 11.7 H 7.5-10.5 fL Immature Granulocyte % (Auto) 0.5 0-1 % Neutrophils (%) (Auto) 78.8 H 40.0-77.0 % Lymphocytes (%) (Auto) 10.1 L 21.0-51.0 % Monocytes (%) (Auto) 8.5 3.0-13.0 % Eosinophils (%) (Auto) 1.7 0.0-8.0 % Basophils (%) (Auto) 0.4 0.0-5.0 % Neutrophils # (Auto) 5.9 1.8-7.7 K/uL Lymphocytes # (Auto) 0.8 L 1.0-4.8 K/uL Monocytes # (Auto) 0.6 0.1-1.0 K/uL Eosinophils # (Auto) 0.13 0.00-0.70 K/uL Basophils # (Auto) 0.03 0.00-0.20 K/uL Absolute Immature Granulocyte (auto 0.04 0-1 K/uL Nucleated Red Blood Cells 0.0 0.0-0.19 % Sodium Level 133 L 136-145 mmol/L Potassium Level 3.4 L 3.5-5.1 mmol/L Chloride Level 98 L 101-111 mmol/L Carbon Dioxide Level 29 21-32 mmol/L Blood Urea Nitrogen 20 H 7-18 mg/dL Creatinine 1.3 0.5-1.3 mg/dL Glomerular Filtration Rate Calc 63 >90 mL/min Random Glucose 84 70-105 mg/dL Lactic Acid Level 1.6 0.8-2.5 mmol/L Total Calcium 8.3 L 8.5-10.1 mg/dL Phosphorus Level 3.8 2.5-4.9 mg/dL Magnesium Level 2.20 1.80-2.40 mg/dL Total Bilirubin 0.9 0.2-1.0 mg/dL Aspartate Amino Transf (AST/SGOT) 66 H 10-37 U/L Alanine Aminotransferase (ALT/SGPT) 45 12-78 U/L Alkaline Phosphatase 117 50-136 U/L Total Protein 7.0 6.0-8.3 g/dL Albumin 2.0 L 3.5-5.0 g/dL Amylase Level 123 #H 25-115 U/L Lipase 196 H 16-77 U/L Prothrombin Time 11.4 9.6-11.6 SEC Prothromb Time International Ratio 1.08 0.85-1.15 Procalcitonin 3.87 H 0.05-0.5 ng/mL Current Medications Medications (Trade) Dose Ordered Sig/Donald Route PRN Reason Start Time Stop Time Status Last Admin Dose Admin Acetaminophen (TYLenol 325MG TAB) 650 mg Q4H PRN PO TEMPERATURE GREATER THAN 101.5 01/02/25 20:30 02/01/25 20:29 01/03/25 21:25 650 MG Acetaminophen (TYLenol 325MG TAB) 650 mg Q6H PRN PO MILD PAIN (1-3) 12/28/24 12:00 01/27/25 11:59 01/02/25 16:45 650 MG Aspirin (Aspirin 81mg Chew Tab) 81 mg DAILY PO 12/29/24 09:00 01/28/25 08:59 01/04/25 09:32 81 MG Atorvastatin Calcium (LIPItor 40MG) 40 mg HS PO 12/29/24 21:00 01/28/25 20:59 01/03/25 21:24 40 MG Clopidogrel Bisulfate (plaVIX 75MG) 75 mg Q24H PO 12/28/24 20:30 12/28/24 22:21 DC 12/28/24 21:23 75 MG Doxycycline Hyclate 250 ml @ 125 mls/hr Q12H IV 12/28/24 14:30 01/04/25 11:42 DC 01/04/25 03:00 125 MLS/HR Enoxaparin Sodium (Lovenox) 40 mg DAILY SQ 12/29/24 09:00 01/28/25 08:59 01/04/25 09:33 40 MG Famotidine (Pepcid 20mg Vial) 20 mg Q24H IV 12/28/24 21:00 01/27/25 20:59 01/03/25 23:11 20 MG Ipratropium [place] (AtrovENT UD) 0.5 MG [id number] IH 12/30/24 22:00 01/29/25 21:59 01/04/25 07:11 0.5 MG Ipratropium [place] (AtrovENT UD) 1 mg Q6H PRN IH SHORTNESS OF BREATH 12/28/24 12:00 01/27/25 11:59 Lactulose (Constulose 20gm/ 30ml Udcup) 20 gm Q6H6 PO 12/29/24 12:00 12/29/24 11:49 DC Lactulose (Constulose 20gm/ 30ml Udcup) 20 gm TID PO 12/29/24 14:00 01/01/25 14:30 DC 12/30/24 13:55 20 GM Lactulose (Constulose 20gm/ 30ml Udcup) 20 gm TID PRN PO CONSTIPATION 01/01/25 14:30 01/28/25 13:59 Meropenem (Merrem 1gm) 1 gm Q8H IVPB 01/04/25 12:00 01/05/25 11:59 01/04/25 13:30 1 GM Metoprolol Succinate (TopROL XL) 25 mg DAILY PO 12/28/24 13:00 01/27/25 12:59 01/04/25 09:32 25 MG Ondansetron HCl (zoFRAN 4MG INJ) 4 mg Q6H PRN IVP NAUSEA/VOMITING 12/28/24 12:00 01/27/25 11:59 Pharmacy Profile Note (Pharmacy Communication) 1 each ONCE MISC 01/04/25 12:00 01/04/25 11:57 DC Piperacillin Sod/ Tazobactam Sod (Zosyn 3.375gm+NS 50ml) 3.375 gm Q8H IVPB 12/28/24 12:00 01/04/25 11:42 DC 01/04/25 05:53 3.375 GM Potassium Chloride 100 ml @ 100 mls/hr AD PRN IV POTASSIUM PROTOCOL 12/31/24 05:00 01/30/25 04:59 01/02/25 05:08 100 MLS/HR Potassium Chloride (K-Dur/Klor-Con 20meq) 20 meq AD PRN PO POTASSIUM PROTOCOL 12/31/24 05:00 01/30/25 04:59 01/02/25 23:14 20 MEQ Potassium Chloride (KCl 10% Elixir 20meq/15ml) 20 meq AD PRN PO POTASSIUM PROTOCOL 12/31/24 05:00 01/30/25 04:59 Procainamide HCl 2000 mg/Sodium Chloride 250 ml @ 0 mls/hr PROTOCOL IV 12/28/24 10:00 12/28/24 10:42 DC Sodium Chloride 1,000 ml @ 100 mls/hr Q10H IV 12/28/24 12:00 12/29/24 09:23 DC 12/29/24 09:14 100 MLS/HR Sodium Chloride (NS 50ml) 50 ml AD IV 12/28/24 12:00 12/28/24 11:59 DC Thiamine HCl (Vitamin B-1) 100 mg Q24H IVP 12/28/24 12:00 01/27/25 11:59 01/04/25 13:31 100 MG Vancomycin HCl 250 ml @ 125 mls/hr Q12H IV 01/05/25 02:00 01/15/25 01:59 Vancomycin HCl (Vancomycin Protocol) 1 each AD IV 01/04/25 12:00 01/18/25 11:59 Vitamin B Complex/ Vit C/Folic Acid (Nephrovite Tablet) 1 cap DAILY PO 12/29/24 09:00 01/28/25 08:59 01/04/25 09:32 1 CAP DIAGNOSTICS / RADIOLOGY: [ ] ASSESSMENT: 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 Acute hypoxemic respiratory failure, POA Community-acquired pneumonia, POA Undiagnosed obstructive sleep apnea Acute diastolic congestive heart failure as per 2D echo Elevated cardiac troponin, rule out active ACS, POA acute pancreatitis likely 2/2 gall stones Acute Kidney injury, POA Hyponatremia, POA Morbid obesity, POA Sinus tachycardia, POA Thrombocytopenia, POA, mild Underlying history of obstructive sleep apnea, POA Hypertension, POA Hyperlipidemia, POA History of AR, POA History of coronary artery disease with prior history of PCI, POA 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 GI was consulted due to severe acute pancreatitis. Labs were ordered as well. Patient also had another fever last night 101.5 and today in the morning of 100.8. Per Infectious Disease doctor discontinue doxy and Zosyn. Patient was started on vancomycin and Merrem. Nephrology continues to monitor patient labs much improved. Neurologist. We will continue to monitor patient in the meantime. A.m. labs Duo nebs Q 6 hours 2D echocardiogram EF 60-65%. Stage I diastolic dysfunction Repeat head CT on 12/29/2024 showing old right basilar ganglia infarct, with encephalomalacia, no acute intracranial process noted. Titrate supplemental O2 therapy to maintain oxygen saturations greater than 92% All labs will be repeated in the morning Continue CPAP therapy PT OT evaluation Further orders per hospital course; DC home, once no longer spiking fever. ATTESTATION BY PHYSICIAN I have seen and examined the patient. I reviewed the documentation, medical decision making, and treatment plan as noted by the mid-level provider above. I agree with the findings and plan of care. Charis Posadas MD, [employer] Jan 04, 2025 14:22
[2025-01-04] MEDS: VANCOMYCIN 2GM/500 ML BAG 500 ML IV ONE (14:30)
--- NOTE | 2025-01-04 18:36 | PN ---
HISTORY OF PRESENT ILLNESS This is a pleasant 59-year-old male with past medical history as per patient with complaints of shortness of breath, is being evaluated for possible ACS contributory for pneumonia. Patient was also found to have a CVA PAST MEDICAL HISTORY, ALLERGIES See below REVIEW OF SYSTEMS Not obtained Vitals See chart PHYSICAL EXAM Alert and oriented x 3 Nonicteric nontraumatic Regular rate and rhythm, no murmurs Clear to auscultation bilaterally pulmonary Abdomen nontender Rectal deferred Skin no rash neurological no focal deficits Extremities no edema ASSESSMENT CORONARY DISEASE, ELEVATED TROPONIN At presentation PNEUMONIA Being managed by antibiotics per infectious disease, appreciate CT was negative for pulm embolism CVA At presentation Patient ganglia as well as occipital lobe involvement ACUTE ON CHRONIC KIDNEY DISEASE At presentation Create greater than 2 HISTORY OF [id number] SYNDROME SLEEP APNEA, HYPERTENSION, HYPERLIPIDEMIA, SLEEP APNEA CORE MEASURES pending OTHER MEDICAL PROBLEMS reviewed CORE MEASURES Pending OTHER MEDICAL PROBLEMS Reviewed PLAN 12/28/2024 given recent CVA, not a good candidate for any ischemic evaluation at this time, echocardiogram has been ordered and pending. Further recommendations post. Continue current medical therapy conservative management for now. May consider STONE given stroke in 2 different vascular distributions. Holter monitor may also be considered. Seen and examined 12/28/2024 at around 1800. 12/29/2024 Remains on BiPAP, echocardiogram was within normal limits. Renal function being addressed by nephrology, julieta. At this time, given recent CVA ongoing respiratory issues, not a good candidate for any ischemic evaluation. Once he has recovered from his underlying issues, may consider further evaluation from a cardiac standpoint. Conservative measures for now. Seen and examined 12/29/2024 at around 7 PM. 12/30/2024 Feeling better, currently off BiPAP, nephrology on board managing renal dysfunction. As above, continue conservative measures at this time and may consider outpatient ischemic evaluation once recovered from CVA. On atorvastatin and aspirin beta-tomasa continue. Renal function improving. Echo was within normal limits. Seen and examined 12/30/2024 at around 8 PM. 12/31/2024 No cardiovascular symptoms, no weakness from the stroke, doing well, walking in the hallways and getting therapy. On doxycycline. Eventual plans for ischemic evaluation as well as STNOE as outpatient. May consider long-term monitoring as well given strokes involving multiple circulations. Pancreatitis and pneumonia being treated as well. Seen and examined 12/31/2024 at around 1 PM. 01/01/2025 Doing well, no active cardiovascular complaints at this time. Only issues with pneumonia pancreatitis CVA all of which have improved. Currently, ambulating without any significant issues, Home when okay with primary team and will follow-up in the office for ischemic evaluation and stroke workup. Renal function has improved. Seen and examined 01/01/2025 at around 8 AM. 01/02/2025 Remains antibiotics and did have fevers again today and therefore, discharge is being held. Appreciate infectious disease. Renal function slightly worse today as well, will need to be watched. Stable cardiovascular status and patient remains asymptomatic from a cardiovascular standpoint at this time. Seen and examined 01/02/2025 at around 5 PM. 01/03/2025 No more fevers per report. Arcenio function is stable, appreciate nephrology. ID on board managing fevers creatinine 1.4 most recently which is close to baseline CT chest abdomen pelvis with persistent pancreatitis, fatty liver, cholelithiasis. Seen and examined 01/03/2025 at around 11 AM. 01/04/2025 Active cardiovascular issues, fevers pancreatitis today is currently being addressed per primary team. Remains on antibiotics for ongoing issues with fevers. Volume status is acceptable. GI on board. Seen and examined 01/04/2025 at around 1800. ATTESTATION I was involved substantial in the care of the patient Number of complexity of problems addressed 1 acute illness with systemic features Amount and or complexity of data Review of prior external notes from each unique source 2+ Ordering of each unique test 0 Review of results of each unique test 2+ Assessment requiring independent historians no Dependent interpretation of test performed by another MD no Discussion of management or test interpretation with external MD no Risk status moderate Vitals/Labs Vital Signs Date Time Temp Pulse Resp B/P (MAP) Pulse Ox O2 Delivery O2 Flow Rate FiO2 01/04/25 16:47 98.1 104 20 144/93 95 Room Air 01/04/25 08:00 0 21 Laboratory Tests 01/04/25 04:50 Medications Current Medications Procainamide HCl 2000 mg/Sodium Chloride 250 ml @ 0 mls/hr PROTOCOL IV; Start 12/28/24 at 10:00; Stop 12/28/24 at 10:42; Status DC Metoprolol Tartrate 5 mg ONCE ONCE IV Last administered on 12/28/24at 10:38; Start 12/28/24 at 10:30; Stop 12/28/24 at 10:31; Status DC Aspirin 325 mg ONCE ONCE PO Last administered on 12/28/24at 10:46; Start 12/28/24 at 11:00; Stop 12/28/24 at 11:01; Status DC Sodium Chloride 1,000 ml @ 100 mls/hr Q10H IV Last administered on 12/29/24at 09:14; Start 12/28/24 at 12:00; Stop 12/29/24 at 09:23; Status DC Ipratropium [place] 1 mg Q6H PRN IH; Start 12/28/24 at 12:00; Stop 01/27/25 at 11:59 Acetaminophen 650 mg Q6H PRN PO Last administered on 01/02/25at 16:45; Start 12/28/24 at 12:00; Stop 01/27/25 at 11:59 Ondansetron HCl 4 mg Q6H PRN IVP; Start 12/28/24 at 12:00; Stop 01/27/25 at 11:59 Thiamine HCl 100 mg Q24H IVP Last administered on 01/04/25at 13:31; Start 12/28/24 at 12:00; Stop 01/27/25 at 11:59 Vitamin B Complex/ Vit C/Folic Acid 1 cap DAILY PO Last administered on 01/04/25at 09:32; Start 12/29/24 at 09:00; Stop 01/28/25 at 08:59 Aspirin 81 mg DAILY PO Last administered on 01/04/25at 09:32; Start 12/29/24 at 09:00; Stop 01/28/25 at 08:59 Piperacillin Sod/ Tazobactam Sod 3.375 gm Q8H IVPB Last administered on 01/04/25at 05:53; Start 12/28/24 at 12:00; Stop 01/04/25 at 11:42; Status DC Sodium Chloride 50 ml AD IV; Start 12/28/24 at 12:00; Stop 12/28/24 at 11:59; Status DC Enoxaparin Sodium 40 mg DAILY SQ Last administered on 01/04/25at 09:33; Start 12/29/24 at 09:00; Stop 01/28/25 at 08:59 Famotidine 20 mg Q24H IV Last administered on 01/03/25at 23:11; Start 12/28/24 at 21:00; Stop 01/27/25 at 20:59 Metoprolol Succinate 25 mg DAILY PO Last administered on 01/04/25at 09:32; Start 12/28/24 at 13:00; Stop 01/27/25 at 12:59 Iohexol 75 ml STK-MED ONCE IV; Start 12/28/24 at 12:57; Stop 12/28/24 at 12:57; Status DC Doxycycline Hyclate 250 ml @ 125 mls/hr Q12H IV Last administered on 01/04/25at 03:00; Start 12/28/24 at 14:30; Stop 01/04/25 at 11:42; Status DC Sodium Chloride 4 ml STK-MED ONCE IH Last administered on 12/28/24at 19:12; Start 12/28/24 at 18:20; Stop 12/28/24 at 18:20; Status DC Clopidogrel Bisulfate 75 mg Q24H PO Last administered on 12/28/24at 21:23; Start 12/28/24 at 20:30; Stop 12/28/24 at 22:21; Status DC Sodium Chloride 4 ml STK-MED ONCE IH; Start 12/28/24 at 22:27; Stop 12/28/24 at 22:28; Status DC Lactulose 20 gm Q6H6 PO; Start 12/29/24 at 12:00; Stop 12/29/24 at 11:49; Status DC Lactulose 20 gm TID PO Last administered on 12/30/24at 13:55; Start 12/29/24 at 14:00; Stop 01/01/25 at 14:30; Status DC Atorvastatin Calcium 40 mg HS PO Last administered on 01/03/25at 21:24; Start 12/29/24 at 21:00; Stop 01/28/25 at 20:59 Melatonin 10 mg ONCE ONCE PO Last administered on 12/30/24at 00:46; Start 12/30/24 at 00:00; Stop 12/30/24 at 00:02; Status DC Potassium Chloride 20 meq ONCE ONCE PO Last administered on 12/30/24at 05:47; Start 12/30/24 at 05:00; Stop 12/30/24 at 05:02; Status DC Magnesium Citrate 296 ml ONCE ONCE PO Last administered on 12/30/24at 13:55; Start 12/30/24 at 13:30; Stop 12/30/24 at 13:31; Status DC Furosemide 20 mg ONCE ONCE IV Last administered on 12/30/24at 17:34; Start 12/30/24 at 17:30; Stop 12/30/24 at 17:31; Status DC Ipratropium [place] 0.5 MG [id number] IH Last administered on 01/04/25at 14:20; Start 12/30/24 at 22:00; Stop 01/29/25 at 21:59 Potassium Chloride 20 meq AD PRN PO; Start 12/31/24 at 05:00; Stop 01/30/25 at 04:59 Potassium Chloride 20 meq AD PRN PO Last administered on 01/02/25at 23:14; Start 12/31/24 at 05:00; Stop 01/30/25 at 04:59 Potassium Chloride 100 ml @ 100 mls/hr AD PRN IV Last administered on 01/02/25at 05:08; Start 12/31/24 at 05:00; Stop 01/30/25 at 04:59 Lactulose 20 gm TID PRN PO; Start 01/01/25 at 14:30; Stop 01/28/25 at 13:59 Acetaminophen 650 mg Q4H PRN PO Last administered on 01/03/25at 21:25; Start 01/02/25 at 20:30; Stop 02/01/25 at 20:29 Iohexol 35,000 mg STK-MED ONCE IV; Start 01/04/25 at 01:50; Stop 01/04/25 at 01:50; Status DC Morphine Sulfate 2 mg ONCE ONCE IVP; Start 01/04/25 at 06:30; Stop 01/04/25 at 06:28; Status DC Potassium Chloride 40 meq ONCE ONCE PO Last administered on 01/04/25at 09:32; Start 01/04/25 at 07:30; Stop 01/04/25 at 07:31; Status DC Vancomycin HCl 1 each AD IV; Start 01/04/25 at 12:00; Stop 01/18/25 at 11:59 Pharmacy Profile Note 1 each ONCE MISC; Start 01/04/25 at 12:00; Stop 01/04/25 at 11:57; Status DC Vancomycin HCl 500 ml @ 250 mls/hr ONCE ONCE IV Last administered on 01/04/25at 14:30; Start 01/04/25 at 14:00; Stop 01/04/25 at 15:59; Status DC Vancomycin HCl 250 ml @ 125 mls/hr Q12H IV; Start 01/05/25 at 02:00; Stop 01/15/25 at 01:59 Meropenem 1 gm Q8H IVPB Last administered on 01/04/25at 13:30; Start 01/04/25 at 12:00; Stop 01/05/25 at 11:59 BRENNON CROWLEY MD Jan 04, 2025 18:35
--- NOTE | 2025-01-04 19:24 | PN ---
INFECTIOUS DISEASE PROGRESS NOTE Date of Service: Jan 04, 2025 SUBJECTIVE: This is a 59 year old male patient who was seen today at bedside in room 228. Patient is awake alert and oriented x3. The repeat CT scan done today showed severe acute interstitial pancreatitis, pneumoniae and cholelithiasis. The amylase level is 123 and lipase level is 196. Gastroenterology has been consulted. We will discontinue Zosyn and doxycycline and start patient on vancomycin per pharmacy protocol and Meropenem 1 g IV every 8 hours. Patient is sitting up on the edge of the bed. No other issues reported by nursing. PHYSICAL EXAM EYES: Anicteric. Pupils equal and reactive. HENT: No oral thrush seen, moist Oral mucosa NECK: Supple, no JVD or thyromegaly. LUNGS: diminished. No wheezing or rhonchi CARDIOVASCULAR: S1, S2 regular. No murmur heard. ABDOMEN: Soft, non tender, bowel sounds present, no organomegaly. CENTRAL NERVOUS SYSTEM: Awake, alert, oriented x 3. SKIN: No rashes, no swelling. LYMPHATICS: No peripheral lymphadenopathy MUSCULOSKELETAL: No joint swelling, erythema or tenderness. EXTREMITIES: No cyanosis or clubbing. BACK: No deformity, no pressure ulcer. GENITOURINARY: No dysuria or hematuria. Vital Sign (Last 12 Hours) 01/04/25 01/04/25 01/04/25 01/04/25 08:00 08:03 12:23 14:21 Temp 98.8 98.1 Pulse 103 98 100 Resp 20 20 20 B/P (MAP) 119/79 129/72 Pulse Ox 95 95 98 O2 Delivery Room Air* Room Air Room Air O2 Flow Rate 0 FiO2 21 01/04/25 16:47 Temp 98.1 Pulse 104 Resp 20 B/P (MAP) 144/93 Pulse Ox 95 O2 Delivery Room Air Intake & Output (last 24hrs) 01/03/25 01/03/25 01/04/25 15:00 23:00 07:00 Intake Total 720 ml 240 ml Output Total 300 ml 500 ml 200 ml Balance 420 ml -260 ml -200 ml LABS: Laboratory: Test 01/04/25 05:45 01/04/25 04:50 01/03/25 21:36 01/03/25 04:13 Range/Units Whole Blood Glucose 79 70-110 MG/DL White Blood Count 7.5 4.8-10.8 K/uL Red Blood Count 4.19 L 4.50-6.20 MIL/uL Hemoglobin 11.4 L 14.0-18.0 g/dL Hematocrit 33.2 L 42-54 % Mean Corpuscular Volume 79.2 79-99 fL Mean Corpuscular Hemoglobin 27.2 27.0-33.0 pg Mean Corpuscular Hemoglobin Concent 34.3 32.0-36.0 g/dL Red Cell Distribution Width 17.8 H 11.0-15.5 % Platelet Count 169 # 130-400 K/uL Mean Platelet Volume 11.7 H 7.5-10.5 fL Immature Granulocyte % (Auto) 0.5 0-1 % Neutrophils (%) (Auto) 78.8 H 40.0-77.0 % Lymphocytes (%) (Auto) 10.1 L 21.0-51.0 % Monocytes (%) (Auto) 8.5 3.0-13.0 % Eosinophils (%) (Auto) 1.7 0.0-8.0 % Basophils (%) (Auto) 0.4 0.0-5.0 % Neutrophils # (Auto) 5.9 1.8-7.7 K/uL Lymphocytes # (Auto) 0.8 L 1.0-4.8 K/uL Monocytes # (Auto) 0.6 0.1-1.0 K/uL Eosinophils # (Auto) 0.13 0.00-0.70 K/uL Basophils # (Auto) 0.03 0.00-0.20 K/uL Absolute Immature Granulocyte (auto 0.04 0-1 K/uL Nucleated Red Blood Cells 0.0 0.0-0.19 % Sodium Level 133 L 136-145 mmol/L Potassium Level 3.4 L 3.5-5.1 mmol/L Chloride Level 98 L 101-111 mmol/L Carbon Dioxide Level 29 21-32 mmol/L Blood Urea Nitrogen 20 H 7-18 mg/dL Creatinine 1.3 0.5-1.3 mg/dL Glomerular Filtration Rate Calc 63 >90 mL/min Random Glucose 84 70-105 mg/dL Lactic Acid Level 1.6 0.8-2.5 mmol/L Total Calcium 8.3 L 8.5-10.1 mg/dL Phosphorus Level 3.8 2.5-4.9 mg/dL Magnesium Level 2.20 1.80-2.40 mg/dL Total Bilirubin 0.9 0.2-1.0 mg/dL Aspartate Amino Transf (AST/SGOT) 66 H 10-37 U/L Alanine Aminotransferase (ALT/SGPT) 45 12-78 U/L Alkaline Phosphatase 117 50-136 U/L Total Protein 7.0 6.0-8.3 g/dL Albumin 2.0 L 3.5-5.0 g/dL Amylase Level 123 #H 25-115 U/L Lipase 196 H 16-77 U/L Prothrombin Time 11.4 9.6-11.6 SEC Prothromb Time International Ratio 1.08 0.85-1.15 Procalcitonin 3.87 H 0.05-0.5 ng/mL ASSESSMENT: Acute pancreatitis. Pneumonia. Persistent fevers. Sepsis. Leukocytosis, resolved. Acute renal failure, improving. Acute nonhemorrhagic stroke. Rhabdomyolysis. History of coronary artery disease. PLAN: Discontinue doxycycline IV. Discontinue Zosyn IV. Start vancomycin per pharmacy protocol. Start Meropenem 1 g IV every 8 hours. Continue bronchodilators. Avoid nephrotoxic medications. We will monitor electrolytes. This case was reviewed and discussed with my supervising physician Dr. Rasmussen and the above assessment and plan was formulated and agreed upon. ATTESTATION BY PHYSICIAN I have seen and examined the patient. I reviewed the documentation, medical decision making, and treatment plan as noted by the mid-level provider above. I agree with the findings and plan of care. KARIE RASMUSSEN MD, [facility] Jan 04, 2025 19:24
--- NOTE | 2025-01-04 19:43 | PN ---
[facility] PROGRESS NOTE Date Patient Seen: Jan 04, 2025 Time of Visit: 19:39 Supervising Physician: KELLY US MD Primary Care Physician: Tremayne Hernandez MD Outpatient Specialists: [ ] Inpatient Consults: SVETA, DR Butcher, Dr King, Dr Cramer, Dr Saleh PROBLEM LIST: Acute hypoxemic respiratory failure, POA Severe sepsis with MODS POA Acute Non ST elevation myocardial infarction on admission Atelectasis to left mid lung field. Cardiomegaly acute to subacute non-hemorrhagic CVA POA Acute pancreatitis, Rutland's criteria 1pont (1% predicted mortality) POA Cholelithiasis without evidence of cholecystitis Hepatomegaly with diffuse hepatic steatosis Trace ascites in the right upper quadrant Elevated D-dimer negative for PE and DVT to lower extremities Acute Kidney injury, POA Mild thrombocytopenia Thrombocytopenia, POA, mild Essential hypertension, POA Hyperlipidemia, POA Stage I diastolic dysfunction with the EF of 60-65% POA Comorbidities: DIYA on CPAP at home Prior Myocardial infarction Coronary artery disease with prior PCI 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 PHYSICAL EXAM: GENERAL: alert, weak, awake oriented x 3 HEENT: EOMI, Sclera non icteric, moist mucosa NECK: Supple, no JVD, trachea midline LUNGS: Diminished breath sounds bilaterally. No wheezes HEART: Regular rate and rhythm. Normal S1 and S2, without murmurs ABD: Abdomen soft, morbidly obese, nontender. Bowel sounds present EXT: No clubbing cyanosis or edema NEURO: Alert and oriented to person, follows commands Vital Signs (last 8hr) Date Time Temp Pulse Resp B/P (MAP) Pulse Ox O2 Delivery O2 Flow Rate FiO2 01/04/25 19:18 98.8 100 20 153/76 92 Room Air 01/04/25 16:47 98.1 104 20 144/93 95 Room Air 01/04/25 14:21 100 20 01/04/25 12:23 98.1 98 20 129/72 98 Room Air LABS: Hematology Labs: Test 01/04/25 04:50 Range/Units White Blood Count 7.5 4.8-10.8 K/uL Red Blood Count 4.19 L 4.50-6.20 MIL/uL Hemoglobin 11.4 L 14.0-18.0 g/dL Hematocrit 33.2 L 42-54 % Mean Corpuscular Volume 79.2 79-99 fL Mean Corpuscular Hemoglobin 27.2 27.0-33.0 pg Mean Corpuscular Hemoglobin Concent 34.3 32.0-36.0 g/dL Red Cell Distribution Width 17.8 H 11.0-15.5 % Platelet Count 169 # 130-400 K/uL Mean Platelet Volume 11.7 H 7.5-10.5 fL Immature Granulocyte % (Auto) 0.5 0-1 % Neutrophils (%) (Auto) 78.8 H 40.0-77.0 % Lymphocytes (%) (Auto) 10.1 L 21.0-51.0 % Monocytes (%) (Auto) 8.5 3.0-13.0 % Eosinophils (%) (Auto) 1.7 0.0-8.0 % Basophils (%) (Auto) 0.4 0.0-5.0 % Neutrophils # (Auto) 5.9 1.8-7.7 K/uL Lymphocytes # (Auto) 0.8 L 1.0-4.8 K/uL Monocytes # (Auto) 0.6 0.1-1.0 K/uL Eosinophils # (Auto) 0.13 0.00-0.70 K/uL Basophils # (Auto) 0.03 0.00-0.20 K/uL Absolute Immature Granulocyte (auto 0.04 0-1 K/uL Nucleated Red Blood Cells 0.0 0.0-0.19 % Chemistry Labs: Test 01/04/25 05:45 01/04/25 04:50 01/03/25 04:13 Range/Units Whole Blood Glucose 79 70-110 MG/DL Sodium Level 133 L 136-145 mmol/L Potassium Level 3.4 L 3.5-5.1 mmol/L Chloride Level 98 L 101-111 mmol/L Carbon Dioxide Level 29 21-32 mmol/L Blood Urea Nitrogen 20 H 7-18 mg/dL Creatinine 1.3 0.5-1.3 mg/dL Glomerular Filtration Rate Calc 63 >90 mL/min Random Glucose 84 70-105 mg/dL Lactic Acid Level 1.6 0.8-2.5 mmol/L Total Calcium 8.3 L 8.5-10.1 mg/dL Phosphorus Level 3.8 2.5-4.9 mg/dL Magnesium Level 2.20 1.80-2.40 mg/dL Total Bilirubin 0.9 0.2-1.0 mg/dL Aspartate Amino Transf (AST/SGOT) 66 H 10-37 U/L Alanine Aminotransferase (ALT/SGPT) 45 12-78 U/L Alkaline Phosphatase 117 50-136 U/L Total Protein 7.0 6.0-8.3 g/dL Albumin 2.0 L 3.5-5.0 g/dL Amylase Level 123 #H 25-115 U/L Lipase 196 H 16-77 U/L Procalcitonin 3.87 H 0.05-0.5 ng/mL Coagulation Labs: Test 01/03/25 21:36 Range/Units Prothrombin Time 11.4 9.6-11.6 SEC Prothromb Time International Ratio 1.08 0.85-1.15 DIAGNOSTICS / RADIOLOGY RESULTS: [ VQ scan pending at time of my evaluation ] PLAN Follow VQ scan results Follow blood cultures Antibiotics switched to Vancomycin and Merrem as per infectious and disease specialist continue on supplemental O2 continue use of BiPAP NEURO: Minimize central acting medications as possible. Maintain fall precautions, adequate lighting during the day PULMONARY: Supplemental 02 as needed. Maintain aspiration precautions at all times CARDIOVASCULAR: Follow hemodynamics. Vital signs per facility protocol GI & NUTRITION: Continue with nutritional support. Continue stool softeners and laxatives as needed. KIDNEYS & ELECTROLYTES: Strict monitoring of intake, output and overall fluid balance. Avoid nephrotoxic medications to the extent possible. Medications to be dosed according to renal function. Monitor electrolytes and replace as needed ENDOCRINE: Maintain blood glucose between 100-180 at all times. Hypoglycemia protocol in place INFECTIOUS DISEASE: Trend temperature, WBC and procalcitonin level Follow cultures, deescalate antibiotics as soon as possible. Panculture if new onset fever ONCOLOGY/HEMATOLOGY/COAGULATION: Monitor for s/s of bleeding Monitor hemoglobin, coagulation studies as needed SKIN: Pressure ulcer prevention per facility protocol Specialty mattress ORTHO/REHAB: Continue PT/OT Prophylaxis: Continue GI and DVT prophylaxis Code Status: Full Resuscitation Disposition: Per primary team I personally scribed for KELLY US MD ([facility]) on 01/04/25 at 19:43. Electronically submitted by Angel Webster ([email or web address]). KELLY US MD Jan 04, 2025 19:43
[2025-01-05] VITALS (11 sets, daily range): BP systolic 139–153; BP diastolic 71–88; PULSE 80–101; RESP 18–21; TEMP 97.9–99; O2SAT 94–98
[2025-01-05] MEDS: VANCOMYCIN 1.25 GM/250 ML BAG 250 ML IV SCH (02:35)
[2025-01-05 03:48] LABS: ABG BASE EXCESS 0.1 mmol/L (-2.0-3.0); ABG HCO3 22.5 mmol/L (21.0-28.0); ABG OXYGEN SATURATION 96.9 % (94.0-98.0); ABG PCO2 31 mmHg (35-48); ABG PH 7.485 (7.350-7.450); DEVICE COMMENT LB RN IRMA; PO2, ARTERIAL BG 81.6 mmHg (83.0-108.0); TEMPERATURE, CELSIUS BG 37.0 CELSIUS (35.5-37.0); VENT MODE, BG ROOMAIR (ROOM AIR)
[2025-01-05 04:05] LABS: IMMATURE GRANULOCYTE ABSOLUTE 0.03 K/uL (0-1); NUCLEATED RED BLOOD CELLS 0.0 % (0.0-0.19); PLATELET COUNT (AUTO) 160 K/uL (130-400); RED BLOOD CELL COUNT(AUTO) 4.17 MIL/uL (4.50-6.20); RED CELL DISTRIBUTION WIDTH 17.6 % (11.0-15.5); WHITE BLOOD COUNT (AUTO) 6.6 K/uL (4.8-10.8)
[2025-01-05 04:27] LABS: INR 1.08 (0.85-1.15)
[2025-01-05 04:50] LABS: ASPARTATE AMINOTRANSFERASE 124.0 U/L (10-37); CREATININE 1.2 mg/dL (0.5-1.3); GLOMERULAR FILTR. RATE CALC 70.0 mL/min (>90); GLUCOSE,RANDOM 106.0 mg/dL (70-105); PHOSPHORUS 3.6 mg/dL (2.5-4.9); SODIUM SERUM 135.0 mmol/L (136-145); TOTAL PROTEIN, SERUM 6.7 g/dL (6.0-8.3); UREA NITROGEN, BLOOD 18.0 mg/dL (7-18)
--- NOTE | 2025-01-05 09:58 | PN ---
FOLLOWUP PROGRESS NOTE SUBJECTIVE: A 59-year-old male with a history of sleep apnea. The patient with a history of hypertension. He was admitted to the hospital with acute renal failure. The patient's creatinine has stabilized while in the hospital. The patient has had persistent fevers and remains on broad-spectrum IV antibiotics. The patient is being seen as a followup visit for all the above. REVIEW OF SYSTEMS: GENERAL: The patient is feeling weak and tired. HEENT: No change in vision. No change in hearing. CARDIOVASCULAR: There are no current chest pains or palpitations. PULMONARY: No shortness of breath. GASTROINTESTINAL: The patient is tolerating a diet. MUSCULOSKELETAL: Complains of weakness. PHYSICAL EXAMINATION: VITAL SIGNS: Blood pressure is 147/76, pulse is 90. GENERAL: He is afebrile, chronically ill male, obese, lying in bed on the medical floor. HEENT: Head is atraumatic. Pupils are equal, round, and reactive to light. Oropharynx is without exudate. Nares clear. NECK: There is no JVP. There is no thyromegaly, no mass. CARDIOVASCULAR: Regular. There is no S3, S4, or gallop. LUNGS: Coarse with equal thoracic movement. ABDOMEN: Soft, nondistended, and nontender. EXTREMITIES: Reveal no clubbing, no cyanosis. NEUROLOGICAL: He is awake. He is alert. LABORATORY DATA: Sodium 135, potassium 3.9, BUN 18, creatinine 1.2. Hemoglobin 11, hematocrit 33. IMPRESSION: * Acute renal failure. * Hyponatremia. * Persistent fevers. * Sleep apnea. * Hypertension. PLAN: The patient's creatinine has stabilized. Electrolytes have all been aggressively repleted. The patient is encouraged with fluid restriction for the hyponatremia. The patient's workup is ongoing per ID service and we will follow closely. The patient with multiple questions, all of which were answered. All labs to be repeated in the morning. TID: [id number] RECEIPT: [id number]
[2025-01-05] MEDS: MEROPENEM 1GM 1 GM VIAL IVPB SCH (11:49)
--- NOTE | 2025-01-05 13:36 | PN ---
[facility] PROGRESS NOTE Date of Service: Jan 05, 2025 Time of Service: 13:[address] De La Torre SUBJECTIVE: Follow up visit for a 59-year-old male admitted to the hospital for acute hypoxemic respiratory failure, community-acquired pneumonia, non-STEMI, acute pancreatitis. Patient remains on IV doxycycline, IV Zosyn under ID direction. Cultures in process. Currently saturating adequately on room air. Patient initiated on diet, tolerating well, no reports of abdominal pain. Serum lipase improved from 497-175. 2D echo has been performed, report pending. He has brain MRI on admission did show acute infarct in the right basal ganglia similar to the CT brain dated 12/28/2024. Patient at this time reveals no focal deficits. 12/30/2024: Over the past 24 hours no major events reported. Patient remains on IV doxycycline, IV Zosyn under ID direction. He is saturating adequately on room air. Continues to be followed by pulmonology team requesting 6 minute walk test prior to discharge. Patient reports no neuro deficits at this time, being followed closely by Neurology, remains on aspirin statins. Patient denies abdominal pain nausea or vomiting. He is tolerating diet. 2D echo EF 60-65%. Morning labs potassium 3.3, for which he received replacement. 12/31/2024: Patient remains on IV Zosyn IV doxycycline under ID direction. Cultures are in process. Patient currently saturating adequately on room air. He does continue to use CPAP at night. Continues to be followed by pulmonology team. Morning labs reviewed. 01/01/2025: Patient has been noted with episodes of fever, max temp of 102.9. Patient remains on IV doxycycline, IV Zosyn under ID direction. Patient denies chest pain, shortness of breath, nausea vomiting diarrhea. Morning labs reviewed. 01/02/2025: Patient's morning continued to spike fever, max temp of 101.3. Patient remains on IV Zosyn doxycycline under ID direction. Flu a and B and COVID swabs negative. No leukocytosis. CXR showing left lower lobe pneumonia, no significant interval change. 01/03/25 patient was seen by nurse practitioner and physician in room 228. Patient was evaluated by the manager financial and patient denies any chest pain or shortness of breaths, nausea vomiting or abdominal pain. As per recommendation continue patient on IV antibiotics as per ID. No further workout as per manager financial. Patient had a fever of 102.9 on 01/02/2025 at 8:53 p.m. WBC 8.7. Urine culture final negative. Blood culture still pending. Most recent chest x-ray showed mild patchy left lower lobe infiltrate/atelectasis. V/Q scan was ordered due to D-dimer 4865. As per ID continue doxycycline IV and Zosyn IV. Patient is tolerating BiPAP well at night. We will continue to monitor patient in the meantime. A.m. labs 01/04/25 patient was seen by nurse practitioner and physician during rounding in room 228. Patient will receive 40 mEq of potassium. GI was consulted due to severe acute pancreatitis. Labs were ordered as well. Patient also had another fever last night 101.5 and today in the morning of 100.8. Per Infectious Disease doctor discontinue doxy and Zosyn. Patient was started on vancomycin and Merrem. Nephrology continues to monitor patient labs much improved. Neurologist. We will continue to monitor patient in the meantime. A.m. labs 01/05/25 Pt was seen by WOOD MILLING MACHINE TENDER and physician during rounding. Final blood and urine culture negative. A per ID patient on Vanco and Merrem IV. WBC trending down. No fevers in past 24 hrs. We will continue to monitor patient. We will wait for outpatient abx recommendation per ID. Am labs REVIEW OF SYSTEMS CONSTITUTIONAL: generalized fatigue, malaise NEUROLOGICAL: Denies headache, amaurosis fugax, motor weakness, sensory deficit, vertigo/spinning sensation, gait abnormalities, or tremors. ENT: No hearing loss, otalgia, otorrhea, rhinitis, rhinorrhea, hoarseness, or sore throat. CARDIOVASCULAR: Denies any exertional angina, dyspnea on exertion, orthopnea, paroxysmal nocturnal dyspnea, palpitations, life-threatening arrhythmias, claudication. PULMONARY: Denies shortness of breaths. Denies any diaphoresis SLEEP: Denies morning headaches, daytime somnolence or napping. Denies difficulty falling asleep, staying asleep, waking from sleep. Denies knowledge of snoring. GASTROINTESTINAL: Denies any nausea, vomiting or abdominal pain GENITOURINARY: Denies frequency, urgency, nocturia, hematuria or incontinence (Storage/Irritative symptoms.) Low urinary stream, straining to void, urinary intermittency or hesitancy, splitting of the voiding stream, terminal dribbling. ENDOCRINOLOGIC: Denies polyuria, polydipsia, polyphagia or heat/cold intolerances. HEMATOLOGIC: Denies thrombophilia/previous clots, or coagulopathy/bleeding disorders. ONCOLOGIC: Denies personal history of malignancy. DERMATOLOGIC: Denies rashes or pruritus. PSYCHIATRIC: Denies any suicidal or homicidal ideation. Denies hallucinations. PHYSICAL EXAM GENERAL APPEARANCE: The patient is awake, alert, patient appears very diaphoretic, currently on 3 L supplementation by nasal cannula, patient is morbidly obese NEUROLOGICAL: Cranial nerves II-XII grossly intact. Examination is nonfocal for the patient HEENT: Face is symmetric. Pupils are equal and reactive. Extraocular movements are intact. NECK: Supple. No JVD. No thyromegaly. No submental, submandibular, pre- /postauricular, occipital or supraclavicular lymphadenopathy. CHEST: Normal chest expansion. No Telemetry. LUNGS: Minimal crackles noted at bilateral lung bases CARDIOVASCULAR: Regular. S1 and S2 normal. Tachycardic was ABDOMEN: Soft, nontender, and nondistended. There is no rebound, voluntary guarding, or rigidity. : Deferred. No [place]. EXTREMITIES: Non-edematous and not cyanotic. No clubbing. Good capillary refill. SKIN: No skin breakdown. Vital Signs (last 8hr) Date Time Temp Pulse Resp B/P (MAP) Pulse Ox O2 Delivery O2 Flow Rate FiO2 01/05/25 12:00 98.8 80 20 142/86 97 Room Air 01/05/25 07:54 97.9 94 20 147/76 98 Room Air 01/05/25 07:01 91 21 01/05/25 07:01 91 21 N/A Room Air 21 01/05/25 06:59 91 21 LABS: Laboratory: Test 01/05/25 03:46 01/05/25 03:44 01/04/25 05:45 01/04/25 04:50 Range/Units Blood Gas Specimen Type Arterial Arterial Blood pH 7.485 H 7.350-7.450 Arterial Blood Partial Pressure CO2 31 L 35-48 mmHg Arterial Blood Partial Pressure O2 81.6 L 83.0-108.0 mmHg Arterial Blood HCO3 22.5 21.0-28.0 mmol/L Arterial Blood Oxygen Saturation 96.9 94.0-98.0 % Arterial Blood Base Excess 0.1 -2.0-3.0 mmol/L Blood Gas Temperature 37.0 35.5-37.0 CELSIUS Blood Gas Vent Mode ROOMAIR ROOM AIR FiO2 21.0 % Blood Gas Specimen Comment LB RN AJ White Blood Count 6.6 4.8-10.8 K/uL Red Blood Count 4.17 L 4.50-6.20 MIL/uL Hemoglobin 11.4 L 14.0-18.0 g/dL Hematocrit 33.8 L 42-54 % Mean Corpuscular Volume 81.1 79-99 fL Mean Corpuscular Hemoglobin 27.3 27.0-33.0 pg Mean Corpuscular Hemoglobin Concent 33.7 32.0-36.0 g/dL Red Cell Distribution Width 17.6 H 11.0-15.5 % Platelet Count 160 130-400 K/uL Mean Platelet Volume 11.5 H 7.5-10.5 fL Immature Granulocyte % (Auto) 0.5 0-1 % Neutrophils (%) (Auto) 76.8 40.0-77.0 % Lymphocytes (%) (Auto) 10.2 L 21.0-51.0 % Monocytes (%) (Auto) 11.1 3.0-13.0 % Eosinophils (%) (Auto) 1.1 0.0-8.0 % Basophils (%) (Auto) 0.3 0.0-5.0 % Neutrophils # (Auto) 5.0 1.8-7.7 K/uL Lymphocytes # (Auto) 0.7 L 1.0-4.8 K/uL Monocytes # (Auto) 0.7 0.1-1.0 K/uL Eosinophils # (Auto) 0.07 0.00-0.70 K/uL Basophils # (Auto) 0.02 0.00-0.20 K/uL Absolute Immature Granulocyte (auto 0.03 0-1 K/uL Nucleated Red Blood Cells 0.0 0.0-0.19 % Prothrombin Time 11.4 9.6-11.6 SEC Prothromb Time International Ratio 1.08 0.85-1.15 Activated Partial Thromboplast Time 28.9 26.3-35.5 SEC Sodium Level 135 L 136-145 mmol/L Potassium Level 3.9 3.5-5.1 mmol/L Chloride Level 100 L 101-111 mmol/L Carbon Dioxide Level 26 21-32 mmol/L Blood Urea Nitrogen 18 7-18 mg/dL Creatinine 1.2 0.5-1.3 mg/dL Glomerular Filtration Rate Calc 70 >90 mL/min Random Glucose 106 H 70-105 mg/dL Lactic Acid Level 1.4 0.8-2.5 mmol/L Total Calcium 7.9 L 8.5-10.1 mg/dL Phosphorus Level 3.6 2.5-4.9 mg/dL Magnesium Level 2.10 1.80-2.40 mg/dL Total Bilirubin 0.8 0.2-1.0 mg/dL Aspartate Amino Transf (AST/SGOT) 124 H 10-37 U/L Alanine Aminotransferase (ALT/SGPT) 81 #H 12-78 U/L Alkaline Phosphatase 273 #H 50-136 U/L Total Protein 6.7 6.0-8.3 g/dL Albumin 1.9 L 3.5-5.0 g/dL Lipase 328 H 16-77 U/L Whole Blood Glucose 79 70-110 MG/DL Amylase Level 123 #H 25-115 U/L Current Medications Medications (Trade) Dose Ordered Sig/Donald Route PRN Reason Start Time Stop Time Status Last Admin Dose Admin Acetaminophen (TYLenol 325MG TAB) 650 mg Q4H PRN PO TEMPERATURE GREATER THAN 101.5 01/02/25 20:30 02/01/25 20:29 01/03/25 21:25 650 MG Acetaminophen (TYLenol 325MG TAB) 650 mg Q6H PRN PO MILD PAIN (1-3) 12/28/24 12:00 01/27/25 11:59 01/02/25 16:45 650 MG Aspirin (Aspirin 81mg Chew Tab) 81 mg DAILY PO 12/29/24 09:00 01/28/25 08:59 01/05/25 08:51 81 MG Atorvastatin Calcium (LIPItor 40MG) 40 mg HS PO 12/29/24 21:00 01/28/25 20:59 01/04/25 20:14 40 MG Clopidogrel Bisulfate (plaVIX 75MG) 75 mg Q24H PO 12/28/24 20:30 12/28/24 22:21 DC 12/28/24 21:23 75 MG Doxycycline Hyclate 250 ml @ 125 mls/hr Q12H IV 12/28/24 14:30 01/04/25 11:42 DC 01/04/25 03:00 125 MLS/HR Enoxaparin Sodium (Lovenox) 40 mg DAILY SQ 12/29/24 09:00 01/28/25 08:59 01/05/25 08:51 40 MG Famotidine (Pepcid 20mg Vial) 20 mg Q24H IV 12/28/24 21:00 01/27/25 20:59 01/04/25 20:14 20 MG Ipratropium [place] (AtrovENT UD) 0.5 MG [id number] IH 12/30/24 22:00 01/29/25 21:59 01/05/25 06:58 0.5 MG Ipratropium [place] (AtrovENT UD) 1 mg Q6H PRN IH SHORTNESS OF BREATH 12/28/24 12:00 01/27/25 11:59 Lactulose (Constulose 20gm/ 30ml Udcup) 20 gm Q6H6 PO 12/29/24 12:00 12/29/24 11:49 DC Lactulose (Constulose 20gm/ 30ml Udcup) 20 gm TID PO 12/29/24 14:00 01/01/25 14:30 DC 12/30/24 13:55 20 GM Lactulose (Constulose 20gm/ 30ml Udcup) 20 gm TID PRN PO CONSTIPATION 01/01/25 14:30 01/28/25 13:59 Meropenem (Merrem 1gm) 1 gm Q8H IVPB 01/04/25 12:00 01/05/25 11:09 DC 01/05/25 03:42 1 GM Meropenem (Merrem 1gm) 1 gm Q8H IVPB 01/05/25 12:00 01/15/25 11:59 01/05/25 11:49 1 GM Metoprolol Succinate (TopROL XL) 25 mg DAILY PO 12/28/24 13:00 01/27/25 12:59 01/05/25 08:51 25 MG Ondansetron HCl (zoFRAN 4MG INJ) 4 mg Q6H PRN IVP NAUSEA/VOMITING 12/28/24 12:00 01/27/25 11:59 Pharmacy Profile Note (Pharmacy Communication) 1 each ONCE MISC 01/04/25 12:00 01/04/25 11:57 DC Piperacillin Sod/ Tazobactam Sod (Zosyn 3.375gm+NS 50ml) 3.375 gm Q8H IVPB 12/28/24 12:00 01/04/25 11:42 DC 01/04/25 05:53 3.375 GM Potassium Chloride 100 ml @ 100 mls/hr AD PRN IV POTASSIUM PROTOCOL 12/31/24 05:00 01/30/25 04:59 01/02/25 05:08 100 MLS/HR Potassium Chloride (K-Dur/Klor-Con 20meq) 20 meq AD PRN PO POTASSIUM PROTOCOL 12/31/24 05:00 01/30/25 04:59 01/02/25 23:14 20 MEQ Potassium Chloride (KCl 10% Elixir 20meq/15ml) 20 meq AD PRN PO POTASSIUM PROTOCOL 12/31/24 05:00 01/30/25 04:59 Procainamide HCl 2000 mg/Sodium Chloride 250 ml @ 0 mls/hr PROTOCOL IV 12/28/24 10:00 12/28/24 10:42 DC Sodium Chloride 1,000 ml @ 100 mls/hr Q10H IV 12/28/24 12:00 12/29/24 09:23 DC 12/29/24 09:14 100 MLS/HR Sodium Chloride (NS 50ml) 50 ml AD IV 12/28/24 12:00 12/28/24 11:59 DC Thiamine HCl (Vitamin B-1) 100 mg Q24H IVP 12/28/24 12:00 01/27/25 11:59 01/05/25 08:51 100 MG Vancomycin HCl 250 ml @ 125 mls/hr Q12H IV 01/05/25 02:00 01/15/25 01:59 01/05/25 02:35 125 MLS/HR Vancomycin HCl (Vancomycin Protocol) 1 each AD IV 01/04/25 12:00 01/18/25 11:59 Vitamin B Complex/ Vit C/Folic Acid (Nephrovite Tablet) 1 cap DAILY PO 12/29/24 09:00 01/28/25 08:59 01/05/25 08:51 1 CAP DIAGNOSTICS / RADIOLOGY: [ ] ASSESSMENT: 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 Acute hypoxemic respiratory failure, POA Community-acquired pneumonia, POA Undiagnosed obstructive sleep apnea Acute diastolic congestive heart failure as per 2D echo Elevated cardiac troponin, rule out active ACS, POA acute pancreatitis likely 2/2 gall stones Acute Kidney injury, POA Hyponatremia, POA Morbid obesity, POA Sinus tachycardia, POA Thrombocytopenia, POA, mild Underlying history of obstructive sleep apnea, POA Hypertension, POA Hyperlipidemia, POA History of [place], POA History of coronary artery disease with prior history of PCI, POA 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 A per ID patient on Vanco and Merrem IV. WBC trending down. No fevers in past 24 hrs. We will continue to monitor patient. We will wait for outpatient abx recommendation per ID. Am labs Duo nebs Q 6 hours 2D echocardiogram EF 60-65%. Stage I diastolic dysfunction Repeat head CT on 12/29/2024 showing old right basilar ganglia infarct, with encephalomalacia, no acute intracranial process noted. Titrate supplemental O2 therapy to maintain oxygen saturations greater than 92% All labs will be repeated in the morning Continue CPAP therapy PT OT evaluation Further orders per hospital course; DC home, once no longer spiking fever. ATTESTATION BY PHYSICIAN I have seen and examined the patient. I reviewed the documentation, medical decision making, and treatment plan as noted by the mid-level provider above. I agree with the findings and plan of care. Angel De La Torre IV, MD, [employer] [employer] Jan 05, 2025 13:36
--- NOTE | 2025-01-05 16:43 | PN ---
[facility] PROGRESS NOTE Date Patient Seen: Jan 05, 2025 Time of Visit: 16:31 Supervising Physician: CHERRI KIM MD Primary Care Physician: Tremayne Hernandez MD Outpatient Specialists: [ ] Inpatient Consults: SVETA, DR Butcher, Dr King, Dr Cramer, Dr Saleh PROBLEM LIST: Acute hypoxemic respiratory failure, POA Severe sepsis with MODS POA Acute Non ST elevation myocardial infarction on admission Atelectasis to left mid lung field. Cardiomegaly acute to subacute non-hemorrhagic CVA POA Acute pancreatitis, Tetonia's criteria 1pont (1% predicted mortality) POA Cholelithiasis without evidence of cholecystitis Hepatomegaly with diffuse hepatic steatosis Trace ascites in the right upper quadrant Elevated D-dimer negative for PE and DVT to lower extremities Acute Kidney injury, POA Mild thrombocytopenia Thrombocytopenia, POA, mild Essential hypertension, POA Hyperlipidemia, POA Stage I diastolic dysfunction with the EF of 60-65% POA DIYA CAD Ray-Parkinson White syndrome Status post ablation Morbid obesity; BMI 54.7 INTERVAL HISTORY: Mr. Miles is in bed, he just woke up but did not use his BiPAP He is drowsy, confused and lethargic VQ scan negative Lipase is higher, stopped oral intake no cough or congestion complains of generalized weakness still having epigastric pain no diarrhea denies chest pain no hemoptysis or melena REVIEW OF SYSTEMS: 12 point review of systems done, all pertinent information addressed. PHYSICAL EXAM: GENERAL: alert, weak, awake oriented x 3 HEENT: EOMI, Sclera non icteric, moist mucosa NECK: Supple, no JVD, trachea midline LUNGS: Diminished breath sounds bilaterally. No wheezes HEART: Regular rate and rhythm. Normal S1 and S2, without murmurs ABD: Abdomen soft, morbidly obese, nontender. Bowel sounds present EXT: No clubbing cyanosis or edema NEURO: Alert and oriented to person, follows commands Vital Signs (last 8hr) Date Time Temp Pulse Resp B/P (MAP) Pulse Ox O2 Delivery O2 Flow Rate FiO2 01/05/25 14:34 98 21 N/A Room Air 21 01/05/25 14:33 98 21 01/05/25 12:00 98.8 80 20 142/86 97 Room Air LABS: Hematology Labs: Test 01/05/25 03:44 Range/Units White Blood Count 6.6 4.8-10.8 K/uL Red Blood Count 4.17 L 4.50-6.20 MIL/uL Hemoglobin 11.4 L 14.0-18.0 g/dL Hematocrit 33.8 L 42-54 % Mean Corpuscular Volume 81.1 79-99 fL Mean Corpuscular Hemoglobin 27.3 27.0-33.0 pg Mean Corpuscular Hemoglobin Concent 33.7 32.0-36.0 g/dL Red Cell Distribution Width 17.6 H 11.0-15.5 % Platelet Count 160 130-400 K/uL Mean Platelet Volume 11.5 H 7.5-10.5 fL Immature Granulocyte % (Auto) 0.5 0-1 % Neutrophils (%) (Auto) 76.8 40.0-77.0 % Lymphocytes (%) (Auto) 10.2 L 21.0-51.0 % Monocytes (%) (Auto) 11.1 3.0-13.0 % Eosinophils (%) (Auto) 1.1 0.0-8.0 % Basophils (%) (Auto) 0.3 0.0-5.0 % Neutrophils # (Auto) 5.0 1.8-7.7 K/uL Lymphocytes # (Auto) 0.7 L 1.0-4.8 K/uL Monocytes # (Auto) 0.7 0.1-1.0 K/uL Eosinophils # (Auto) 0.07 0.00-0.70 K/uL Basophils # (Auto) 0.02 0.00-0.20 K/uL Absolute Immature Granulocyte (auto 0.03 0-1 K/uL Nucleated Red Blood Cells 0.0 0.0-0.19 % Chemistry Labs: Test 01/05/25 03:44 01/04/25 05:45 01/04/25 04:50 Range/Units Sodium Level 135 L 136-145 mmol/L Potassium Level 3.9 3.5-5.1 mmol/L Chloride Level 100 L 101-111 mmol/L Carbon Dioxide Level 26 21-32 mmol/L Blood Urea Nitrogen 18 7-18 mg/dL Creatinine 1.2 0.5-1.3 mg/dL Glomerular Filtration Rate Calc 70 >90 mL/min Random Glucose 106 H 70-105 mg/dL Lactic Acid Level 1.4 0.8-2.5 mmol/L Total Calcium 7.9 L 8.5-10.1 mg/dL Phosphorus Level 3.6 2.5-4.9 mg/dL Magnesium Level 2.10 1.80-2.40 mg/dL Total Bilirubin 0.8 0.2-1.0 mg/dL Aspartate Amino Transf (AST/SGOT) 124 H 10-37 U/L Alanine Aminotransferase (ALT/SGPT) 81 #H 12-78 U/L Alkaline Phosphatase 273 #H 50-136 U/L Total Protein 6.7 6.0-8.3 g/dL Albumin 1.9 L 3.5-5.0 g/dL Lipase 328 H 16-77 U/L Whole Blood Glucose 79 70-110 MG/DL Amylase Level 123 #H 25-115 U/L Coagulation Labs: Test 01/05/25 03:44 Range/Units Prothrombin Time 11.4 9.6-11.6 SEC Prothromb Time International Ratio 1.08 0.85-1.15 Activated Partial Thromboplast Time 28.9 26.3-35.5 SEC DIAGNOSTICS / RADIOLOGY RESULTS: [ VQ scan reported to be negative ] PLAN blood cultures are still pending final results keep NPO continue BiPAP use continue O2 continue IV hydration NEURO: Minimize central acting medications as possible. Maintain fall precautions, adequate lighting during the day PULMONARY: Supplemental 02 as needed. Maintain aspiration precautions at all times CARDIOVASCULAR: Follow hemodynamics. Vital signs per facility protocol GI & NUTRITION: Continue with nutritional support. Continue stool softeners and laxatives as needed. KIDNEYS & ELECTROLYTES: Strict monitoring of intake, output and overall fluid balance. Avoid nephrotoxic medications to the extent possible. Medications to be dosed according to renal function. Monitor electrolytes and replace as needed ENDOCRINE: Maintain blood glucose between 100-180 at all times. Hypoglycemia protocol in place INFECTIOUS DISEASE: Trend temperature, WBC and procalcitonin level Follow cultures, deescalate antibiotics as soon as possible. Panculture if new onset fever ONCOLOGY/HEMATOLOGY/COAGULATION: Monitor for s/s of bleeding Monitor hemoglobin, coagulation studies as needed SKIN: Pressure ulcer prevention per facility protocol Specialty mattress ORTHO/REHAB: Continue PT/OT Prophylaxis: Continue GI and DVT prophylaxis Code Status: Full Resuscitation Disposition: Per primary team I personally scribed for CHERRI KMI MD ([email or web address]) on 01/05/25 at 16:43. Electronically submitted by Angel Webster ([email or web address]). CHERRI KIM MD Jan 05, 2025 16:43
--- NOTE | 2025-01-05 16:57 | PN ---
HISTORY OF PRESENT ILLNESS This is a pleasant 59-year-old male with past medical history as per patient with complaints of shortness of breath, is being evaluated for possible ACS contributory for pneumonia. Patient was also found to have a CVA PAST MEDICAL HISTORY, ALLERGIES See below REVIEW OF SYSTEMS Not obtained Vitals See chart PHYSICAL EXAM Alert and oriented x 3 Nonicteric nontraumatic Regular rate and rhythm, no murmurs Clear to auscultation bilaterally pulmonary Abdomen nontender Rectal deferred Skin no rash neurological no focal deficits Extremities no edema ASSESSMENT CORONARY DISEASE, ELEVATED TROPONIN At presentation PNEUMONIA Being managed by antibiotics per infectious disease, appreciate CT was negative for pulm embolism CVA At presentation Patient ganglia as well as occipital lobe involvement ACUTE ON CHRONIC KIDNEY DISEASE At presentation Create greater than 2 HISTORY OF UHZOW-EAEIZBITG-SOZAN SYNDROME SLEEP APNEA, HYPERTENSION, HYPERLIPIDEMIA, SLEEP APNEA CORE MEASURES pending OTHER MEDICAL PROBLEMS reviewed CORE MEASURES Pending OTHER MEDICAL PROBLEMS Reviewed PLAN 12/28/2024 given recent CVA, not a good candidate for any ischemic evaluation at this time, echocardiogram has been ordered and pending. Further recommendations post. Continue current medical therapy conservative management for now. May consider STONE given stroke in 2 different vascular distributions. Holter monitor may also be considered. Seen and examined 12/28/2024 at around 1800. 12/29/2024 Remains on BiPAP, echocardiogram was within normal limits. Renal function being addressed by nephrology, julieta. At this time, given recent CVA ongoing respiratory issues, not a good candidate for any ischemic evaluation. Once he has recovered from his underlying issues, may consider further evaluation from a cardiac standpoint. Conservative measures for now. Seen and examined 12/29/2024 at around 7 PM. 12/30/2024 Feeling better, currently off BiPAP, nephrology on board managing renal dysfunction. As above, continue conservative measures at this time and may consider outpatient ischemic evaluation once recovered from CVA. On atorvastatin and aspirin beta-tomasa continue. Renal function improving. Echo was within normal limits. Seen and examined 12/30/2024 at around 8 PM. 12/31/2024 No cardiovascular symptoms, no weakness from the stroke, doing well, walking in the hallways and getting therapy. On doxycycline. Eventual plans for ischemic evaluation as well as STONE as outpatient. May consider long-term monitoring as well given strokes involving multiple circulations. Pancreatitis and pneumonia being treated as well. Seen and examined 12/31/2024 at around 1 PM. 01/01/2025 Doing well, no active cardiovascular complaints at this time. Only issues with pneumonia pancreatitis CVA all of which have improved. Currently, ambulating without any significant issues, Home when okay with primary team and will follow-up in the office for ischemic evaluation and stroke workup. Renal function has improved. Seen and examined 01/01/2025 at around 8 AM. 01/02/2025 Remains antibiotics and did have fevers again today and therefore, discharge is being held. Appreciate infectious disease. Renal function slightly worse today as well, will need to be watched. Stable cardiovascular status and patient remains asymptomatic from a cardiovascular standpoint at this time. Seen and examined 01/02/2025 at around 5 PM. 01/03/2025 No more fevers per report. Arcenio function is stable, appreciate nephrology. ID on board managing fevers creatinine 1.4 most recently which is close to baseline CT chest abdomen pelvis with persistent pancreatitis, fatty liver, cholelithiasis. Seen and examined 01/03/2025 at around 11 AM. 01/04/2025 Active cardiovascular issues, fevers pancreatitis today is currently being addressed per primary team. Remains on antibiotics for ongoing issues with fevers. Volume status is acceptable. GI on board. Seen and examined 01/04/2025 at around 1800. 01/05/2025 Doing well, per report, fevers have improved, remains on antibiotic therapy. Interstitial pancreatitis on imaging, currently switched to vancomycin and meropenem to help. No active cardiovascular issues. Will follow peripherally, call us if needed. Seen and examined 01/05/2025 at around 1700. ATTESTATION I was involved substantial in the care of the patient Number of complexity of problems addressed 1 acute illness with systemic features Amount and or complexity of data Review of prior external notes from each unique source 2+ Ordering of each unique test 0 Review of results of each unique test 2+ Assessment requiring independent historians no Dependent interpretation of test performed by another MD no Discussion of management or test interpretation with external MD no Risk status moderate Vitals/Labs Vital Signs Date Time Temp Pulse Resp B/P (MAP) Pulse Ox O2 Delivery O2 Flow Rate FiO2 01/05/25 16:00 98.6 87 20 139/88 97 Room Air 01/05/25 14:34 21 01/05/25 08:00 0 Laboratory Tests 01/05/25 03:44 Medications Current Medications Procainamide HCl 2000 mg/Sodium Chloride 250 ml @ 0 mls/hr PROTOCOL IV; Start 12/28/24 at 10:00; Stop 12/28/24 at 10:42; Status DC Metoprolol Tartrate 5 mg ONCE ONCE IV Last administered on 12/28/24at 10:38; Start 12/28/24 at 10:30; Stop 12/28/24 at 10:31; Status DC Aspirin 325 mg ONCE ONCE PO Last administered on 12/28/24at 10:46; Start 12/28/24 at 11:00; Stop 12/28/24 at 11:01; Status DC Sodium Chloride 1,000 ml @ 100 mls/hr Q10H IV Last administered on 12/29/24at 09:14; Start 12/28/24 at 12:00; Stop 12/29/24 at 09:23; Status DC Ipratropium [place] 1 mg Q6H PRN IH; Start 12/28/24 at 12:00; Stop 01/27/25 at 11:59 Acetaminophen 650 mg Q6H PRN PO Last administered on 01/02/25at 16:45; Start 12/28/24 at 12:00; Stop 01/27/25 at 11:59 Ondansetron HCl 4 mg Q6H PRN IVP; Start 12/28/24 at 12:00; Stop 01/27/25 at 11:59 Thiamine HCl 100 mg Q24H IVP Last administered on 01/05/25at 08:51; Start 12/28/24 at 12:00; Stop 01/27/25 at 11:59 Vitamin B Complex/ Vit C/Folic Acid 1 cap DAILY PO Last administered on 01/05/25at 08:51; Start 12/29/24 at 09:00; Stop 01/28/25 at 08:59 Aspirin 81 mg DAILY PO Last administered on 01/05/25at 08:51; Start 12/29/24 at 09:00; Stop 01/28/25 at 08:59 Piperacillin Sod/ Tazobactam Sod 3.375 gm Q8H IVPB Last administered on 01/04/25at 05:53; Start 12/28/24 at 12:00; Stop 01/04/25 at 11:42; Status DC Sodium Chloride 50 ml AD IV; Start 12/28/24 at 12:00; Stop 12/28/24 at 11:59; Status DC Enoxaparin Sodium 40 mg DAILY SQ Last administered on 01/05/25at 08:51; Start 12/29/24 at 09:00; Stop 01/28/25 at 08:59 Famotidine 20 mg Q24H IV Last administered on 01/04/25at 20:14; Start 12/28/24 at 21:00; Stop 01/27/25 at 20:59 Metoprolol Succinate 25 mg DAILY PO Last administered on 01/05/25at 08:51; Start 12/28/24 at 13:00; Stop 01/27/25 at 12:59 Iohexol 75 ml STK-MED ONCE IV; Start 12/28/24 at 12:57; Stop 12/28/24 at 12:57; Status DC Doxycycline Hyclate 250 ml @ 125 mls/hr Q12H IV Last administered on 01/04/25at 03:00; Start 12/28/24 at 14:30; Stop 01/04/25 at 11:42; Status DC Sodium Chloride 4 ml STK-MED ONCE IH Last administered on 12/28/24at 19:12; Start 12/28/24 at 18:20; Stop 12/28/24 at 18:20; Status DC Clopidogrel Bisulfate 75 mg Q24H PO Last administered on 12/28/24at 21:23; Start 12/28/24 at 20:30; Stop 12/28/24 at 22:21; Status DC Sodium Chloride 4 ml STK-MED ONCE IH; Start 12/28/24 at 22:27; Stop 12/28/24 at 22:28; Status DC Lactulose 20 gm Q6H6 PO; Start 12/29/24 at 12:00; Stop 12/29/24 at 11:49; Status DC Lactulose 20 gm TID PO Last administered on 12/30/24at 13:55; Start 12/29/24 at 14:00; Stop 01/01/25 at 14:30; Status DC Atorvastatin Calcium 40 mg HS PO Last administered on 01/04/25at 20:14; Start 12/29/24 at 21:00; Stop 01/28/25 at 20:59 Melatonin 10 mg ONCE ONCE PO Last administered on 12/30/24at 00:46; Start 12/30/24 at 00:00; Stop 12/30/24 at 00:02; Status DC Potassium Chloride 20 meq ONCE ONCE PO Last administered on 12/30/24at 05:47; Start 12/30/24 at 05:00; Stop 12/30/24 at 05:02; Status DC Magnesium Citrate 296 ml ONCE ONCE PO Last administered on 12/30/24at 13:55; Start 12/30/24 at 13:30; Stop 12/30/24 at 13:31; Status DC Furosemide 20 mg ONCE ONCE IV Last administered on 12/30/24at 17:34; Start 12/30/24 at 17:30; Stop 12/30/24 at 17:31; Status DC Ipratropium [place] 0.5 MG [id number] IH Last administered on 01/05/25at 14:33; Start 12/30/24 at 22:00; Stop 01/29/25 at 21:59 Potassium Chloride 20 meq AD PRN PO; Start 12/31/24 at 05:00; Stop 01/30/25 at 04:59 Potassium Chloride 20 meq AD PRN PO Last administered on 01/02/25at 23:14; Start 12/31/24 at 05:00; Stop 01/30/25 at 04:59 Potassium Chloride 100 ml @ 100 mls/hr AD PRN IV Last administered on 01/02/25at 05:08; Start 12/31/24 at 05:00; Stop 01/30/25 at 04:59 Lactulose 20 gm TID PRN PO; Start 01/01/25 at 14:30; Stop 01/28/25 at 13:59 Acetaminophen 650 mg Q4H PRN PO Last administered on 01/03/25at 21:25; Start 01/02/25 at 20:30; Stop 02/01/25 at 20:29 Iohexol 35,000 mg STK-MED ONCE IV; Start 01/04/25 at 01:50; Stop 01/04/25 at 01:50; Status DC Morphine Sulfate 2 mg ONCE ONCE IVP; Start 01/04/25 at 06:30; Stop 01/04/25 at 06:28; Status DC Potassium Chloride 40 meq ONCE ONCE PO Last administered on 01/04/25at 09:32; Start 01/04/25 at 07:30; Stop 01/04/25 at 07:31; Status DC Vancomycin HCl 1 each AD IV; Start 01/04/25 at 12:00; Stop 01/18/25 at 11:59 Pharmacy Profile Note 1 each ONCE MISC; Start 01/04/25 at 12:00; Stop 01/04/25 at 11:57; Status DC Vancomycin HCl 500 ml @ 250 mls/hr ONCE ONCE IV Last administered on 01/04/25at 14:30; Start 01/04/25 at 14:00; Stop 01/04/25 at 15:59; Status DC Vancomycin HCl 250 ml @ 125 mls/hr Q12H IV Last administered on 01/05/25at 13:42; Start 01/05/25 at 02:00; Stop 01/15/25 at 01:59 Meropenem 1 gm Q8H IVPB Last administered on 01/05/25at 03:42; Start 01/04/25 at 12:00; Stop 01/05/25 at 11:09; Status DC Meropenem 1 gm Q8H IVPB Last administered on 01/05/25at 11:49; Start 01/05/25 at 12:00; Stop 01/15/25 at 11:59 BRENNON CROWLEY MD Jan 05, 2025 16:57
--- NOTE | 2025-01-05 17:54 | PN ---
INFECTIOUS DISEASE PROGRESS NOTE Date of Service: Jan 05, 2025 SUBJECTIVE: This is a 59 year old male patient who was seen today at bedside in room 228. Patient is awake alert and oriented x3. The repeat CT scan done today showed severe acute interstitial pancreatitis, pneumoniae and cholelithiasis. The amylase level is 123 and lipase level is 196. Gastroenterology has been consulted. We will discontinue Zosyn and doxycycline and start patient on vancomycin per pharmacy protocol and Meropenem 1 g IV every 8 hours. Patient is sitting up on the edge of the bed. No other issues reported by nursing. PHYSICAL EXAM EYES: Anicteric. Pupils equal and reactive. HENT: No oral thrush seen, moist Oral mucosa NECK: Supple, no JVD or thyromegaly. LUNGS: diminished. No wheezing or rhonchi CARDIOVASCULAR: S1, S2 regular. No murmur heard. ABDOMEN: Soft, non tender, bowel sounds present, no organomegaly. CENTRAL NERVOUS SYSTEM: Awake, alert, oriented x 3. SKIN: No rashes, no swelling. LYMPHATICS: No peripheral lymphadenopathy MUSCULOSKELETAL: No joint swelling, erythema or tenderness. EXTREMITIES: No cyanosis or clubbing. BACK: No deformity, no pressure ulcer. GENITOURINARY: No dysuria or hematuria. Vital Sign (Last 12 Hours) 01/05/25 01/05/25 01/05/25 01/05/25 06:59 07:01 07:01 07:54 Temp 97.9 Pulse 91 91 91 94 Resp 21 21 21 20 B/P (MAP) 147/76 Pulse Ox 98 O2 Delivery N/A Room Air Room Air FiO2 21 01/05/25 01/05/25 01/05/25 01/05/25 08:00 12:00 14:33 14:34 Temp 98.8 Pulse 80 98 98 Resp 20 21 21 B/P (MAP) 142/86 Pulse Ox 98 97 O2 Delivery Room Air* Room Air N/A Room Air O2 Flow Rate 0 FiO2 21 21 01/05/25 16:00 Temp 98.6 Pulse 87 Resp 20 B/P (MAP) 139/88 Pulse Ox 97 O2 Delivery Room Air Intake & Output (last 24hrs) 0 01/04/25 01/04/25 01/05/25 15:00 23:00 07:00 Intake Total 240 ml 100.0 ml 350.0 ml Output Total 250 ml 200 ml Balance -10 ml 100.0 ml 150.0 ml LABS: Laboratory: Test 01/05/25 03:46 01/05/25 03:44 01/04/25 05:45 01/04/25 04:50 Range/Units Blood Gas Specimen Type Arterial Arterial Blood pH 7.485 H 7.350-7.450 Arterial Blood Partial Pressure CO2 31 L 35-48 mmHg Arterial Blood Partial Pressure O2 81.6 L 83.0-108.0 mmHg Arterial Blood HCO3 22.5 21.0-28.0 mmol/L Arterial Blood Oxygen Saturation 96.9 94.0-98.0 % Arterial Blood Base Excess 0.1 -2.0-3.0 mmol/L Blood Gas Temperature 37.0 35.5-37.0 CELSIUS Blood Gas Vent Mode ROOMAIR ROOM AIR FiO2 21.0 % Blood Gas Specimen Comment LB RN AJ White Blood Count 6.6 4.8-10.8 K/uL Red Blood Count 4.17 L 4.50-6.20 MIL/uL Hemoglobin 11.4 L 14.0-18.0 g/dL Hematocrit 33.8 L 42-54 % Mean Corpuscular Volume 81.1 79-99 fL Mean Corpuscular Hemoglobin 27.3 27.0-33.0 pg Mean Corpuscular Hemoglobin Concent 33.7 32.0-36.0 g/dL Red Cell Distribution Width 17.6 H 11.0-15.5 % Platelet Count 160 130-400 K/uL Mean Platelet Volume 11.5 H 7.5-10.5 fL Immature Granulocyte % (Auto) 0.5 0-1 % Neutrophils (%) (Auto) 76.8 40.0-77.0 % Lymphocytes (%) (Auto) 10.2 L 21.0-51.0 % Monocytes (%) (Auto) 11.1 3.0-13.0 % Eosinophils (%) (Auto) 1.1 0.0-8.0 % Basophils (%) (Auto) 0.3 0.0-5.0 % Neutrophils # (Auto) 5.0 1.8-7.7 K/uL Lymphocytes # (Auto) 0.7 L 1.0-4.8 K/uL Monocytes # (Auto) 0.7 0.1-1.0 K/uL Eosinophils # (Auto) 0.07 0.00-0.70 K/uL Basophils # (Auto) 0.02 0.00-0.20 K/uL Absolute Immature Granulocyte (auto 0.03 0-1 K/uL Nucleated Red Blood Cells 0.0 0.0-0.19 % Prothrombin Time 11.4 9.6-11.6 SEC Prothromb Time International Ratio 1.08 0.85-1.15 Activated Partial Thromboplast Time 28.9 26.3-35.5 SEC Sodium Level 135 L 136-145 mmol/L Potassium Level 3.9 3.5-5.1 mmol/L Chloride Level 100 L 101-111 mmol/L Carbon Dioxide Level 26 21-32 mmol/L Blood Urea Nitrogen 18 7-18 mg/dL Creatinine 1.2 0.5-1.3 mg/dL Glomerular Filtration Rate Calc 70 >90 mL/min Random Glucose 106 H 70-105 mg/dL Lactic Acid Level 1.4 0.8-2.5 mmol/L Total Calcium 7.9 L 8.5-10.1 mg/dL Phosphorus Level 3.6 2.5-4.9 mg/dL Magnesium Level 2.10 1.80-2.40 mg/dL Total Bilirubin 0.8 0.2-1.0 mg/dL Aspartate Amino Transf (AST/SGOT) 124 H 10-37 U/L Alanine Aminotransferase (ALT/SGPT) 81 #H 12-78 U/L Alkaline Phosphatase 273 #H 50-136 U/L Total Protein 6.7 6.0-8.3 g/dL Albumin 1.9 L 3.5-5.0 g/dL Lipase 328 H 16-77 U/L Whole Blood Glucose 79 70-110 MG/DL Amylase Level 123 #H 25-115 U/L ASSESSMENT: Acute pancreatitis. Pneumonia. Persistent fevers. Sepsis. Leukocytosis, resolved. Acute renal failure, improving. Acute nonhemorrhagic stroke. Rhabdomyolysis. History of coronary artery disease. PLAN: Continue vancomycin per pharmacy protocol. Continue Meropenem IV. Continue bronchodilators. Avoid nephrotoxic medications. We will monitor electrolytes. This case was reviewed and discussed with my supervising physician Dr. Rasmussen and the above assessment and plan was formulated and agreed upon. ATTESTATION BY PHYSICIAN I have seen and examined the patient. I reviewed the documentation, medical decision making, and treatment plan as noted by the mid-level provider above. I agree with the findings and plan of care. KARIE RASMUSSEN MD, [facility] Jan 05, 2025 17:54
--- NOTE | 2025-01-05 18:50 | NUR ---
Patient encouraged and offered assistance to shower or cleanse with CHG wipes. Patient refused x2.
[2025-01-06] VITALS (18 sets, daily range): BP systolic 112–170; BP diastolic 65–98; PULSE 82–117; RESP 18–30; TEMP 97.9–100.9; O2SAT 86–100
[2025-01-06 05:08] LABS: IMMATURE GRANULOCYTE ABSOLUTE 0.03 K/uL (0-1); NUCLEATED RED BLOOD CELLS 0.0 % (0.0-0.19); PLATELET COUNT (AUTO) 156 K/uL (130-400); RED BLOOD CELL COUNT(AUTO) 4.08 MIL/uL (4.50-6.20); RED CELL DISTRIBUTION WIDTH 17.5 % (11.0-15.5); WHITE BLOOD COUNT (AUTO) 6.7 K/uL (4.8-10.8)
[2025-01-06 05:28] LABS: ASPARTATE AMINOTRANSFERASE 69.0 U/L (10-37); CREATININE 1.0 mg/dL (0.5-1.3); GLOMERULAR FILTR. RATE CALC 87.0 mL/min (>90); GLUCOSE,RANDOM 84.0 mg/dL (70-105); SODIUM SERUM 136.0 mmol/L (136-145); TOTAL PROTEIN, SERUM 6.3 g/dL (6.0-8.3); UREA NITROGEN, BLOOD 17.0 mg/dL (7-18)
--- NOTE | 2025-01-06 07:25 | HMCIMG ---
EXAM: NM Lung Perfusion Scan. CLINICAL HISTORY: Fever with hypoxemia. TECHNIQUE: Radiolabeled MAA was administered intravenously, and planar images of the lungs were obtained in multiple projections. RADIOPHARMACEUTICAL: Perfusion: Technetium 99m MAA. COMPARISON: CT examination dated January 04, 2025. FINDINGS: There is homogeneous uptake of the radiotracer in both lung parenchyma. IMPRESSION: No obvious scan evidence of pulmonary thromboembolism noted in the present scan. /[place]
--- NOTE | 2025-01-06 12:21 | PN ---
[facility] PROGRESS NOTE Date of Service: Jan 06, 2025 Time of Service: 12:[address] De La Torre SUBJECTIVE: Follow up visit for a 59-year-old male admitted to the hospital for acute hypoxemic respiratory failure, community-acquired pneumonia, non-STEMI, acute pancreatitis. Patient remains on IV doxycycline, IV Zosyn under ID direction. Cultures in process. Currently saturating adequately on room air. Patient initiated on diet, tolerating well, no reports of abdominal pain. Serum lipase improved from 497-175. 2D echo has been performed, report pending. He has brain MRI on admission did show acute infarct in the right basal ganglia similar to the CT brain dated 12/28/2024. Patient at this time reveals no focal deficits. 12/30/2024: Over the past 24 hours no major events reported. Patient remains on IV doxycycline, IV Zosyn under ID direction. He is saturating adequately on room air. Continues to be followed by pulmonology team requesting 6 minute walk test prior to discharge. Patient reports no neuro deficits at this time, being followed closely by Neurology, remains on aspirin statins. Patient denies abdominal pain nausea or vomiting. He is tolerating diet. 2D echo EF 60-65%. Morning labs potassium 3.3, for which he received replacement. 12/31/2024: Patient remains on IV Zosyn IV doxycycline under ID direction. Cultures are in process. Patient currently saturating adequately on room air. He does continue to use CPAP at night. Continues to be followed by pulmonology team. Morning labs reviewed. 01/01/2025: Patient has been noted with episodes of fever, max temp of 102.9. Patient remains on IV doxycycline, IV Zosyn under ID direction. Patient denies chest pain, shortness of breath, nausea vomiting diarrhea. Morning labs reviewed. 01/02/2025: Patient's morning continued to spike fever, max temp of 101.3. Patient remains on IV Zosyn doxycycline under ID direction. Flu a and B and COVID swabs negative. No leukocytosis. CXR showing left lower lobe pneumonia, no significant interval change. 01/03/25 patient was seen by nurse practitioner and physician in room 228. Patient was evaluated by the hydraulic dredge operator and patient denies any chest pain or shortness of breaths, nausea vomiting or abdominal pain. As per recommendation continue patient on IV antibiotics as per ID. No further workout as per hydraulic dredge operator. Patient had a fever of 102.9 on 01/02/2025 at 8:53 p.m. WBC 8.7. Urine culture final negative. Blood culture still pending. Most recent chest x-ray showed mild patchy left lower lobe infiltrate/atelectasis. V/Q scan was ordered due to D-dimer [id number]. As per ID continue doxycycline IV and Zosyn IV. Patient is tolerating BiPAP well at night. We will continue to monitor patient in the meantime. A.m. labs 01/04/25 patient was seen by nurse practitioner and physician during rounding in room 228. Patient will receive 40 mEq of potassium. GI was consulted due to severe acute pancreatitis. Labs were ordered as well. Patient also had another fever last night 101.5 and today in the morning of 100.8. Per Infectious Disease doctor discontinue doxy and Zosyn. Patient was started on vancomycin and Merrem. Nephrology continues to monitor patient labs much improved. Neurologist. We will continue to monitor patient in the meantime. A.m. labs 01/05/25 Pt was seen by JOURNEYMAN MOLDER and physician during rounding. Final blood and urine culture negative. A per ID patient on Vanco and Merrem IV. WBC trending down. No fevers in past 24 hrs. We will continue to monitor patient. We will wait for outpatient abx recommendation per ID. Am labs 01/06/25 patient was seen by nurse practitioner and physician during rounding. Final urine cultures negative. Blood culture negative x4 days. As per GI note from 01/04/2025 continue supportive care with opiate analgesics and antiemetics. Patient's oral intake was resumed and patient is on cardiac diet. We will order CT with IV contrast as recommended after48 hours of IV fluids we will assess for necrosis. Patient is tolerating diet at this moment no need for nasal jejunal tube feeds need for TPN. As per ID continue vancomycin and Merrem. No fevers [id number] hours. WBC 6.7. Electrolytes within normal limits. We will continue to monitor patient in the meantime. A.m. labs REVIEW OF SYSTEMS CONSTITUTIONAL: generalized fatigue, malaise NEUROLOGICAL: Denies headache, amaurosis fugax, motor weakness, sensory deficit, vertigo/spinning sensation, gait abnormalities, or tremors. ENT: No hearing loss, otalgia, otorrhea, rhinitis, rhinorrhea, hoarseness, or sore throat. CARDIOVASCULAR: Denies any exertional angina, dyspnea on exertion, orthopnea, paroxysmal nocturnal dyspnea, palpitations, life-threatening arrhythmias, claudication. PULMONARY: Denies shortness of breaths. Denies any diaphoresis SLEEP: Denies morning headaches, daytime somnolence or napping. Denies difficulty falling asleep, staying asleep, waking from sleep. Denies knowledge of snoring. GASTROINTESTINAL: Denies any nausea, vomiting or abdominal pain GENITOURINARY: Denies frequency, urgency, nocturia, hematuria or incontinence (Storage/Irritative symptoms.) Low urinary stream, straining to void, urinary intermittency or hesitancy, splitting of the voiding stream, terminal dribbling. ENDOCRINOLOGIC: Denies polyuria, polydipsia, polyphagia or heat/cold intolerances. HEMATOLOGIC: Denies thrombophilia/previous clots, or coagulopathy/bleeding disorders. ONCOLOGIC: Denies personal history of malignancy. DERMATOLOGIC: Denies rashes or pruritus. PSYCHIATRIC: Denies any suicidal or homicidal ideation. Denies hallucinations. PHYSICAL EXAM GENERAL APPEARANCE: The patient is awake, alert, patient appears very diaphoretic, currently on 3 L supplementation by nasal cannula, patient is morbidly obese NEUROLOGICAL: Cranial nerves II-XII grossly intact. Examination is nonfocal for the patient HEENT: Face is symmetric. Pupils are equal and reactive. Extraocular movements are intact. NECK: Supple. No JVD. No thyromegaly. No submental, submandibular, pre- /postauricular, occipital or supraclavicular lymphadenopathy. CHEST: Normal chest expansion. No Telemetry. LUNGS: Minimal crackles noted at bilateral lung bases CARDIOVASCULAR: Regular. S1 and S2 normal. Tachycardic was ABDOMEN: Soft, nontender, and nondistended. There is no rebound, voluntary guarding, or rigidity. : Deferred. No [place]. EXTREMITIES: Non-edematous and not cyanotic. No clubbing. Good capillary refill. SKIN: No skin breakdown. Vital Signs (last 8hr) Date Time Temp Pulse Resp B/P (MAP) Pulse Ox O2 Delivery O2 Flow Rate FiO2 01/06/25 07:56 98.8 100 20 112/72 96 Room Air 01/06/25 06:46 98 18 9/19/25 06:45 98 20 N/A Room Air 21 LABS: Laboratory: Test 01/06/25 04:42 01/06/25 00:51 01/05/25 03:46 01/05/25 03:44 Range/Units White Blood Count 6.7 4.8-10.8 K/uL Red Blood Count 4.08 L 4.50-6.20 MIL/uL Hemoglobin 10.9 L 14.0-18.0 g/dL Hematocrit 33.1 L 42-54 % Mean Corpuscular Volume 81.1 79-99 fL Mean Corpuscular Hemoglobin 26.7 L 27.0-33.0 pg Mean Corpuscular Hemoglobin Concent 32.9 32.0-36.0 g/dL Red Cell Distribution Width 17.5 H 11.0-15.5 % Platelet Count 156 130-400 K/uL Mean Platelet Volume 11.5 H 7.5-10.5 fL Immature Granulocyte % (Auto) 0.4 0-1 % Neutrophils (%) (Auto) 81.4 H 40.0-77.0 % Lymphocytes (%) (Auto) 8.5 L 21.0-51.0 % Monocytes (%) (Auto) 7.8 3.0-13.0 % Eosinophils (%) (Auto) 1.6 0.0-8.0 % Basophils (%) (Auto) 0.3 0.0-5.0 % Neutrophils # (Auto) 5.4 1.8-7.7 K/uL Lymphocytes # (Auto) 0.6 L 1.0-4.8 K/uL Monocytes # (Auto) 0.5 0.1-1.0 K/uL Eosinophils # (Auto) 0.11 0.00-0.70 K/uL Basophils # (Auto) 0.02 0.00-0.20 K/uL Absolute Immature Granulocyte (auto 0.03 0-1 K/uL Nucleated Red Blood Cells 0.0 0.0-0.19 % White Cell Morphology Comment See comments Sodium Level 136 136-145 mmol/L Potassium Level 4.5 3.5-5.1 mmol/L Chloride Level 102 101-111 mmol/L Carbon Dioxide Level 28 21-32 mmol/L Blood Urea Nitrogen 17 7-18 mg/dL Creatinine 1.0 0.5-1.3 mg/dL Glomerular Filtration Rate Calc 87 >90 mL/min Random Glucose 84 70-105 mg/dL Total Calcium 8.2 L 8.5-10.1 mg/dL Magnesium Level 2.10 1.80-2.40 mg/dL Total Bilirubin 0.8 0.2-1.0 mg/dL Aspartate Amino Transf (AST/SGOT) 69 H 10-37 U/L Alanine Aminotransferase (ALT/SGPT) 56 12-78 U/L Alkaline Phosphatase 168 H 50-136 U/L Total Protein 6.3 6.0-8.3 g/dL Albumin 1.7 L 3.5-5.0 g/dL Vancomycin Level Trough 9.2 L 10.0-20.0 UG/ML Blood Gas Specimen Type Arterial Arterial Blood pH 7.485 H 7.350-7.450 Arterial Blood Partial Pressure CO2 31 L 35-48 mmHg Arterial Blood Partial Pressure O2 81.6 L 83.0-108.0 mmHg Arterial Blood HCO3 22.5 21.0-28.0 mmol/L Arterial Blood Oxygen Saturation 96.9 94.0-98.0 % Arterial Blood Base Excess 0.1 -2.0-3.0 mmol/L Blood Gas Temperature 37.0 35.5-37.0 CELSIUS Blood Gas Vent Mode ROOMAIR ROOM AIR FiO2 21.0 % Blood Gas Specimen Comment LB RN AJ Prothrombin Time 11.4 9.6-11.6 SEC Prothromb Time International Ratio 1.08 0.85-1.15 Activated Partial Thromboplast Time 28.9 26.3-35.5 SEC Lactic Acid Level 1.4 0.8-2.5 mmol/L Phosphorus Level 3.6 2.5-4.9 mg/dL Lipase 328 H 16-77 U/L Current Medications Medications (Trade) Dose Ordered Sig/Donald Route PRN Reason Start Time Stop Time Status Last Admin Dose Admin Acetaminophen (TYLenol 325MG TAB) 650 mg Q4H PRN PO TEMPERATURE GREATER THAN 101.5 01/02/25 20:30 02/01/25 20:29 01/03/25 21:25 650 MG Acetaminophen (TYLenol 325MG TAB) 650 mg Q6H PRN PO MILD PAIN (1-3) 12/28/24 12:00 01/27/25 11:59 01/02/25 16:45 650 MG Aspirin (Aspirin 81mg Chew Tab) 81 mg DAILY PO 12/29/24 09:00 01/28/25 08:59 01/06/25 10:05 81 MG Atorvastatin Calcium (LIPItor 40MG) 40 mg HS PO 12/29/24 21:00 01/28/25 20:59 01/05/25 20:18 40 MG Clopidogrel Bisulfate (plaVIX 75MG) 75 mg Q24H PO 12/28/24 20:30 12/28/24 22:21 DC 12/28/24 21:23 75 MG Doxycycline Hyclate 250 ml @ 125 mls/hr Q12H IV 12/28/24 14:30 01/04/25 11:42 DC 01/04/25 03:00 125 MLS/HR Enoxaparin Sodium (Lovenox) 40 mg DAILY SQ 12/29/24 09:00 01/28/25 08:59 01/06/25 10:05 40 MG Famotidine (Pepcid 20mg Vial) 20 mg Q24H IV 12/28/24 21:00 01/27/25 20:59 01/05/25 20:18 20 MG Ipratropium [place] (AtrovENT UD) 0.5 MG [id number] IH 12/30/24 22:00 01/29/25 21:59 01/06/25 06:45 0.5 MG Ipratropium [place] (AtrovENT UD) 1 mg Q6H PRN IH SHORTNESS OF BREATH 12/28/24 12:00 01/27/25 11:59 Lactulose (Constulose 20gm/ 30ml Udcup) 20 gm Q6H6 PO 12/29/24 12:00 12/29/24 11:49 DC Lactulose (Constulose 20gm/ 30ml Udcup) 20 gm TID PO 12/29/24 14:00 01/01/25 14:30 DC 12/30/24 13:55 20 GM Lactulose (Constulose 20gm/ 30ml Udcup) 20 gm TID PRN PO CONSTIPATION 01/01/25 14:30 01/28/25 13:59 Meropenem (Merrem 1gm) 1 gm Q8H IVPB 01/04/25 12:00 01/05/25 11:09 DC 01/05/25 03:42 1 GM Meropenem (Merrem 1gm) 1 gm Q8H IVPB 01/05/25 12:00 01/15/25 11:59 01/06/25 05:05 1 GM Metoprolol Succinate (TopROL XL) 25 mg DAILY PO 12/28/24 13:00 01/27/25 12:59 01/06/25 10:05 25 MG Ondansetron HCl (zoFRAN 4MG INJ) 4 mg Q6H PRN IVP NAUSEA/VOMITING 12/28/24 12:00 01/27/25 11:59 Pharmacy Profile Note (Pharmacy Communication) 1 each ONCE MISC 01/04/25 12:00 01/04/25 11:57 DC Piperacillin Sod/ Tazobactam Sod (Zosyn 3.375gm+NS 50ml) 3.375 gm Q8H IVPB 12/28/24 12:00 01/04/25 11:42 DC 01/04/25 05:53 3.375 GM Potassium Chloride 100 ml @ 100 mls/hr AD PRN IV POTASSIUM PROTOCOL 12/31/24 05:00 01/30/25 04:59 01/02/25 05:08 100 MLS/HR Potassium Chloride (K-Dur/Klor-Con 20meq) 20 meq AD PRN PO POTASSIUM PROTOCOL 12/31/24 05:00 01/30/25 04:59 01/02/25 23:14 20 MEQ Potassium Chloride (KCl 10% Elixir 20meq/15ml) 20 meq AD PRN PO POTASSIUM PROTOCOL 12/31/24 05:00 01/30/25 04:59 Procainamide HCl 2000 mg/Sodium Chloride 250 ml @ 0 mls/hr PROTOCOL IV 12/28/24 10:00 12/28/24 10:42 DC Sodium Chloride 1,000 ml @ 100 mls/hr Q10H IV 12/28/24 12:00 12/29/24 09:23 DC 12/29/24 09:14 100 MLS/HR Sodium Chloride (NS 50ml) 50 ml AD IV 12/28/24 12:00 12/28/24 11:59 DC Thiamine HCl (Vitamin B-1) 100 mg Q24H IVP 12/28/24 12:00 01/27/25 11:59 01/05/25 08:51 100 MG Vancomycin HCl 250 ml @ 125 mls/hr Q12H IV 01/05/25 02:00 01/06/25 04:05 DC 01/06/25 02:37 125 MLS/HR Vancomycin HCl 250 ml @ 125 mls/hr Q12H IV 01/06/25 14:00 01/16/25 13:59 Vancomycin HCl (Vancomycin Protocol) 1 each AD IV 01/04/25 12:00 01/18/25 11:59 Vitamin B Complex/ Vit C/Folic Acid (Nephrovite Tablet) 1 cap DAILY PO 12/29/24 09:00 01/28/25 08:59 01/06/25 10:05 1 CAP DIAGNOSTICS / RADIOLOGY: [ ] ASSESSMENT: 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 Acute hypoxemic respiratory failure, POA Community-acquired pneumonia, POA Undiagnosed obstructive sleep apnea Acute diastolic congestive heart failure as per 2D echo Elevated cardiac troponin, rule out active ACS, POA acute pancreatitis likely 2/2 gall stones Acute Kidney injury, POA Hyponatremia, POA Morbid obesity, POA Sinus tachycardia, POA Thrombocytopenia, POA, mild Underlying history of obstructive sleep apnea, POA Hypertension, POA Hyperlipidemia, POA History of [place], POA History of coronary artery disease with prior history of PCI, POA 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 Blood culture negative x4 days. As per GI note from 01/04/2025 continue supportive care with opiate analgesics and antiemetics. Patient's oral intake was resumed and patient is on cardiac diet. We will order CT with IV contrast as recommended after48 hours of IV fluids we will assess for necrosis. Patient is tolerating diet at this moment no need for nasal jejunal tube feeds need for TPN. As per ID continue vancomycin and Merrem. No fevers [id number] hours. WBC 6.7. Electrolytes within normal limits. We will continue to monitor patient in the meantime. A.m. labs Duo nebs Q 6 hours 2D echocardiogram EF 60-65%. Stage I diastolic dysfunction Repeat head CT on 12/29/2024 showing old right basilar ganglia infarct, with encephalomalacia, no acute intracranial process noted. Titrate supplemental O2 therapy to maintain oxygen saturations greater than 92% All labs will be repeated in the morning Continue CPAP therapy PT OT evaluation ATTESTATION BY PHYSICIAN I have seen and examined the patient. I reviewed the documentation, medical decision making, and treatment plan as noted by the mid-level provider above. I agree with the findings and plan of care. Angel De La Torre IV, MD, [facility] B OPERATING ROOM TECHNICIAN Jan 06, 2025 12:21
[2025-01-06] MEDS: VANCOMYCIN 1.5 GM/250 ML BAG 250 ML IV SCH (13:21)
--- NOTE | 2025-01-06 15:28 | NUR ---
CT ON HOLD AT THIS TIME. ALESSANDRO JOEL STATES PT IS UNABLE TO MAKE TRIP TO CT AT THIS TIME. WILL CALL BACK WHEN READY.
--- NOTE | 2025-01-06 15:28 | PN ---
INFECTIOUS DISEASE PROGRESS NOTE Date of Service: Jan 06, 2025 SUBJECTIVE: This is a 59 year old male patient who was seen today at bedside in room 228. Patient is awake alert and oriented x3. No fever, temperature is 97.9 and continues on vancomycin and Meropenem. Denying nausea and vomiting. From Infectious Disease standpoint patient can be discharged on levofloxacin 750 mg daily and Augmentin 875 mg b.i.d. 10 days when ready to discharge. PHYSICAL EXAM EYES: Anicteric. Pupils equal and reactive. HENT: No oral thrush seen, moist Oral mucosa. NECK: Supple, no JVD or thyromegaly. LUNGS: diminished. No wheezing or rhonchi CARDIOVASCULAR: S1, S2 regular. No murmur heard. ABDOMEN: Soft, non tender, bowel sounds present, no organomegaly. Abdominal pain POA. CENTRAL NERVOUS SYSTEM: Awake, alert, oriented x 3. SKIN: No rashes, no swelling. LYMPHATICS: No peripheral lymphadenopathy. MUSCULOSKELETAL: No joint swelling, erythema or tenderness. EXTREMITIES: No cyanosis or clubbing. BACK: No deformity, no pressure ulcer. GENITOURINARY: No dysuria or hematuria. Vital Sign (Last 12 Hours) 01/06/25 01/06/25 01/06/25 01/06/25 04:00 06:45 06:46 07:56 Temp 98.2 98.8 Pulse 82 98 98 100 Resp 20 20 18 20 B/P (MAP) 126/65 112/72 Pulse Ox 94 96 O2 Delivery Room Air N/A Room Air Room Air FiO2 21 01/06/25 01/06/25 01/06/25 12:00 14:58 14:59 Temp 97.9 Pulse 100 109 109 Resp 20 18 20 B/P (MAP) 170/75 Pulse Ox 96 O2 Delivery Room Air N/A Room Air FiO2 21 Intake & Output (last 24hrs) 01/05/25 01/05/25 01/06/25 14:59 22:59 06:59 Intake Total 100.0 ml 350.0 ml Output Total 1300 ml 900 ml Balance -1200.0 ml -550.0 ml LABS: Laboratory: Test 01/06/25 04:42 01/06/25 00:51 01/05/25 03:46 01/05/25 03:44 Range/Units White Blood Count 6.7 4.8-10.8 K/uL Red Blood Count 4.08 L 4.50-6.20 MIL/uL Hemoglobin 10.9 L 14.0-18.0 g/dL Hematocrit 33.1 L 42-54 % Mean Corpuscular Volume 81.1 79-99 fL Mean Corpuscular Hemoglobin 26.7 L 27.0-33.0 pg Mean Corpuscular Hemoglobin Concent 32.9 32.0-36.0 g/dL Red Cell Distribution Width 17.5 H 11.0-15.5 % Platelet Count 156 130-400 K/uL Mean Platelet Volume 11.5 H 7.5-10.5 fL Immature Granulocyte % (Auto) 0.4 0-1 % Neutrophils (%) (Auto) 81.4 H 40.0-77.0 % Lymphocytes (%) (Auto) 8.5 L 21.0-51.0 % Monocytes (%) (Auto) 7.8 3.0-13.0 % Eosinophils (%) (Auto) 1.6 0.0-8.0 % Basophils (%) (Auto) 0.3 0.0-5.0 % Neutrophils # (Auto) 5.4 1.8-7.7 K/uL Lymphocytes # (Auto) 0.6 L 1.0-4.8 K/uL Monocytes # (Auto) 0.5 0.1-1.0 K/uL Eosinophils # (Auto) 0.11 0.00-0.70 K/uL Basophils # (Auto) 0.02 0.00-0.20 K/uL Absolute Immature Granulocyte (auto 0.03 0-1 K/uL Nucleated Red Blood Cells 0.0 0.0-0.19 % White Cell Morphology Comment See comments Sodium Level 136 136-145 mmol/L Potassium Level 4.5 3.5-5.1 mmol/L Chloride Level 102 101-111 mmol/L Carbon Dioxide Level 28 21-32 mmol/L Blood Urea Nitrogen 17 7-18 mg/dL Creatinine 1.0 0.5-1.3 mg/dL Glomerular Filtration Rate Calc 87 >90 mL/min Random Glucose 84 70-105 mg/dL Total Calcium 8.2 L 8.5-10.1 mg/dL Magnesium Level 2.10 1.80-2.40 mg/dL Total Bilirubin 0.8 0.2-1.0 mg/dL Aspartate Amino Transf (AST/SGOT) 69 H 10-37 U/L Alanine Aminotransferase (ALT/SGPT) 56 12-78 U/L Alkaline Phosphatase 168 H 50-136 U/L Total Protein 6.3 6.0-8.3 g/dL Albumin 1.7 L 3.5-5.0 g/dL Vancomycin Level Trough 9.2 L 10.0-20.0 UG/ML Blood Gas Specimen Type Arterial Arterial Blood pH 7.485 H 7.350-7.450 Arterial Blood Partial Pressure CO2 31 L 35-48 mmHg Arterial Blood Partial Pressure O2 81.6 L 83.0-108.0 mmHg Arterial Blood HCO3 22.5 21.0-28.0 mmol/L Arterial Blood Oxygen Saturation 96.9 94.0-98.0 % Arterial Blood Base Excess 0.1 -2.0-3.0 mmol/L Blood Gas Temperature 37.0 35.5-37.0 CELSIUS Blood Gas Vent Mode ROOMAIR ROOM AIR FiO2 21.0 % Blood Gas Specimen Comment LB RN AJ Prothrombin Time 11.4 9.6-11.6 SEC Prothromb Time International Ratio 1.08 0.85-1.15 Activated Partial Thromboplast Time 28.9 26.3-35.5 SEC Lactic Acid Level 1.4 0.8-2.5 mmol/L Phosphorus Level 3.6 2.5-4.9 mg/dL Lipase 328 H 16-77 U/L ASSESSMENT: Acute pancreatitis. Pneumonia. Persistent fevers. Sepsis. Leukocytosis, resolved. Acute renal failure, improving. Acute nonhemorrhagic stroke. Rhabdomyolysis. History of coronary artery disease. PLAN: Continue vancomycin per pharmacy protocol. Continue Meropenem IV. Continue bronchodilators. Avoid nephrotoxic medications. From Infectious Disease standpoint patient can be discharged on levofloxacin 750 mg daily and Augmentin 875 mg b.i.d. 10 days when ready to discharge. This case was reviewed and discussed with my supervising physician Dr. Rasmussen and the above assessment and plan was formulated and agreed upon. ATTESTATION BY PHYSICIAN I have seen and examined the patient. I reviewed the documentation, medical decision making, and treatment plan as noted by the mid-level provider above. I agree with the findings and plan of care. KARIE RASMUSSEN MD, MIRTA L [facility] Jan 06, 2025 15:28
[2025-01-06] MEDS ORDERED: IOHEXOL 350 MG/ML 100ML INFUS..BTL IV ONE (16:08)
--- NOTE | 2025-01-06 18:34 | PN ---
[facility] PROGRESS NOTE Date Patient Seen: Jan 06, 2025 Time of Visit: 18:30 Supervising Physician: CHERRI KIM MD Primary Care Physician: Tremayne Hernandez MD Outpatient Specialists: [ ] Inpatient Consults: SVETA, DR Butcher, Dr King, Dr Cramer, Dr Saleh PROBLEM LIST: Acute hypoxemic respiratory failure, POA Severe sepsis with MODS POA Acute Non ST elevation myocardial infarction on admission Atelectasis to left mid lung field. Cardiomegaly acute to subacute non-hemorrhagic CVA POA Acute pancreatitis, Bostic's criteria 1pont (1% predicted mortality) POA Cholelithiasis without evidence of cholecystitis Hepatomegaly with diffuse hepatic steatosis Trace ascites in the right upper quadrant Elevated D-dimer negative for PE and DVT to lower extremities Acute Kidney injury, POA Mild thrombocytopenia Thrombocytopenia, POA, mild Essential hypertension, POA Hyperlipidemia, POA Stage I diastolic dysfunction with the EF of 60-65% POA DIYA CAD Ray-Parkinson White syndrome Status post ablation Morbid obesity; BMI 54.7 INTERVAL HISTORY: Patient is seen and evaluated at bedside in room 228 He is using his BiPAP intermittently during the day and through most of the night Currently on room air, no acute distress Afebrile, awake and well hydrated Denies fevers, denies chills Voiding, no urgency or dysuria Chief complaint continues to be dyspnea on exertion with generalized weakness and fatigue. REVIEW OF SYSTEMS: 12 point review of systems done, all pertinent information addressed. PHYSICAL EXAM: GENERAL: alert, weak, awake oriented x 3 HEENT: EOMI, Sclera non icteric, moist mucosa NECK: Supple, no JVD, trachea midline LUNGS: Diminished breath sounds bilaterally. No wheezes HEART: Regular rate and rhythm. Normal S1 and S2, without murmurs ABD: Abdomen soft, morbidly obese, nontender. Bowel sounds present EXT: No clubbing cyanosis or edema NEURO: Alert and oriented to person, follows commands Vital Signs (last 8hr) Date Time Temp Pulse Resp B/P (MAP) Pulse Ox O2 Delivery O2 Flow Rate FiO2 01/06/25 16:00 99.0 95 20 125/75 96 Room Air 01/06/25 14:59 109 20 N/A Room Air 21 01/06/25 14:58 109 18 01/06/25 12:00 97.9 100 20 170/75 96 Room Air LABS: Hematology Labs: Test 01/06/25 04:42 Range/Units White Blood Count 6.7 4.8-10.8 K/uL Red Blood Count 4.08 L 4.50-6.20 MIL/uL Hemoglobin 10.9 L 14.0-18.0 g/dL Hematocrit 33.1 L 42-54 % Mean Corpuscular Volume 81.1 79-99 fL Mean Corpuscular Hemoglobin 26.7 L 27.0-33.0 pg Mean Corpuscular Hemoglobin Concent 32.9 32.0-36.0 g/dL Red Cell Distribution Width 17.5 H 11.0-15.5 % Platelet Count 156 130-400 K/uL Mean Platelet Volume 11.5 H 7.5-10.5 fL Immature Granulocyte % (Auto) 0.4 0-1 % Neutrophils (%) (Auto) 81.4 H 40.0-77.0 % Lymphocytes (%) (Auto) 8.5 L 21.0-51.0 % Monocytes (%) (Auto) 7.8 3.0-13.0 % Eosinophils (%) (Auto) 1.6 0.0-8.0 % Basophils (%) (Auto) 0.3 0.0-5.0 % Neutrophils # (Auto) 5.4 1.8-7.7 K/uL Lymphocytes # (Auto) 0.6 L 1.0-4.8 K/uL Monocytes # (Auto) 0.5 0.1-1.0 K/uL Eosinophils # (Auto) 0.11 0.00-0.70 K/uL Basophils # (Auto) 0.02 0.00-0.20 K/uL Absolute Immature Granulocyte (auto 0.03 0-1 K/uL Nucleated Red Blood Cells 0.0 0.0-0.19 % White Cell Morphology Comment See comments Chemistry Labs: Test 01/06/25 04:42 01/05/25 03:44 Range/Units Sodium Level 136 136-145 mmol/L Potassium Level 4.5 3.5-5.1 mmol/L Chloride Level 102 101-111 mmol/L Carbon Dioxide Level 28 21-32 mmol/L Blood Urea Nitrogen 17 7-18 mg/dL Creatinine 1.0 0.5-1.3 mg/dL Glomerular Filtration Rate Calc 87 >90 mL/min Random Glucose 84 70-105 mg/dL Total Calcium 8.2 L 8.5-10.1 mg/dL Magnesium Level 2.10 1.80-2.40 mg/dL Total Bilirubin 0.8 0.2-1.0 mg/dL Aspartate Amino Transf (AST/SGOT) 69 H 10-37 U/L Alanine Aminotransferase (ALT/SGPT) 56 12-78 U/L Alkaline Phosphatase 168 H 50-136 U/L Total Protein 6.3 6.0-8.3 g/dL Albumin 1.7 L 3.5-5.0 g/dL Lactic Acid Level 1.4 0.8-2.5 mmol/L Phosphorus Level 3.6 2.5-4.9 mg/dL Lipase 328 H 16-77 U/L Coagulation Labs: Test 01/05/25 03:44 Range/Units Prothrombin Time 11.4 9.6-11.6 SEC Prothromb Time International Ratio 1.08 0.85-1.15 Activated Partial Thromboplast Time 28.9 26.3-35.5 SEC DIAGNOSTICS / RADIOLOGY RESULTS: Reviewed PLAN Repeat blood cultures are negative > 72 hrs Patient is back to baseline from respiratory status Continue use of BiPAP Taper off steroids Will sign off from case today NEURO: Minimize central acting medications as possible. Maintain fall precautions, adequate lighting during the day PULMONARY: Supplemental 02 as needed. Maintain aspiration precautions at all times CARDIOVASCULAR: Follow hemodynamics. Vital signs per facility protocol GI & NUTRITION: Continue with nutritional support. Continue stool softeners and laxatives as needed. KIDNEYS & ELECTROLYTES: Strict monitoring of intake, output and overall fluid balance. Avoid nephrotoxic medications to the extent possible. Medications to be dosed according to renal function. Monitor electrolytes and replace as needed ENDOCRINE: Maintain blood glucose between 100-180 at all times. Hypoglycemia protocol in place INFECTIOUS DISEASE: Trend temperature, WBC and procalcitonin level Follow cultures, deescalate antibiotics as soon as possible. Panculture if new onset fever ONCOLOGY/HEMATOLOGY/COAGULATION: Monitor for s/s of bleeding Monitor hemoglobin, coagulation studies as needed SKIN: Pressure ulcer prevention per facility protocol Specialty mattress ORTHO/REHAB: Continue PT/OT Prophylaxis: Continue GI and DVT prophylaxis Code Status: Full Resuscitation Disposition: Per primary team I personally scribed for CHERRI KIM MD ([email or web address]) on 01/06/25 at 18:34. Electronically submitted by Angel Webster ([email or web address]). CHERRI KIM MD Jan 06, 2025 18:34
--- NOTE | 2025-01-06 20:34 | PN ---
FOLLOWUP PROGRESS NOTE SUBJECTIVE: A 59-year-old male with a history of known sleep apnea. He presented to the hospital with acute renal failure and electrolyte abnormalities. The patient's renal function has improved. The patient with significant fevers, which have also improved. He remains on broad spectrum IV antibiotics. The patient has been seen by the ID service and he is being seen for all the above. REVIEW OF SYSTEMS: CONSTITUTIONAL: He is feeling improved since admission. HEENT: No change in vision. No change in hearing. CARDIOVASCULAR: There are no current chest pains or palpitations. PULMONARY: He has chronic shortness of breath. GASTROINTESTINAL: He is tolerating a diet. MUSCULOSKELETAL: He complains of weakness. PHYSICAL EXAMINATION: VITAL SIGNS: Blood pressure is 112/72, pulse 100s, afebrile. GENERAL: Chronically old male, much older than appearing. HEENT: Head is atraumatic. Pupils are equal, round, and reactive to light. Oropharynx is without exudate. Nares are clear. NECK: There is no JVP. There is no thyromegaly. No masses. CARDIOVASCULAR: Regular. There is no S3 or S4 gallop. LUNGS: Coarse with equal thoracic movement. ABDOMEN: Soft, nondistended, and nontender. EXTREMITIES: Reveal no clubbing, no cyanosis. NEUROLOGICAL: He is awake. He is alert. LABORATORY DATA: 33, BUN 17, creatinine 1, sodium 136, . IMPRESSION: 1. Acute renal failure. 2. History of sleep apnea. 3. Hypertension. 4. Leukocytosis. PLAN: The patient's renal function has remained stable. The patient is encouraged with fluid restriction for the hyponatremia. The patient's fevers are much improved. He remains on broad spectrum IV antibiotics. The patient has been tolerating a diet without difficulty. We will continue to follow closely. Once the patient is discharged, he can follow up in the Renal clinic. TID: [id number] RECEIPT: [id number]
[2025-01-07] VITALS (13 sets, daily range): BP systolic 125–178; BP diastolic 74–86; PULSE 89–122; RESP 18–30; TEMP 97.6–99.3; O2SAT 95–100
[2025-01-07] MEDS ORDERED: LEVO750T90 PO (07:06)
[2025-01-07] MEDS ORDERED: AMOX1TAB16 PO (07:06)
[2025-01-07] MEDS ORDERED: ASPI-1005 PO (07:06)
[2025-01-07] MEDS ORDERED: METO25TA3 PO (07:06)
[2025-01-07] MEDS ORDERED: ATOR40TA69 PO (07:06)
[2025-01-07] MEDS ORDERED: Folic Acid/Vitamin B Comp W-C PO (07:06)
[2025-01-07] MEDS ORDERED: FAMO40TA7 PO (07:06)
[2025-01-07] MEDS ORDERED: THIA100T91 PO (07:12)
--- NOTE | 2025-01-07 07:18 | DS ---
Discharge Summary Hospital Course Summary: DATE OF ADMISSION:[12/28/2024] DATE OF DISCHARGE:[01/07/2025] DISPOSITION:[Home] CONDITION:[Medical stable] CONSULTANTS:[Sales Clerk Food, GI, ID, auto heater mechanic, unmanned equipment operator, neurologist] FOLLOW UP APPOINTMENTS:[PCP 2 to 3 days. Sales Clerk Food within two weeks. GI within one week. Earth Sciences Professor within two weeks. Eyelet Punch Operator within one week. Neurologist within two weeks.] PROCEDURES:[None] IMAGING: report attached to summary MICROBIOLOGY: report attached to summary ACTIVITY: Independent [] HOME MEDICATIONS: see med oss health NEW MEDICATIONS:[Levofloxacin 750 mg daily times 10 days, Augmentin 875 mg p.o. b.i.d. times 10 days as recommended by ID. Aspirin 81 mg daily. Atorvastatin 40 mg p.o., famotidine 40 mg, folic acid with vitamin-B complex, metoprolol 25 mg p.o. daily, thiamine 100 mg daily] EMERGENCY INSTRUCTIONS: The patient was instructed to present to the nearest Emergency departmentr or call 911 once their symptoms will return or worsen Public Works Supervisor(s): Patient is 59 years old male who came to emergency department with a complaint of respiratory failure, pneumonia, non-STEMI and acute pancreatitis. Serum lipase on admission 497. Patient was 1st started on doxycycline and Zosyn. ID once consulted for IV antibiotics. 2D echo was performed showed EF of 60 65%. Due to confusion we also performed CT head brain which was negative and MRI brain showed acute infarct in the right basal ganglia similar to the CT brain dated 12/28/2024. Neurologist was consulted. Electrolytes were replaced throughout the hospitalization due to sleep apnea patient was on CPAP at night and pulmonology team was following the patient. On 01/01/2025 patient had a fe bernarda of 102.9 and remain under IV antibiotics as directed by ID. Flu a, flu B and COVID swabs were negative. Chest x-ray showed left lower lobe pneumonia but no significant interval change. Due to shortness of breaths and chest pain that patient developed 01/03/2025 patient was evaluated by the erosion control coordinator and per his recommendation no further cardiac workup to be performed. Final urine culture were negative final blood culture negative. Since the patient continue to have fevers antibiotics were changed by ID to vanco and Merrem. Due to abdominal pain/acute pancreatitis patient was also evaluated by the GI and as per GI note continue supportive care with opiate analgesics and antiemetics. Patient's oral intake was resumed and patient is on cardiac diet. We will order CT with IV contrast as recommended after48 hours of IV fluids we will assess for necrosis. CT abdomen with IV contrast was ordered. Sales Clerk Food signed off follow-up in two weeks. As per ID patient was cleared to be discharged home on levofloxacin 700 mg daily times 10 days and Augmentin 875 mg b.i.d. times 10 days. Patient was also cleared by the auto heater mechanic follow up outpatient within two weeks. As per unmanned equipment operator follow up outpatient within two weeks. And also as per neurologist follow-up outpatient within two weeks. Patient was also advised to follow up with the PCP in 2 to 3 days. RN to contact GI and ask if patient is cleared since patient is tolerating all the food and fluid intake. Patient denies any shortness of breath, chest pain, nausea, vomiting or abdominal pain. Patient to follow up with the GI as indicated. Procedure(s): REVIEW OF SYSTEMS CONSTITUTIONAL: generalized fatigue, malaise NEUROLOGICAL: Denies headache, amaurosis fugax, motor weakness, sensory deficit, vertigo/spinning sensation, gait abnormalities, or tremors. ENT: No hearing loss, otalgia, otorrhea, rhinitis, rhinorrhea, hoarseness, or s ore throat. CARDIOVASCULAR: Denies any exertional angina, dyspnea on exertion, orthopnea, paroxysmal nocturnal dyspnea, palpitations, life-threatening arrhythmias, claudication. PULMONARY: Denies shortness of breaths. Denies any diaphoresis SLEEP: Denies morning headaches, daytime somnolence or napping. Denies difficulty falling asleep, staying asleep, waking from sleep. Denies knowledge of snoring. GASTROINTESTINAL: Denies any nausea, vomiting or abdominal pain GENITOURINARY: Denies frequency, urgency, nocturia, hematuria or incontinence (Storage/Irritative symptoms.) Low urinary stream, straining to void, urinary intermittency or hesitancy, splitting of the voiding stream, terminal dribbling. ENDOCRINOLOGIC: Denies polyuria, polydipsia, polyphagia or heat/cold intoler ances. HEMATOLOGIC: Denies thrombophilia/previous clots, or coagulopathy/bleeding disorders. ONCOLOGIC: Denies personal history of malignancy. DERMATOLOGIC: Denies rashes or pruritus. PSYCHIATRIC: Denies any suicidal or homicidal ideation. Denies hallucinations. PHYSICAL EXAM GENERAL APPEARANCE: The patient is awake, alert, patient appears very diaphoretic, currently on 3 L supplementation by nasal cannula, patient is morbidly obese NEUROLOGICAL: Cranial nerves II-XII grossly intact. Examination is nonfocal for the patient HEENT: Face is symmetric. Pupils are equal and reactive. Extraocular movements are intact. NECK: Supple. No JVD. No thyromegaly. No submental, submandibular, pre- /postauricular, occipital or supraclavicular lymphadenopathy. CHEST: Normal chest expansion. No Telemetry. LUNGS: Minimal crackles noted at bilateral lung bases CARDIOVASCULAR: Regular. S1 and S2 normal. Tachycardic was ABDOMEN: Soft, nontender, and nondistended. There is no rebound, voluntary guarding, or rigidity. : Deferred. No [place]. EXTREMITIES: Non-edematous and not cyanotic. No clubbing. Good capillary refill. SKIN: No skin breakdown. Assessment/Plan: ASSESSMENT: 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 Acute hypoxemic respiratory failure, POA Community-acquired pneumonia, POA Undiagnosed obstructive sleep apnea Acute diastolic congestive heart failure as per 2D echo Elevated cardiac troponin, rule out active ACS, POA acute pancreatitis likely 2/2 gall stones Acute Kidney injury, POA Hyponatremia, POA Morbid obesity, POA Sinus tachycardia, POA Thrombocytopenia, POA, mild Underlying history of obstructive sleep apnea, POA Hypertension, POA Hyperlipidemia, POA History of OR, POA History of coronary artery disease with prior history of PCI, POA 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 I reviewed the documentation, medical decision making, and treatment plan as noted by the mid-level provider above. I agree with the findings and plan of care. Angel De La Torre IV, MD, KATARZYNA B APRN Jan 07, 2025 07:18
--- NOTE | 2025-01-07 09:55 | HMCIMG ---
CT ABDOMEN/PELVIS W/CONTRAST HISTORY: necrosis of pancrease. COMPARISON: None. TECHNIQUE: Sequential axial images through abdomen and pelvis were performed. Patient was given 100 mL of Omnipaque IV. Coronal and sagittal reformats were obtained. FINDINGS: Lung bases: Demonstrate atelectasis in both lung bases. Liver: Normal size and enhancement throughout. Portal vein: Patent. Gallbladder: Has pericholecystic edema with multiple gallstones. The gallbladder has a pharyngeal cap.. Spleen: Normal. Kidneys: Normal size and shape. Adrenal glands: Normal Pancreas: There is severe peripancreatic fat stranding. There is no fluid collection or pseudocyst identified. The fat stranding is extending to the left colic gutter. Stomach and small bowel: The stomach appears to have a post surgical changes suggesting of gastric sleeve or other bariatric surgery.. Colon: Unremarkable. Appendix: Normal. Bladder: Partially distended and unremarkable. Reproductive system: The prostate and seminal vesicle appears to be normal.. Abdominal aorta: Normal caliber. Skeletal: No acute abnormality. IMPRESSION: Acute pancreatitis with fat stranding no pseudocyst or free fluid identified. Cholelithiasis with pericholecystic edema suggesting of acute cholecystitis.
--- NOTE | 2025-01-07 11:45 | NUR ---
DR. CROFT Spoke to Dr. Croft regarding CT ABD/Pelvis results and went over patient's previous exams US Abd/pelvis, LFTS, GI notes. Dr. Croft made his recommendations. Orders received.
--- NOTE | 2025-01-07 11:50 | NUR ---
CRISTA BOLTON Spoke to CRISTA Bolton concerning what Dr. Croft had stated and his recommendations. Orders received.
--- NOTE | 2025-01-07 14:23 | PN ---
FOLLOWUP PROGRESS NOTE SUBJECTIVE: A 59-year-old male who has had a prolonged hospital course. The patient initially admitted with acute renal failure. The patient also with multiple electrolyte abnormalities. The patient had significant fevers and leukocytosis, which have improved. CT scan did reveal pancreatitis and the patient is tolerating a diet without difficulty. He is being seen as a followup visit for all of the above. REVIEW OF SYSTEMS: GENERAL: The patient is feeling weak and tired. HEENT: No change in vision. No change in hearing. CARDIOVASCULAR: There is no current chest pains or palpitations. PULMONARY: There is no shortness of breath. GASTROINTESTINAL: The patient is tolerating a diet. MUSCULOSKELETAL: Complains of weakness. PHYSICAL EXAMINATION: VITAL SIGNS: Blood pressure 125/74, pulse is 100. He is afebrile. GENERAL: Chronically ill male, obese, lying in bed on the medical floor. HEENT: Head is atraumatic. Pupils are equal, round and reactive to light. Oropharynx is without exudate. Nares are clear. NECK: There is no JVP. There is no thyromegaly, no mass. CARDIOVASCULAR: Regular. There is no S3 or S4 gallop. LUNGS: Coarse with equal thoracic movement. ABDOMEN: Soft, nondistended, nontender. EXTREMITIES: Reveal no clubbing, no cyanosis. NEUROLOGICAL: He is awake. He is alert. He is at his baseline. LABORATORY DATA: Sodium 136, potassium 4.5, BUN 17, creatinine is 1. IMPRESSION: * Acute renal failure. * Electrolyte abnormalities. * Pancreatitis. * Sleep apnea. PLAN: The patient's creatinine is much improved. The patient's CT scan is noted. GI workup is ongoing. The patient had been tolerating diet without difficulty. Serum sodium continues to improve. He is encouraged on the fluid restriction. We will continue to follow closely. Once the patient is discharged, the patient can follow up in the Renal Clinic. TID: [id number] RECEIPT: [id number]
--- NOTE | 2025-01-07 18:32 | HMCIMG ---
Examination Hepatobiliary study History R/O ACTUE CHOLECYSTITIS (Hx) / R/O ACTUE CHOLECYSTITIS, Static Images (DICOM Hx) (DICOM Hx) Technique Tc-99m mebrofenin were administered intravenously followed by acquisition of planar images of the abdomen. Findings Following administration of radiotracer, there is prompt appearance of normal hepatic contours, followed by appearance of activity in unremarkable appearing bile ducts. There is nonvisualization of the gallbladder at the conclusion of the examination suggesting acute cholecystitis. IMPRESSION: 1. Nonvisualization of the gallbladder, suggesting acute cholecystitis. /[place]
--- NOTE | 2025-01-07 20:37 | CONS ---
GENERAL SURGERY CONSULTATION NOTE Date/Time Patient Seen: [01/07/2025 5:30 PM ] Requesting Physician: [Dr. Hernandez ] Reason for Consultation: [Acute cholecystitis ] History of Present Illness: Patient is 59 years old male who has had a prolonged hospitalization including 2 ischemic strokes, non-STEMI, respiratory failure and acute pancreatitis Our surgical team was consulted for possible acute cholecystitis since patient continues having fever and elevated WBCs Hospitalist and consultants had already cleared patient to be discharged home but ID specialist recommended surgical consult Patient is denying any abdominal pain, nausea or vomiting HIDA scan was done today, but pending results Labs were not done today Last WBCs at 6.7 H&H 10.9 and 33.1 LFTs and bilirubin trending down Past Medical History: [ ] Past Surgical History: [ ] Family History: [ ] Social History: [ ] Habits: [Never] smoker. [Denies] alcohol consumption. [Denies] illicit drug use Current Medications Medications (Trade) Dose Ordered Sig/Donald Route Start Time Stop Time Status Last Admin Dose Admin Aspirin (Aspirin 81mg Chew Tab) 81 mg DAILY PO 12/29/24 09:00 01/28/25 08:59 01/07/25 08:11 81 MG Atorvastatin Calcium (LIPItor 40MG) 40 mg HS PO 12/29/24 21:00 01/28/25 20:59 01/06/25 21:01 40 MG Clopidogrel Bisulfate (plaVIX 75MG) 75 mg Q24H PO 12/28/24 20:30 12/28/24 22:21 DC 12/28/24 21:23 75 MG Doxycycline Hyclate 250 ml @ 125 mls/hr Q12H IV 12/28/24 14:30 01/04/25 11:42 DC 01/04/25 03:00 125 MLS/HR Enoxaparin Sodium (Lovenox) 40 mg DAILY SQ 12/29/24 09:00 01/28/25 08:59 01/07/25 08:12 40 MG Famotidine (Pepcid 20mg Vial) 20 mg Q24H IV 12/28/24 21:00 01/27/25 20:59 01/06/25 20:59 20 MG Ipratropium [place] (AtrovENT UD) 0.5 MG [id number] IH 12/30/24 22:00 01/29/25 21:59 01/07/25 14:20 0.5 MG Lactulose (Constulose 20gm/ 30ml Udcup) 20 gm Q6H6 PO 12/29/24 12:00 12/29/24 11:49 DC Lactulose (Constulose 20gm/ 30ml Udcup) 20 gm TID PO 12/29/24 14:00 01/01/25 14:30 DC 12/30/24 13:55 20 GM Meropenem (Merrem 1gm) 1 gm Q8H IVPB 01/04/25 12:00 01/05/25 11:09 DC 01/05/25 03:42 1 GM Meropenem (Merrem 1gm) 1 gm Q8H IVPB 01/05/25 12:00 01/15/25 11:59 01/07/25 12:31 1 GM Metoprolol Succinate (TopROL XL) 25 mg DAILY PO 12/28/24 13:00 01/27/25 12:59 01/07/25 08:11 25 MG Pharmacy Profile Note (Pharmacy Communication) 1 each ONCE MISC 01/04/25 12:00 01/04/25 11:57 DC Piperacillin Sod/ Tazobactam Sod (Zosyn 3.375gm+NS 50ml) 3.375 gm Q8H IVPB 12/28/24 12:00 01/04/25 11:42 DC 01/04/25 05:53 3.375 GM Procainamide HCl 2000 mg/Sodium Chloride 250 ml @ 0 mls/hr PROTOCOL IV 12/28/24 10:00 12/28/24 10:42 DC Sodium Chloride 1,000 ml @ 100 mls/hr Q10H IV 12/28/24 12:00 12/29/24 09:23 DC 12/29/24 09:14 100 MLS/HR Sodium Chloride (NS 50ml) 50 ml AD IV 12/28/24 12:00 12/28/24 11:59 DC Thiamine HCl (Vitamin B-1) 100 mg Q24H IVP 12/28/24 12:00 01/27/25 11:59 01/07/25 12:30 100 MG Vancomycin HCl 250 ml @ 125 mls/hr Q12H IV 01/05/25 02:00 01/06/25 04:05 DC 01/06/25 02:37 125 MLS/HR Vancomycin HCl 250 ml @ 125 mls/hr Q12H IV 01/06/25 14:00 01/16/25 13:59 01/07/25 14:09 125 MLS/HR Vancomycin HCl (Vancomycin Protocol) 1 each AD IV 01/04/25 12:00 01/18/25 11:59 Vitamin B Complex/ Vit C/Folic Acid (Nephrovite Tablet) 1 cap DAILY PO 12/29/24 09:00 01/28/25 08:59 01/07/25 08:11 1 CAP Review of Systems: CONST: [+ fever.] EYES: [No recent vision problems.] ENT: [No congestion, ear pain, or sore throat.] C/V: [No chest pain, palpitations, or edema.] RESP: [No cough, congestion, wheezing or shortness of breath.] GI: [No abdominal pain, nausea, vomiting, constipation, or diarrhea.] : [No incontinence or dysuria.] SKIN: [No rash.] NEURO: [No headache, focal numbness or weakness, dizziness, or seizures.] Physical Examination: GENERAL: [No acute distress, morbidly obese male, comfortably sitting up in chair.] HEAD: [Normocephalic.] EYES: [Nonicteric sclera bilaterally.] ENT: [Hearing grossly intact.] NECK: [Supple without JVD.] LUNGS: [Clear breath sounds bilaterally.] HEART: [Normal rate and rhythm] VASC: [Peripheral pulses +2 bilaterally.] ABD: [Bowel sounds normal, soft, nontender, no masses, no organomegaly] : [Not examined] EXT: [No clubbing, cyanosis or edema.] SKIN: [No rashes or lesions noted.] NEURO: [Awake, alert, and oriented x3. No focal sensory or strength deficits noted.] Vital Signs (last 8hr) Date Time Temp Pulse Resp B/P (MAP) Pulse Ox O2 Delivery O2 Flow Rate FiO2 01/07/25 16:16 98.8 102 18 143/85 98 Room Air 01/07/25 14:21 89 22 Laboratory: [ ] Hematology Labs: Test 01/06/25 04:42 Range/Units White Blood Count 6.7 4.8-10.8 K/uL Red Blood Count 4.08 L 4.50-6.20 MIL/uL Hemoglobin 10.9 L 14.0-18.0 g/dL Hematocrit 33.1 L 42-54 % Mean Corpuscular Volume 81.1 79-99 fL Mean Corpuscular Hemoglobin 26.7 L 27.0-33.0 pg Mean Corpuscular Hemoglobin Concent 32.9 32.0-36.0 g/dL Red Cell Distribution Width 17.5 H 11.0-15.5 % Platelet Count 156 130-400 K/uL Mean Platelet Volume 11.5 H 7.5-10.5 fL Immature Granulocyte % (Auto) 0.4 0-1 % Neutrophils (%) (Auto) 81.4 H 40.0-77.0 % Lymphocytes (%) (Auto) 8.5 L 21.0-51.0 % Monocytes (%) (Auto) 7.8 3.0-13.0 % Eosinophils (%) (Auto) 1.6 0.0-8.0 % Basophils (%) (Auto) 0.3 0.0-5.0 % Neutrophils # (Auto) 5.4 1.8-7.7 K/uL Lymphocytes # (Auto) 0.6 L 1.0-4.8 K/uL Monocytes # (Auto) 0.5 0.1-1.0 K/uL Eosinophils # (Auto) 0.11 0.00-0.70 K/uL Basophils # (Auto) 0.02 0.00-0.20 K/uL Absolute Immature Granulocyte (auto 0.03 0-1 K/uL Nucleated Red Blood Cells 0.0 0.0-0.19 % White Cell Morphology Comment See comments Chemistry Labs: Test 01/07/25 19:32 01/06/25 04:42 Range/Units Whole Blood Glucose 95 70-110 MG/DL Sodium Level 136 136-145 mmol/L Potassium Level 4.5 3.5-5.1 mmol/L Chloride Level 102 101-111 mmol/L Carbon Dioxide Level 28 21-32 mmol/L Blood Urea Nitrogen 17 7-18 mg/dL Creatinine 1.0 0.5-1.3 mg/dL Glomerular Filtration Rate Calc 87 >90 mL/min Random Glucose 84 70-105 mg/dL Total Calcium 8.2 L 8.5-10.1 mg/dL Magnesium Level 2.10 1.80-2.40 mg/dL Total Bilirubin 0.8 0.2-1.0 mg/dL Aspartate Amino Transf (AST/SGOT) 69 H 10-37 U/L Alanine Aminotransferase (ALT/SGPT) 56 12-78 U/L Alkaline Phosphatase 168 H 50-136 U/L Total Protein 6.3 6.0-8.3 g/dL Albumin 1.7 L 3.5-5.0 g/dL Diagnostics / Radiology: [[facility] [address] [place] [address] IMAGING REPORT Signed PATIENT: KINGA JONES MR#: [id number] : 1965 SEX: M AGE: 59 LOCATION: 2DH ORDER 1216 STATUS: ADM IN REPORT#: [id number] SERVICE 1214 REASON: necrosis of pancrease ORDERING PHYSICIAN: EILEEN HERNANDEZ APRN PROCEDURE: ABD PEL W - CT ABDOMEN/PELVIS W/CONTRAST CT ABDOMEN/PELVIS W/CONTRAST HISTORY: necrosis of pancrease. COMPARISON: None. TECHNIQUE: Sequential axial images through abdomen and pelvis were performed. Patient was given 100 mL of Omnipaque IV. Coronal and sagittal reformats were obtained. FINDINGS: Lung bases: Demonstrate atelectasis in both lung bases. Liver: Normal size and enhancement throughout. Portal vein: Patent. Gallbladder: Has pericholecystic edema with multiple gallstones. The gallbladder has a pharyngeal cap.. Spleen: Normal. Kidneys: Normal size and shape. Adrenal glands: Normal Pancreas: There is severe peripancreatic fat stranding. There is no fluid collection or pseudocyst identified. The fat stranding is extending to the left colic gutter. Stomach and small bowel: The stomach appears to have a post surgical changes suggesting of gastric sleeve or other bariatric surgery.. Colon: Unremarkable. Appendix: Normal. Bladder: Partially distended and unremarkable. Reproductive system: The prostate and seminal vesicle appears to be normal.. Abdominal aorta: Normal caliber. Skeletal: No acute abnormality. IMPRESSION: Acute pancreatitis with fat stranding no pseudocyst or free fluid identified. Cholelithiasis with pericholecystic edema suggesting of acute cholecystitis. DICTATED BY: KIM THOMPSON MD DATE: 01/07/25949 ELECTRONICALLY SIGNED BY: KIM THOMPSON MD DATE: 01/07/25954 Plan: [59-year-old male with suspected cholecystitis HIDA scan done today, pending results Patient is currently asymptomatic May start clear liquid diet Check labs in a.m. From surgical standpoint, if HIDA scan is positive cholecystectomy surgery is not recommended at this time due to patient's recent pulmonary complications and to ischemic stroke during this hospitalization If HIDA scan is positive, we will recommend for IR to place cholecystostomy drain Elective Cholecystectomy surgery can be planned in the future as an outpatient once patient has recovered from this prolonged hospitalization We will order cardiac clearance for when patient does require surgery Continue with IV antibiotics as per ID specialist's recommendations Surgical team will continue to follow closely Dr. Claros updated on patient's status Surgical case has been discussed with my Supervising physician plan of care was formulated and agreed upon We appreciate the hospitalist team for allowing us to participate in this patient's care Greater than 55 minutes spent examining patient, reviewing chart and working on documentation] ATTESTATION BY PHYSICIAN I have seen and examined the patient. I reviewed the documentation, medical decision making, and treatment plan as noted by the mid-level provider above. I agree with the findings and plan of care. MD MATHIEU rBunner LETICIA A APRN Jan 07, 2025 20:37
[2025-01-08] VITALS (16 sets, daily range): BP systolic 139–163; BP diastolic 74–101; PULSE 98–109; RESP 20–30; TEMP 98.8–100.5; O2SAT 95–100
[2025-01-08 03:50] LABS: IMMATURE GRANULOCYTE ABSOLUTE 0.05 K/uL (0-1); NUCLEATED RED BLOOD CELLS 0.0 % (0.0-0.19); PLATELET COUNT (AUTO) 199 K/uL (130-400); RED BLOOD CELL COUNT(AUTO) 4.04 MIL/uL (4.50-6.20); RED CELL DISTRIBUTION WIDTH 17.7 % (11.0-15.5); WHITE BLOOD COUNT (AUTO) 7.4 K/uL (4.8-10.8)
[2025-01-08 04:09] LABS: ASPARTATE AMINOTRANSFERASE 135.0 U/L (10-37); CREATININE 1.0 mg/dL (0.5-1.3); GLOMERULAR FILTR. RATE CALC 87.0 mL/min (>90); GLUCOSE,RANDOM 83.0 mg/dL (70-105); SODIUM SERUM 135.0 mmol/L (136-145); TOTAL PROTEIN, SERUM 6.4 g/dL (6.0-8.3); UREA NITROGEN, BLOOD 16.0 mg/dL (7-18)
--- NOTE | 2025-01-08 08:43 | PN ---
INFECTIOUS DISEASE FOLLOWUP NOTE DATE OF SERVICE: 01/07/2025 SUBJECTIVE: The patient is seen and examined at bedside. No fever or chills. No nausea. No vomiting. No abdominal pain. No sore throat or rhinorrhea. No bleeding tendency. Denies dysuria or hematuria. CT of the abdomen showed hepatitis and cholecystitis. The patient has been seen by GI. PHYSICAL EXAMINATION: VITAL SIGNS: Temperature 97.5. EYES: No icterus. Pupils equal and reactive. HENT: No oral thrush seen. Moist oral mucosa. NECK: Supple. No JVD or thyromegaly. LUNGS: Good air entry. No rales. No rhonchi. CARDIOVASCULAR: S1 and S2 regular. No murmur heard. ABDOMEN: Obese, soft, nontender. Bowel sounds are present. CENTRAL NERVOUS SYSTEM: Awake, alert, oriented x 3. No focal deficits. SKIN: No rashes. No itchiness. LYMPHATIC: No peripheral lymphadenopathy. BACK: No deformity. No pressure ulcer. MUSCULOSKELETAL: No joint swelling. No erythema or tenderness. ASSESSMENT: A 59-year-old male with multiple problems include: * Sepsis. * Pneumonia. * Severe pancreatitis. * Morbid obesity. * Obstructive sleep apnea. * . * Acute renal failure. * Cholecystitis. PLAN: * Continue my plan. * Continue vancomycin. * Continue doxycycline. * Continue bypass. * Continue DVT prophylaxis. * Monitor electrolytes. * The patient will follow up closely. TID: [id number] RECEIPT: [id number]
--- NOTE | 2025-01-08 10:47 | PN ---
GENERAL SURGERY PROGRESS NOTE Date/Time Patient Seen: [01/08/2025 08:30 ] Interval History: [59-year-old male consulted to surgery group for concerns of cholecystitis HIDA scan done yesterday is positive for acute cholecystitis Patient has many comorbidities including prolonged hospitalization due due to ischemic strokes x2, acute respiratory failure, morbid obesity, CAD Patient is asymptomatic and has been tolerating clear liquids without any nausea or vomiting WBCs 7.4 H&H 10.9 and 30 2.7 LFTs and bilirubin are trending up ] Current Medications Medications (Trade) Dose Ordered Sig/Donald Route Start Time Stop Time Status Last Admin Dose Admin Aspirin (Aspirin 81mg Chew Tab) 81 mg DAILY PO 12/29/24 09:00 01/28/25 08:59 01/08/25 08:39 81 MG Atorvastatin Calcium (LIPItor 40MG) 40 mg HS PO 12/29/24 21:00 01/28/25 20:59 01/07/25 20:42 40 MG Clopidogrel Bisulfate (plaVIX 75MG) 75 mg Q24H PO 12/28/24 20:30 12/28/24 22:21 DC 12/28/24 21:23 75 MG Doxycycline Hyclate 250 ml @ 125 mls/hr Q12H IV 12/28/24 14:30 01/04/25 11:42 DC 01/04/25 03:00 125 MLS/HR Enoxaparin Sodium (Lovenox) 40 mg DAILY SQ 12/29/24 09:00 01/28/25 08:59 01/08/25 08:40 40 MG Famotidine (Pepcid 20mg Vial) 20 mg Q24H IV 12/28/24 21:00 01/27/25 20:59 01/07/25 20:42 20 MG Ipratropium [place] (AtrovENT UD) 0.5 MG [id number] IH 12/30/24 22:00 01/29/25 21:59 01/08/25 07:20 0.5 MG Lactulose (Constulose 20gm/ 30ml Udcup) 20 gm Q6H6 PO 12/29/24 12:00 12/29/24 11:49 DC Lactulose (Constulose 20gm/ 30ml Udcup) 20 gm TID PO 12/29/24 14:00 01/01/25 14:30 DC 12/30/24 13:55 20 GM Meropenem (Merrem 1gm) 1 gm Q8H IVPB 01/04/25 12:00 01/05/25 11:09 DC 01/05/25 03:42 1 GM Meropenem (Merrem 1gm) 1 gm Q8H IVPB 01/05/25 12:00 01/15/25 11:59 01/08/25 04:11 1 GM Metoprolol Succinate (TopROL XL) 25 mg DAILY PO 12/28/24 13:00 01/27/25 12:59 01/08/25 08:39 25 MG Pharmacy Profile Note (Pharmacy Communication) 1 each ONCE MISC 01/04/25 12:00 01/04/25 11:57 DC Piperacillin Sod/ Tazobactam Sod (Zosyn 3.375gm+NS 50ml) 3.375 gm Q8H IVPB 12/28/24 12:00 01/04/25 11:42 DC 01/04/25 05:53 3.375 GM Procainamide HCl 2000 mg/Sodium Chloride 250 ml @ 0 mls/hr PROTOCOL IV 12/28/24 10:00 12/28/24 10:42 DC Sodium Chloride 1,000 ml @ 100 mls/hr Q10H IV 12/28/24 12:00 12/29/24 09:23 DC 12/29/24 09:14 100 MLS/HR Sodium Chloride (NS 50ml) 50 ml AD IV 12/28/24 12:00 12/28/24 11:59 DC Thiamine HCl (Vitamin B-1) 100 mg Q24H IVP 12/28/24 12:00 01/27/25 11:59 01/07/25 12:30 100 MG Vancomycin HCl 250 ml @ 125 mls/hr Q12H IV 01/05/25 02:00 01/06/25 04:05 DC 01/06/25 02:37 125 MLS/HR Vancomycin HCl 250 ml @ 125 mls/hr Q12H IV 01/06/25 14:00 01/16/25 13:59 01/08/25 01:01 125 MLS/HR Vancomycin HCl (Vancomycin Protocol) 1 each AD IV 01/04/25 12:00 01/18/25 11:59 Vitamin B Complex/ Vit C/Folic Acid (Nephrovite Tablet) 1 cap DAILY PO 12/29/24 09:00 01/28/25 08:59 01/08/25 08:39 1 CAP Physical Examination: GENERAL: [No acute distress, morbidly obese male, comfortably sitting up in chair.] HEAD: [Normocephalic.] EYES: [Nonicteric sclera bilaterally.] ENT: [Hearing grossly intact.] NECK: [Supple without JVD.] LUNGS: [Clear breath sounds bilaterally.] HEART: [Normal rate and rhythm] VASC: [Peripheral pulses +2 bilaterally.] ABD: [Abdomen is soft, nondistended, no tenderness on deep palpation, no guarding or rigidity,] : [Not examined] EXT: [No clubbing, cyanosis or edema.] SKIN: [No rashes or lesions noted.] NEURO: [Awake, alert, and oriented x3. No focal sensory or strength deficits noted Vital Signs (last 8hr) Date Time Temp Pulse Resp B/P (MAP) Pulse Ox O2 Delivery O2 Flow Rate FiO2 01/08/25 08:00 99.3 109 21 139/74 94 Room Air 01/08/25 07:21 108 22 01/08/25 07:20 108 20 N/A Room Air 21 01/08/25 04:00 99.9 102 23 163/101 97 Room Air Laboratory: [ ] Hematology Labs: Test 01/08/25 03:20 Range/Units White Blood Count 7.4 4.8-10.8 K/uL Red Blood Count 4.04 L 4.50-6.20 MIL/uL Hemoglobin 10.9 L 14.0-18.0 g/dL Hematocrit 32.7 L 42-54 % Mean Corpuscular Volume 80.9 79-99 fL Mean Corpuscular Hemoglobin 27.0 27.0-33.0 pg Mean Corpuscular Hemoglobin Concent 33.3 32.0-36.0 g/dL Red Cell Distribution Width 17.7 H 11.0-15.5 % Platelet Count 199 # 130-400 K/uL Mean Platelet Volume 12.3 H 7.5-10.5 fL Immature Granulocyte % (Auto) 0.7 0-1 % Neutrophils (%) (Auto) 81.1 H 40.0-77.0 % Lymphocytes (%) (Auto) 10.2 L 21.0-51.0 % Monocytes (%) (Auto) 6.5 3.0-13.0 % Eosinophils (%) (Auto) 1.2 0.0-8.0 % Basophils (%) (Auto) 0.3 0.0-5.0 % Neutrophils # (Auto) 6.0 1.8-7.7 K/uL Lymphocytes # (Auto) 0.8 L 1.0-4.8 K/uL Monocytes # (Auto) 0.5 0.1-1.0 K/uL Eosinophils # (Auto) 0.09 0.00-0.70 K/uL Basophils # (Auto) 0.02 0.00-0.20 K/uL Absolute Immature Granulocyte (auto 0.05 0-1 K/uL Nucleated Red Blood Cells 0.0 0.0-0.19 % Chemistry Labs: Test 01/08/25 03:20 01/07/25 19:32 Range/Units Sodium Level 135 L 136-145 mmol/L Potassium Level 4.4 3.5-5.1 mmol/L Chloride Level 101 101-111 mmol/L Carbon Dioxide Level 28 21-32 mmol/L Blood Urea Nitrogen 16 7-18 mg/dL Creatinine 1.0 0.5-1.3 mg/dL Glomerular Filtration Rate Calc 87 >90 mL/min Random Glucose 83 70-105 mg/dL Total Calcium 8.1 L 8.5-10.1 mg/dL Total Bilirubin 1.4 H 0.2-1.0 mg/dL Aspartate Amino Transf (AST/SGOT) 135 H 10-37 U/L Alanine Aminotransferase (ALT/SGPT) 121 H 12-78 U/L Alkaline Phosphatase 237 H 50-136 U/L Total Protein 6.4 6.0-8.3 g/dL Albumin 1.7 L 3.5-5.0 g/dL Whole Blood Glucose 95 70-110 MG/DL Diagnostics / Radiology: [address] [address] IMAGING REPORT Signed PATIENT: KINGA JONES MR#: [id number] : 1965 SEX: M AGE: 59 LOCATION: 2DH ORDER 1049 STATUS: ADM IN REPORT#: [id number] SERVICE 1520 REASON: R/O ACTUE CHOLECYSTITIS ORDERING PHYSICIAN: EILEEN HERNANDEZ APRN PROCEDURE: HIDAWO - NM HIDA WO EF/CCK Examination Hepatobiliary study History R/O ACTUE CHOLECYSTITIS (Hx) / R/O ACTUE CHOLECYSTITIS, Static Images (DICOM Hx) (DICOM Hx) Technique Tc-99m mebrofenin were administered intravenously followed by acquisition of planar images of the abdomen. Findings Following administration of radiotracer, there is prompt appearance of normal hepatic contours, followed by appearance of activity in unremarkable appearing bile ducts. There is nonvisualization of the gallbladder at the conclusion of the examination suggesting acute cholecystitis. IMPRESSION: 1. Nonvisualization of the gallbladder, suggesting acute cholecystitis. /[place] DICTATED BY: NONA KIRBY Jr., MD DATE: 01/07/251930 ELECTRONICALLY SIGNED BY: NONA KIRBY Jr., MD DATE: 01/07/251930 Impression and Plan: 59-year-old male with acute cholecystitis, with positive HIDA scan Due to patient's multiple comorbidities, Surgical team does not recommend cholecystectomy surgery at this time We will order IR to place cholecystostomy drain Elective outpatient cholecystectomy surgery can be planned in the future once patient's other medical conditions have stabilized Pending cardiac clearance Repeat labs in a.m. Continue with IV fluids and IV antibiotics May advance diet as tolerated, then NPO after midnight for IR procedure Surgical team will continue to follow closely Dr. Claros updated on patient's status [Surgical case has been discussed with my Supervising physician plan of care was formulated and agreed upon We appreciate the hospitalist team for allowing us to participate in this patient's care Greater than 55 minutes spent examining patient, reviewing chart and working on documentation ] ATTESTATION BY PHYSICIAN I have seen and examined the patient. I reviewed the documentation, medical decision making, and treatment plan as noted by the mid-level provider above. I agree with the findings and plan of care. MD MATHIEU Brunner LETICIA A APRN Jan 08, 2025 10:47
--- NOTE | 2025-01-08 12:50 | PN ---
[facility] PROGRESS NOTE Date of Service: Jan 08, 2025 Time of Service: 12:[address] De La Torre SUBJECTIVE: Follow up visit for a 59-year-old male admitted to the hospital for acute hypoxemic respiratory failure, community-acquired pneumonia, non-STEMI, acute pancreatitis. Patient remains on IV doxycycline, IV Zosyn under ID direction. Cultures in process. Currently saturating adequately on room air. Patient initiated on diet, tolerating well, no reports of abdominal pain. Serum lipase improved from 497-175. 2D echo has been performed, report pending. He has brain MRI on admission did show acute infarct in the right basal ganglia similar to the CT brain dated 12/28/2024. Patient at this time reveals no focal deficits. 12/30/2024: Over the past 24 hours no major events reported. Patient remains on IV doxycycline, IV Zosyn under ID direction. He is saturating adequately on room air. Continues to be followed by pulmonology team requesting 6 minute walk test prior to discharge. Patient reports no neuro deficits at this time, being followed closely by Neurology, remains on aspirin statins. Patient denies abdominal pain nausea or vomiting. He is tolerating diet. 2D echo EF 60-65%. Morning labs potassium 3.3, for which he received replacement. 12/31/2024: Patient remains on IV Zosyn IV doxycycline under ID direction. Cultures are in process. Patient currently saturating adequately on room air. He does continue to use CPAP at night. Continues to be followed by pulmonology team. Morning labs reviewed. 01/01/2025: Patient has been noted with episodes of fever, max temp of 102.9. Patient remains on IV doxycycline, IV Zosyn under ID direction. Patient denies chest pain, shortness of breath, nausea vomiting diarrhea. Morning labs reviewed. 01/02/2025: Patient's morning continued to spike fever, max temp of 101.3. Patient remains on IV Zosyn doxycycline under ID direction. Flu a and B and COVID swabs negative. No leukocytosis. CXR showing left lower lobe pneumonia, no significant interval change. 01/03/25 patient was seen by nurse practitioner and physician in room 228. Patient was evaluated by the monomer recovery supervisor and patient denies any chest pain or shortness of breaths, nausea vomiting or abdominal pain. As per recommendation continue patient on IV antibiotics as per ID. No further workout as per monomer recovery supervisor. Patient had a fever of 102.9 on 01/02/2025 at 8:53 p.m. WBC 8.7. Urine culture final negative. Blood culture still pending. Most recent chest x-ray showed mild patchy left lower lobe infiltrate/atelectasis. V/Q scan was ordered due to D-dimer [id number]. As per ID continue doxycycline IV and Zosyn IV. Patient is tolerating BiPAP well at night. We will continue to monitor patient in the meantime. A.m. labs 01/04/25 patient was seen by nurse practitioner and physician during rounding in room 228. Patient will receive 40 mEq of potassium. GI was consulted due to severe acute pancreatitis. Labs were ordered as well. Patient also had another fever last night 101.5 and today in the morning of 100.8. Per Infectious Disease doctor discontinue doxy and Zosyn. Patient was started on vancomycin and Merrem. Nephrology continues to monitor patient labs much improved. Neurologist. We will continue to monitor patient in the meantime. A.m. labs 01/05/25 Pt was seen by PHOTOGRAPHIC ENLARGER OPERATOR and physician during rounding. Final blood and urine culture negative. A per ID patient on Vanco and Merrem IV. WBC trending down. No fevers in past 24 hrs. We will continue to monitor patient. We will wait for outpatient abx recommendation per ID. Am labs 01/06/25 patient was seen by nurse practitioner and physician during rounding. Final urine cultures negative. Blood culture negative x4 days. As per GI note from 01/04/2025 continue supportive care with opiate analgesics and antiemetics. Patient's oral intake was resumed and patient is on cardiac diet. We will order CT with IV contrast as recommended after48 hours of IV fluids we will assess for necrosis. Patient is tolerating diet at this moment no need for nasal jejunal tube feeds need for TPN. As per ID continue vancomycin and Merrem. No fevers [id number] hours. WBC 6.7. Electrolytes within normal limits. We will continue to monitor patient in the meantime. A.m. labs 01/07/25 Patient is 59 years old male who came to emergency department with a complaint of respiratory failure, pneumonia, non-STEMI and acute pancreatitis. Serum lipase on admission 497. Patient was 1st started on doxycycline and Zosyn. ID once consulted for IV antibiotics. 2D echo was performed showed EF of 60 65%. Due to confusion we also performed CT head brain which was negative and MRI brain showed acute infarct in the right basal ganglia similar to the CT brain dated 12/28/2024. Neurologist was consulted. Electrolytes were replaced throughout the hospitalization due to sleep apnea patient was on CPAP at night and pulmonology team was following the patient. On 01/01/2025 patient had a fever of 102.9 and remain under IV antibiotics as directed by ID. Flu a, flu B and COVID swabs were negative. Chest x-ray showed left lower lobe pneumonia but no significant interval change. Due to shortness of breaths and chest pain that patient developed 01/03/2025 patient was evaluated by the monomer recovery supervisor and per his recommendation no further cardiac workup to be performed. Final urine culture were negative final blood culture negative. Since the patient continue to have fevers antibiotics were changed by ID to vanco and Merrem. Due to abdominal pain/acute pancreatitis patient was also evaluated by the GI and as per GI note continue supportive care with opiate analgesics and antiemetics. Patient's oral intake was resumed and patient is on cardiac diet. We will order CT with IV contrast as recommended after48 hours of IV fluids we will assess for necrosis. CT abdomen with IV contrast was ordered. Resume Specialist signed off follow-up in two weeks. As per ID patient was cleared to be discharged home on levofloxacin 700 mg daily times 10 days and Augmentin 875 mg b.i.d. times 10 days. Patient was also cleared by the chief communications officer follow up outpatient within two weeks. As per petroleum engineering professor follow up outpatient within two weeks. And also as per neurologist follow-up outpatient within two weeks. Patient was also advised to follow up with the PCP in 2 to 3 days. RN to contact GI and ask if patient is cleared since patient is tolerating all the food and fluid intake. Patient denies any shortness of breath, chest pain, nausea, vomiting or abdominal pain. Patient to follow up with the GI as indicated. 01/08/25 patient was seen by nurse practitioner and physician during rounding in room 228. CT abdomen with IV contrast revealed acute pancreatitis and acute cholecystitis. Patient is asymptomatic. Surgeon was consulted. HIDA performed and showed as well acute cholecystitis. As per surgeon patient has a many comorbidities including prolonged hospitalization due to ischemic strokes x2, acute respiratory failure morbid obesity and Coronary Artery Disease. Patient is asymptomatic and has been tolerating clear liquid diet without any nausea or vomiting. Surgical team does not recommend cholecystectomy surgery at this moment. Patient will undergo IR to place cholecystectomy drain. Elective outpatient cholecystectomy surgery can be planned in the future once patient other medical condition has stabilized. Cardiac clearance pending. May advance diet as tolerated and NPO after midnight for IR procedure. Continue antibiotics vancomycin and Merrem as prescribed by ID. We will continue to monitor patient in the meantime. A.m. labs. REVIEW OF SYSTEMS CONSTITUTIONAL: generalized fatigue, malaise NEUROLOGICAL: Denies headache, amaurosis fugax, motor weakness, sensory deficit, vertigo/spinning sensation, gait abnormalities, or tremors. ENT: No hearing loss, otalgia, otorrhea, rhinitis, rhinorrhea, hoarseness, or sore throat. CARDIOVASCULAR: Denies any exertional angina, dyspnea on exertion, orthopnea, paroxysmal nocturnal dyspnea, palpitations, life-threatening arrhythmias, claudication. PULMONARY: Denies shortness of breaths. Denies any diaphoresis SLEEP: Denies morning headaches, daytime somnolence or napping. Denies difficulty falling asleep, staying asleep, waking from sleep. Denies knowledge of snoring. GASTROINTESTINAL: Denies any nausea, vomiting or abdominal pain GENITOURINARY: Denies frequency, urgency, nocturia, hematuria or incontinence (Storage/Irritative symptoms.) Low urinary stream, straining to void, urinary intermittency or hesitancy, splitting of the voiding stream, terminal dribbling. ENDOCRINOLOGIC: Denies polyuria, polydipsia, polyphagia or heat/cold intolerances. HEMATOLOGIC: Denies thrombophilia/previous clots, or coagulopathy/bleeding disorders. ONCOLOGIC: Denies personal history of malignancy. DERMATOLOGIC: Denies rashes or pruritus. PSYCHIATRIC: Denies any suicidal or homicidal ideation. Denies hallucinations. PHYSICAL EXAM GENERAL APPEARANCE: The patient is awake, alert, patient appears very diaphoretic, currently on 3 L supplementation by nasal cannula, patient is morbidly obese NEUROLOGICAL: Cranial nerves II-XII grossly intact. Examination is nonfocal for the patient HEENT: Face is symmetric. Pupils are equal and reactive. Extraocular movements are intact. NECK: Supple. No JVD. No thyromegaly. No submental, submandibular, pre-/postauricular, occipital or supraclavicular lymphadenopathy. CHEST: Normal chest expansion. No Telemetry. LUNGS: Minimal crackles noted at bilateral lung bases CARDIOVASCULAR: Regular. S1 and S2 normal. Tachycardic was ABDOMEN: Soft, nontender, and nondistended. There is no rebound, voluntary guarding, or rigidity. : Deferred. No [place]. EXTREMITIES: Non-edematous and not cyanotic. No clubbing. Good capillary refill. SKIN: No skin breakdown. Vital Signs (last 8hr) Date Time Temp Pulse Resp B/P (MAP) Pulse Ox O2 Delivery O2 Flow Rate FiO2 01/08/25 11:28 100 Room Air* 0 21 01/08/25 08:00 99.3 109 21 139/74 94 Room Air 01/08/25 07:21 108 22 01/08/25 07:20 108 20 N/A Room Air 21 LABS: Laboratory: Test 01/08/25 03:20 01/07/25 19:32 Range/Units White Blood Count 7.4 4.8-10.8 K/uL Red Blood Count 4.04 L 4.50-6.20 MIL/uL Hemoglobin 10.9 L 14.0-18.0 g/dL Hematocrit 32.7 L 42-54 % Mean Corpuscular Volume 80.9 79-99 fL Mean Corpuscular Hemoglobin 27.0 27.0-33.0 pg Mean Corpuscular Hemoglobin Concent 33.3 32.0-36.0 g/dL Red Cell Distribution Width 17.7 H 11.0-15.5 % Platelet Count 199 # 130-400 K/uL Mean Platelet Volume 12.3 H 7.5-10.5 fL Immature Granulocyte % (Auto) 0.7 0-1 % Neutrophils (%) (Auto) 81.1 H 40.0-77.0 % Lymphocytes (%) (Auto) 10.2 L 21.0-51.0 % Monocytes (%) (Auto) 6.5 3.0-13.0 % Eosinophils (%) (Auto) 1.2 0.0-8.0 % Basophils (%) (Auto) 0.3 0.0-5.0 % Neutrophils # (Auto) 6.0 1.8-7.7 K/uL Lymphocytes # (Auto) 0.8 L 1.0-4.8 K/uL Monocytes # (Auto) 0.5 0.1-1.0 K/uL Eosinophils # (Auto) 0.09 0.00-0.70 K/uL Basophils # (Auto) 0.02 0.00-0.20 K/uL Absolute Immature Granulocyte (auto 0.05 0-1 K/uL Nucleated Red Blood Cells 0.0 0.0-0.19 % Sodium Level 135 L 136-145 mmol/L Potassium Level 4.4 3.5-5.1 mmol/L Chloride Level 101 101-111 mmol/L Carbon Dioxide Level 28 21-32 mmol/L Blood Urea Nitrogen 16 7-18 mg/dL Creatinine 1.0 0.5-1.3 mg/dL Glomerular Filtration Rate Calc 87 >90 mL/min Random Glucose 83 70-105 mg/dL Total Calcium 8.1 L 8.5-10.1 mg/dL Total Bilirubin 1.4 H 0.2-1.0 mg/dL Aspartate Amino Transf (AST/SGOT) 135 H 10-37 U/L Alanine Aminotransferase (ALT/SGPT) 121 H 12-78 U/L Alkaline Phosphatase 237 H 50-136 U/L Total Protein 6.4 6.0-8.3 g/dL Albumin 1.7 L 3.5-5.0 g/dL Whole Blood Glucose 95 70-110 MG/DL Current Medications Medications (Trade) Dose Ordered Sig/Donald Route PRN Reason Start Time Stop Time Status Last Admin Dose Admin Acetaminophen (TYLenol 325MG TAB) 650 mg Q4H PRN PO TEMPERATURE GREATER THAN 101.5 01/02/25 20:30 02/01/25 20:29 01/03/25 21:25 650 MG Acetaminophen (TYLenol 325MG TAB) 650 mg Q6H PRN PO MILD PAIN (1-3) 12/28/24 12:00 01/27/25 11:59 01/02/25 16:45 650 MG Aspirin (Aspirin 81mg Chew Tab) 81 mg DAILY PO 12/29/24 09:00 01/28/25 08:59 01/08/25 08:39 81 MG Atorvastatin Calcium (LIPItor 40MG) 40 mg HS PO 12/29/24 21:00 01/28/25 20:59 01/07/25 20:42 40 MG Clopidogrel Bisulfate (plaVIX 75MG) 75 mg Q24H PO 12/28/24 20:30 12/28/24 22:21 DC 12/28/24 21:23 75 MG Doxycycline Hyclate 250 ml @ 125 mls/hr Q12H IV 12/28/24 14:30 01/04/25 11:42 DC 01/04/25 03:00 125 MLS/HR Enoxaparin Sodium (Lovenox) 40 mg DAILY SQ 12/29/24 09:00 01/28/25 08:59 01/08/25 08:40 40 MG Famotidine (Pepcid 20mg Vial) 20 mg Q24H IV 12/28/24 21:00 01/27/25 20:59 01/07/25 20:42 20 MG Ipratropium Marlin (AtrovENT UD) 0.5 MG [id number] IH 12/30/24 22:00 01/29/25 21:59 01/08/25 07:20 0.5 MG Ipratropium Marlin (AtrovENT UD) 1 mg Q6H PRN IH SHORTNESS OF BREATH 12/28/24 12:00 01/27/25 11:59 Lactulose (Constulose 20gm/ 30ml Udcup) 20 gm Q6H6 PO 12/29/24 12:00 12/29/24 11:49 DC Lactulose (Constulose 20gm/ 30ml Udcup) 20 gm TID PO 12/29/24 14:00 01/01/25 14:30 DC 12/30/24 13:55 20 GM Lactulose (Constulose 20gm/ 30ml Udcup) 20 gm TID PRN PO CONSTIPATION 01/01/25 14:30 01/28/25 13:59 Meropenem (Merrem 1gm) 1 gm Q8H IVPB 01/04/25 12:00 01/05/25 11:09 DC 01/05/25 03:42 1 GM Meropenem (Merrem 1gm) 1 gm Q8H IVPB 01/05/25 12:00 01/15/25 11:59 01/08/25 12:32 1 GM Metoprolol Succinate (TopROL XL) 25 mg DAILY PO 12/28/24 13:00 01/27/25 12:59 01/08/25 08:39 25 MG Ondansetron HCl (zoFRAN 4MG INJ) 4 mg Q6H PRN IVP NAUSEA/VOMITING 12/28/24 12:00 01/27/25 11:59 Pharmacy Profile Note (Pharmacy Communication) 1 each ONCE MISC 01/04/25 12:00 01/04/25 11:57 DC Piperacillin Sod/ Tazobactam Sod (Zosyn 3.375gm+NS 50ml) 3.375 gm Q8H IVPB 12/28/24 12:00 01/04/25 11:42 DC 01/04/25 05:53 3.375 GM Potassium Chloride 100 ml @ 100 mls/hr AD PRN IV POTASSIUM PROTOCOL 12/31/24 05:00 01/30/25 04:59 01/02/25 05:08 100 MLS/HR Potassium Chloride (K-Dur/Klor-Con 20meq) 20 meq AD PRN PO POTASSIUM PROTOCOL 12/31/24 05:00 01/30/25 04:59 01/02/25 23:14 20 MEQ Potassium Chloride (KCl 10% Elixir 20meq/15ml) 20 meq AD PRN PO POTASSIUM PROTOCOL 12/31/24 05:00 01/30/25 04:59 Procainamide HCl 2000 mg/Sodium Chloride 250 ml @ 0 mls/hr PROTOCOL IV 12/28/24 10:00 12/28/24 10:42 DC Sodium Chloride 1,000 ml @ 100 mls/hr Q10H IV 12/28/24 12:00 12/29/24 09:23 DC 12/29/24 09:14 100 MLS/HR Sodium Chloride (NS 50ml) 50 ml AD IV 12/28/24 12:00 12/28/24 11:59 DC Thiamine HCl (Vitamin B-1) 100 mg Q24H IVP 12/28/24 12:00 01/27/25 11:59 01/08/25 12:32 100 MG Vancomycin HCl 250 ml @ 125 mls/hr Q12H IV 01/05/25 02:00 01/06/25 04:05 DC 01/06/25 02:37 125 MLS/HR Vancomycin HCl 250 ml @ 125 mls/hr Q12H IV 01/06/25 14:00 01/16/25 13:59 01/08/25 01:01 125 MLS/HR Vancomycin HCl (Vancomycin Protocol) 1 each AD IV 01/04/25 12:00 01/18/25 11:59 Vitamin B Complex/ Vit C/Folic Acid (Nephrovite Tablet) 1 cap DAILY PO 12/29/24 09:00 01/28/25 08:59 01/08/25 08:39 1 CAP DIAGNOSTICS / RADIOLOGY: [ ] ASSESSMENT: 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 Acute hypoxemic respiratory failure, POA Community-acquired pneumonia, POA Undiagnosed obstructive sleep apnea Acute diastolic congestive heart failure as per 2D echo Elevated cardiac troponin, rule out active ACS, POA acute pancreatitis likely 2/2 gall stones Acute Kidney injury, POA Hyponatremia, POA Morbid obesity, POA Sinus tachycardia, POA Thrombocytopenia, POA, mild Underlying history of obstructive sleep apnea, POA Hypertension, POA Hyperlipidemia, POA History of ID, POA History of coronary artery disease with prior history of PCI, POA 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 Patient is asymptomatic. Surgeon was consulted. HIDA performed and showed as well acute cholecystitis. As per surgeon patient has a many comorbidities including prolonged hospitalization due to ischemic strokes x2, acute respiratory failure morbid obesity and Coronary Artery Disease. Patient is asymptomatic and has been tolerating clear liquid diet without any nausea or vomiting. Surgical team does not recommend cholecystectomy surgery at this moment. Patient will undergo IR to place cholecystectomy drain. Elective outpatient cholecystectomy surgery can be planned in the future once patient other medical condition has stabilized. Cardiac clearance pending. May advance diet as tolerated and NPO after midnight for IR procedure. Continue antibiotics vancomycin and Merrem as prescribed by ID. We will continue to monitor patient in the meantime. A.m. labs. ATTESTATION BY PHYSICIAN I have seen and examined the patient. I reviewed the documentation, medical decision making, and treatment plan as noted by the mid-level provider above. I agree with the findings and plan of care. Angel De La Torre IV, MD, KAT[employer] B CYTOGENET[employer] TECHNOLOGIST Jan 08, 2025 12:50
--- NOTE | 2025-01-08 13:56 | PN ---
HISTORY OF PRESENT ILLNESS This is a pleasant 59-year-old male with past medical history as per patient with complaints of shortness of breath, is being evaluated for possible ACS contributory for pneumonia. Patient was also found to have a CVA PAST MEDICAL HISTORY, ALLERGIES See below REVIEW OF SYSTEMS Not obtained Vitals See chart PHYSICAL EXAM Alert and oriented x 3 Nonicteric nontraumatic Regular rate and rhythm, no murmurs Clear to auscultation bilaterally pulmonary Abdomen nontender Rectal deferred Skin no rash neurological no focal deficits Extremities no edema ASSESSMENT CORONARY DISEASE, ELEVATED TROPONIN At presentation PNEUMONIA Being managed by antibiotics per infectious disease, appreciate CT was negative for pulm embolism CVA At presentation Patient ganglia as well as occipital lobe involvement ACUTE ON CHRONIC KIDNEY DISEASE At presentation Create greater than 2 HISTORY OF [id number] SYNDROME SLEEP APNEA, HYPERTENSION, HYPERLIPIDEMIA, SLEEP APNEA CORE MEASURES pending OTHER MEDICAL PROBLEMS reviewed CORE MEASURES Pending OTHER MEDICAL PROBLEMS Reviewed PLAN 12/28/2024 given recent CVA, not a good candidate for any ischemic evaluation at this time, echocardiogram has been ordered and pending. Further recommendations post. Continue current medical therapy conservative management for now. May consider STONE given stroke in 2 different vascular distributions. Holter monitor may also be considered. Seen and examined 12/28/2024 at around 1800. 12/29/2024 Remains on BiPAP, echocardiogram was within normal limits. Renal function being addressed by nephrology, julieta. At this time, given recent CVA ongoing respiratory issues, not a good candidate for any ischemic evaluation. Once he has recovered from his underlying issues, may consider further evaluation from a cardiac standpoint. Conservative measures for now. Seen and examined 12/29/2024 at around 7 PM. 12/30/2024 Feeling better, currently off BiPAP, nephrology on board managing renal dysfunction. As above, continue conservative measures at this time and may consider outpatient ischemic evaluation once recovered from CVA. On atorvastatin and aspirin beta-tomasa continue. Renal function improving. Echo was within normal limits. Seen and examined 12/30/2024 at around 8 PM. 12/31/2024 No cardiovascular symptoms, no weakness from the stroke, doing well, walking in the hallways and getting therapy. On doxycycline. Eventual plans for ischemic evaluation as well as STONE as outpatient. May consider long-term monitoring as well given strokes involving multiple circulations. Pancreatitis and pneumonia being treated as well. Seen and examined 12/31/2024 at around 1 PM. 01/01/2025 Doing well, no active cardiovascular complaints at this time. Only issues with pneumonia pancreatitis CVA all of which have improved. Currently, ambulating without any significant issues, Home when okay with primary team and will follow-up in the office for ischemic evaluation and stroke workup. Renal function has improved. Seen and examined 01/01/2025 at around 8 AM. 01/02/2025 Remains antibiotics and did have fevers again today and therefore, discharge is being held. Appreciate infectious disease. Renal function slightly worse today as well, will need to be watched. Stable cardiovascular status and patient remains asymptomatic from a cardiovascular standpoint at this time. Seen and examined 01/02/2025 at around 5 PM. 01/03/2025 No more fevers per report. Arcenio function is stable, appreciate nephrology. ID on board managing fevers creatinine 1.4 most recently which is close to baseline CT chest abdomen pelvis with persistent pancreatitis, fatty liver, cholelithiasis. Seen and examined 01/03/2025 at around 11 AM. 01/04/2025 Active cardiovascular issues, fevers pancreatitis today is currently being addressed per primary team. Remains on antibiotics for ongoing issues with fevers. Volume status is acceptable. GI on board. Seen and examined 01/04/2025 at around 1800. 01/05/2025 Doing well, per report, fevers have improved, remains on antibiotic therapy. Interstitial pancreatitis on imaging, currently switched to vancomycin and meropenem to help. No active cardiovascular issues. Will follow peripherally, call us if needed. Seen and examined 01/05/2025 at around 1700. 01/08/2025 Given normal ejection fraction, no active cardiac complaints, patient is likely intermediate risk for upcoming surgery. Discussed with patient as well. Will follow perioperatively. Cholecystotomy tube is being planned. Seen and examined 01/08/2025 at around 6 PM. ATTESTATION I was involved substantial in the care of the patient Number of complexity of problems addressed 1 acute illness with systemic features Amount and or complexity of data Review of prior external notes from each unique source 2+ Ordering of each unique test 0 Review of results of each unique test 2+ Assessment requiring independent historians no Dependent interpretation of test performed by another MD no Discussion of management or test interpretation with external MD no Risk status moderate Vitals/Labs Vital Signs Date Time Temp Pulse Resp B/P (MAP) Pulse Ox O2 Delivery O2 Flow Rate FiO2 01/08/25 12:00 99.0 102 21 141/90 95 Room Air 01/08/25 11:28 0 21 Laboratory Tests 01/08/25 03:20 Medications Current Medications Procainamide HCl 2000 mg/Sodium Chloride 250 ml @ 0 mls/hr PROTOCOL IV; Start 12/28/24 at 10:00; Stop 12/28/24 at 10:42; Status DC Metoprolol Tartrate 5 mg ONCE ONCE IV Last administered on 12/28/24at 10:38; Start 12/28/24 at 10:30; Stop 12/28/24 at 10:31; Status DC Aspirin 325 mg ONCE ONCE PO Last administered on 12/28/24at 10:46; Start 12/28/24 at 11:00; Stop 12/28/24 at 11:01; Status DC Sodium Chloride 1,000 ml @ 100 mls/hr Q10H IV Last administered on 12/29/24at 09:14; Start 12/28/24 at 12:00; Stop 12/29/24 at 09:23; Status DC Ipratropium [place] 1 mg Q6H PRN IH; Start 12/28/24 at 12:00; Stop 01/27/25 at 11:59 Acetaminophen 650 mg Q6H PRN PO Last administered on 01/02/25at 16:45; Start 12/28/24 at 12:00; Stop 01/27/25 at 11:59 Ondansetron HCl 4 mg Q6H PRN IVP; Start 12/28/24 at 12:00; Stop 01/27/25 at 11:59 Thiamine HCl 100 mg Q24H IVP Last administered on 01/08/25at 12:32; Start 12/28/24 at 12:00; Stop 01/27/25 at 11:59 Vitamin B Complex/ Vit C/Folic Acid 1 cap DAILY PO Last administered on 01/08/25at 08:39; Start 12/29/24 at 09:00; Stop 01/28/25 at 08:59 Aspirin 81 mg DAILY PO Last administered on 01/08/25at 08:39; Start 12/29/24 at 09:00; Stop 01/28/25 at 08:59 Piperacillin Sod/ Tazobactam Sod 3.375 gm Q8H IVPB Last administered on 01/04/25at 05:53; Start 12/28/24 at 12:00; Stop 01/04/25 at 11:42; Status DC Sodium Chloride 50 ml AD IV; Start 12/28/24 at 12:00; Stop 12/28/24 at 11:59; Status DC Enoxaparin Sodium 40 mg DAILY SQ Last administered on 01/08/25at 08:40; Start 12/29/24 at 09:00; Stop 01/28/25 at 08:59 Famotidine 20 mg Q24H IV Last administered on 01/07/25at 20:42; Start 12/28/24 at 21:00; Stop 01/27/25 at 20:59 Metoprolol Succinate 25 mg DAILY PO Last administered on 01/08/25at 08:39; Start 12/28/24 at 13:00; Stop 01/27/25 at 12:59 Iohexol 75 ml STK-MED ONCE IV; Start 12/28/24 at 12:57; Stop 12/28/24 at 12:57; Status DC Doxycycline Hyclate 250 ml @ 125 mls/hr Q12H IV Last administered on 01/04/25at 03:00; Start 12/28/24 at 14:30; Stop 01/04/25 at 11:42; Status DC Sodium Chloride 4 ml STK-MED ONCE IH Last administered on 12/28/24at 19:12; Start 12/28/24 at 18:20; Stop 12/28/24 at 18:20; Status DC Clopidogrel Bisulfate 75 mg Q24H PO Last administered on 12/28/24at 21:23; Start 12/28/24 at 20:30; Stop 12/28/24 at 22:21; Status DC Sodium Chloride 4 ml STK-MED ONCE IH; Start 12/28/24 at 22:27; Stop 12/28/24 at 22:28; Status DC Lactulose 20 gm Q6H6 PO; Start 12/29/24 at 12:00; Stop 12/29/24 at 11:49; Status DC Lactulose 20 gm TID PO Last administered on 12/30/24at 13:55; Start 12/29/24 at 14:00; Stop 01/01/25 at 14:30; Status DC Atorvastatin Calcium 40 mg HS PO Last administered on 01/07/25at 20:42; Start 12/29/24 at 21:00; Stop 01/28/25 at 20:59 Melatonin 10 mg ONCE ONCE PO Last administered on 12/30/24at 00:46; Start 12/30/24 at 00:00; Stop 12/30/24 at 00:02; Status DC Potassium Chloride 20 meq ONCE ONCE PO Last administered on 12/30/24at 05:47; Start 12/30/24 at 05:00; Stop 12/30/24 at 05:02; Status DC Magnesium Citrate 296 ml ONCE ONCE PO Last administered on 12/30/24at 13:55; Start 12/30/24 at 13:30; Stop 12/30/24 at 13:31; Status DC Furosemide 20 mg ONCE ONCE IV Last administered on 12/30/24at 17:34; Start 12/30/24 at 17:30; Stop 12/30/24 at 17:31; Status DC Ipratropium [place] 0.5 MG [id number] IH Last administered on 01/08/25at 07:20; Start 12/30/24 at 22:00; Stop 01/29/25 at 21:59 Potassium Chloride 20 meq AD PRN PO; Start 12/31/24 at 05:00; Stop 01/30/25 at 04:59 Potassium Chloride 20 meq AD PRN PO Last administered on 01/02/25at 23:14; Start 12/31/24 at 05:00; Stop 01/30/25 at 04:59 Potassium Chloride 100 ml @ 100 mls/hr AD PRN IV Last administered on 01/02/25at 05:08; Start 12/31/24 at 05:00; Stop 01/30/25 at 04:59 Lactulose 20 gm TID PRN PO; Start 01/01/25 at 14:30; Stop 01/28/25 at 13:59 Acetaminophen 650 mg Q4H PRN PO Last administered on 01/03/25at 21:25; Start 01/02/25 at 20:30; Stop 02/01/25 at 20:29 Iohexol 35,000 mg STK-MED ONCE IV; Start 01/04/25 at 01:50; Stop 01/04/25 at 01:50; Status DC Morphine Sulfate 2 mg ONCE ONCE IVP; Start 01/04/25 at 06:30; Stop 01/04/25 at 06:28; Status DC Potassium Chloride 40 meq ONCE ONCE PO Last administered on 01/04/25at 09:32; Start 01/04/25 at 07:30; Stop 01/04/25 at 07:31; Status DC Vancomycin HCl 1 each AD IV; Start 01/04/25 at 12:00; Stop 01/18/25 at 11:59 Pharmacy Profile Note 1 each ONCE MISC; Start 01/04/25 at 12:00; Stop 01/04/25 at 11:57; Status DC Vancomycin HCl 500 ml @ 250 mls/hr ONCE ONCE IV Last administered on 01/04/25at 14:30; Start 01/04/25 at 14:00; Stop 01/04/25 at 15:59; Status DC Vancomycin HCl 250 ml @ 125 mls/hr Q12H IV Last administered on 01/06/25at 02:37; Start 01/05/25 at 02:00; Stop 01/06/25 at 04:05; Status DC Meropenem 1 gm Q8H IVPB Last administered on 01/05/25at 03:42; Start 01/04/25 at 12:00; Stop 01/05/25 at 11:09; Status DC Meropenem 1 gm Q8H IVPB Last administered on 01/08/25at 12:32; Start 01/05/25 at 12:00; Stop 01/15/25 at 11:59 Vancomycin HCl 250 ml @ 125 mls/hr Q12H IV Last administered on 01/08/25at 01:01; Start 01/06/25 at 14:00; Stop 01/16/25 at 13:59 Iohexol 35,000 mg STK-MED ONCE IV; Start 01/06/25 at 16:08; Stop 01/06/25 at 16:08; Status DC BRENNON CROWLEY MD Jan 08, 2025 13:56
--- NOTE | 2025-01-08 17:19 | PN ---
FOLLOWUP PROGRESS NOTE SUBJECTIVE: A 59-year-old male who has had a prolonged hospital course. He initially presented, found to have acute renal failure. The patient's renal function is much improved. The patient also with hyponatremia, which has improved. The patient with significant leukocytosis and fevers. He remains on broad spectrum IV antibiotics. CT scan revealed pancreatitis. The patient's HIDA scan is noted. He is to be seen by Surgical service and the patient is being seen as a followup visit for all of the above. REVIEW OF SYSTEMS: GENERAL: He is feeling weak and tired. HEENT: No change in vision. No change in hearing. CARDIOVASCULAR: There are no current chest pains or palpitations. PULMONARY: No shortness of breath. GASTROINTESTINAL: He had been tolerating a diet. MUSCULOSKELETAL: Complains of weakness. PHYSICAL EXAMINATION: VITAL SIGNS: Blood pressure is 139/74, pulse 100s. GENERAL: He is a chronically ill obese male, lying in bed on the medical floor. HEENT: Head is atraumatic. Pupils equal, round, and reactive to light. Oropharynx is without exudate. Nares clear. NECK: There is no JVP. There is no thyromegaly. No masses. CARDIOVASCULAR: Regular. There is no S3 or S4 gallop. LUNGS: Coarse with equal thoracic movement. ABDOMEN: Soft, nondistended, and nontender. EXTREMITIES: Reveal no clubbing, no cyanosis. NEUROLOGIC: He is awake. He is alert. LABORATORY DATA: Hemoglobin 10, hematocrit 32, white blood cell count 7000. Sodium 135, BUN 16, creatinine is 1. IMPRESSION: * Acute on chronic renal failure. * Electrolyte abnormalities. * Cholecystitis. * Sleep apnea. PLAN: The patient's HIDA scan is noted. The patient has been seen by GI service and will continue to follow the patient closely. The patient is encouraged with fluid restriction for the hyponatremia. We will continue to follow closely. The patient with multiple questions, all of which were answered. TID: [id number] RECEIPT: [id number]
[2025-01-09] VITALS (15 sets, daily range): BP systolic 120–160; BP diastolic 66–86; PULSE 62–106; RESP 18–32; TEMP 98.6–100.8; O2SAT 96–100
[2025-01-09 04:41] LABS: IMMATURE GRANULOCYTE ABSOLUTE 0.02 K/uL (0-1); NUCLEATED RED BLOOD CELLS 0.0 % (0.0-0.19); PLATELET COUNT (AUTO) 172 K/uL (130-400); RED BLOOD CELL COUNT(AUTO) 3.66 MIL/uL (4.50-6.20); RED CELL DISTRIBUTION WIDTH 17.4 % (11.0-15.5); WHITE BLOOD COUNT (AUTO) 4.8 K/uL (4.8-10.8)
[2025-01-09 05:11] LABS: ASPARTATE AMINOTRANSFERASE 67.0 U/L (10-37); CREATININE 1.0 mg/dL (0.5-1.3); GLOMERULAR FILTR. RATE CALC 87.0 mL/min (>90); GLUCOSE,RANDOM 80.0 mg/dL (70-105); SODIUM SERUM 135.0 mmol/L (136-145); TOTAL PROTEIN, SERUM 6.0 g/dL (6.0-8.3); UREA NITROGEN, BLOOD 18.0 mg/dL (7-18)
[2025-01-09 06:07] LABS: INR 1.13 (0.85-1.15)
--- NOTE | 2025-01-09 07:50 | PN ---
INFECTIOUS DISEASE FOLLOWUP NOTE DATE OF SERVICE: 01/08/2025 SUBJECTIVE: The patient is seen and examined at bedside today. The patient has no fever, no chills. No nausea. No vomiting. No bleeding tendency. No dysuria or hematuria. The patient has been seen by surgical team who recommended cholecystostomy tube placement. PHYSICAL EXAMINATION: VITAL SIGNS: Temperature 97.5. EYES: No icterus. Pupils equal and reactive. HENT: No oral thrush seen. Moist oral mucosa. NECK: Supple. No JVD or thyromegaly. LUNGS: Good air entry. No rales. No rhonchi. CARDIOVASCULAR: S1 and S2, regular. No murmur heard. ABDOMEN: Morbidly obese, soft, nontender. Bowel sounds are present. CENTRAL NERVOUS SYSTEM: Awake, alert, oriented x 3. No focal deficits. SKIN: No rashes. No itchiness. LYMPHATIC: No peripheral lymphadenopathy. BACK: No deformity. No pressure ulcer. MUSCULOSKELETAL: No joint swelling, erythema or tenderness. ASSESSMENT: A 59-year-old male with multiple problems include: * Gram-negative sepsis. * Pancreatitis. * Morbid obesity. * Obstructive sleep apnea. * Pneumonia. * . * Cholecystitis. * Acute renal failure. PLAN: * Continue . * Continue vancomycin. * Continue DVT prophylaxis. * Continue pain management. * Continue . * Monitor renal function. TID: [id number] RECEIPT: [id number]
[2025-01-09] MEDS ORDERED: IOHEXOL-350 50ML VIAL IV ONE (09:13)
[2025-01-09] MEDS ORDERED: LIDOCAINE HCL 400MG/20ML VIAL ONE ×2 (09:13→10:25)
[2025-01-09] MEDS ORDERED: HEParin-NS 1,000 UNIT/500 ML 500 ML IV ONE (09:13)
--- NOTE | 2025-01-09 09:25 | PN ---
[facility] PROGRESS NOTE Date of Service: Jan 09, 2025 Time of Service: 09:23 SUBJECTIVE: Follow up visit for a 59-year-old male admitted to the hospital for acute hypoxemic respiratory failure, community-acquired pneumonia, non-STEMI, acute pancreatitis. Patient remains on IV doxycycline, IV Zosyn under ID direction. Cultures in process. Currently saturating adequately on room air. Patient initiated on diet, tolerating well, no reports of abdominal pain. Serum lipase improved from 497-175. 2D echo has been performed, report pending. He has brain MRI on admission did show acute infarct in the right basal ganglia similar to the CT brain dated 12/28/2024. Patient at this time reveals no focal deficits. 12/30/2024: Over the past 24 hours no major events reported. Patient remains on IV doxycycline, IV Zosyn under ID direction. He is saturating adequately on room air. Continues to be followed by pulmonology team requesting 6 minute walk test prior to discharge. Patient reports no neuro deficits at this time, being followed closely by Neurology, remains on aspirin statins. Patient denies abdominal pain nausea or vomiting. He is tolerating diet. 2D echo EF 60-65%. Morning labs potassium 3.3, for which he received replacement. 12/31/2024: Patient remains on IV Zosyn IV doxycycline under ID direction. Cultures are in process. Patient currently saturating adequately on room air. He does continue to use CPAP at night. Continues to be followed by pulmonology team. Morning labs reviewed. 01/01/2025: Patient has been noted with episodes of fever, max temp of 102.9. Patient remains on IV doxycycline, IV Zosyn under ID direction. Patient denies chest pain, shortness of breath, nausea vomiting diarrhea. Morning labs reviewed. 01/02/2025: Patient's morning continued to spike fever, max temp of 101.3. Patient remains on IV Zosyn doxycycline under ID direction. Flu a and B and C OVID swabs negative. No leukocytosis. CXR showing left lower lobe pneumonia, no significant interval change. 01/03/25 patient was seen by nurse practitioner and physician in room 228. Patient was evaluated by the supervisor in circuit testing and patient denies any chest pain or shortness of breaths, nausea vomiting or abdominal pain. As per recommendation continue patient on IV antibiotics as per ID. No further workout as per supervisor in circuit testing. Patient had a fever of 102.9 on 01/02/2025 at 8:53 p.m. WBC 8.7. Urine culture final negative. Blood culture still pending. Most recent chest x-ray showed mild patchy left lower lobe infiltrate/atelectasis. V/Q scan was ordered due to D-dimer [id number]. As per ID continue doxycycline IV and Zosyn IV. Patient is tolerating BiPAP well at night. We will continue to monitor patient in the meantime. A.m. labs 01/04/25 patient was seen by nurse practitioner and physician during rounding in room 228. Patient will receive 40 mEq of potassium. GI was consulted due to severe acute pancreatitis. Labs were ordered as well. Patient also had another fever last night 101.5 and today in the morning of 100.8. Per Infectious Disease doctor discontinue doxy and Zosyn. Patient was started on vancomycin and Merrem. Nephrology continues to monitor patient labs much improved. Neurologist. We will continue to monitor patient in the meantime. A.m. labs 01/05/25 Pt was seen by CRITICAL CARE RN and physician during rounding. Final blood and urine culture negative. A per ID patient on Vanco and Merrem IV. WBC trending down. No fevers in past 24 hrs. We will continue to monitor patient. We will wait for outpatient abx recommendation per ID. Am labs 01/06/25 patient was seen by nurse practitioner and physician during rounding. Final urine cultures negative. Blood culture negative x4 days. As per GI note from 01/04/2025 continue supportive care with opiate analgesics and antiemetics. Patient's oral intake was resumed and patient is on cardiac diet. We will order CT with IV contrast as recommended after48 hours of IV fluids we will assess for necrosis. Patient is tolerating diet at this moment no need for nasal jejunal tube feeds need for TPN. As per ID continue vancomycin and Merrem. No fevers whenqb87 hours. WBC 6.7. Electrolytes within normal limits. We will continue to monitor patient in the meantime. A.m. labs 01/07/25 Patient is 59 years old male who came to emergency department with a complaint of respiratory failure, pneumonia, non-STEMI and acute pancreatitis. Serum lipase on admission 497. Patient was 1st started on doxycycline and Zosyn. ID once consulted for IV antibiotics. 2D echo was performed showed EF of 60 65%. Due to confusion we also performed CT head brain which was negative and MRI brain showed acute infarct in the right basal ganglia similar to the CT brain dated 12/28/2024. Neurologist was consulted. Electrolytes were replaced throughout the hospitalization due to sleep apnea patient was on CPAP at night and pulmonology team was following the patient. On 01/01/2025 patient had a fever of 102.9 and remain under IV antibiotics as directed by ID. Flu a, flu B and COVID swabs were negative. Chest x-ray showed left lower lobe pneumonia but no significant interval change. Due to shortness of breaths and chest pain that patient developed 01/03/2025 patient was evaluated by the supervisor in circuit testing and per his recommendation no further cardiac workup to be performed. Final urine culture were negative final blood culture negative. Since the patient continue to have fevers antibiotics were changed by ID to vanco and Merrem. Due to abdominal pain/acute pancreatitis patient was also evaluated by the GI and as per GI note continue supportive care with opiate analgesics and antiemetics. Patient's oral intake was resumed and patient is on cardiac diet. We will order CT with IV contrast as recommended after48 hours of IV fluids we will assess for necrosis. CT abdomen with IV contrast was ordered. Pulling Unit Floorhand signed off follow-up in two weeks. As per ID patient was cleared to be discharged home on levofloxacin 700 mg daily times 10 days and Augmentin 875 mg b.i.d. times 10 days. Patient was also cleared by the dry food products mixer follow up outpatient within two weeks. As per cert pharmacy tech follow up outpatient within two weeks. And also as per neurologist follow-up outpatient within two weeks. Patient was also advised to follow up with the PCP in 2 to 3 days. RN to contact GI and ask if patient is cleared since patient is tolerating all the food and fluid intake. Patient denies any shortness of breath, chest pain, nausea, vomiting or abdominal pain. Patient to follow up with the GI as indicated. 01/08/25 patient was seen by nurse practitioner and physician during rounding in room 228. CT abdomen with IV contrast revealed acute pancreatitis and acute cholecystitis. Patient is asymptomatic. Surgeon was consulted. HIDA performed and showed as well acute cholecystitis. As per surgeon patient has a many comorbidities including prolonged hospitalization due to ischemic strokes x2, acute respiratory failure morbid obesity and Coronary Artery Disease. Patient is asymptomatic and has been tolerating clear liquid diet without any nausea or vomiting. Surgical team does not recommend cholecystectomy surgery at this moment. Patient will undergo IR to place cholecystectomy drain. Elective outpatient cholecystectomy surgery can be planned in the future once patient other medical condition has stabilized. Cardiac clearance pending. May advance diet as tolerated and NPO after midnight for IR procedure. Continue antibiotics vancomycin and Merrem as prescribed by ID. We will continue to monitor patient in the meantime. A.m. labs. 01/09 patient is seen and examined at bedside, case discussed with the RN, patient remains admitted to the PCU. Oriented x3, hemodynamically stable, afebrile, saturating normal on room air, denied chest pain, shortness shortness for breath, no nausea, no vomiting. CT abdomen with IV contrast revealed acute pancreatitis and acute cholecystitis. Patient is asymptomatic. Denies nausea, no vomiting, no abdominal discomfort. Currently NPO,Surgical team does not recommend cholecystectomy surgery at this moment. Patient will undergo IR to place cholecystectomy drain. REVIEW OF SYSTEMS CONSTITUTIONAL: generalized fatigue, malaise NEUROLOGICAL: Denies headache, amaurosis fugax, motor weakness, sensory deficit, vertigo/spinning sensation, gait abnormalities, or tremors. ENT: No hearing loss, otalgia, otorrhea, rhinitis, rhinorrhea, hoarseness, or sore throat. CARDIOVASCULAR: Denies any exertional angina, dyspnea on exertion, orthopnea, paroxysmal nocturnal dyspnea, palpitations, life-threatening arrhythmias, claudication. PULMONARY: Denies shortness of breaths. Denies any diaphoresis SLEEP: Denies morning headaches, daytime somnolence or napping. Denies difficulty falling asleep, staying asleep, waking from sleep. Denies knowledge of snoring. GASTROINTESTINAL: Denies any nausea, vomiting or abdominal pain GENITOURINARY: Denies frequency, urgency, nocturia, hematuria or incontinence (Storage/Irritative symptoms.) Low urinary stream, straining to void, urinary intermittency or hesitancy, splitting of the voiding stream, terminal dribbling. ENDOCRINOLOGIC: Denies polyuria, polydipsia, polyphagia or heat/cold intolerances. HEMATOLOGIC: Denies thrombophilia/previous clots, or coagulopathy/bleeding disorders. ONCOLOGIC: Denies personal history of malignancy. DERMATOLOGIC: Denies rashes or pruritus. PSYCHIATRIC: Denies any suicidal or homicidal ideation. Denies hallucinations. PHYSICAL EXAM GENERAL APPEARANCE: The patient is awake, alert, patient appears very diaphoretic, currently on 3 L supplementation by nasal cannula, patient is morbidly obese NEUROLOGICAL: Cranial nerves II-XII grossly intact. Examination is nonfocal for the patient HEENT: Face is symmetric. Pupils are equal and reactive. Extraocular movements are intact. NECK: Supple. No JVD. No thyromegaly. No submental, submandibular, pre- /postauricular, occipital or supraclavicular lymphadenopathy. CHEST: Normal chest expansion. No Telemetry. LUNGS: Minimal crackles noted at bilateral lung bases CARDIOVASCULAR: Regular. S1 and S2 normal. Tachycardic was ABDOMEN: Soft, nontender, and nondistended. There is no rebound, voluntary guarding, or rigidity. : Deferred. No [place]. EXTREMITIES: Non-edematous and not cyanotic. No clubbing. Good capillary refill. SKIN: No skin breakdown. Vital Signs (last 8hr) Date Time Temp Pulse Resp B/P (MAP) Pulse Ox O2 Delivery O2 Flow Rate FiO2 01/09/25 08:01 96 20 N/A Room Air 21 01/09/25 07:05 96 20 01/09/25 07:00 99.0 95 18 140/72 95 Room Air 01/09/25 03:57 99.0 90 22 139/85 98 BIPAP 01/09/25 02:53 102 30 40 LABS: Laboratory: Test 01/09/25 05:51 01/09/25 04:24 01/08/25 13:06 01/07/25 19:32 Range/Units Prothrombin Time 11.8 H 9.6-11.6 SEC Prothromb Time International Ratio 1.13 0.85-1.15 Activated Partial Thromboplast Time 34.2 26.3-35.5 SEC White Blood Count 4.8 4.8-10.8 K/uL Red Blood Count 3.66 L 4.50-6.20 MIL/uL Hemoglobin 10.1 L 14.0-18.0 g/dL Hematocrit 30.4 L 42-54 % Mean Corpuscular Volume 83.1 79-99 fL Mean Corpuscular Hemoglobin 27.6 27.0-33.0 pg Mean Corpuscular Hemoglobin Concent 33.2 32.0-36.0 g/dL Red Cell Distribution Width 17.4 H 11.0-15.5 % Platelet Count 172 130-400 K/uL Mean Platelet Volume 11.2 H 7.5-10.5 fL Immature Granulocyte % (Auto) 0.4 0-1 % Neutrophils (%) (Auto) 77.4 H 40.0-77.0 % Lymphocytes (%) (Auto) 13.0 L 21.0-51.0 % Monocytes (%) (Auto) 7.3 3.0-13.0 % Eosinophils (%) (Auto) 1.7 0.0-8.0 % Basophils (%) (Auto) 0.2 0.0-5.0 % Neutrophils # (Auto) 3.7 1.8-7.7 K/uL Lymphocytes # (Auto) 0.6 L 1.0-4.8 K/uL Monocytes # (Auto) 0.4 0.1-1.0 K/uL Eosinophils # (Auto) 0.08 0.00-0.70 K/uL Basophils # (Auto) 0.01 0.00-0.20 K/uL Absolute Immature Granulocyte (auto 0.02 0-1 K/uL Nucleated Red Blood Cells 0.0 0.0-0.19 % Sodium Level 135 L 136-145 mmol/L Potassium Level 4.4 3.5-5.1 mmol/L Chloride Level 100 L 101-111 mmol/L Carbon Dioxide Level 30 21-32 mmol/L Blood Urea Nitrogen 18 7-18 mg/dL Creatinine 1.0 0.5-1.3 mg/dL Glomerular Filtration Rate Calc 87 >90 mL/min Random Glucose 80 70-105 mg/dL Total Calcium 8.0 L 8.5-10.1 mg/dL Magnesium Level 2.10 1.80-2.40 mg/dL Total Bilirubin 1.0 0.2-1.0 mg/dL Aspartate Amino Transf (AST/SGOT) 67 H 10-37 U/L Alanine Aminotransferase (ALT/SGPT) 71 12-78 U/L Alkaline Phosphatase 155 H 50-136 U/L Total Protein 6.0 6.0-8.3 g/dL Albumin 1.6 L 3.5-5.0 g/dL Vancomycin Level Trough 10.5 10.0-20.0 UG/ML Whole Blood Glucose 95 70-110 MG/DL Current Medications Medications (Trade) Dose Ordered Sig/Donald Route PRN Reason Start Time Stop Time Status Last Admin Dose Admin Acetaminophen (TYLenol 325MG TAB) 650 mg Q4H PRN PO TEMPERATURE GREATER THAN 101.5 01/02/25 20:30 02/01/25 20:29 01/03/25 21:25 650 MG Acetaminophen (TYLenol 325MG TAB) 650 mg Q6H PRN PO MILD PAIN (1-3) 12/28/24 12:00 01/27/25 11:59 01/09/25 00:07 650 MG Aspirin (Aspirin 81mg Chew Tab) 81 mg DAILY PO 12/29/24 09:00 01/28/25 08:59 01/08/25 08:39 81 MG Atorvastatin Calcium (LIPItor 40MG) 40 mg HS PO 12/29/24 21:00 01/28/25 20:59 01/08/25 20:15 40 MG Clopidogrel Bisulfate (plaVIX 75MG) 75 mg Q24H PO 12/28/24 20:30 12/28/24 22:21 DC 12/28/24 21:23 75 MG Doxycycline Hyclate 250 ml @ 125 mls/hr Q12H IV 12/28/24 14:30 01/04/25 11:42 DC 01/04/25 03:00 125 MLS/HR Enoxaparin Sodium (Lovenox) 40 mg DAILY SQ 12/29/24 09:00 01/28/25 08:59 01/08/25 08:40 40 MG Famotidine (Pepcid 20mg Vial) 20 mg Q24H IV 12/28/24 21:00 01/27/25 20:59 01/08/25 20:15 20 MG Ipratropium [place] (AtrovENT UD) 0.5 MG [id number] IH 12/30/24 22:00 01/29/25 21:59 01/09/25 07:05 0.5 MG Ipratropium [place] (AtrovENT UD) 1 mg Q6H PRN IH SHORTNESS OF BREATH 12/28/24 12:00 01/27/25 11:59 Lactulose (Constulose 20gm/ 30ml Udcup) 20 gm Q6H6 PO 12/29/24 12:00 12/29/24 11:49 DC Lactulose (Constulose 20gm/ 30ml Udcup) 20 gm TID PO 12/29/24 14:00 01/01/25 14:30 DC 12/30/24 13:55 20 GM Lactulose (Constulose 20gm/ 30ml Udcup) 20 gm TID PRN PO CONSTIPATION 01/01/25 14:30 01/28/25 13:59 Meropenem (Merrem 1gm) 1 gm Q8H IVPB 01/04/25 12:00 01/05/25 11:09 DC 01/05/25 03:42 1 GM Meropenem (Merrem 1gm) 1 gm Q8H IVPB 01/05/25 12:00 01/15/25 11:59 01/09/25 03:18 1 GM Metoprolol Succinate (TopROL XL) 25 mg DAILY PO 12/28/24 13:00 01/27/25 12:59 01/08/25 08:39 25 MG Ondansetron HCl (zoFRAN 4MG INJ) 4 mg Q6H PRN IVP NAUSEA/VOMITING 12/28/24 12:00 01/27/25 11:59 Pharmacy Profile Note (Pharmacy Communication) 1 each ONCE MISC 01/04/25 12:00 01/04/25 11:57 DC Piperacillin Sod/ Tazobactam Sod (Zosyn 3.375gm+NS 50ml) 3.375 gm Q8H IVPB 12/28/24 12:00 01/04/25 11:42 DC 01/04/25 05:53 3.375 GM Potassium Chloride 100 ml @ 100 mls/hr AD PRN IV POTASSIUM PROTOCOL 12/31/24 05:00 01/30/25 04:59 01/02/25 05:08 100 MLS/HR Potassium Chloride (K-Dur/Klor-Con 20meq) 20 meq AD PRN PO POTASSIUM PROTOCOL 12/31/24 05:00 01/30/25 04:59 01/02/25 23:14 20 MEQ Potassium Chloride (KCl 10% Elixir 20meq/15ml) 20 meq AD PRN PO POTASSIUM PROTOCOL 12/31/24 05:00 01/30/25 04:59 Procainamide HCl 2000 mg/Sodium Chloride 250 ml @ 0 mls/hr PROTOCOL IV 12/28/24 10:00 12/28/24 10:42 DC Sodium Chloride 1,000 ml @ 100 mls/hr Q10H IV 12/28/24 12:00 12/29/24 09:23 DC 12/29/24 09:14 100 MLS/HR Sodium Chloride (NS 50ml) 50 ml AD IV 12/28/24 12:00 12/28/24 11:59 DC Thiamine HCl (Vitamin B-1) 100 mg Q24H IVP 12/28/24 12:00 01/27/25 11:59 01/08/25 12:32 100 MG Vancomycin HCl 250 ml @ 125 mls/hr Q12H IV 01/05/25 02:00 01/06/25 04:05 DC 01/06/25 02:37 125 MLS/HR Vancomycin HCl 250 ml @ 125 mls/hr Q12H IV 01/06/25 14:00 01/16/25 13:59 01/09/25 02:48 125 MLS/HR Vancomycin HCl (Vancomycin Protocol) 1 each AD IV 01/04/25 12:00 01/18/25 11:59 Vitamin B Complex/ Vit C/Folic Acid (Nephrovite Tablet) 1 cap DAILY PO 12/29/24 09:00 01/28/25 08:59 01/08/25 08:39 1 CAP DIAGNOSTICS / RADIOLOGY: [ ] ASSESSMENT: 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 Acute hypoxemic respiratory failure, POA Community-acquired pneumonia, POA Undiagnosed obstructive sleep apnea Acute diastolic congestive heart failure as per 2D echo Elevated cardiac troponin, rule out active ACS, POA acute pancreatitis likely 2/2 gall stones Acute Kidney injury, POA Hyponatremia, POA Morbid obesity, POA Sinus tachycardia, POA Thrombocytopenia, POA, mild Underlying history of obstructive sleep apnea, POA Hypertension, POA Hyperlipidemia, POA History of MA, POA History of coronary artery disease with prior history of PCI, POA 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 Oriented x3, hemodynamically stable, afebrile, saturating normal on room air, denied chest pain, shortness shortness for breath, no nausea, no vomiting. CT abdomen with IV contrast revealed acute pancreatitis and acute cholecystitis. Patient is asymptomatic. Denies nausea, no vomiting, no abdominal discomfort. Currently NPO,Surgical team does not recommend cholecystectomy surgery at this moment. Patient will undergo IR to place cholecystectomy drain. NEURO: Minimize central acting medications as possible. Fall Precautions. Well lighted room through the day and minimize interruptions through the night to prevent acute delirium. PULMONARY: Supplemental 02 as needed BiPAP as necessary, for respiratory distress Titrate Fio2 to keep Spo2 > or = 90% DuoNebs and CPT as needed IS hourly while awake for pulmonary hygiene prn Out of bed to chair as tolerated Maintain aspiration precautions at all times CARDIOVASCULAR: Follow hemodynamics. Vital signs per facility protocol GI & NUTRITION: Continue nutritional support Aspirations precautions Prokinetic agents and laxatives as needed KIDNEYS & ELECTROLYTES: Strict monitoring of intake and output Daily weights Avoid nephrotoxic agents Monitor electrolytes and replace as needed Goal urine output of 30mL/hr or 0.5mL/kg/hr Medications to be dosed according to renal function. Avoid contrast if possible ENDOCRINE: Maintain blood glucose between 100-180 at all times. Insulin sliding scale for blood glucose management Hypoglycemia and hyperglycemia protocol in place INFECTIOUS DISEASE: Trend temperature, WBC and procalcitonin level Follow cultures, deescalate antibiotics as soon as possible. Panculture if new onset fever HEMATOLOGY & COAGULATION: Monitor H&H. Keep Hgb > 7 Transfuse 1 unit of PRBC for Hgb < 7 Transfuse 1 pack of platelets of platelets < 20, 000 Watch for any signs and symptoms of bleeding SKIN: Pressure ulcer prevention per facility protocol Specialty mattress as needed ORTHO/REHAB Continue PT/OT PRN: MEDICATIONS Tylenol 650 mg po every 4 hrs for fever zofran 4 mg IV every 6 hrs for n/v Hydralazine 5 mg IV every 4 hrs systolic pressure > 160 bowel regiment: lactulose 20 gm PO BID PRN constipation Supportive measures: Continue GI and DVT prophylaxis: All questions answered time spent: > 35 min MAINOR KENNEDY MD Jan 09, 2025 09:25
[2025-01-09] MEDS ORDERED: MIDAZOLAM HCL 1 MG/ML 2ML VIAL ONE (09:48)
--- NOTE | 2025-01-09 11:28 | CCATH ---
PROCEDURE: Attempted placement of a cholecystotomy tube. DESCRIPTION OF PROCEDURE: Under ultrasound and fluoroscopy guidance, the gallbladder was localized due to large body habitus with multiple sticks, unsuccessful in placing a Chiba needle into the gallbladder lumen. I would recommend the patient be followed up with a CT-guided attempt for placement of cholecystotomy tube. IV conscious sedation was given with 50 mcg of fentanyl and 2 mg of Versed. TID: [id number] RECEIPT: [id number]
--- NOTE | 2025-01-09 16:06 | PN ---
This is a 59-year-old male with concerns of acute cholecystitis confirmed with HIDA scan Interval history: This 59-year-old male taken by IR for cholecystostomy tube placement but unable to complete Patient will be taken by IR for re-attempt tomorrow with CT guidance No abdominal pain reported today WBCs 4.8 with a hemoglobin of 10.1 LFTs unremarkable Physical exam General: Awake alert and oriented Heart: Regular rate and rhythm} Lungs: Clear to auscultation no distress Abdomen: [Soft, nontender, nondistended Assessment : This is a 59-year-old male with concerns of acute cholecystitis Plan: This point in time no immediate surgical intervention planned We will await for re-attempt by IR for CT-guided cholecystostomy tube placement Continue with the IV fluids and IV antibiotics Dr Claros to be updated on patient's status Surgical case has been discussed with my supervising physician in the above plan was formulated and agreed upon We appreciate the hospitalist team for us to participate in patient's care. Greater than 45 minutes of time spent patient, reviewing chart, working on documentation Vitals/Labs Vital Signs Date Time Temp Pulse Resp B/P (MAP) Pulse Ox O2 Delivery O2 Flow Rate FiO2 01/09/25 11:30 98.8 92 32 160/70 98 Room Air 01/09/25 10:44 0 21 Laboratory Tests 01/09/25 04:24 Medications Current Medications Procainamide HCl 2000 mg/Sodium Chloride 250 ml @ 0 mls/hr PROTOCOL IV; Start 12/28/24 at 10:00; Stop 12/28/24 at 10:42; Status DC Metoprolol Tartrate 5 mg ONCE ONCE IV Last administered on 12/28/24at 10:38; Start 12/28/24 at 10:30; Stop 12/28/24 at 10:31; Status DC Aspirin 325 mg ONCE ONCE PO Last administered on 12/28/24at 10:46; Start 12/28/24 at 11:00; Stop 12/28/24 at 11:01; Status DC Sodium Chloride 1,000 ml @ 100 mls/hr Q10H IV Last administered on 12/29/24at 09:14; Start 12/28/24 at 12:00; Stop 12/29/24 at 09:23; Status DC Ipratropium [place] 1 mg Q6H PRN IH; Start 12/28/24 at 12:00; Stop 01/27/25 at 11:59 Acetaminophen 650 mg Q6H PRN PO Last administered on 01/09/25at 00:07; Start 12/28/24 at 12:00; Stop 01/27/25 at 11:59 Ondansetron HCl 4 mg Q6H PRN IVP; Start 12/28/24 at 12:00; Stop 01/27/25 at 11:59 Thiamine HCl 100 mg Q24H IVP Last administered on 01/09/25at 12:58; Start 12/28/24 at 12:00; Stop 01/27/25 at 11:59 Vitamin B Complex/ Vit C/Folic Acid 1 cap DAILY PO Last administered on 01/09/25at 12:58; Start 12/29/24 at 09:00; Stop 01/28/25 at 08:59 Aspirin 81 mg DAILY PO Last administered on 01/08/25at 08:39; Start 12/29/24 at 09:00; Stop 01/28/25 at 08:59 Piperacillin Sod/ Tazobactam Sod 3.375 gm Q8H IVPB Last administered on 01/04/25at 05:53; Start 12/28/24 at 12:00; Stop 01/04/25 at 11:42; Status DC Sodium Chloride 50 ml AD IV; Start 12/28/24 at 12:00; Stop 12/28/24 at 11:59; Status DC Enoxaparin Sodium 40 mg DAILY SQ Last administered on 01/08/25at 08:40; Start 12/29/24 at 09:00; Stop 01/28/25 at 08:59 Famotidine 20 mg Q24H IV Last administered on 01/08/25at 20:15; Start 12/28/24 at 21:00; Stop 01/27/25 at 20:59 Metoprolol Succinate 25 mg DAILY PO Last administered on 01/09/25at 12:59; Start 12/28/24 at 13:00; Stop 01/27/25 at 12:59 Iohexol 75 ml STK-MED ONCE IV; Start 12/28/24 at 12:57; Stop 12/28/24 at 12:57; Status DC Doxycycline Hyclate 250 ml @ 125 mls/hr Q12H IV Last administered on 01/04/25at 03:00; Start 12/28/24 at 14:30; Stop 01/04/25 at 11:42; Status DC Sodium Chloride 4 ml STK-MED ONCE IH Last administered on 12/28/24at 19:12; Start 12/28/24 at 18:20; Stop 12/28/24 at 18:20; Status DC Clopidogrel Bisulfate 75 mg Q24H PO Last administered on 12/28/24at 21:23; Start 12/28/24 at 20:30; Stop 12/28/24 at 22:21; Status DC Sodium Chloride 4 ml STK-MED ONCE IH; Start 12/28/24 at 22:27; Stop 12/28/24 at 22:28; Status DC Lactulose 20 gm Q6H6 PO; Start 12/29/24 at 12:00; Stop 12/29/24 at 11:49; Status DC Lactulose 20 gm TID PO Last administered on 12/30/24at 13:55; Start 12/29/24 at 14:00; Stop 01/01/25 at 14:30; Status DC Atorvastatin Calcium 40 mg HS PO Last administered on 01/08/25at 20:15; Start 12/29/24 at 21:00; Stop 01/28/25 at 20:59 Melatonin 10 mg ONCE ONCE PO Last administered on 12/30/24at 00:46; Start 12/30/24 at 00:00; Stop 12/30/24 at 00:02; Status DC Potassium Chloride 20 meq ONCE ONCE PO Last administered on 12/30/24at 05:47; Start 12/30/24 at 05:00; Stop 12/30/24 at 05:02; Status DC Magnesium Citrate 296 ml ONCE ONCE PO Last administered on 12/30/24at 13:55; Start 12/30/24 at 13:30; Stop 12/30/24 at 13:31; Status DC Furosemide 20 mg ONCE ONCE IV Last administered on 12/30/24at 17:34; Start 12/30/24 at 17:30; Stop 12/30/24 at 17:31; Status DC Ipratropium [place] 0.5 MG [id number] IH Last administered on 01/09/25at 14:11; Start 12/30/24 at 22:00; Stop 01/29/25 at 21:59 Potassium Chloride 20 meq AD PRN PO; Start 12/31/24 at 05:00; Stop 01/30/25 at 04:59 Potassium Chloride 20 meq AD PRN PO Last administered on 01/02/25at 23:14; Start 12/31/24 at 05:00; Stop 01/30/25 at 04:59 Potassium Chloride 100 ml @ 100 mls/hr AD PRN IV Last administered on 01/02/25at 05:08; Start 12/31/24 at 05:00; Stop 01/30/25 at 04:59 Lactulose 20 gm TID PRN PO; Start 01/01/25 at 14:30; Stop 01/28/25 at 13:59 Acetaminophen 650 mg Q4H PRN PO Last administered on 01/03/25at 21:25; Start 01/02/25 at 20:30; Stop 02/01/25 at 20:29 Iohexol 35,000 mg STK-MED ONCE IV; Start 01/04/25 at 01:50; Stop 01/04/25 at 01:50; Status DC Morphine Sulfate 2 mg ONCE ONCE IVP; Start 01/04/25 at 06:30; Stop 01/04/25 at 06:28; Status DC Potassium Chloride 40 meq ONCE ONCE PO Last administered on 01/04/25at 09:32; Start 01/04/25 at 07:30; Stop 01/04/25 at 07:31; Status DC Vancomycin HCl 1 each AD IV; Start 01/04/25 at 12:00; Stop 01/18/25 at 11:59 Pharmacy Profile Note 1 each ONCE MISC; Start 01/04/25 at 12:00; Stop 01/04/25 at 11:57; Status DC Vancomycin HCl 500 ml @ 250 mls/hr ONCE ONCE IV Last administered on 01/04/25at 14:30; Start 01/04/25 at 14:00; Stop 01/04/25 at 15:59; Status DC Vancomycin HCl 250 ml @ 125 mls/hr Q12H IV Last administered on 01/06/25at 02:37; Start 01/05/25 at 02:00; Stop 01/06/25 at 04:05; Status DC Meropenem 1 gm Q8H IVPB Last administered on 01/05/25at 03:42; Start 01/04/25 at 12:00; Stop 01/05/25 at 11:09; Status DC Meropenem 1 gm Q8H IVPB Last administered on 01/09/25at 12:58; Start 01/05/25 at 12:00; Stop 01/15/25 at 11:59 Vancomycin HCl 250 ml @ 125 mls/hr Q12H IV Last administered on 01/09/25at 02:48; Start 01/06/25 at 14:00; Stop 01/16/25 at 13:59 Iohexol 35,000 mg STK-MED ONCE IV; Start 01/06/25 at 16:08; Stop 01/06/25 at 16:08; Status DC Lidocaine HCl 20 ml STK-MED ONCE .ROUTE; Start 01/09/25 at 09:13; Stop 01/09/25 at 09:13; Status DC Iohexol 50 ml STK-MED ONCE IV; Start 01/09/25 at 09:13; Stop 01/09/25 at 09:13; Status DC Heparin Sodium/ Sodium Chloride 500 ml @ As Directed STK-MED ONCE IV; Start 01/09/25 at 09:13; Stop 01/09/25 at 09:13; Status DC Fentanyl Citrate 100 mcg STK-MED ONCE .ROUTE; Start 01/09/25 at 09:48; Stop 01/09/25 at 09:48; Status DC Midazolam HCl 2 mg STK-MED ONCE .ROUTE; Start 01/09/25 at 09:48; Stop 01/09/25 at 09:49; Status DC Lidocaine HCl 20 ml STK-MED ONCE .ROUTE; Start 01/09/25 at 10:25; Stop 01/09/25 at 10:25; Status DC BRADY NORTON Jr. Jan 09, 2025 16:06
--- NOTE | 2025-01-09 16:24 | PN ---
HISTORY OF PRESENT ILLNESS This is a pleasant 59-year-old male with past medical history as per patient with complaints of shortness of breath, is being evaluated for possible ACS contributory for pneumonia. Patient was also found to have a CVA PAST MEDICAL HISTORY, ALLERGIES See below REVIEW OF SYSTEMS Not obtained Vitals See chart PHYSICAL EXAM Alert and oriented x 3 Nonicteric nontraumatic Regular rate and rhythm, no murmurs Clear to auscultation bilaterally pulmonary Abdomen nontender Rectal deferred Skin no rash neurological no focal deficits Extremities no edema ASSESSMENT CORONARY DISEASE, ELEVATED TROPONIN At presentation PNEUMONIA Being managed by antibiotics per infectious disease, appreciate CT was negative for pulm embolism CVA At presentation Patient ganglia as well as occipital lobe involvement ACUTE ON CHRONIC KIDNEY DISEASE At presentation Create greater than 2 HISTORY OF [id number] SYNDROME SLEEP APNEA, HYPERTENSION, HYPERLIPIDEMIA, SLEEP APNEA CORE MEASURES pending OTHER MEDICAL PROBLEMS reviewed CORE MEASURES Pending OTHER MEDICAL PROBLEMS Reviewed PLAN 12/28/2024 given recent CVA, not a good candidate for any ischemic evaluation at this time, echocardiogram has been ordered and pending. Further recommendations post. Continue current medical therapy conservative management for now. May consider STONE given stroke in 2 different vascular distributions. Holter monitor may also be considered. Seen and examined 12/28/2024 at around 1800. 12/29/2024 Remains on BiPAP, echocardiogram was within normal limits. Renal function being addressed by nephrology, julieta. At this time, given recent CVA ongoing respiratory issues, not a good candidate for any ischemic evaluation. Once he has recovered from his underlying issues, may consider further evaluation from a cardiac standpoint. Conservative measures for now. Seen and examined 12/29/2024 at around 7 PM. 12/30/2024 Feeling better, currently off BiPAP, nephrology on board managing renal dysfunction. As above, continue conservative measures at this time and may consider outpatient ischemic evaluation once recovered from CVA. On atorvastatin and aspirin beta-tomasa continue. Renal function improving. Echo was within normal limits. Seen and examined 12/30/2024 at around 8 PM. 12/31/2024 No cardiovascular symptoms, no weakness from the stroke, doing well, walking in the hallways and getting therapy. On doxycycline. Eventual plans for ischemic evaluation as well as STONE as outpatient. May consider long-term monitoring as well given strokes involving multiple circulations. Pancreatitis and pneumonia being treated as well. Seen and examined 12/31/2024 at around 1 PM. 01/01/2025 Doing well, no active cardiovascular complaints at this time. Only issues with pneumonia pancreatitis CVA all of which have improved. Currently, ambulating without any significant issues, Home when okay with primary team and will follow-up in the office for ischemic evaluation and stroke workup. Renal function has improved. Seen and examined 01/01/2025 at around 8 AM. 01/02/2025 Remains antibiotics and did have fevers again today and therefore, discharge is being held. Appreciate infectious disease. Renal function slightly worse today as well, will need to be watched. Stable cardiovascular status and patient remains asymptomatic from a cardiovascular standpoint at this time. Seen and examined 01/02/2025 at around 5 PM. 01/03/2025 No more fevers per report. Arcenio function is stable, appreciate nephrology. ID on board managing fevers creatinine 1.4 most recently which is close to baseline CT chest abdomen pelvis with persistent pancreatitis, fatty liver, cholelithiasis. Seen and examined 01/03/2025 at around 11 AM. 01/04/2025 Active cardiovascular issues, fevers pancreatitis today is currently being addressed per primary team. Remains on antibiotics for ongoing issues with fevers. Volume status is acceptable. GI on board. Seen and examined 01/04/2025 at around 1800. 01/05/2025 Doing well, per report, fevers have improved, remains on antibiotic therapy. Interstitial pancreatitis on imaging, currently switched to vancomycin and meropenem to help. No active cardiovascular issues. Will follow peripherally, call us if needed. Seen and examined 01/05/2025 at around 1700. 01/08/2025 Given normal ejection fraction, no active cardiac complaints, patient is likely intermediate risk for upcoming surgery. Discussed with patient as well. Will follow perioperatively. Cholecystotomy tube is being planned. Seen and examined 01/08/2025 at around 6 PM. 01/09/2025 Cholecystotomy tube insertion has been moved to tomorrow. Will follow perioperatively. Remains asymptomatic from a cardiovascular standpoint. Seen and examined 01/09/2025 at around 6 PM. ATTESTATION I was involved substantial in the care of the patient Number of complexity of problems addressed 1 acute illness with systemic features Amount and or complexity of data Review of prior external notes from each unique source 2+ Ordering of each unique test 0 Review of results of each unique test 2+ Assessment requiring independent historians no Dependent interpretation of test performed by another MD no Discussion of management or test interpretation with external MD no Risk status moderate Vitals/Labs Vital Signs Date Time Temp Pulse Resp B/P (MAP) Pulse Ox O2 Delivery O2 Flow Rate FiO2 01/09/25 11:30 98.8 92 32 160/70 98 Room Air 01/09/25 10:44 0 21 Laboratory Tests 01/09/25 04:24 Medications Current Medications Procainamide HCl 2000 mg/Sodium Chloride 250 ml @ 0 mls/hr PROTOCOL IV; Start 12/28/24 at 10:00; Stop 12/28/24 at 10:42; Status DC Metoprolol Tartrate 5 mg ONCE ONCE IV Last administered on 12/28/24at 10:38; Start 12/28/24 at 10:30; Stop 12/28/24 at 10:31; Status DC Aspirin 325 mg ONCE ONCE PO Last administered on 12/28/24at 10:46; Start 12/28/24 at 11:00; Stop 12/28/24 at 11:01; Status DC Sodium Chloride 1,000 ml @ 100 mls/hr Q10H IV Last administered on 12/29/24at 09:14; Start 12/28/24 at 12:00; Stop 12/29/24 at 09:23; Status DC Ipratropium [place] 1 mg Q6H PRN IH; Start 12/28/24 at 12:00; Stop 01/27/25 at 11:59 Acetaminophen 650 mg Q6H PRN PO Last administered on 01/09/25at 00:07; Start 12/28/24 at 12:00; Stop 01/27/25 at 11:59 Ondansetron HCl 4 mg Q6H PRN IVP; Start 12/28/24 at 12:00; Stop 01/27/25 at 11:59 Thiamine HCl 100 mg Q24H IVP Last administered on 01/09/25at 12:58; Start 12/28/24 at 12:00; Stop 01/27/25 at 11:59 Vitamin B Complex/ Vit C/Folic Acid 1 cap DAILY PO Last administered on 01/09/25at 12:58; Start 12/29/24 at 09:00; Stop 01/28/25 at 08:59 Aspirin 81 mg DAILY PO Last administered on 01/08/25at 08:39; Start 12/29/24 at 09:00; Stop 01/28/25 at 08:59 Piperacillin Sod/ Tazobactam Sod 3.375 gm Q8H IVPB Last administered on 01/04/25at 05:53; Start 12/28/24 at 12:00; Stop 01/04/25 at 11:42; Status DC Sodium Chloride 50 ml AD IV; Start 12/28/24 at 12:00; Stop 12/28/24 at 11:59; Status DC Enoxaparin Sodium 40 mg DAILY SQ Last administered on 01/08/25at 08:40; Start 12/29/24 at 09:00; Stop 01/28/25 at 08:59 Famotidine 20 mg Q24H IV Last administered on 01/08/25at 20:15; Start 12/28/24 at 21:00; Stop 01/27/25 at 20:59 Metoprolol Succinate 25 mg DAILY PO Last administered on 01/09/25at 12:59; Start 12/28/24 at 13:00; Stop 01/27/25 at 12:59 Iohexol 75 ml STK-MED ONCE IV; Start 12/28/24 at 12:57; Stop 12/28/24 at 12:57; Status DC Doxycycline Hyclate 250 ml @ 125 mls/hr Q12H IV Last administered on 01/04/25at 03:00; Start 12/28/24 at 14:30; Stop 01/04/25 at 11:42; Status DC Sodium Chloride 4 ml STK-MED ONCE IH Last administered on 12/28/24at 19:12; Start 12/28/24 at 18:20; Stop 12/28/24 at 18:20; Status DC Clopidogrel Bisulfate 75 mg Q24H PO Last administered on 12/28/24at 21:23; Start 12/28/24 at 20:30; Stop 12/28/24 at 22:21; Status DC Sodium Chloride 4 ml STK-MED ONCE IH; Start 12/28/24 at 22:27; Stop 12/28/24 at 22:28; Status DC Lactulose 20 gm Q6H6 PO; Start 12/29/24 at 12:00; Stop 12/29/24 at 11:49; Status DC Lactulose 20 gm TID PO Last administered on 12/30/24at 13:55; Start 12/29/24 at 14:00; Stop 01/01/25 at 14:30; Status DC Atorvastatin Calcium 40 mg HS PO Last administered on 01/08/25at 20:15; Start 12/29/24 at 21:00; Stop 01/28/25 at 20:59 Melatonin 10 mg ONCE ONCE PO Last administered on 12/30/24at 00:46; Start 12/30/24 at 00:00; Stop 12/30/24 at 00:02; Status DC Potassium Chloride 20 meq ONCE ONCE PO Last administered on 12/30/24at 05:47; Start 12/30/24 at 05:00; Stop 12/30/24 at 05:02; Status DC Magnesium Citrate 296 ml ONCE ONCE PO Last administered on 12/30/24at 13:55; Start 12/30/24 at 13:30; Stop 12/30/24 at 13:31; Status DC Furosemide 20 mg ONCE ONCE IV Last administered on 12/30/24at 17:34; Start 12/30/24 at 17:30; Stop 12/30/24 at 17:31; Status DC Ipratropium [place] 0.5 MG [id number] IH Last administered on 01/09/25at 14:11; Start 12/30/24 at 22:00; Stop 01/29/25 at 21:59 Potassium Chloride 20 meq AD PRN PO; Start 12/31/24 at 05:00; Stop 01/30/25 at 04:59 Potassium Chloride 20 meq AD PRN PO Last administered on 01/02/25at 23:14; Start 12/31/24 at 05:00; Stop 01/30/25 at 04:59 Potassium Chloride 100 ml @ 100 mls/hr AD PRN IV Last administered on 01/02/25at 05:08; Start 12/31/24 at 05:00; Stop 01/30/25 at 04:59 Lactulose 20 gm TID PRN PO; Start 01/01/25 at 14:30; Stop 01/28/25 at 13:59 Acetaminophen 650 mg Q4H PRN PO Last administered on 01/03/25at 21:25; Start 01/02/25 at 20:30; Stop 02/01/25 at 20:29 Iohexol 35,000 mg STK-MED ONCE IV; Start 01/04/25 at 01:50; Stop 01/04/25 at 01:50; Status DC Morphine Sulfate 2 mg ONCE ONCE IVP; Start 01/04/25 at 06:30; Stop 01/04/25 at 06:28; Status DC Potassium Chloride 40 meq ONCE ONCE PO Last administered on 01/04/25at 09:32; Start 01/04/25 at 07:30; Stop 01/04/25 at 07:31; Status DC Vancomycin HCl 1 each AD IV; Start 01/04/25 at 12:00; Stop 01/18/25 at 11:59 Pharmacy Profile Note 1 each ONCE MISC; Start 01/04/25 at 12:00; Stop 01/04/25 at 11:57; Status DC Vancomycin HCl 500 ml @ 250 mls/hr ONCE ONCE IV Last administered on 01/04/25at 14:30; Start 01/04/25 at 14:00; Stop 01/04/25 at 15:59; Status DC Vancomycin HCl 250 ml @ 125 mls/hr Q12H IV Last administered on 01/06/25at 02:37; Start 01/05/25 at 02:00; Stop 01/06/25 at 04:05; Status DC Meropenem 1 gm Q8H IVPB Last administered on 01/05/25at 03:42; Start 01/04/25 at 12:00; Stop 01/05/25 at 11:09; Status DC Meropenem 1 gm Q8H IVPB Last administered on 01/09/25at 12:58; Start 01/05/25 at 12:00; Stop 01/15/25 at 11:59 Vancomycin HCl 250 ml @ 125 mls/hr Q12H IV Last administered on 01/09/25at 02:48; Start 01/06/25 at 14:00; Stop 01/16/25 at 13:59 Iohexol 35,000 mg STK-MED ONCE IV; Start 01/06/25 at 16:08; Stop 01/06/25 at 16:08; Status DC Lidocaine HCl 20 ml STK-MED ONCE .ROUTE; Start 01/09/25 at 09:13; Stop 01/09/25 at 09:13; Status DC Iohexol 50 ml STK-MED ONCE IV; Start 01/09/25 at 09:13; Stop 01/09/25 at 09:13; Status DC Heparin Sodium/ Sodium Chloride 500 ml @ As Directed STK-MED ONCE IV; Start 01/09/25 at 09:13; Stop 01/09/25 at 09:13; Status DC Fentanyl Citrate 100 mcg STK-MED ONCE .ROUTE; Start 01/09/25 at 09:48; Stop 01/09/25 at 09:48; Status DC Midazolam HCl 2 mg STK-MED ONCE .ROUTE; Start 01/09/25 at 09:48; Stop 01/09/25 at 09:49; Status DC Lidocaine HCl 20 ml STK-MED ONCE .ROUTE; Start 01/09/25 at 10:25; Stop 01/09/25 at 10:25; Status DC BRENNON CROWLEY MD Jan 09, 2025 16:24
--- NOTE | 2025-01-09 17:24 | NUR ---
CM NOTE CM spoke to patient about MD recommendations for LTAC placement. CM explained LTAC level of care. Patient states he wants to discuss with family/friends and will let CM know tomorrow. Addendum: 01/09/25 at 1726 by LUCA MADDEN CM Amended: Links added.
--- NOTE | 2025-01-09 21:58 | PN ---
INFECTIOUS DISEASE PROGRESS NOTE Date of Service: Jan 09, 2025 SUBJECTIVE: This is a 59 year old male patient who was seen today at bedside in room 228. Patient is awake alert and oriented x3. A HIDA scan resulted in acute cholecystitis and patient was scheduled for a cholecystostomy drain placement however it was unsuccessful and the procedure will be re-attempted tomorrow under CT-guidance. We will continue on vancomycin and Meropenem. Case management to evaluate for referral to [facility]. We will continue to follow patient's care. PHYSICAL EXAM EYES: Anicteric. Pupils equal and reactive. HENT: No oral thrush seen, moist Oral mucosa. NECK: Supple, no JVD or thyromegaly. LUNGS: diminished. No wheezing or rhonchi CARDIOVASCULAR: S1, S2 regular. No murmur heard. ABDOMEN: Soft, non tender, bowel sounds present, no organomegaly. Abdominal pain POA. CENTRAL NERVOUS SYSTEM: Awake, alert, oriented x 3. SKIN: No rashes, no swelling. LYMPHATICS: No peripheral lymphadenopathy. MUSCULOSKELETAL: No joint swelling, erythema or tenderness. EXTREMITIES: No cyanosis or clubbing. BACK: No deformity, no pressure ulcer. GENITOURINARY: No dysuria or hematuria. Vital Sign (Last 12 Hours) 01/09/25 01/09/25 01/09/25 01/09/25 10:44 11:30 16:00 19:26 Temp 98.8 99.0 Pulse 92 104 105 Resp 32 24 21 B/P (MAP) 160/70 139/79 Pulse Ox 100 98 96 O2 Delivery Room Air* Room Air Room Air O2 Flow Rate 0 FiO2 21 01/09/25 01/09/25 19:26 19:58 Temp 100.2 Pulse 105 106 Resp 21 21 B/P (MAP) 141/71 Pulse Ox 96 O2 Delivery N/A Room Air Room Air FiO2 21 Intake & Output (last 24hrs) 01/08/25 01/08/25 01/09/25 15:00 23:00 07:00 Intake Total 100.0 ml 250.0 ml Balance 100.0 ml 250.0 ml LABS: Laboratory: Test 01/09/25 05:51 01/09/25 04:24 01/08/25 13:06 Range/Units Prothrombin Time 11.8 H 9.6-11.6 SEC Prothromb Time International Ratio 1.13 0.85-1.15 Activated Partial Thromboplast Time 34.2 26.3-35.5 SEC White Blood Count 4.8 4.8-10.8 K/uL Red Blood Count 3.66 L 4.50-6.20 MIL/uL Hemoglobin 10.1 L 14.0-18.0 g/dL Hematocrit 30.4 L 42-54 % Mean Corpuscular Volume 83.1 79-99 fL Mean Corpuscular Hemoglobin 27.6 27.0-33.0 pg Mean Corpuscular Hemoglobin Concent 33.2 32.0-36.0 g/dL Red Cell Distribution Width 17.4 H 11.0-15.5 % Platelet Count 172 130-400 K/uL Mean Platelet Volume 11.2 H 7.5-10.5 fL Immature Granulocyte % (Auto) 0.4 0-1 % Neutrophils (%) (Auto) 77.4 H 40.0-77.0 % Lymphocytes (%) (Auto) 13.0 L 21.0-51.0 % Monocytes (%) (Auto) 7.3 3.0-13.0 % Eosinophils (%) (Auto) 1.7 0.0-8.0 % Basophils (%) (Auto) 0.2 0.0-5.0 % Neutrophils # (Auto) 3.7 1.8-7.7 K/uL Lymphocytes # (Auto) 0.6 L 1.0-4.8 K/uL Monocytes # (Auto) 0.4 0.1-1.0 K/uL Eosinophils # (Auto) 0.08 0.00-0.70 K/uL Basophils # (Auto) 0.01 0.00-0.20 K/uL Absolute Immature Granulocyte (auto 0.02 0-1 K/uL Nucleated Red Blood Cells 0.0 0.0-0.19 % Sodium Level 135 L 136-145 mmol/L Potassium Level 4.4 3.5-5.1 mmol/L Chloride Level 100 L 101-111 mmol/L Carbon Dioxide Level 30 21-32 mmol/L Blood Urea Nitrogen 18 7-18 mg/dL Creatinine 1.0 0.5-1.3 mg/dL Glomerular Filtration Rate Calc 87 >90 mL/min Random Glucose 80 70-105 mg/dL Total Calcium 8.0 L 8.5-10.1 mg/dL Magnesium Level 2.10 1.80-2.40 mg/dL Total Bilirubin 1.0 0.2-1.0 mg/dL Aspartate Amino Transf (AST/SGOT) 67 H 10-37 U/L Alanine Aminotransferase (ALT/SGPT) 71 12-78 U/L Alkaline Phosphatase 155 H 50-136 U/L Total Protein 6.0 6.0-8.3 g/dL Albumin 1.6 L 3.5-5.0 g/dL Vancomycin Level Trough 10.5 10.0-20.0 UG/ML ASSESSMENT: Acute cholecystitis. Acute pancreatitis. Pneumonia. Persistent fevers. Sepsis. Leukocytosis, resolved. Acute renal failure, improving. Acute nonhemorrhagic stroke. Rhabdomyolysis. History of coronary artery disease. PLAN: Continue vancomycin per pharmacy protocol. Continue Meropenem IV. Continue bronchodilators. Avoid nephrotoxic medications. Case management [facility]. Pending a CT-guided cholecystostomy drain placement. This case was reviewed and discussed with my supervising physician Dr. Rasmussen and the above assessment and plan was formulated and agreed upon. ATTESTATION BY PHYSICIAN I have seen and examined the patient. I reviewed the documentation, medical decision making, and treatment plan as noted by the mid-level provider above. I agree with the findings and plan of care. KARIE RASMUSSEN MD, MIRTA L [facility] Jan 09, 2025 21:58
[2025-01-10] VITALS (15 sets, daily range): BP systolic 104–175; BP diastolic 68–92; PULSE 69–98; RESP 20–22; TEMP 98.5–99.9; O2SAT 93–98
[2025-01-10 04:35] LABS: NUCLEATED RED BLOOD CELLS 0.0 % (0.0-0.19); PLATELET COUNT (AUTO) 209.0 K/uL (130-400); RED BLOOD CELL COUNT(AUTO) 3.81 MIL/uL (4.50-6.20); RED CELL DISTRIBUTION WIDTH 17.6 % (11.0-15.5); WHITE BLOOD COUNT (AUTO) 5.3 K/uL (4.8-10.8)
[2025-01-10 05:01] LABS: ASPARTATE AMINOTRANSFERASE 64.0 U/L (10-37); CREATININE 1.1 mg/dL (0.5-1.3); GLOMERULAR FILTR. RATE CALC 77.0 mL/min (>90); GLUCOSE,RANDOM 82.0 mg/dL (70-105); SODIUM SERUM 132.0 mmol/L (136-145); TOTAL PROTEIN, SERUM 6.6 g/dL (6.0-8.3); UREA NITROGEN, BLOOD 16.0 mg/dL (7-18)
--- NOTE | 2025-01-10 08:46 | HMCIMG ---
CLINICAL HISTORY: Patient is here for cholecystotomy tube placement COMPARISON: None. TECHNIQUES: Limited right upper quadrant abdominal ultrasound. FINDINGS: Under fluoroscopy and ultrasound guidance attempts was made to access the gallbladder to a transhepatic approach. Due to patient's large body habitus and heavy breathing unable to access. We will attempt to perform the procedure under CT guidance IMPRESSION: Gallbladder is localized with multiple gallstones with unable to access to place a cholecystectomy due to large body habitus and heavy breathing. Will attempt the procedure under CT guidance.
[2025-01-10 09:19] LABS: INR 1.08 (0.85-1.15)
--- NOTE | 2025-01-10 12:43 | PN ---
[facility] PROGRESS NOTE Date of Service: Jan 10, 2025 Time of Service: 12:41 SUBJECTIVE: Follow up visit for a 59-year-old male admitted to the hospital for acute hypoxemic respiratory failure, community-acquired pneumonia, non-STEMI, acute pancreatitis. Patient remains on IV doxycycline, IV Zosyn under ID direction. Cultures in process. Currently saturating adequately on room air. Patient initiated on diet, tolerating well, no reports of abdominal pain. Serum lipase improved from 497-175. 2D echo has been performed, report pending. He has brain MRI on admission did show acute infarct in the right basal ganglia similar to the CT brain dated 12/28/2024. Patient at this time reveals no focal deficits. 12/30/2024: Over the past 24 hours no major events reported. Patient remains on IV doxycycline, IV Zosyn under ID direction. He is saturating adequately on room air. Continues to be followed by pulmonology team requesting 6 minute walk test prior to discharge. Patient reports no neuro deficits at this time, being followed closely by Neurology, remains on aspirin statins. Patient denies abdominal pain nausea or vomiting. He is tolerating diet. 2D echo EF 60-65%. Morning labs potassium 3.3, for which he received replacement. 12/31/2024: Patient remains on IV Zosyn IV doxycycline under ID direction. Cultures are in process. Patient currently saturating adequately on room air. He does continue to use CPAP at night. Continues to be followed by pulmonology team. Morning labs reviewed. 01/01/2025: Patient has been noted with episodes of fever, max temp of 102.9. Patient remains on IV doxycycline, IV Zosyn under ID direction. Patient denies chest pain, shortness of breath, nausea vomiting diarrhea. Morning labs reviewed. 01/02/2025: Patient's morning continued to spike fever, max temp of 101.3. Patient remains on IV Zosyn doxycycline under ID direction. Flu a and B and C OVID swabs negative. No leukocytosis. CXR showing left lower lobe pneumonia, no significant interval change. 01/03/25 patient was seen by nurse practitioner and physician in room 228. Patient was evaluated by the field mechanical meter tester and patient denies any chest pain or shortness of breaths, nausea vomiting or abdominal pain. As per recommendation continue patient on IV antibiotics as per ID. No further workout as per field mechanical meter tester. Patient had a fever of 102.9 on 01/02/2025 at 8:53 p.m. WBC 8.7. Urine culture final negative. Blood culture still pending. Most recent chest x-ray showed mild patchy left lower lobe infiltrate/atelectasis. V/Q scan was ordered due to D-dimer [id number]. As per ID continue doxycycline IV and Zosyn IV. Patient is tolerating BiPAP well at night. We will continue to monitor patient in the meantime. A.m. labs 01/04/25 patient was seen by nurse practitioner and physician during rounding in room 228. Patient will receive 40 mEq of potassium. GI was consulted due to severe acute pancreatitis. Labs were ordered as well. Patient also had another fever last night 101.5 and today in the morning of 100.8. Per Infectious Disease doctor discontinue doxy and Zosyn. Patient was started on vancomycin and Merrem. Nephrology continues to monitor patient labs much improved. Neurologist. We will continue to monitor patient in the meantime. A.m. labs 01/05/25 Pt was seen by BOBBIN INSPECTOR and physician during rounding. Final blood and urine culture negative. A per ID patient on Vanco and Merrem IV. WBC trending down. No fevers in past 24 hrs. We will continue to monitor patient. We will wait for outpatient abx recommendation per ID. Am labs 01/06/25 patient was seen by nurse practitioner and physician during rounding. Final urine cultures negative. Blood culture negative x4 days. As per GI note from 01/04/2025 continue supportive care with opiate analgesics and antiemetics. Patient's oral intake was resumed and patient is on cardiac diet. We will order CT with IV contrast as recommended after48 hours of IV fluids we will assess for necrosis. Patient is tolerating diet at this moment no need for nasal jejunal tube feeds need for TPN. As per ID continue vancomycin and Merrem. No fevers [id number] hours. WBC 6.7. Electrolytes within normal limits. We will continue to monitor patient in the meantime. A.m. labs 01/07/25 Patient is 59 years old male who came to emergency department with a complaint of respiratory failure, pneumonia, non-STEMI and acute pancreatitis. Serum lipase on admission 497. Patient was 1st started on doxycycline and Zosyn. ID once consulted for IV antibiotics. 2D echo was performed showed EF of 60 65%. Due to confusion we also performed CT head brain which was negative and MRI brain showed acute infarct in the right basal ganglia similar to the CT brain dated 12/28/2024. Neurologist was consulted. Electrolytes were replaced throughout the hospitalization due to sleep apnea patient was on CPAP at night and pulmonology team was following the patient. On 01/01/2025 patient had a fever of 102.9 and remain under IV antibiotics as directed by ID. Flu a, flu B and COVID swabs were negative. Chest x-ray showed left lower lobe pneumonia but no significant interval change. Due to shortness of breaths and chest pain that patient developed 01/03/2025 patient was evaluated by the field mechanical meter tester and per his recommendation no further cardiac workup to be performed. Final urine culture were negative final blood culture negative. Since the patient continue to have fevers antibiotics were changed by ID to vanco and Merrem. Due to abdominal pain/acute pancreatitis patient was also evaluated by the GI and as per GI note continue supportive care with opiate analgesics and antiemetics. Patient's oral intake was resumed and patient is on cardiac diet. We will order CT with IV contrast as recommended after48 hours of IV fluids we will assess for necrosis. CT abdomen with IV contrast was ordered. Night Time Babysitter signed off follow-up in two weeks. As per ID patient was cleared to be discharged home on levofloxacin 700 mg daily times 10 days and Augmentin 875 mg b.i.d. times 10 days. Patient was also cleared by the powerhouse mechanic follow up outpatient within two weeks. As per ore smelter follow up outpatient within two weeks. And also as per neurologist follow-up outpatient within two weeks. Patient was also advised to follow up with the PCP in 2 to 3 days. RN to contact GI and ask if patient is cleared since patient is tolerating all the food and fluid intake. Patient denies any shortness of breath, chest pain, nausea, vomiting or abdominal pain. Patient to follow up with the GI as indicated. 01/08/25 patient was seen by nurse practitioner and physician during rounding in room 228. CT abdomen with IV contrast revealed acute pancreatitis and acute cholecystitis. Patient is asymptomatic. Surgeon was consulted. HIDA performed and showed as well acute cholecystitis. As per surgeon patient has a many comorbidities including prolonged hospitalization due to ischemic strokes x2, acute respiratory failure morbid obesity and Coronary Artery Disease. Patient is asymptomatic and has been tolerating clear liquid diet without any nausea or vomiting. Surgical team does not recommend cholecystectomy surgery at this moment. Patient will undergo IR to place cholecystectomy drain. Elective outpatient cholecystectomy surgery can be planned in the future once patient other medical condition has stabilized. Cardiac clearance pending. May advance diet as tolerated and NPO after midnight for IR procedure. Continue antibiotics vancomycin and Merrem as prescribed by ID. We will continue to monitor patient in the meantime. A.m. labs. 01/09 patient is seen and examined at bedside, case discussed with the RN, patient remains admitted to the PCU. Oriented x3, hemodynamically stable, afebrile, saturating normal on room air, denied chest pain, shortness shortness for breath, no nausea, no vomiting. CT abdomen with IV contrast revealed acute pancreatitis and acute cholecystitis. Patient is asymptomatic. Denies nausea, no vomiting, no abdominal discomfort. Currently NPO,Surgical team does not recommend cholecystectomy surgery at this moment. Patient will undergo IR to place cholecystectomy drain. 01/10 patient is seen and examined at bedside, case discussed with the RN, patient remains admitted to the PCU, currently the patient is scheduled to get cystostomy tube placement by intervention radiologist today. Patient getting broad-spectrum IV antibiotics at the time of my visit. Patient alert oriented x3. He looks mildly edematous, BP 127/79, saturating normal on room air, hemoglobin 10.2, hematocrit 30.3, sodium level 132, BUN of 16, creatinine 1.1. We will place the patient on furosemide 20 mg IV b.i.d.. Monitor sodium level in a.m., replace electrolytes IV per protocol, discussed with the patient, all questions answered, in agreement. REVIEW OF SYSTEMS CONSTITUTIONAL: generalized fatigue, malaise NEUROLOGICAL: Denies headache, amaurosis fugax, motor weakness, sensory deficit, vertigo/spinning sensation, gait abnormalities, or tremors. ENT: No hearing loss, otalgia, otorrhea, rhinitis, rhinorrhea, hoarseness, or sore throat. CARDIOVASCULAR: Denies any exertional angina, dyspnea on exertion, orthopnea, paroxysmal nocturnal dyspnea, palpitations, life-threatening arrhythmias, claudication. PULMONARY: Denies shortness of breaths. Denies any diaphoresis SLEEP: Denies morning headaches, daytime somnolence or napping. Denies difficulty falling asleep, staying asleep, waking from sleep. Denies knowledge of snoring. GASTROINTESTINAL: Denies any nausea, vomiting or abdominal pain GENITOURINARY: Denies frequency, urgency, nocturia, hematuria or incontinence (Storage/Irritative symptoms.) Low urinary stream, straining to void, urinary intermittency or hesitancy, splitting of the voiding stream, terminal dribbling. ENDOCRINOLOGIC: Denies polyuria, polydipsia, polyphagia or heat/cold intolerances. HEMATOLOGIC: Denies thrombophilia/previous clots, or coagulopathy/bleeding disorders. ONCOLOGIC: Denies personal history of malignancy. DERMATOLOGIC: Denies rashes or pruritus. PSYCHIATRIC: Denies any suicidal or homicidal ideation. Denies hallucinations. PHYSICAL EXAM GENERAL APPEARANCE: The patient is awake, alert, patient appears very diaphoretic, currently on 3 L supplementation by nasal cannula, patient is morbidly obese NEUROLOGICAL: Cranial nerves II-XII grossly intact. Examination is nonfocal for the patient HEENT: Face is symmetric. Pupils are equal and reactive. Extraocular movements are intact. NECK: Supple. No JVD. No thyromegaly. No submental, submandibular, pre- /postauricular, occipital or supraclavicular lymphadenopathy. CHEST: Normal chest expansion. No Telemetry. LUNGS: Minimal crackles noted at bilateral lung bases CARDIOVASCULAR: Regular. S1 and S2 normal. Tachycardic was ABDOMEN: Soft, nontender, and nondistended. There is no rebound, voluntary guarding, or rigidity. : Deferred. No [place]. EXTREMITIES: Non-edematous and not cyanotic. No clubbing. Good capillary refill. SKIN: No skin breakdown. Vital Signs (last 8hr) Date Time Temp Pulse Resp B/P (MAP) Pulse Ox O2 Delivery O2 Flow Rate FiO2 01/10/25 11:51 98.8 86 20 127/79 98 Room Air 01/10/25 08:00 98 Room Air* 0 21 01/10/25 07:47 98.4 95 20 145/71 98 Room Air 01/10/25 06:59 98 21 01/10/25 06:58 98 21 28 LABS: Laboratory: Test 01/10/25 08:51 01/10/25 04:18 01/10/25 01:06 01/09/25 04:24 Range/Units Prothrombin Time 11.4 9.6-11.6 SEC Prothromb Time International Ratio 1.08 0.85-1.15 Activated Partial Thromboplast Time 31.5 26.3-35.5 SEC White Blood Count 5.3 4.8-10.8 K/uL Red Blood Count 3.81 L 4.50-6.20 MIL/uL Hemoglobin 10.3 L 14.0-18.0 g/dL Hematocrit 30.3 L 42-54 % Mean Corpuscular Volume 79.5 79-99 fL Mean Corpuscular Hemoglobin 27.0 27.0-33.0 pg Mean Corpuscular Hemoglobin Concent 34.0 32.0-36.0 g/dL Red Cell Distribution Width 17.6 H 11.0-15.5 % Platelet Count 209 130-400 K/uL Mean Platelet Volume 11.5 H 7.5-10.5 fL Nucleated Red Blood Cells 0.0 0.0-0.19 % Sodium Level 132 L 136-145 mmol/L Potassium Level 4.0 3.5-5.1 mmol/L Chloride Level 98 L 101-111 mmol/L Carbon Dioxide Level 28 21-32 mmol/L Blood Urea Nitrogen 16 7-18 mg/dL Creatinine 1.1 0.5-1.3 mg/dL Glomerular Filtration Rate Calc 77 >90 mL/min Random Glucose 82 70-105 mg/dL Total Calcium 8.2 L 8.5-10.1 mg/dL Magnesium Level 2.10 1.80-2.40 mg/dL Total Bilirubin 0.9 0.2-1.0 mg/dL Aspartate Amino Transf (AST/SGOT) 64 H 10-37 U/L Alanine Aminotransferase (ALT/SGPT) 65 12-78 U/L Alkaline Phosphatase 144 H 50-136 U/L Total Protein 6.6 6.0-8.3 g/dL Albumin 1.7 L 3.5-5.0 g/dL Vancomycin Level Trough 13.8 # 10.0-20.0 UG/ML Immature Granulocyte % (Auto) 0.4 0-1 % Neutrophils (%) (Auto) 77.4 H 40.0-77.0 % Lymphocytes (%) (Auto) 13.0 L 21.0-51.0 % Monocytes (%) (Auto) 7.3 3.0-13.0 % Eosinophils (%) (Auto) 1.7 0.0-8.0 % Basophils (%) (Auto) 0.2 0.0-5.0 % Neutrophils # (Auto) 3.7 1.8-7.7 K/uL Lymphocytes # (Auto) 0.6 L 1.0-4.8 K/uL Monocytes # (Auto) 0.4 0.1-1.0 K/uL Eosinophils # (Auto) 0.08 0.00-0.70 K/uL Basophils # (Auto) 0.01 0.00-0.20 K/uL Absolute Immature Granulocyte (auto 0.02 0-1 K/uL Current Medications Medications (Trade) Dose Ordered Sig/Donald Route PRN Reason Start Time Stop Time Status Last Admin Dose Admin Acetaminophen (TYLenol 325MG TAB) 650 mg Q4H PRN PO TEMPERATURE GREATER THAN 101.5 01/02/25 20:30 02/01/25 20:29 01/03/25 21:25 650 MG Acetaminophen (TYLenol 325MG TAB) 650 mg Q6H PRN PO MILD PAIN (1-3) 12/28/24 12:00 01/27/25 11:59 01/09/25 00:07 650 MG Aspirin (Aspirin 81mg Chew Tab) 81 mg DAILY PO 12/29/24 09:00 01/28/25 08:59 01/08/25 08:39 81 MG Atorvastatin Calcium (LIPItor 40MG) 40 mg HS PO 12/29/24 21:00 01/28/25 20:59 01/09/25 21:02 40 MG Clopidogrel Bisulfate (plaVIX 75MG) 75 mg Q24H PO 12/28/24 20:30 12/28/24 22:21 DC 12/28/24 21:23 75 MG Doxycycline Hyclate 250 ml @ 125 mls/hr Q12H IV 12/28/24 14:30 01/04/25 11:42 DC 01/04/25 03:00 125 MLS/HR Enoxaparin Sodium (Lovenox) 40 mg DAILY SQ 12/29/24 09:00 01/28/25 08:59 01/08/25 08:40 40 MG Famotidine (Pepcid 20mg Vial) 20 mg Q24H IV 12/28/24 21:00 01/27/25 20:59 01/09/25 21:02 20 MG Ipratropium [place] (AtrovENT UD) 0.5 MG [id number] IH 12/30/24 22:00 01/29/25 21:59 01/10/25 06:58 0.5 MG Ipratropium [place] (AtrovENT UD) 1 mg Q6H PRN IH SHORTNESS OF BREATH 12/28/24 12:00 01/27/25 11:59 Lactulose (Constulose 20gm/ 30ml Udcup) 20 gm Q6H6 PO 12/29/24 12:00 12/29/24 11:49 DC Lactulose (Constulose 20gm/ 30ml Udcup) 20 gm TID PO 12/29/24 14:00 01/01/25 14:30 DC 12/30/24 13:55 20 GM Lactulose (Constulose 20gm/ 30ml Udcup) 20 gm TID PRN PO CONSTIPATION 01/01/25 14:30 01/28/25 13:59 Meropenem (Merrem 1gm) 1 gm Q8H IVPB 01/04/25 12:00 01/05/25 11:09 DC 01/05/25 03:42 1 GM Meropenem (Merrem 1gm) 1 gm Q8H IVPB 01/05/25 12:00 01/15/25 11:59 01/10/25 04:55 1 GM Metoprolol Succinate (TopROL XL) 25 mg DAILY PO 12/28/24 13:00 01/27/25 12:59 01/10/25 08:44 25 MG Ondansetron HCl (zoFRAN 4MG INJ) 4 mg Q6H PRN IVP NAUSEA/VOMITING 12/28/24 12:00 01/27/25 11:59 Pharmacy Profile Note (Pharmacy Communication) 1 each ONCE MISC 01/04/25 12:00 01/04/25 11:57 DC Piperacillin Sod/ Tazobactam Sod (Zosyn 3.375gm+NS 50ml) 3.375 gm Q8H IVPB 12/28/24 12:00 01/04/25 11:42 DC 01/04/25 05:53 3.375 GM Potassium Chloride 100 ml @ 100 mls/hr AD PRN IV POTASSIUM PROTOCOL 12/31/24 05:00 01/30/25 04:59 01/02/25 05:08 100 MLS/HR Potassium Chloride (K-Dur/Klor-Con 20meq) 20 meq AD PRN PO POTASSIUM PROTOCOL 12/31/24 05:00 01/30/25 04:59 01/02/25 23:14 20 MEQ Potassium Chloride (KCl 10% Elixir 20meq/15ml) 20 meq AD PRN PO POTASSIUM PROTOCOL 12/31/24 05:00 01/30/25 04:59 Procainamide HCl 2000 mg/Sodium Chloride 250 ml @ 0 mls/hr PROTOCOL IV 12/28/24 10:00 12/28/24 10:42 DC Sodium Chloride 1,000 ml @ 100 mls/hr Q10H IV 12/28/24 12:00 12/29/24 09:23 DC 12/29/24 09:14 100 MLS/HR Sodium Chloride (NS 50ml) 50 ml AD IV 12/28/24 12:00 12/28/24 11:59 DC Thiamine HCl (Vitamin B-1) 100 mg Q24H IVP 12/28/24 12:00 01/27/25 11:59 01/09/25 12:58 100 MG Vancomycin HCl 250 ml @ 125 mls/hr Q12H IV 01/05/25 02:00 01/06/25 04:05 DC 01/06/25 02:37 125 MLS/HR Vancomycin HCl 250 ml @ 125 mls/hr Q12H IV 01/06/25 14:00 01/16/25 13:59 01/10/25 02:55 125 MLS/HR Vancomycin HCl (Vancomycin Protocol) 1 each AD IV 01/04/25 12:00 01/18/25 11:59 Vitamin B Complex/ Vit C/Folic Acid (Nephrovite Tablet) 1 cap DAILY PO 12/29/24 09:00 01/28/25 08:59 01/09/25 12:58 1 CAP DIAGNOSTICS / RADIOLOGY: [ ] ASSESSMENT: 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 Acute hypoxemic respiratory failure, POA Community-acquired pneumonia, POA Undiagnosed obstructive sleep apnea Acute diastolic congestive heart failure as per 2D echo Elevated cardiac troponin, rule out active ACS, POA acute pancreatitis likely 2/2 gall stones Acute Kidney injury, POA Hyponatremia, POA Morbid obesity, POA Sinus tachycardia, POA Thrombocytopenia, POA, mild Underlying history of obstructive sleep apnea, POA Hypertension, POA Hyperlipidemia, POA History of NM, POA History of coronary artery disease with prior history of PCI, POA 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 Patient getting broad-spectrum IV antibiotics at the time of my visit. Patient alert oriented x3. He looks mildly edematous, BP 127/79, saturating normal on room air, hemoglobin 10.2, hematocrit 30.3, sodium level 132, BUN of 16, creatinine 1.1. We will place the patient on furosemide 20 mg IV b.i.d.. Monitor sodium level in a.m., replace electrolytes IV per protocol, discussed with the patient, all questions answered, in agreement. NEURO: Minimize central acting medications as possible. Fall Precautions. Well lighted room through the day and minimize interruptions through the night to prevent acute delirium. PULMONARY: Supplemental 02 as needed BiPAP as necessary, for respiratory distress Titrate Fio2 to keep Spo2 > or = 90% DuoNebs and CPT as needed IS hourly while awake for pulmonary hygiene prn Out of bed to chair as tolerated Maintain aspiration precautions at all times CARDIOVASCULAR: Follow hemodynamics. Vital signs per facility protocol GI & NUTRITION: Continue nutritional support Aspirations precautions Prokinetic agents and laxatives as needed KIDNEYS & ELECTROLYTES: Strict monitoring of intake and output Daily weights Avoid nephrotoxic agents Monitor electrolytes and replace as needed Goal urine output of 30mL/hr or 0.5mL/kg/hr Medications to be dosed according to renal function. Avoid contrast if possible ENDOCRINE: Maintain blood glucose between 100-180 at all times. Insulin sliding scale for blood glucose management Hypoglycemia and hyperglycemia protocol in place INFECTIOUS DISEASE: Trend temperature, WBC and procalcitonin level Follow cultures, deescalate antibiotics as soon as possible. Panculture if new onset fever HEMATOLOGY & COAGULATION: Monitor H&H. Keep Hgb > 7 Transfuse 1 unit of PRBC for Hgb < 7 Transfuse 1 pack of platelets of platelets < 20, 000 Watch for any signs and symptoms of bleeding SKIN: Pressure ulcer prevention per facility protocol Specialty mattress as needed ORTHO/REHAB Continue PT/OT PRN: MEDICATIONS Tylenol 650 mg po every 4 hrs for fever zofran 4 mg IV every 6 hrs for n/v Hydralazine 5 mg IV every 4 hrs systolic pressure > 160 bowel regiment: lactulose 20 gm PO BID PRN constipation Supportive measures: Continue GI and DVT prophylaxis: All questions answered time spent: > 35 min MAINOR KENNEDY MD Jan 10, 2025 12:43
[2025-01-10] MEDS: MIDAZOLAM HCL 1 MG/ML 2ML VIAL IVP ONE (13:30)
[2025-01-10] MEDS ORDERED: IOHEXOL-350 50ML VIAL IV ONE (13:49)
--- NOTE | 2025-01-10 14:00 | NUR ---
CT GD CHOLECYSTOSTOMY TUBE PLACEMENT PLACEMENT PROCEDURE PERFORMED BY DR Chelo THOMPSON. PUNCTURE SITE RUQ. PATIENT TOLERATED PROCEDURE WELL. 8FR PIGTAIL CATHETER PLACED TO COMMON BILE DUCT AND CONNECTED TO DRAIN BAG. CATHETER SUTURED IN PLACE AND DRESSING APPLIED. SPECIMEN COLLECTED AND SENT TO LAB. END OF PROCEDURE AT 1340. REPORT GIVEN TO ALESSANDRO DRUMMOND AND PATIENT TRANSPORTED TO [facility] VIA W/C AT 1400. AAO X3 WITH NO C/O PAIN.
[2025-01-10] MEDS: MIDAZOLAM HCL 1 MG/ML 2ML VIAL ONE (14:37)
--- NOTE | 2025-01-10 15:09 | HMCIMG ---
Exam Type: CT PERC DRN CATH PLCT W IMG IR CT-guided cholecystotomy tube placement and cholecystogram Clinical Information: cholecystitis patient has acute cholecystitis under ultrasound fluoroscopy-guided the procedure was not performed due to large body habitus. Therefore we will attempt to procedure under CT guidance. The risk and benefit was explained to the patient. Comparison: None Findings: Procedure was explained to the patient. Then, preliminary suction plate roller hand scanning was performed which acute cholecystitis. Skin over the area was cleansed and draped in the usual fashion and then, 5 Trin[place] introducer needle was inserted after skin incision. Wire was inserted through the needle, and then subsequent dilatation of the incision was performed with 8 Trin[place] dilator. After this, a pigtail drainage catheter was inserted and approximately 20 cc of bloody partially clotted material were obtained and sent for analysis. Repeat scanning was performed. The repeat scanning demonstrated suboptimal position of the pigtail catheter, within the lumen of gallbladder.. The bowel appears to very thick and viscous. Contrast was injected and a suction plate roller hand film was obtained AP lateral demonstrate the cholecystotomy catheter to be in satisfactory position.. The follow-up CT demonstrated the catheter be in satisfactory position in the gallbladder lumen and there is severe pancreatitis. Catheter was fixed to the skin with sutures and was connected to drainage bag.. The patient was then sent back to his room in stable condition. No complications developed. IMPRESSION: Successful pigtail drainage catheter placement in the gallbladder lumen. CT demonstrates severe acute pancreatitis. .
--- NOTE | 2025-01-10 15:21 | PN ---
GENERAL SURGERY PROGRESS NOTE Date/Time Patient Seen: [ 01/10/2025 10:45 AM] Interval History: [59-year-old male with acute cholecystitis Patient continues to be asymptomatic Currently NPO for IR to place a CT-guided cholecystostomy drain since 1st attempt was unsuccessful Patient is also pending to get IV access since his previous line was no longer working WBCs 5.3 H&H 10.3 and 32.3 LFTs trending down with a bilirubin of 0.9 ] Current Medications Medications (Trade) Dose Ordered Sig/Donald Route Start Time Stop Time Status Last Admin Dose Admin Aspirin (Aspirin 81mg Chew Tab) 81 mg DAILY PO 12/29/24 09:00 01/28/25 08:59 01/08/25 08:39 81 MG Atorvastatin Calcium (LIPItor 40MG) 40 mg HS PO 12/29/24 21:00 01/28/25 20:59 01/09/25 21:02 40 MG Clopidogrel Bisulfate (plaVIX 75MG) 75 mg Q24H PO 12/28/24 20:30 12/28/24 22:21 DC 12/28/24 21:23 75 MG Doxycycline Hyclate 250 ml @ 125 mls/hr Q12H IV 12/28/24 14:30 01/04/25 11:42 DC 01/04/25 03:00 125 MLS/HR Enoxaparin Sodium (Lovenox) 40 mg DAILY SQ 12/29/24 09:00 01/28/25 08:59 01/08/25 08:40 40 MG Famotidine (Pepcid 20mg Vial) 20 mg Q24H IV 12/28/24 21:00 01/27/25 20:59 01/09/25 21:02 20 MG Furosemide (LASix 20MG VIAL) 20 mg Q12H IV 01/10/25 13:00 02/09/25 12:59 01/10/25 14:33 20 MG Ipratropium Jerome (AtrovENT UD) 0.5 MG [id number] IH 12/30/24 22:00 01/29/25 21:59 01/10/25 06:58 0.5 MG Lactulose (Constulose 20gm/ 30ml Udcup) 20 gm Q6H6 PO 12/29/24 12:00 12/29/24 11:49 DC Lactulose (Constulose 20gm/ 30ml Udcup) 20 gm TID PO 12/29/24 14:00 01/01/25 14:30 DC 12/30/24 13:55 20 GM Meropenem (Merrem 1gm) 1 gm Q8H IVPB 01/04/25 12:00 01/05/25 11:09 DC 01/05/25 03:42 1 GM Meropenem (Merrem 1gm) 1 gm Q8H IVPB 01/05/25 12:00 01/15/25 11:59 01/10/25 14:33 1 GM Metoprolol Succinate (TopROL XL) 25 mg DAILY PO 12/28/24 13:00 01/27/25 12:59 01/10/25 08:44 25 MG Pharmacy Profile Note (Pharmacy Communication) 1 each ONCE MISC 01/04/25 12:00 01/04/25 11:57 DC Piperacillin Sod/ Tazobactam Sod (Zosyn 3.375gm+NS 50ml) 3.375 gm Q8H IVPB 12/28/24 12:00 01/04/25 11:42 DC 01/04/25 05:53 3.375 GM Procainamide HCl 2000 mg/Sodium Chloride 250 ml @ 0 mls/hr PROTOCOL IV 12/28/24 10:00 12/28/24 10:42 DC Sodium Chloride 1,000 ml @ 100 mls/hr Q10H IV 12/28/24 12:00 12/29/24 09:23 DC 12/29/24 09:14 100 MLS/HR Sodium Chloride (NS 50ml) 50 ml AD IV 12/28/24 12:00 12/28/24 11:59 DC Thiamine HCl (Vitamin B-1) 100 mg Q24H IVP 12/28/24 12:00 01/27/25 11:59 01/10/25 14:33 100 MG Vancomycin HCl 250 ml @ 125 mls/hr Q12H IV 01/05/25 02:00 01/06/25 04:05 DC 01/06/25 02:37 125 MLS/HR Vancomycin HCl 250 ml @ 125 mls/hr Q12H IV 01/06/25 14:00 01/16/25 13:59 01/10/25 14:48 125 MLS/HR Vancomycin HCl (Vancomycin Protocol) 1 each AD IV 01/04/25 12:00 01/18/25 11:59 Vitamin B Complex/ Vit C/Folic Acid (Nephrovite Tablet) 1 cap DAILY PO 12/29/24 09:00 01/28/25 08:59 01/09/25 12:58 1 CAP Physical Examination: GENERAL: [No acute distress, morbidly obese male, comfortably sitting up in chair, family at bedside.] HEAD: [Normocephalic.] EYES: [Nonicteric sclera bilaterally.] ENT: [Hearing grossly intact.] NECK: [Supple without JVD.] LUNGS: [Clear breath sounds bilaterally.] HEART: [Normal rate and rhythm] VASC: [Peripheral pulses +2 bilaterally.] ABD: [Bowel sounds normal, soft, nontender, no guarding or rigidity] : [Not examined] EXT: [No edema.] SKIN: [No rashes or lesions noted.] NEURO: [Awake, alert, and oriented x3. No focal sensory or strength deficits noted.] Vital Signs (last 8hr) Date Time Temp Pulse Resp B/P (MAP) Pulse Ox O2 Delivery O2 Flow Rate FiO2 01/10/25 11:51 98.8 86 20 127/79 98 Room Air 01/10/25 08:00 98 Room Air* 0 21 01/10/25 07:47 98.4 95 20 145/71 98 Room Air Laboratory: [ ] Hematology Labs: Test 01/10/25 04:18 01/09/25 04:24 Range/Units White Blood Count 5.3 4.8-10.8 K/uL Red Blood Count 3.81 L 4.50-6.20 MIL/uL Hemoglobin 10.3 L 14.0-18.0 g/dL Hematocrit 30.3 L 42-54 % Mean Corpuscular Volume 79.5 79-99 fL Mean Corpuscular Hemoglobin 27.0 27.0-33.0 pg Mean Corpuscular Hemoglobin Concent 34.0 32.0-36.0 g/dL Red Cell Distribution Width 17.6 H 11.0-15.5 % Platelet Count 209 130-400 K/uL Mean Platelet Volume 11.5 H 7.5-10.5 fL Nucleated Red Blood Cells 0.0 0.0-0.19 % Immature Granulocyte % (Auto) 0.4 0-1 % Neutrophils (%) (Auto) 77.4 H 40.0-77.0 % Lymphocytes (%) (Auto) 13.0 L 21.0-51.0 % Monocytes (%) (Auto) 7.3 3.0-13.0 % Eosinophils (%) (Auto) 1.7 0.0-8.0 % Basophils (%) (Auto) 0.2 0.0-5.0 % Neutrophils # (Auto) 3.7 1.8-7.7 K/uL Lymphocytes # (Auto) 0.6 L 1.0-4.8 K/uL Monocytes # (Auto) 0.4 0.1-1.0 K/uL Eosinophils # (Auto) 0.08 0.00-0.70 K/uL Basophils # (Auto) 0.01 0.00-0.20 K/uL Absolute Immature Granulocyte (auto 0.02 0-1 K/uL Chemistry Labs: Test 01/10/25 04:18 Range/Units Sodium Level 132 L 136-145 mmol/L Potassium Level 4.0 3.5-5.1 mmol/L Chloride Level 98 L 101-111 mmol/L Carbon Dioxide Level 28 21-32 mmol/L Blood Urea Nitrogen 16 7-18 mg/dL Creatinine 1.1 0.5-1.3 mg/dL Glomerular Filtration Rate Calc 77 >90 mL/min Random Glucose 82 70-105 mg/dL Total Calcium 8.2 L 8.5-10.1 mg/dL Magnesium Level 2.10 1.80-2.40 mg/dL Total Bilirubin 0.9 0.2-1.0 mg/dL Aspartate Amino Transf (AST/SGOT) 64 H 10-37 U/L Alanine Aminotransferase (ALT/SGPT) 65 12-78 U/L Alkaline Phosphatase 144 H 50-136 U/L Total Protein 6.6 6.0-8.3 g/dL Albumin 1.7 L 3.5-5.0 g/dL Coagulation Labs: Test 01/10/25 08:51 Range/Units Prothrombin Time 11.4 9.6-11.6 SEC Prothromb Time International Ratio 1.08 0.85-1.15 Activated Partial Thromboplast Time 31.5 26.3-35.5 SEC Diagnostics / Radiology: [Copy/Paste Echos/Imaging Report here] Impression and Plan: 59-year-old male with acute cholecystitis, with positive HIDA scan Due to patient's multiple comorbidities, Surgical team does not recommend cholecystectomy surgery at this time Pending for patient to get IV access in order to have IR place CT-guided cholecystostomy drain Elective outpatient cholecystectomy surgery can be planned in the future once patient's other medical conditions have stabilized Continue with IV fluids and IV antibiotics If IV access and IR are not able to place drain today, may start patient on clear liquids Surgical team will continue to follow closely Dr. Claros updated on patient's status [Surgical case has been discussed with my Supervising physician plan of care was formulated and agreed upon We appreciate the hospitalist team for allowing us to participate in this patient's care Greater than 45 minutes spent examining patient, reviewing chart and working on documentation ] ATTESTATION BY PHYSICIAN I have seen and examined the patient. I reviewed the documentation, medical decision making, and treatment plan as noted by the mid-level provider above. I agree with the findings and plan of care. MD MATHIEU Brunner LETICIA A ENAMEL SHADER Jan 10, 2025 15:21
--- NOTE | 2025-01-10 21:26 | PN ---
SUBJECTIVE: A 59-year-old male with a history of diabetes mellitus and hypertension. The patient presented to the hospital with fevers. The patient was noted to have acute cholecystitis. The patient is scheduled for a cholecystostomy tube later today and the patient is being seen as a followup visit for all of the above. REVIEW OF SYSTEMS: GENERAL: The patient is feeling improved. HEENT: No change in vision. No change in hearing. CARDIOVASCULAR: There are no current chest pains or palpitations. PULMONARY: No shortness of breath. GASTROINTESTINAL: He is tolerating a diet. MUSCULOSKELETAL: Complaints of weakness. PHYSICAL EXAMINATION: VITAL SIGNS: Blood pressure 145/71, pulse in the 90s, afebrile. GENERAL: He is a chronically ill male, obese, lying in bed on the medical floor. HEENT: Head is atraumatic. Pupils equal, round, and reactive to light. Oropharynx is without exudate. Nares clear. NECK: There is no JVP. There is no thyromegaly. No mass. CARDIOVASCULAR: Regular. There is no S3 or S4 gallop. LUNGS: Coarse with equal thoracic movement. ABDOMEN: Soft, nondistended, and nontender. EXTREMITIES: No clubbing, no cyanosis. NEUROLOGICAL: He is awake. He is alert. LABORATORY DATA: Sodium 132, potassium is 4, BUN 16, creatinine 1. Hemoglobin 10 and hematocrit 30. IMPRESSION: * Acute renal failure. * Hyponatremia. * Acute cholecystitis. * Sleep apnea. PLAN: The patient is scheduled for cholecystostomy tube placement later today. The patient's renal function has remained stable. The patient with hyponatremia and he is encouraged on fluid restriction. The patient remains on the broad-spectrum IV antibiotics. We will continue to follow up closely once the patient is discharged. He will follow up in the [facility]. TID: [id number] RECEIPT: [id number]
--- NOTE | 2025-01-10 21:48 | PN ---
INFECTIOUS DISEASE PROGRESS NOTE Date of Service: Jan 10, 2025 SUBJECTIVE: This is a 59 year old male patient who was seen today at bedside in room 228. Patient is awake alert and oriented x3. During visit today patient was pending a CT-guided cholecystostomy drain placement. Patient has a low-grade fever of 100.2 last night but no fever this morning, temperature is 98.8. No reports of nausea or vomiting. Continues on vancomycin and Meropenem. Patient is being referred to [facility]. No other issues reported by nursing. PHYSICAL EXAM EYES: Anicteric. Pupils equal and reactive. HENT: No oral thrush seen, moist Oral mucosa. NECK: Supple, no JVD or thyromegaly. LUNGS: diminished. No wheezing or rhonchi CARDIOVASCULAR: S1, S2 regular. No murmur heard. ABDOMEN: Soft, non tender, bowel sounds present, no organomegaly. Abdominal pain POA. CENTRAL NERVOUS SYSTEM: Awake, alert, oriented x 3. SKIN: No rashes, no swelling. LYMPHATICS: No peripheral lymphadenopathy. MUSCULOSKELETAL: No joint swelling, erythema or tenderness. EXTREMITIES: No cyanosis or clubbing. BACK: No deformity, no pressure ulcer. GENITOURINARY: No dysuria or hematuria. Vital Sign (Last 12 Hours) 01/10/25 01/10/25 01/10/25 01/10/25 11:51 14:30 15:00 15:30 Temp 98.8 Pulse 86 86 88 94 Resp 20 B/P (MAP) 127/79 140/75 155/80 148/81 Pulse Ox 98 98 96 96 O2 Delivery Room Air Room Air Room Air Room Air 01/10/25 01/10/25 01/10/25 01/10/25 16:00 16:30 18:54 18:54 Temp 98.8 Pulse 86 94 87 87 Resp 20 21 21 B/P (MAP) 143/92 175/87 Pulse Ox 98 96 O2 Delivery Room Air Room Air N/A Room Air FiO2 21 Intake & Output (last 24hrs) 01/09/25 01/09/25 01/10/25 15:00 23:00 07:00 Intake Total 100.0 ml Balance 100.0 ml LABS: Laboratory: Test 01/10/25 08:51 01/10/25 04:18 01/10/25 01:06 01/09/25 04:24 Range/Units Prothrombin Time 11.4 9.6-11.6 SEC Prothromb Time International Ratio 1.08 0.85-1.15 Activated Partial Thromboplast Time 31.5 26.3-35.5 SEC White Blood Count 5.3 4.8-10.8 K/uL Red Blood Count 3.81 L 4.50-6.20 MIL/uL Hemoglobin 10.3 L 14.0-18.0 g/dL Hematocrit 30.3 L 42-54 % Mean Corpuscular Volume 79.5 79-99 fL Mean Corpuscular Hemoglobin 27.0 27.0-33.0 pg Mean Corpuscular Hemoglobin Concent 34.0 32.0-36.0 g/dL Red Cell Distribution Width 17.6 H 11.0-15.5 % Platelet Count 209 130-400 K/uL Mean Platelet Volume 11.5 H 7.5-10.5 fL Nucleated Red Blood Cells 0.0 0.0-0.19 % Sodium Level 132 L 136-145 mmol/L Potassium Level 4.0 3.5-5.1 mmol/L Chloride Level 98 L 101-111 mmol/L Carbon Dioxide Level 28 21-32 mmol/L Blood Urea Nitrogen 16 7-18 mg/dL Creatinine 1.1 0.5-1.3 mg/dL Glomerular Filtration Rate Calc 77 >90 mL/min Random Glucose 82 70-105 mg/dL Total Calcium 8.2 L 8.5-10.1 mg/dL Magnesium Level 2.10 1.80-2.40 mg/dL Total Bilirubin 0.9 0.2-1.0 mg/dL Aspartate Amino Transf (AST/SGOT) 64 H 10-37 U/L Alanine Aminotransferase (ALT/SGPT) 65 12-78 U/L Alkaline Phosphatase 144 H 50-136 U/L Total Protein 6.6 6.0-8.3 g/dL Albumin 1.7 L 3.5-5.0 g/dL Vancomycin Level Trough 13.8 # 10.0-20.0 UG/ML Immature Granulocyte % (Auto) 0.4 0-1 % Neutrophils (%) (Auto) 77.4 H 40.0-77.0 % Lymphocytes (%) (Auto) 13.0 L 21.0-51.0 % Monocytes (%) (Auto) 7.3 3.0-13.0 % Eosinophils (%) (Auto) 1.7 0.0-8.0 % Basophils (%) (Auto) 0.2 0.0-5.0 % Neutrophils # (Auto) 3.7 1.8-7.7 K/uL Lymphocytes # (Auto) 0.6 L 1.0-4.8 K/uL Monocytes # (Auto) 0.4 0.1-1.0 K/uL Eosinophils # (Auto) 0.08 0.00-0.70 K/uL Basophils # (Auto) 0.01 0.00-0.20 K/uL Absolute Immature Granulocyte (auto 0.02 0-1 K/uL ASSESSMENT: Acute cholecystitis. Acute pancreatitis. Pneumonia. Persistent fevers. Sepsis. Leukocytosis, resolved. Acute renal failure, improving. Acute nonhemorrhagic stroke. Rhabdomyolysis. History of coronary artery disease. PLAN: Continue vancomycin per pharmacy protocol. Continue Meropenem IV. Continue bronchodilators. Avoid nephrotoxic medications. Case management [facility] Pending a CT-guided cholecystostomy drain placement. This case was reviewed and discussed with my supervising physician Dr. Rasmussen and the above assessment and plan was formulated and agreed upon. ATTESTATION BY PHYSICIAN I have seen and examined the patient. I reviewed the documentation, medical decision making, and treatment plan as noted by the mid-level provider above. I agree with the findings and plan of care. KARIE RASMUSSEN MD, [facility] Jan 10, 2025 21:48
--- NOTE | 2025-01-10 22:39 | PN ---
HISTORY OF PRESENT ILLNESS This is a pleasant 59-year-old male with past medical history as per patient with complaints of shortness of breath, is being evaluated for possible ACS contributory for pneumonia. Patient was also found to have a CVA PAST MEDICAL HISTORY, ALLERGIES See below REVIEW OF SYSTEMS Not obtained Vitals See chart PHYSICAL EXAM Alert and oriented x 3 Nonicteric nontraumatic Regular rate and rhythm, no murmurs Clear to auscultation bilaterally pulmonary Abdomen nontender Rectal deferred Skin no rash neurological no focal deficits Extremities no edema ASSESSMENT CORONARY DISEASE, ELEVATED TROPONIN At presentation PNEUMONIA Being managed by antibiotics per infectious disease, appreciate CT was negative for pulm embolism CVA At presentation Patient ganglia as well as occipital lobe involvement ACUTE ON CHRONIC KIDNEY DISEASE At presentation Create greater than 2 HISTORY OF [id number] SYNDROME SLEEP APNEA, HYPERTENSION, HYPERLIPIDEMIA, SLEEP APNEA CORE MEASURES pending OTHER MEDICAL PROBLEMS reviewed CORE MEASURES Pending OTHER MEDICAL PROBLEMS Reviewed PLAN 12/28/2024 given recent CVA, not a good candidate for any ischemic evaluation at this time, echocardiogram has been ordered and pending. Further recommendations post. Continue current medical therapy conservative management for now. May consider STONE given stroke in 2 different vascular distributions. Holter monitor may also be considered. Seen and examined 12/28/2024 at around 1800. 12/29/2024 Remains on BiPAP, echocardiogram was within normal limits. Renal function being addressed by nephrology, julieta. At this time, given recent CVA ongoing respiratory issues, not a good candidate for any ischemic evaluation. Once he has recovered from his underlying issues,may consider further evaluation from a cardiac standpoint. Conservative measures for now. Seen and examined 12/29/2024 at around 7 PM. 12/30/2024 Feeling better, currently off BiPAP, nephrology on board managing renal dysfunction. As above, continue conservative measures at this time and may consider outpatient ischemic evaluation once recovered from CVA. On atorvastatin and aspirin beta-tomasa continue. Renal function improving. Echo was within normal limits. Seen and examined 12/30/2024 at around 8 PM. 12/31/2024 No cardiovascular symptoms, no weakness from the stroke, doing well, walking in the hallways and getting therapy. On doxycycline. Eventual plans for ischemic evaluation as well as STONE as outpatient. May consider long-term monitoring as well given strokes involving multiple /circulations. Pancreatitis and pneumonia being treated as well. Seen and examined 12/31/2024 at around 1 PM. 01/01/2025 Doing well, no active cardiovascular complaints at this time. Only issues with pneumonia pancreatitis CVA all of which have improved. Currently, ambulating without any significant issues, Home when okay with primary team and will follow-up in the office for ischemic evaluation and stroke workup. Renal function has improved. Seen and examined 01/01/2025 at around 8 AM. 01/02/2025 Remains antibiotics and did have fevers again today and therefore, discharge is being held. Appreciate infectious disease. Renal function slightly worse today as well, will need to be watched. Stable cardiovascular status and patient remains asymptomatic from a cardiovascular standpoint at this time. Seen and examined 01/02/2025 at around 5 PM. 01/03/2025 No more fevers per report. Arcenio function is stable, appreciate nephrology. ID on board managing fevers creatinine 1.4 most recently which is close to baseline CT chest abdomen pelvis with persistent pancreatitis, fatty liver, cholelithiasis. Seen and examined 01/03/2025 at around 11 AM. 01/04/2025 Active cardiovascular issues, fevers pancreatitis today is currently being addressed per primary team. Remains on antibiotics for ongoing issues with fevers. Volume status is acceptable. GI on board. Seen and examined 01/04/2025 at around 1800. 01/05/2025 Doing well, per report, fevers have improved, remains on antibiotic therapy. Interstitial pancreatitis on imaging, currently switched to vancomycin and meropenem to help. No active cardiovascular issues. Will follow peripherally, call us if needed. Seen and examined 01/05/2025 at around 1700. 01/08/2025 Given normal ejection fraction, no active cardiac complaints, patient is likely intermediate risk for upcoming surgery. Discussed with patient as well. Will follow perioperatively. Cholecystotomy tube is being planned. Seen and examined 01/08/2025 at around 6 PM. 01/09/2025 Cholecystotomy tube insertion has been moved to tomorrow. Will follow perioperatively. Remains asymptomatic from a cardiovascular standpoint. Seen and examined 01/09/2025 at around 6 PM. 01/10/2025 Doing well postoperatively, no active cardiovascular complaints. S/p cholecystotomy tube placement. Can likely be optimized more as an outpatient and will consider cholecystectomy at some point?. Awaiting discharge at this time. Seen and examined 01/10/2025 at around 7 PM. ATTESTATION I was involved substantial in the care of the patient Number of complexity of problems addressed 1 acute illness with systemic features Amount and or complexity of data Review of prior external notes from each unique source 2+ Ordering of each unique test 0 Review of results of each unique test 2+ Assessment requiring independent historians no Dependent interpretation of test performed by another MD no Discussion of management or test interpretation with external MD no Risk status moderate Vitals/Labs Vital Signs Date Time Temp Pulse Resp B/P (MAP) Pulse Ox O2 Delivery O2 Flow Rate FiO2 01/10/25 19:50 99.0 89 22 153/81 95 Room Air 01/10/25 19:45 0 21 Laboratory Tests 01/10/25 04:18 Medications Current Medications Procainamide HCl 2000 mg/Sodium Chloride 250 ml @ 0 mls/hr PROTOCOL IV; Start 12/28/24 at 10:00; Stop 12/28/24 at 10:42; Status DC Metoprolol Tartrate 5 mg ONCE ONCE IV Last administered on 12/28/24at 10:38; Start 12/28/24 at 10:30; Stop 12/28/24 at 10:31; Status DC Aspirin 325 mg ONCE ONCE PO Last administered on 12/28/24at 10:46; Start 12/28/24 at 11:00; Stop 12/28/24 at 11:01; Status DC Sodium Chloride 1,000 ml @ 100 mls/hr Q10H IV Last administered on 12/29/24at 09:14; Start 12/28/24 at 12:00; Stop 12/29/24 at 09:23; Status DC Ipratropium Jennings 1 mg Q6H PRN IH; Start 12/28/24 at 12:00; Stop 01/27/25 at 11:59 Acetaminophen 650 mg Q6H PRN PO Last administered on 01/09/25at 00:07; Start 12/28/24 at 12:00; Stop 01/27/25 at 11:59 Ondansetron HCl 4 mg Q6H PRN IVP; Start 12/28/24 at 12:00; Stop 01/27/25 at 11:59 Thiamine HCl 100 mg Q24H IVP Last administered on 01/10/25at 14:33; Start 12/28/24 at 12:00; Stop 01/27/25 at 11:59 Vitamin B Complex/ Vit C/Folic Acid 1 cap DAILY PO Last administered on 01/09/25at 12:58; Start 12/29/24 at 09:00; Stop 01/28/25 at 08:59 Aspirin 81 mg DAILY PO Last administered on 01/08/25at 08:39; Start 12/29/24 at 09:00; Stop 01/28/25 at 08:59 Piperacillin Sod/ Tazobactam Sod 3.375 gm Q8H IVPB Last administered on 01/04/25at 05:53; Start 12/28/24 at 12:00; Stop 01/04/25 at 11:42; Status DC Sodium Chloride 50 ml AD IV; Start 12/28/24 at 12:00; Stop 12/28/24 at 11:59; Status DC Enoxaparin Sodium 40 mg DAILY SQ Last administered on 01/08/25at 08:40; Start 12/29/24 at 09:00; Stop 01/28/25 at 08:59 Famotidine 20 mg Q24H IV Last administered on 01/10/25at 20:34; Start 12/28/24 at 21:00; Stop 01/27/25 at 20:59 Metoprolol Succinate 25 mg DAILY PO Last administered on 01/10/25at 08:44; Start 12/28/24 at 13:00; Stop 01/27/25 at 12:59 Iohexol 75 ml STK-MED ONCE IV; Start 12/28/24 at 12:57; Stop 12/28/24 at 12:57; Status DC Doxycycline Hyclate 250 ml @ 125 mls/hr Q12H IV Last administered on 01/04/25at 03:00; Start 12/28/24 at 14:30; Stop 01/04/25 at 11:42; Status DC Sodium Chloride 4 ml STK-MED ONCE IH Last administered on 12/28/24at 19:12; Start 12/28/24 at 18:20; Stop 12/28/24 at 18:20; Status DC Clopidogrel Bisulfate 75 mg Q24H PO Last administered on 12/28/24at 21:23; Start 12/28/24 at 20:30; Stop 12/28/24 at 22:21; Status DC Sodium Chloride 4 ml STK-MED ONCE IH; Start 12/28/24 at 22:27; Stop 12/28/24 at 22:28; Status DC Lactulose 20 gm Q6H6 PO; Start 12/29/24 at 12:00; Stop 12/29/24 at 11:49; Status DC Lactulose 20 gm TID PO Last administered on 12/30/24at 13:55; Start 12/29/24 at 14:00; Stop 01/01/25 at 14:30; Status DC Atorvastatin Calcium 40 mg HS PO Last administered on 01/10/25at 20:34; Start 12/29/24 at 21:00; Stop 01/28/25 at 20:59 Melatonin 10 mg ONCE ONCE PO Last administered on 12/30/24at 00:46; Start 12/30/24 at 00:00; Stop 12/30/24 at 00:02; Status DC Potassium Chloride 20 meq ONCE ONCE PO Last administered on 12/30/24at 05:47; Start 12/30/24 at 05:00; Stop 12/30/24 at 05:02; Status DC Magnesium Citrate 296 ml ONCE ONCE PO Last administered on 12/30/24at 13:55; Start 12/30/24 at 13:30; Stop 12/30/24 at 13:31; Status DC Furosemide 20 mg ONCE ONCE IV Last administered on 12/30/24at 17:34; Start 12/30/24 at 17:30; Stop 12/30/24 at 17:31; Status DC Ipratropium Jennings 0.5 MG [id number] IH Last administered on 01/10/25at 18:52; Start 12/30/24 at 22:00; Stop 01/29/25 at 21:59 Potassium Chloride 20 meq AD PRN PO; Start 12/31/24 at 05:00; Stop 01/30/25 at 04:59 Potassium Chloride 20 meq AD PRN PO Last administered on 01/02/25at 23:14; Start 12/31/24 at 05:00; Stop 01/30/25 at 04:59 Potassium Chloride 100 ml @ 100 mls/hr AD PRN IV Last administered on 01/02/25at 05:08; Start 12/31/24 at 05:00; Stop 01/30/25 at 04:59 Lactulose 20 gm TID PRN PO; Start 01/01/25 at 14:30; Stop 01/28/25 at 13:59 Acetaminophen 650 mg Q4H PRN PO Last administered on 01/03/25at 21:25; Start 01/02/25 at 20:30; Stop 02/01/25 at 20:29 Iohexol 35,000 mg STK-MED ONCE IV; Start 01/04/25 at 01:50; Stop 01/04/25 at 01:50; Status DC Morphine Sulfate 2 mg ONCE ONCE IVP; Start 01/04/25 at 06:30; Stop 01/04/25 at 06:28; Status DC Potassium Chloride 40 meq ONCE ONCE PO Last administered on 01/04/25at 09:32; Start 01/04/25 at 07:30; Stop 01/04/25 at 07:31; Status DC Vancomycin HCl 1 each AD IV; Start 01/04/25 at 12:00; Stop 01/18/25 at 11:59 Pharmacy Profile Note 1 each ONCE MISC; Start 01/04/25 at 12:00; Stop 01/04/25 at 11:57; Status DC Vancomycin HCl 500 ml @ 250 mls/hr ONCE ONCE IV Last administered on 01/04/25at 14:30; Start 01/04/25 at 14:00; Stop 01/04/25 at 15:59; Status DC Vancomycin HCl 250 ml @ 125 mls/hr Q12H IV Last administered on 01/06/25at 02:37; Start 01/05/25 at 02:00; Stop 01/06/25 at 04:05; Status DC Meropenem 1 gm Q8H IVPB Last administered on 01/05/25at 03:42; Start 01/04/25 at 12:00; Stop 01/05/25 at 11:09; Status DC Meropenem 1 gm Q8H IVPB Last administered on 01/10/25at 20:34; Start 01/05/25 at 12:00; Stop 01/15/25 at 11:59 Vancomycin HCl 250 ml @ 125 mls/hr Q12H IV Last administered on 01/10/25at 14:48; Start 01/06/25 at 14:00; Stop 01/16/25 at 13:59 Iohexol 35,000 mg STK-MED ONCE IV; Start 01/06/25 at 16:08; Stop 01/06/25 at 16:08; Status DC Lidocaine HCl 20 ml STK-MED ONCE .ROUTE; Start 01/09/25 at 09:13; Stop 01/09/25 at 09:13; Status DC Iohexol 50 ml STK-MED ONCE IV; Start 01/09/25 at 09:13; Stop 01/09/25 at 09:13; Status DC Heparin Sodium/ Sodium Chloride 500 ml @ As Directed STK-MED ONCE IV; Start 01/09/25 at 09:13; Stop 01/09/25 at 09:13; Status DC Fentanyl Citrate 100 mcg STK-MED ONCE .ROUTE; Start 01/09/25 at 09:48; Stop 01/09/25 at 09:48; Status DC Midazolam HCl 2 mg STK-MED ONCE .ROUTE; Start 01/09/25 at 09:48; Stop 01/09/25 at 09:49; Status DC Lidocaine HCl 20 ml STK-MED ONCE .ROUTE; Start 01/09/25 at 10:25; Stop 01/09/25 at 10:25; Status DC Furosemide 20 mg Q12H IV Last administered on 01/10/25at 14:33; Start 01/10/25 at 13:00; Stop 02/09/25 at 12:59 Fentanyl Citrate 100 mcg STK-MED ONCE .ROUTE Last administered on 01/10/25at 16:58; Start 01/10/25 at 13:08; Stop 01/10/25 at 13:08; Status DC Midazolam HCl 2 mg STK-MED ONCE .ROUTE Last administered on 01/10/25at 16:58; Start 01/10/25 at 13:08; Stop 01/10/25 at 13:08; Status DC Iohexol 50 ml STK-MED ONCE IV; Start 01/10/25 at 13:49; Stop 01/10/25 at 13:49; Status DC Midazolam HCl 2 mg ONCE ONCE IVP; Start 01/10/25 at 13:30; Stop 01/10/25 at 16:00; Status DC Fentanyl Citrate 50 mcg ONCE ONCE IVP; Start 01/10/25 at 13:30; Stop 01/10/25 at 16:00; Status DC BRENNON CROWLEY MD Jan 10, 2025 22:39
[2025-01-11] VITALS (8 sets, daily range): BP systolic 105–140; BP diastolic 55–71; PULSE 85–100; RESP 16–28; TEMP 98–99.2; O2SAT 93–95
[2025-01-11 04:35] LABS: NUCLEATED RED BLOOD CELLS 0.0 % (0.0-0.19); PLATELET COUNT (AUTO) 201.0 K/uL (130-400); RED BLOOD CELL COUNT(AUTO) 3.8 MIL/uL (4.50-6.20); RED CELL DISTRIBUTION WIDTH 17.2 % (11.0-15.5); WHITE BLOOD COUNT (AUTO) 5.3 K/uL (4.8-10.8)
--- NOTE | 2025-01-11 04:40 | NUR ---
@0700am 01/10/25 During shift change was notified by rt that patient had pulled out midline catheter. Went to assess patient noted midline catheter and iv tubing on floor. Applied 4x4 gauze to right upper arm to stop bleeding. Afterwards secured with dressing and tegaderm. Paged hospitalist inspection manager to report. Spoke to Laila rutledge. Notified that patient would need a new midline for iv access site and iv antibiotics. Stated would notify resident that will round on patient in am.
[2025-01-11 05:09] LABS: ASPARTATE AMINOTRANSFERASE 67.0 U/L (10-37); CREATININE 1.0 mg/dL (0.5-1.3); GLOMERULAR FILTR. RATE CALC 87.0 mL/min (>90); GLUCOSE,RANDOM 86.0 mg/dL (70-105); SODIUM SERUM 133.0 mmol/L (136-145); TOTAL PROTEIN, SERUM 6.4 g/dL (6.0-8.3); UREA NITROGEN, BLOOD 17.0 mg/dL (7-18)
--- NOTE | 2025-01-11 09:43 | NUR ---
Held lovenox dose d/t bloody inder drain output. aware.
--- NOTE | 2025-01-11 10:32 | DS ---
Discharge Summary Hospital Course Summary: The patient initially admitted to the hospital with the following history of the present illness: Date of service: 12/28/2024 patient was seen in ER room two This is a 59-year-old male with underlying history of hypertension, morbid obesity, hyperlipidemia, obstructive sleep apnea, history of Ray-Parkinson- White syndrome, coronary artery disease with prior history of ID, who presented to the ER for further evaluation of generalized malaise, poor oral intake, diaphoresis and shortness of breadth. Symptoms have been ongoing for the past three days and has been progressive. Patient has been having nonresolving shortness of breath with no associated chest pain or pleurisy. Denies any productive cough, syncope/presyncope, wheezing or chest congestion. Denies having subjective fevers. Patient has been having malaise and has been having some generalized weakness. Denies recent travel or significant lower extremity swelling. Patient reports that he is followed by Dr. Gonzalez with Cardiology as outpatient. He has not seen Dr. Gonzalez for more than 10 years. Patient has underlying history of coronary artery disease and previously has had ID in 2007. He has had of multiple cardiac stents previously. Also reports having history of Blcug-Rnlmxrgsm-Hidke syndrome and has had two prior cardiac ablation done with last one being in 2014. Prior to getting ill, patient denied having exertional chest pain or significant cardiac symptoms. Patient reports having poor oral intake with episodes of nausea and vomiting. Denies any diarrhea. Denies any significant abdominal pain. On presentation to the hospital, patient was noted to be diaphoretic w/ T-max of 99.3 F, heart rate of 128, blood pressure of 110/74 and patient was needing 3 L of O2 supplementation by nasal cannula. [place] [address], hemoglobin 15.7, platelet count of 184603. BMP remarkable for sodium of 132, potassium 4.1, CO2 of 28, BUN of 28, creatinine 1.8, cardiac troponin was noted to be at 182 and 189. Chest x-ray showed no significant infiltrates. Patient we will be admitted to hospitalist service. Consultation with Cardiology will be requested rule out active ACS. Patient will also undergo further evaluation to rule out DVT/PE. Patient will receive IV fluids, IV antibiotics, and we will rule out occult sepsis as well. Monitor this patient closely and prognosis remains guarded, anticipate hospitalization for at least 48-72 hours. Hospital course Follow up visit for a 59-year-old male admitted to the hospital for acute hypoxemic respiratory failure, community-acquired pneumonia, non-STEMI, acute pancreatitis. Patient remains on IV doxycycline, IV Zosyn under ID direction. Cultures in process. Currently saturating adequately on room air. Patient initiated on diet, tolerating well, no reports of abdominal pain. Serum lipase improved from 497-175. 2D echo has been performed, report pending. He has brain MRI on admission did show acute infarct in the right basal ganglia similar to the CT brain dated 12/28/2024. Patient at this time reveals no focal deficit s. 12/30/2024: Over the past 24 hours no major events reported. Patient remains on IV doxycycline, IV Zosyn under ID direction. He is saturating adequately on room air. Continues to be followed by pulmonology team requesting 6 minute walk test prior to discharge. Patient reports no neuro deficits at this time, being followed closely by Neurology, remains on aspirin statins. Patient denies abdominal pain nausea or vomiting. He is tolerating diet. 2D echo EF 60-65%. Morning labs potassium 3.3, for which he received replacement. 12/31/2024: Patient remains on IV Zosyn IV doxycycline under ID direction. Cultures are in process. Patient currently saturating adequately on room air. He does continue to use CPAP at night. Continues to be followed by pulmonology team. Morning labs reviewed. 01/01/2025: Patient has been noted with episodes of fever, max temp of 102.9. Patient remains on IV doxycycline, IV Zosyn under ID direction. Patient denies chest pain, shortness of breath, nausea vomiting diarrhea. Morning labs reviewed. 01/02/2025: Patient's morning continued to spike fever, max temp of 101.3. Patient remains on IV Zosyn doxycycline under ID direction. Flu a and B and COVID swabs negative. No leukocytosis. CXR showing left lower lobe pneumonia, no significant interval change. 01/03/25 patient was seen by nurse practitioner and physician in room 228. Patient was evaluated by the investment recovery technician and patient denies any chest pain or shortness of breaths, nausea vomiting or abdominal pain. As per recommendation continue patient on IV antibiotics as per ID. No further workout as per investment recovery technician. Patient had a fever of 102.9 on 01/02/2025 at 8:53 p.m. WBC 8.7. Urine culture final negative. Blood culture still pending. Most recent chest x -ray showed mild patchy left lower lobe infiltrate/atelectasis. V/Q scan was ordered due to D-dimer 4865. As per ID continue doxycycline IV and Zosyn IV. Patient is tolerating BiPAP well at night. We will continue to monitor patient in the meantime. A.m. labs 01/04/25 patient was seen by nurse practitioner and physician during rounding in room 228. Patient will receive 40 mEq of potassium. GI was consulted due to severe acute pancreatitis. Labs were ordered as well. Patient also had another fever last night 101.5 and today in the morning of 100.8. Per Infectious Disease doctor discontinue doxy and Zosyn. Patient was started on vancomycin and Merrem. Nephrology continues to monitor patient labs much improved. Neurologist. We will continue to monitor patient in the meantime. A.m. labs 01/05/25 Pt was seen by LAMINATING MACHINE OPERATOR HELPER and physician during rounding. Final blood and urine culture negative. A per ID patient on Vanco and Merrem IV. WBC trending down. No fevers in past 24 hrs. We will continue to monitor patient. We will wait for outpatient abx recommendation per ID. Am labs 01/06/25 patient was seen by nurse practitioner and physician during rounding. Final urine cultures negative. Blood culture negative x4 days. As per GI note from 01/04/2025 continue supportive care with opiate analgesics and antiemetics. Patient's oral intake was resumed and patient is on cardiac diet. We will order CT with IV contrast as recommended after48 hours of IV fluids we will assess for necrosis. Patient is tolerating diet at this moment no need for nasal jejunal tube feeds need for TPN. As per ID continue vancomycin and Merrem. No fevers [id number] hours. WBC 6.7. Electrolytes within normal limits. We will continue to monitor patient in the meantime. A.m. labs 01/07/25 Patient is 59 years old male who came to emergency department with a complaint of respiratory failure, pneumonia, non-STEMI and acute pancreatitis. Serum lipase on admission 497. Patient was 1st started on doxycycline and Zosyn. ID once consulted for IV antibiotics. 2D echo was performed showed EF of 60 65%. Due to confusion we also performed CT head brain which was negative and MRI brain showed acute infarct in the right basal ganglia similar to the CT brain dated 12/28/2024. Neurologist was consulted. Electrolytes were replaced throughout the hospitalization due to sleep apnea patient was on CPAP at night and pulmonology team was following the patient. On 01/01/2025 patient had a fever of 102.9 and remain under IV antibiotics as directed by ID. Flu a, flu B and COVID swabs were negative. Chest x-ray showed left lower lobe pneumonia but no significant interval change. Due to shortness of breaths and chest pain that patient developed 01/03/2025 patient was evaluated by the investment recovery technician and per his recommendation no further cardiac workup to be performed. Final urine culture were negative final blood culture negative. Since the patient continue to have fevers antibiotics were changed by ID to vanco and Merrem. Due to abdominal pain/acute pancreatitis patient was also evaluated by the GI and as per GI note continue supportive care with opiate analgesics and antiemetics. Patient's oral intake was resumed and patient is on cardiac diet. We will order CT with IV contrast as recommended after48 hours of IV fluids we will assess for necrosis. CT abdomen with IV contrast was ordered. Floor Associate signed off follow-up in two weeks. As per ID patient was cleared to be discharged home on levofloxacin 700 mg daily times 10 days and Augmentin 875 mg b.i.d. times 10 days. Patient was also cleared by the cnc mill programmer follow up outpatient within two weeks. As per innovations paraprofessional follow up outpatient within two weeks. And also as per neurologist follow-up outpatient within two weeks. Patient was also advised to follow up with the PCP in 2 to 3 days. RN to contact GI and ask if patient is cleared since patient is tolerating all the food and fluid intake. Patient denies any shortness of breath, chest pain, nausea, vomiting or abdominal pain. Patient to follow up with the GI as indicated. 01/08/25 patient was seen by nurse practitioner and physician during rounding in room 228. CT abdomen with IV contrast revealed acute pancreatitis and acute cholecystitis. Patient is asymptomatic. Surgeon was consulted. HIDA performed and showed as well acute cholecystitis. As per surgeon patient has a many comorbidities including prolonged hospitalization due to ischemic strokes x2, acute respiratory failure morbid obesity and Coronary Artery Disease. Patient is asymptomatic and has been tolerating clear liquid diet without any nausea or vomiting. Surgical team does not recommend cholecystectomy surgery at this moment. Patient will undergo IR to place cholecystectomy drain. Elective outpatient cholecystectomy surgery can be planned in the future once patient other medical condition has stabilized. Cardiac clearance pending. May advance diet as tolerated and NPO after midnight for IR procedure. Continue antibiotics vancomycin and Merrem as prescribed by ID. We will continue to monitor patient in the meantime. A.m. labs. 01/09 patient is seen and examined at bedside, case discussed with the RN, patient remains admitted to the PCU. Oriented x3, hemodynamically stable, afebrile, saturating normal on room air, denied chest pain, shortness shortness for breath, no nausea, no vomiting. CT abdomen with IV contrast revealed acute pancreatitis and acute cholecystitis. Patient is asymptomatic. Denies nausea, no vomiting, no abdominal discomfort. Currently NPO,Surgical team does not recommend cholecystectomy surgery at this moment. Patient will undergo IR to place cholecystectomy drain. 01/10 patient is seen and examined at bedside, case discussed with the RN, patient remains admitted to the PCU, currently the patient is scheduled to get cystostomy tube placement by intervention radiologist today. Patient getting broad-spectrum IV antibiotics at the time of my visit. Patient alert oriented x3. He looks mildly edematous, BP 127/79, saturating normal on room air, hemoglobin 10.2, hematocrit 30.3, sodium level 132, BUN of 16, creatinine 1.1. We will place the patient on furosemide 20 mg IV b.i.d.. Monitor sodium level in a.m., replace electrolytes IV per protocol, discussed with the patient, all questions answered, in agreement. 01/11 patient underwent successful cholecystostomy tube placement by intervention radiologist 01/10/2025, tolerated procedure well, alert oriented x3 at the time of my visit. Discharge plan discussed with case management, patient accepted to [facility] for continuation of medical care. Assessment/Plan: Final diagnosis 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 Acute hypoxemic respiratory failure, POA Community-acquired pneumonia, POA Undiagnosed obstructive sleep apnea Acute diastolic congestive heart failure as per 2D echo Elevated cardiac troponin, rule out active ACS, POA acute pancreatitis likely 2/2 gall stones Acute Kidney injury, POA Hyponatremia, POA Morbid obesity, POA Sinus tachycardia, POA Thrombocytopenia, POA, mild Underlying history of obstructive sleep apnea, POA Hypertension, POA Hyperlipidemia, POA History of ID, POA History of coronary artery disease with prior history of PCI, POA History of Piqje-Tsqelyszh-Umknk syndrome with prior history of cardiac ablation, POA History of depression, POA Prior history of gastric bypass surgery, POA Hx of fatty liver diesease, POA Cholelithiasis, POA Discharge Instructions: Patient to be discharged to [facility] for continuation of medical care, return to the hospital if condition changes, patient alert oriented x3, agreed and understood the information provided Time spent arranging discharge: 31-60 minutes MAINOR KENNEDY MD Jan 11, 2025 10:32
--- NOTE | 2025-01-11 13:37 | NUR ---
Called Gisele to give report. [phone] - nurse busy rounding with MDs. 1338 - nurse busy, rounding with MDs. Spoke with Yisel.
--- NOTE | 2025-01-11 14:36 | NUR ---
Gave report to nurse Campbell at [facility]. All questions answered.
--- NOTE | 2025-01-11 14:39 | NUR ---
EMS called at this time.
--- NOTE | 2025-01-11 15:38 | NUR ---
CRISELDA ROTH AWARE OF DR. THOMPSON ORDER FOR CANAL DRIVER PROCEDURE CHOLECYSTOGRAM, PER GONZALEZ OKAY TO DC PATIENT. PER DR. THOMPSON REQUEST LAUREN FROM CANAL DRIVER NOTIFIED OF PROCEDURE, ORDER WELL FAXED TO SCHEDULING. DR. KENNEDY AWARE, PATIENT OKAY TO BE DC.
--- NOTE | 2025-01-11 15:42 | NUR ---
PATIENT BEING DISCHARGED TO [facility]. EMS PICKED UP PATIENT AT THIS TIME.
--- NOTE | 2025-01-11 16:29 | NUR ---
Nutrition consult per LOS >7 Reviewed labs, notes, and medications. Pt s/p cholecystectomy tube, pending d/c solara, on CLD 01/09/25, <25%PO intake since admin, b-complex, IV abx, lasix, Na 133(L), Ca 8.1(L), elevated AST and CRP, CO2 31(L) per chart review. 0%PO intake, wt via standing scale, inconsistent wts, last BM 01/08/25, no wounds, no edema, well nourished, 100 ml balance 01/10/25 per nursing. Consider alternate means of nutrition due to poor po intake since admin. Advance diet when medically feasible. Recommendations: -Provide CLD + ensure clear TID w/ trays while Pt on CLD -Monitor PO intake -Encourage PO intake as able -If poor PO intake continues consider appetite stimulant -Monitor BM -If no BM >3 days consider stool softener -Monitor electrolytes -Replenish electrolytes per protocol -Monitor wts -Reweigh as able -Order Vit D, vit b-12 labs to rule out deficiencies -Provide MVI and b-complex QD -Texture per CLIENT REPORTING ASSOCIATE recs -Recommend Pt to follow up with PCP -Monitor goals of care RD to follow + available for consult per protocol Addendum: 01/11/25 at [address] Amended: Links added.
--- NOTE | 2025-01-11 19:12 | PN ---
FOLLOWUP PROGRESS NOTE A 59-year-old male with a history of sleep apnea and he presented with renal dysfunction and significant hyponatremia. The patient was found to have acute cholecystitis, status post cholecystectomy tube placement. The patient continues with the antibiotics. The patient's renal function has stabilized while in the hospital and he is being seen as a followup visit for all of the above. REVIEW OF SYSTEMS: GENERAL: He is feeling weak and tired. HEENT: No change in vision. No change in hearing. CARDIOVASCULAR: There is no current chest pain or palpitations. PULMONARY: He has chronic shortness of breath. GASTROINTESTINAL: He is tolerating diet. MUSCULOSKELETAL: Complains of weakness. PHYSICAL EXAMINATION: VITAL SIGNS: Blood pressure is 140/65, pulse 90, he is afebrile. GENERAL: Chronically ill male, older than appearing. HEENT: Head is atraumatic. Pupils are equal, round, and reactive to light. Oropharynx is without exudate. Nares are clear. NECK: There is no JVP. There is no thyromegaly. No mass. CARDIOVASCULAR: Regular. There is no S3 or S4 gallop. LUNGS: Coarse with equal thoracic movement. ABDOMEN: Soft, nondistended, nontender. EXTREMITIES: No clubbing, no cyanosis. NEUROLOGICAL: He is awake. He is alert. LABORATORY DATA: Sodium 133, potassium 4.3, BUN 17, creatinine 1, hemoglobin 10 and hematocrit 30. IMPRESSION: 1. Acute cholecystitis, status post cholecystectomy tube. 2. Renal dysfunction. 3. Hyponatremia. 4. Sleep apnea. PLAN: The patient is now status post cholecystectomy tube placement. The patient remains on the broad-spectrum IV antibiotics. Serum sodium has remained stable. He is encouraged to continue with fluid restriction. The patient is being seen by case management for final disposition, which will be the LT[facility]. He is encouraged with the compliance. We will follow closely. TID: [id number] RECEIPT: [id number]
--- NOTE | 2025-01-11 22:34 | PN ---
INFECTIOUS DISEASE PROGRESS NOTE Date of Service: Jan 11, 2025 SUBJECTIVE: This is a 59 year old male patient who was seen today at bedside in room 228. Patient is s/p CT-guided cholecystotomy drain placement. The drainage bag is having moderate amount of hematuria. Before procedure hemoglobin remained stable. Patient continues with low-grade fevers. Currently remains on vancomycin and Meropenem. No reports of nausea nor vomiting. Per report patient has been approved to [facility] and being discharged today. PHYSICAL EXAM EYES: Anicteric. Pupils equal and reactive. HENT: No oral thrush seen, moist Oral mucosa. NECK: Supple, no JVD or thyromegaly. LUNGS: diminished. No wheezing or rhonchi CARDIOVASCULAR: S1, S2 regular. No murmur heard. ABDOMEN: Soft, non tender, bowel sounds present, no organomegaly. Abdominal pain POA. CENTRAL NERVOUS SYSTEM: Awake, alert, oriented x 3. SKIN: No rashes, no swelling. LYMPHATICS: No peripheral lymphadenopathy. MUSCULOSKELETAL: No joint swelling, erythema or tenderness. EXTREMITIES: No cyanosis or clubbing. BACK: No deformity, no pressure ulcer. GENITOURINARY: No dysuria or hematuria. Vital Sign (Last 12 Hours) 01/11/25 01/11/25 01/11/25 11:00 14:07 14:08 Temp 99.0 Pulse 95 100 100 Resp 24 21 18 B/P (MAP) 135/71 Pulse Ox 95 O2 Delivery Room Air N/A Room Air FiO2 21 Intake & Output (last 24hrs) 01/10/25 01/10/25 01/11/25 15:00 23:00 07:00 Intake Total 316.6 ml 1099.9 ml 383.2 ml Output Total 700 ml 1090 ml Balance 316.6 ml 399.9 ml -706.8 ml LABS: Laboratory: Test 01/11/25 04:18 01/10/25 08:51 01/10/25 01:06 Range/Units White Blood Count 5.3 4.8-10.8 K/uL Red Blood Count 3.80 L 4.50-6.20 MIL/uL Hemoglobin 10.4 L 14.0-18.0 g/dL Hematocrit 30.1 L 42-54 % Mean Corpuscular Volume 79.2 79-99 fL Mean Corpuscular Hemoglobin 27.4 27.0-33.0 pg Mean Corpuscular Hemoglobin Concent 34.6 32.0-36.0 g/dL Red Cell Distribution Width 17.2 H 11.0-15.5 % Platelet Count 201 130-400 K/uL Mean Platelet Volume 11.1 H 7.5-10.5 fL Nucleated Red Blood Cells 0.0 0.0-0.19 % Sodium Level 133 L 136-145 mmol/L Potassium Level 4.3 3.5-5.1 mmol/L Chloride Level 98 L 101-111 mmol/L Carbon Dioxide Level 28 21-32 mmol/L Blood Urea Nitrogen 17 7-18 mg/dL Creatinine 1.0 0.5-1.3 mg/dL Glomerular Filtration Rate Calc 87 >90 mL/min Random Glucose 86 70-105 mg/dL Total Calcium 8.1 L 8.5-10.1 mg/dL Magnesium Level 2.00 1.80-2.40 mg/dL Total Bilirubin 0.8 0.2-1.0 mg/dL Aspartate Amino Transf (AST/SGOT) 67 H 10-37 U/L Alanine Aminotransferase (ALT/SGPT) 62 12-78 U/L Alkaline Phosphatase 117 50-136 U/L Total Protein 6.4 6.0-8.3 g/dL Albumin 1.7 L 3.5-5.0 g/dL Prothrombin Time 11.4 9.6-11.6 SEC Prothromb Time International Ratio 1.08 0.85-1.15 Activated Partial Thromboplast Time 31.5 26.3-35.5 SEC Vancomycin Level Trough 13.8 # 10.0-20.0 UG/ML ASSESSMENT: Acute cholecystitis, s/p CT-guided cholecystostomy drain placement. Acute pancreatitis. Pneumonia. Persistent fevers. Sepsis. Leukocytosis, resolved. Acute renal failure, improving. Acute nonhemorrhagic stroke. Rhabdomyolysis. History of coronary artery disease. PLAN: Continue vancomycin per pharmacy protocol. Continue Meropenem IV. Continue bronchodilators. Avoid nephrotoxic medications. Patient has been approved to [facility] and being discharged today. This case was reviewed and discussed with my supervising physician Dr. Rasmussen and the above assessment and plan was formulated and agreed upon. ATTESTATION BY PHYSICIAN I have seen and examined the patient. I reviewed the documentation, medical decision making, and treatment plan as noted by the mid-level provider above. I agree with the findings and plan of care. KARIE RASMUSSEN MD, MIRTA L [facility] Jan 11, 2025 22:34
== END 2025-01-11 15:40 | DRG 871 ==
LOC: EDH 09:34 → EDHIP 11:40 → 2DH 15:36
PROVIDERS: ADMIT Internal Medicine; ATTEND Internal Medicine
PROC: 5A09357 Assistance with Respiratory Ventilation, Less than 24 Consecutive Hours, Continuous Positive Airway Pressure (ICD-10-PCS; 2024-12-28)
PROC: 5A09357 Assistance with Respiratory Ventilation, Less than 24 Consecutive Hours, Continuous Positive Airway Pressure (ICD-10-PCS; 2024-12-28)
PROC: 5A09357 Assistance with Respiratory Ventilation, Less than 24 Consecutive Hours, Continuous Positive Airway Pressure (ICD-10-PCS; 2024-12-30)
PROC: 5A09357 Assistance with Respiratory Ventilation, Less than 24 Consecutive Hours, Continuous Positive Airway Pressure (ICD-10-PCS; 2025-01-02)
PROC: 5A09357 Assistance with Respiratory Ventilation, Less than 24 Consecutive Hours, Continuous Positive Airway Pressure (ICD-10-PCS; 2025-01-04)
PROC: 5A09357 Assistance with Respiratory Ventilation, Less than 24 Consecutive Hours, Continuous Positive Airway Pressure (ICD-10-PCS; 2025-01-06)
PROC: 5A09357 Assistance with Respiratory Ventilation, Less than 24 Consecutive Hours, Continuous Positive Airway Pressure (ICD-10-PCS; 2025-01-07)
PROC: 0F9430Z Drainage of Gallbladder with Drainage Device, Percutaneous Approach (ICD-10-PCS; principal; 2025-01-09)
DX: A41.9 Sepsis, unspecified organism (principal); I21.4 Non-ST elevation (NSTEMI) myocardial infarction; I63.89 Other cerebral infarction; J18.9 Pneumonia, unspecified organism; J96.01 Acute respiratory failure with hypoxia; I50.33 Acute on chronic diastolic (congestive) heart failure; K85.80 Other acute pancreatitis without necrosis or infection; E87.1 Hypo-osmolality and hyponatremia; N17.9 Acute kidney failure, unspecified; Z68.43 Body mass index [BMI] 50.0-59.9, adult; I13.0 Hypertensive heart and chronic kidney disease with heart failure and stage 1 through stage 4 chronic kidney disease, or unspecified chronic kidney disease; K80.00 Calculus of gallbladder with acute cholecystitis without obstruction; J98.11 Atelectasis; M62.82 Rhabdomyolysis; R18.8 Other ascites; D69.6 Thrombocytopenia, unspecified; Z20.822 Contact with and (suspected) exposure to COVID-19; E66.01 Morbid (severe) obesity due to excess calories; E78.00 Pure hypercholesterolemia, unspecified; E86.0 Dehydration; G47.33 Obstructive sleep apnea (adult) (pediatric); E11.22 Type 2 diabetes mellitus with diabetic chronic kidney disease; E87.6 Hypokalemia; I25.10 Atherosclerotic heart disease of native coronary artery without angina pectoris; I45.6 Pre-excitation syndrome; K59.00 Constipation, unspecified; F32.A Depression, unspecified; K75.9 Inflammatory liver disease, unspecified; R65.20 Severe sepsis without septic shock; N18.9 Chronic kidney disease, unspecified; R29.700 NIHSS score 0; I25.2 Old myocardial infarction; Z95.5 Presence of coronary angioplasty implant and graft; Z98.84 Bariatric surgery status; Z63.4 Disappearance and death of family member; Z79.82 Long term (current) use of aspirin; Z79.899 Other long term (current) drug therapy; Z86.73 Personal history of transient ischemic attack (TIA), and cerebral infarction without residual deficits; Z90.49 Acquired absence of other specified parts of digestive tract
CPT/HCPCS: 10030; 36415; 36556; 36600; 47490; 70450; 70544; 70547; 70551; 71045; 71270; 74177; 74178; 76700; 76705; 77012; 78226; 78582; 80048; 80053; 80061; 80076; 80202; 80305; 81001; 82140; 82150; 82435; 82550; 82570; 82803; 82947; 82948; 83036; 83605; 83615; 83690; 83735; 83880; 84100; 84132; 84145; 84295; 84300; 84443; 84484; 85018; 85025; 85027; 85378; 85610; 85651; 85730; 86140; 86738; 86850; 86900; 86901; 87040; 87071; 87086; 87205; 87426; 87449; 87635; 87804; 92522; 92610; 93005; 93306; 93356; 93970; 94640; 94660; 94664; 96374; 99156; 99157; 99291; A9537; A9540; A9558; C1894; G0378; J1644; J1650; J1938; J2185; J2250; J2543; J3010; J3411; J3480; J3490; J7030; Q9967; A4216; C1729; C1751; J1308; J3370; J3375

== ENCOUNTER 2025-01-16 06:58 | Day surgery (SDC) | payer SELFPAY ==
[~2025-01-16 06:58] MED LIST: AMOX1TAB16 PO; ASPI-1005 PO; ATOR40TA69 PO; FAMO40TA7 PO; Folic Acid/Vitamin B Comp W-C PO; LEVO750T90 PO; METO25TA3 PO; THIA100T91 PO
[2025-01-16 07:41] VITALS: BP 144/86; PULSE 109; RESP 24; TEMP 97.7
[2025-01-16] MEDS ORDERED: [UNRECOGNIZED DRUG - OTHER] PO (10:53)
[2025-01-16] MEDS ORDERED: MAGN400T51 PO (10:53)
[2025-01-16] MEDS ORDERED: GLUC1VIA20 IJ (10:53)
[2025-01-16] MEDS ORDERED: ACET650S14 RC (10:53)
[2025-01-16] MEDS ORDERED: LACT-441 PO (10:53)
[2025-01-16] MEDS ORDERED: POTA20PA32 PO (10:53)
[2025-01-16] MEDS ORDERED: DEXT-24 IV (10:53)
[2025-01-16] MEDS ORDERED: IPRA3AMP24 IH (10:53)
[2025-01-16] MEDS ORDERED: FUROSEMIDE (10:53)
[2025-01-16] MEDS ORDERED: NITR0.4T50 SL (10:53)
[2025-01-16] MEDS ORDERED: ONDA-104 PO (10:53)
[2025-01-16] MEDS ORDERED: FAMO20TA8 PO (10:59)
[2025-01-16] MEDS ORDERED: VITA1CAP85 PO (10:59)
[2025-01-16] MEDS ORDERED: ENOX40DI8 SQ (10:59)
[2025-01-16] MEDS ORDERED: IOHEXOL-350 50ML VIAL IV ONE (11:03)
[2025-01-16] MEDS ORDERED: LIDOCAINE HCL 400MG/20ML VIAL ONE (11:03)
[2025-01-16] MEDS ORDERED: HEParin-NS 1,000 UNIT/500 ML 500 ML IV ONE (11:03)
--- NOTE | 2025-01-16 11:26 | OP ---
DATE OF PROCEDURE: 01/16/2025 STUDY: Cholecystogram. HISTORY: This is a 59-year-old gentleman who had undergone CT cholecystotomy tube for checking of the catheter. DESCRIPTION OF PROCEDURE: After sterile prep and drape, through the existing cholecystotomy tube contrast was injected. The gallbladder demonstrated multiple large filling defects suggesting of multiple gallstones. The cystic duct, the common bile duct appeared to be patent and the contrast readily entered the duodenum. IMPRESSION: 1. The cholecystotomy tube is in satisfactory position. 2. Multiple filling defects seen in the gallbladder suggesting of large stones. 3. The cystic duct and the common bile duct appear to be patent. TID: [id number] RECEIPT: [id number]
[2025-01-16 11:30] VITALS: BP 128/82; PULSE 111; RESP 20; TEMP 97.2
--- NOTE | 2025-01-16 11:30 | NUR ---
POST CATH-LAB ANTERIOR ABDOMEN RIGHT UPPER QUADRANT DRESSING DRY AND INTACT. NO REDNESS OR SWELLING, NO ACTIVE BLEEDING TO DRESSING. MERIT BAG YELLOW DRAINAGE NOTED. SITE SOFT TO TOUCH. DRAINAGE BAG INTACT AND CONNECTED.
[2025-01-16 11:45] VITALS: BP 132/87; PULSE 107; RESP 22
[2025-01-16 12:00] VITALS: BP 143/91; PULSE 102; RESP 22
--- NOTE | 2025-01-16 12:02 | NUR ---
TELEPHONE/VERBAL REPORT GIVEN TO ALESSANDRO PAREDES AT [facility].
[2025-01-16 12:15] VITALS: BP 132/79; PULSE 102; RESP 24; TEMP 97.6
[2025-01-16 12:25] VITALS: BP 126/76; PULSE 110; RESP 22; TEMP 97.6
== END 2025-01-16 12:28 | disposition home or self-care (01) ==
LOC: CLH 06:58
PROVIDERS: ATTEND Nurse Practitioner Family
DX: K80.10 Calculus of gallbladder with chronic cholecystitis without obstruction (principal); I25.10 Atherosclerotic heart disease of native coronary artery without angina pectoris; I10 Essential (primary) hypertension; E78.5 Hyperlipidemia, unspecified; G47.33 Obstructive sleep apnea (adult) (pediatric); I25.2 Old myocardial infarction; F32.A Depression, unspecified; Z82.49 Family history of ischemic heart disease and other diseases of the circulatory system
CPT/HCPCS: 47531; 82948; J3490; J1644; Q9967; A4606

== ENCOUNTER 2025-03-29 06:46 | Day surgery (SDC) | payer BC ==
[2025-03-28 10:38] LABS: IMMATURE GRANULOCYTE ABSOLUTE 0.01 K/uL (0-1); NUCLEATED RED BLOOD CELLS 0.0 % (0.0-0.19); PLATELET COUNT (AUTO) 189 K/uL (130-400); RED BLOOD CELL COUNT(AUTO) 4.29 MIL/uL (4.50-6.20); RED CELL DISTRIBUTION WIDTH 15.5 % (11.0-15.5); WHITE BLOOD COUNT (AUTO) 4.4 K/uL (4.8-10.8)
[2025-03-28 10:48] LABS: INR 1.03 (0.85-1.15)
[2025-03-28 10:52] VITALS: BP 121/69; PULSE 76; RESP 18; TEMP 97.9
[2025-03-28 11:00] LABS: CREATININE 1.0 mg/dL (0.5-1.3); GLOMERULAR FILTR. RATE CALC 86.0 mL/min (>90); GLUCOSE,RANDOM 124.0 mg/dL (70-105); SODIUM SERUM 138.0 mmol/L (136-145); UREA NITROGEN, BLOOD 13.0 mg/dL (7-18)
[~2025-03-29] VITALS: Ht 172.7 cm; Wt 134.1 kg
[2025-03-29 06:50] VITALS: BP 124/74; PULSE 83; RESP 15; TEMP 97.8
[2025-03-29] MEDS ORDERED: 0.9%NACL 1000ML 1,000 ML IV ONE (07:40)
[2025-03-29] MEDS ORDERED: IOHEXOL-350 50ML VIAL IV ONE (10:01)
[2025-03-29] MEDS ORDERED: LIDOCAINE HCL 1% 20 ML VIAL ONE (10:01)
[2025-03-29 10:40] VITALS: BP 134/72; PULSE 79; RESP 15; TEMP 97.3
[2025-03-29 10:55] VITALS: BP 127/69; PULSE 79; RESP 15
--- NOTE | 2025-03-29 11:00 | CCATH ---
STUDY: Cholecystogram. HISTORY: This is a 60-year-old male with a cholecystostomy tube for checks. The study demonstrates under fluoroscopy guidance. PROCEDURE: The study demonstrates under sterile technique, a cholecystostomy tube in satisfactory position. Contrast was injected. The study demonstrated the gallbladder has filling defects suggesting a stone. The gallbladder, otherwise, the wall thickness appears to be normal. The cystic duct, the common hepatic duct, the common bile duct, and the biliary radicals appear to be patent. The contrast readily empties in the duodenum. IMPRESSION: 1. The cholecystotomy tube in satisfactory position in the gallbladder lumen. 2. The cystic duct, the biliary radical, common hepatic duct, and common bile duct appear to be patent. 3. The catheter was secured with a 3-0 silk suture and connected to a drainage bag. TID: [id number] RECEIPT: [id number]
[2025-03-29 11:10] VITALS: BP 130/72; PULSE 79; RESP 15
[2025-03-29 11:25] VITALS: BP 126/78; PULSE 79; RESP 18
[2025-03-29 11:45] VITALS: BP 126/75; PULSE 79; RESP 18; TEMP 79
== END 2025-03-29 11:40 | disposition home or self-care (01) ==
LOC: DAH 06:46
PROVIDERS: ATTEND Surgery
DX: K80.10 Calculus of gallbladder with chronic cholecystitis without obstruction (principal); I25.10 Atherosclerotic heart disease of native coronary artery without angina pectoris; K76.0 Fatty (change of) liver, not elsewhere classified; I10 Essential (primary) hypertension; E78.5 Hyperlipidemia, unspecified; F41.9 Anxiety disorder, unspecified; F32.A Depression, unspecified; Z86.73 Personal history of transient ischemic attack (TIA), and cerebral infarction without residual deficits; Z79.899 Other long term (current) drug therapy; Z98.890 Other specified postprocedural states
CPT/HCPCS: 80048; 85025; 85610; 85730; 36415; 47531; A4223 ×3; J7030; Q9967; A4215; A4222; A4221; A4663; A4216; A4606